=== PATIENT | female | born 1960 | race Caucasian/White ===

== ENCOUNTER 2019-08-27 09:24 | Outpatient (CLI) | payer MEDICARE, MEDICAID, SELFPAY ==
[2019-08-27 10:26] LABS: Basophils # 0.1 10^3/uL (0.0-0.1); Basophils % 1.5 %; Eosinophils # 0.5 10^3/uL (0.0-0.8); Eosinophils % 7.9 %; Hematocrit 38.8 % (37.0-47.0); Hemoglobin 12.6 g/dL (11.5-15.3); Lymphocytes # 1.4 10^3/uL (0.8-4.8); Lymphocytes % 24.1 %; Mean Corpuscular HGB Conc 32.5 g/dL (30.0-36.0); Mean Corpuscular Hemoglobin 30.3 pg (28.0-34.0); Mean Corpuscular Volume 93.3 fL (81-99); Mean Platelet Volume 12.6 fL (7.4-10.4); Monocytes # 0.5 10^3/uL (0.2-0.9); Monocytes % 9.1 %; Neutrophils # 3.3 10^3/uL (1.8-7.7); Neutrophils % 57.1 %; Nucleated Red Blood Cells % 0 %; Platelet Count 174 10^3/cmm (130-400); Red Blood Count 4.16 10^6/uL (4.1-5.3); Red Cell Distribution Width 14.8 % (12.1-15.1); White Blood Count 5.9 10^3/uL (4.0-10.0)
[2019-08-27 10:48] LABS: Alanine Aminotransferase 21 U/L (0-33); Albumin Level 3.7 g/dL (3.5-5.2); Alkaline Phosphatase 94 IU/L (35-105); Anion Gap 14.1 (5-19); Aspartate Amino Transferase 25 U/L (0-32); Blood Urea Nitrogen 14 mg/dL (6-20); Calcium 9.5 mg/dL (8.5-10.5); Carbon Dioxide 28 mmol/L (22-29); Chloride 100 mmol/L (98-107); Globulin 3.1 g/dL (1.3-4.6); Glomerular Filtration Rate 64.1 mL/min (90-130); Glucose 111 mg/dL (74-109); Potassium 4.1 mmol/L (3.5-5.1); Sodium 138 mmol/L (136-145); Total Bilirubin 0.4 mg/dL (0.15-1.2); Total Protein 6.8 g/dL (6.6-8.7)
[2019-08-27 11:06] LABS: Slide Review Slide Review Perform
[2019-08-28 09:07] LABS: PROTEIN, TOTAL 5.2 g/dL (6.1-8.1)
[2019-08-28 14:26] LABS: ALBUMIN 3.1 g/dL (3.8-4.8); ALPHA 1 GLOBULIN 0.2 g/dL (0.2-0.3); ALPHA 2 GLOBULIN 0.5 g/dL (0.5-0.9); BETA 1 GLOBULIN 0.4 g/dL (0.4-0.6); BETA 2 GLOBULIN 0.3 g/dL (0.2-0.5); GAMMA GLOBULIN 0.7 g/dL (0.8-1.7)
[2019-08-28 14:56] LABS: KAPPA LIGHT CHAIN, FREE, SERUM 30.1 mg/L (3.3-19.4); KAPPA/LAMBDA LIGHT CHAINS FREE 1.51 (0.26-1.65); LAMBDA LIGHT CHAIN, FREE, SERU 19.9 mg/L (5.7-26.3)
[2019-08-30 20:01] LABS: Anti-Cardiolipin IgA AB <11 APL (<=11); CARDIOLIPIN AB (IGG) <14 GPL (<=14); CARDIOLIPIN AB (IGM) <12 MPL (<=12)
== END 2019-08-27 09:25 | disposition home or self-care (01) ==
LOC: ONCMED 09:25
PROVIDERS: Family Provider Family Medicine; PCP Family Medicine; Visit Provider Internal Medicine Medical Oncology
DX: C90.00 Multiple myeloma not having achieved remission (principal)
CPT/HCPCS: 80053; 83883; 84155; 84165; 85025; 86147

== ENCOUNTER 2019-09-03 08:38 | Outpatient (CLI) | payer MEDICARE, MEDICAID, SELFPAY ==
[2019-09-03] MEDS: sodium chloride 0.9% 250 ML IV (09:44)
--- NOTE | 2019-09-03 19:32 | ONC FU_ITS ---
Dr. Edmond Patient Follow-Up Note Patient: Christina Willard Unit #: [id number]: 1960 Dicatated By: Samy Edmond M.D.Date of Visit:Sep 03, 2019 Onc Med Follow-up/Prog Note Chief Complaint: Myeloma. History of Present Illness: This is a 58 year-old woman with IgG kappa myeloma. She had been found to have a monoclonal protein in the serum in May of 2011. Protein electrophoresis at that time showed an IgG kappa monoclonal band which quantitated at 1.80 g/dL. The free light chain assay showed a significantly elevated free kappa light chain at 541 mg/L. The beta 2 microglobulin level was just slightly elevated at 3.0 mg/L. There is no monoclonal protein in the urine, and there were no lytic lesions noted on her skeletal survey. Bone marrow aspiration/biopsy in June of 2011 did show evidence of a plasma cell dyscrasia with plasma cells estimated at 10% of the marrow cellularity. The FISH panel for myeloma showed a gain at 9Q34 and at 15Q24. A PET/CT in August 2011 showed a heterogeneous pattern of increased FDG uptake by the bone marrow suspicious for disseminated involvement of multiple myeloma. There were no discrete osteolytic lesions identified. She was evaluated at [facility] in September of 2011. 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 In October 2012 she was found to have lytic bone involvement in the spine, and at that point she began treatment in Revlimid/dexamethasone. She had multiple toxicities during the first cycle with the Revlimid dosed at 25 mg. Beginning with cycle 2 the dosage was reduced to 10 mg, and she then tolerated it well. She had a good response by followup protein electrophoresis. As of February 2013 she had completed 5 cycles of treatment. 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 On a follow-up visit at [facility] in July 2013, her repeat bone marrow aspiration/biopsy showed no evidence of monoclonal plasmacytosis. Her lab studies, though, did show residual monoclonal protein in the serum, and the serum free light chain assay showed a slightly elevated kappa/lambda ratio. She then started maintenance Revlimid at 5 mg daily. She also continued monthly Zometa infusions for the lytic bone involvement. She tolerated the Zometa infusions adequately with a steroid premedication. By March 2015 she had complained of worsening of her back pain, and she also had reported that her legs tended to give out . A bone scan on 04/07/2015 showed no definite evidence of metastatic disease, but there did appear to be increased compression fractures at T11 and T12 and to lesser extent at L1 compared to previous imaging studies from 2012. She had further evaluation with MRI of the thoracic and lumbar spine on 06/16/2015. That study reported a severe remote compression fracture involving T11 and mild remote compression fracture involving T12, but with no evidence of active neoplastic disease and no evidence of significant spinal canal compromise. There was abnormal signal intensity and enhancement involving the T10 pedicle on the right with an apparent nondisplaced fracture. It was uncertain whether the fracture was pathologic associated with myeloma versus benign insufficiency fracture. Thus far during her follow-up there has been no definite evidence of progression of the myeloma. She has continued her maintenance Revlimid. As of May 2015 the interval of her Zometa infusions was changed to every 3 months. Her other medical illnesses include hypertension, allergic rhinitis, and celiac disease. She is known to have degenerative arthritis and degenerative disc disease in the spine. She has been followed by Dr. Mckeon for multinodular goiter. She did have a thyroid surgery in December 2011. Pathology was consistent with autoimmune thyroiditis. She has since then been seeing an wax bleacher in [place]. I had previously been following her for elevated hemoglobin/hematocrit levels. She had a negative JAK2 gene mutation study, so I had felt that it was unlikely that she had polycythemia rubra vera. She had been phlebotomized occasionally, because she had reported that she felt better with her hematocrit level below 45%. She has been on oxygen at night for nocturnal oxygen desaturation, and she also was confirmed to have obstructive sleep apnea. In August 2012, prior to starting treatment, she was admitted to the hospital with sepsis due to strep pneumoniae. I don't think a specific source for that was determined. She had undergone CT myelogram 9 days prior to the admission and she had a repeat PET/CT just several days before. She had a good recovery following antibiotic therapy, but on subsequent followup she was noted to have a diastolic heart murmur. Transesophageal echocardiogram did show moderate aortic regurgitation, but there were no vegetations noted and her LV function appeared adequate. INTERIM HISTORY: During follow-up she has continued maintenance Revlimid 5 mg daily, and she has continued Zometa infusions every 3 months. There has been no monoclonal protein identifiable on her protein electrophoresis studies. She has had a mildly elevated kappa free light chain on the free light chain assay, but with normal kappa/lambda ratio. She is seen for a scheduled visit. She has not been feeling as good lately, mainly due to increased pain in her back and legs. Her activity is very limited. She is still trying to do some light work at home. Her ECOG score is 2. She still has good appetite. She has no fever, night sweats, or hot flashes. She recently was treated for a sinus infection, but those symptoms are better now. She has shortness of breath with activity. She has not been having chest pain. She has occasional acid reflux. She has no other GI or complaints. She also has some pain in the neck area. She has numbness/tingling in her legs and feet with more prolonged standing. Medications: Aspirin 1 (81 mg) Tablet Oral daily, Atenolol 1 (50 mg) Tablet Oral daily, Azelastine HCl 1 (137 mcg/spray) Solution Nasal PRN, Bisacodyl 5 mg - Take 1 - 2 Tablet, enteric coated Oral daily PRN, Calcium 1 (600 mg) Tablet Oral daily, Dilaudid 2 mg - Take 0.5 Tablet Oral t.i.d. PRN, Flexeril 10 mg - Take 0.5 - 1 Tablet Oral q 8 hours PRN, Flonase 1 spray(s) (of 50 mcg/act) Suspension Nasal daily, Gas-X Extra Strength Take Tablet, chewable Oral PRN, Lasix 1 (20 mg) Tablet Oral daily PRN, levothyroxine 1 (50 mcg) Tablet Oral daily, Levothyroxine Sodium 200 mcg - Take 1 Tablet Oral daily, LORazepam 1 (1 mg) Tablet Oral q 8 hours PRN, Magnesium Tablet Oral PRN, Multivitamin Adult 1 Tablet Oral daily, Nasal [place] Solution Nasal PRN, Olopatadine HCl 1 drop(s) (of 0.2 %) Solution Ophthalmic PRN, Pantoprazole Sodium 1 (40 mg) Tablet, enteric coated Oral daily, Potassium 1 (99 mg) Tablet Oral PRN, Revlimid 1 (5 mg) Capsule Oral daily, traMADol HCl 1 Tablet (of 50 mg) Oral PRN, Tylenol Extra Strength 500 mg - Take 1 Tablet Oral t.i.d. PRN, Ventolin HFA 1 (108 (90 base) mcg/act) Aerosol, solution Inhalation PRN, Vitamin D3 1 (400 Units) Tablet Oral daily Allergies: Codeine-Brompheniramine, gluten, voltaren gel, and Zithromax. Review of Systems: Constitutional - Her energy is not been good. Her activity has been more limited lately due to her back pain. Appetite is still good. She has no fever, night sweats, or hot flashes. ECOG score is 2, ENMT - She had recently seen Dr. Joyner for a sinus infection. Her symptoms have resolved. She has recurring sores in her mouth. She uses salt water rinses. No sore throat or difficulty swallowing, Hematologic/Lymphatic - She bruises easily, Respiratory - She has shortness of breath upon exertion. No cough. No pleuritic pain or hemoptysis, Cardiovascular - No angina pain. No palpitations, Gastrointestinal - No nausea or vomiting. She has some heartburn and acid reflux. No diarrhea or constipation. No blood in the stool or black stools, Genitourinary (F) - No dysuria or hematuria. No urinary frequency. No urgency or incontinence, Musculoskeletal - She has pain in her back and legs and she also has pain in her neck, Integumentary - No skin complications, Neurologic - She has headaches. No dizziness. She has numbness and tingling in her feet when she is on them for a long time, Psychiatric - She has anxiety and depression. She does not sleep well at night. Vital Signs: Performed on Sep 03, 2019 08:48 Height - 65.00 in Weight - 283.2 lbs (LOW) BSA - 2.29 sq.m BMI - 47.13 (HIGH) Temperature - 97.4 F (LOW) Pulse - 49 /min (LOW) Respiration - 22 /min BP - 158/70 mm(hg) (HIGH) O2 Sat - 97 % Pain - 4 Physical Examination: Constitutional - She has limited mobility, Eyes - Sclerae nonicteric. Conjunctivae clear, ENMT - No lesions noted in the oral cavity, Hematologic/Lymphatic - No cervical, clavicular, or axillary adenopathy, Respiratory - Lungs are clear with good air movement bilaterally, Cardiovascular - Heart rhythm is regular. There is a II/ systolic and a grade II/IV diastolic murmur at the base and left sternal border. There is no gallop or rub noted, Abdomen - Moderately distended. Liver and spleen are not enlarged. There is no abdominal mass or ascites noted and there is no inguinal adenopathy, Extremities - No edema, Neurologic - No focal neurologic deficits noted. Lab/Imaging: Test performed on Aug 27, 2019 10:00 Sodium 138 mmol/L Potassium 4.1 mmol/L Chloride 100 mmol/L CO2 28 mmol/L Anion Gap 14.1 BUN 14 mg/dL Creatinine 0.9 mg/dL Cr Clearance (Est) 138.9900 mL/min eGFR 64.1 mL/min Glucose 111 mg/dL Calcium 9.5 mg/dL Protein, Total 6.8 g/dL Albumin 3.7 g/dL Globulin 3.1 g/dL Bilirubin, Total 0.4 mg/dL ALT (SGPT) 21 U/L AST (SGOT) 25 U/L Alkaline Phosphatase 94 IU/L WBC 5.9 10 3/uL RBC 4.16 10 6/uL HGB 12.6 g/dL HCT 38.8 % MCV 93.3 fL MCH 30.3 pg MCHC 32.5 g/dL RDW 14.8 % Platelet Count 174 10 3/cmm MPV 12.6 fL Neutrophils 3.3 10 3/uL Lymphocytes 1.4 10 3/uL Monocytes 0.5 10 3/uL Eosinophils 0.5 10 3/uL Basophils 0.1 10 3/uL Neutrophil % 57.1 % Lymphocyte % 24.1 % Monocyte % 9.1 % Eosinophil % 7.9 % Basophils % 1.5 % CBC Slide Review Slide Review Perform SLIDE REVIEW AGREES WITH AUTOMATED RESULTS ST Cardiolipin Ab IgA < 11 APL Impression: 1. Patient with IgG kappa myeloma, initially diagnosed in May 2011. 2. She began treatment with Revlimid/dexamethasone in October 2012 after she was found to have evidence of lytic bone involvement in the spine. She had a very good clinical response. 3. She underwent high-dose melphalan/stem cell transplant at [facility] on 04/30/2013. She had an uneventful recovery. 4. She then continued maintenance Revlimid and she continued IV Zometa infusions for the lytic bone involvement. Her monoclonal protein has been undetectable by protein electrophoresis since January 2016. Her other medical illnesses include: 5. Hypertension. 6. Aortic valvular insufficiency. 7. Obstructive sleep apnea. 8. Celiac disease. 9. Degenerative arthritis/degenerative disease of the spine. 10. Multinodular goiter. 11. Allergic rhinitis. During follow-up she has continued to have chronic pain associated with underlying degenerative disease of the spine. Thus far there as been no recurrence of monoclonal protein or other indication of recurrence/progression of her myeloma. Her back pain has worsened gradually over the past 6 months or so, and her activity has been more limited. She has otherwise remained stable clinically. Plan: She continues maintenance Revlimid 5 mg daily. She will be given 4 mg of zoledronic acid by IV infusion. She will be scheduled for a followup visit in 3 months. As she has been on fairly long-term bisphonate therapy, I will plan to transition her bone health treatment to denosumab beginning with that visit. Signed By: Samy Edmond M.D. <<Signature on File>>
== END 2019-09-03 08:39 | disposition home or self-care (01) ==
LOC: ONCMED 08:38
PROVIDERS: Family Provider Family Medicine; PCP Family Medicine; Visit Provider Internal Medicine Medical Oncology
DX: C90.00 Multiple myeloma not having achieved remission (principal); I10 Essential (primary) hypertension; K90.0 Celiac disease; E89.0 Postprocedural hypothyroidism; G47.33 Obstructive sleep apnea (adult) (pediatric); I35.1 Nonrheumatic aortic (valve) insufficiency; F41.8 Other specified anxiety disorders; M47.9 Spondylosis, unspecified; G89.29 Other chronic pain; Z94.84 Stem cells transplant status; Z79.899 Other long term (current) drug therapy; Z79.82 Long term (current) use of aspirin
CPT/HCPCS: 82040; 96365; 96367; 99214; J1100; J3489; J7050

== ENCOUNTER 2019-12-07 08:25 | Outpatient (CLI) | payer MEDICARE, MEDICAID, SELFPAY ==
[2019-12-07 08:51] LABS: Basophils # 0.1 10^3/uL (0.0-0.1); Basophils % 1.4 %; Eosinophils # 0.4 10^3/uL (0.0-0.8); Eosinophils % 5.9 %; Hematocrit 38.9 % (37.0-47.0); Hemoglobin 12.5 g/dL (11.5-15.3); Lymphocytes # 1.6 10^3/uL (0.8-4.8); Lymphocytes % 25.1 %; Mean Corpuscular HGB Conc 32.1 g/dL (30.0-36.0); Mean Corpuscular Hemoglobin 29.8 pg (28.0-34.0); Mean Corpuscular Volume 92.6 fL (81-99); Monocytes # 0.8 10^3/uL (0.2-0.9); Monocytes % 12.1 %; Neutrophils # 3.6 10^3/uL (1.8-7.7); Neutrophils % 55.2 %; Nucleated Red Blood Cells % 0 %; Platelet Count 179 10^3/cmm (130-400); Red Cell Distribution Width 15.3 % (12.1-15.1); White Blood Count 6.5 10^3/uL (4.0-10.0)
[2019-12-07 09:27] LABS: 25 Hydroxy Vitamin D 23 ng/mL (30-100); Alanine Aminotransferase 22 U/L (0-33); Albumin Level 3.9 g/dL (3.5-5.2); Alkaline Phosphatase 78 IU/L (35-105); Anion Gap 16.2 (5-19); Aspartate Amino Transferase 24 U/L (0-32); Blood Urea Nitrogen 13 mg/dL (8-23); Calcium 10.2 mg/dL (8.5-10.5); Carbon Dioxide 27 mmol/L (22-29); Chloride 102 mmol/L (98-107); Globulin 2.6 g/dL (1.3-4.6); Glomerular Filtration Rate 73.2 mL/min (90-130); Glucose 100 mg/dL (65-115); Osmolality Calculated 288 mOsm/kg (285-295); Potassium 4.2 mmol/L (3.5-5.1); Sodium 141 mmol/L (136-145); Total Bilirubin 0.5 mg/dL (0.15-1.2); Total Protein 6.5 g/dL (6.6-8.7)
[2019-12-08 08:52] LABS: PROTEIN, TOTAL 6.1 g/dL (6.1-8.1)
[2019-12-10 12:15] LABS: ALBUMIN 3.6 g/dL (3.8-4.8); ALPHA 1 GLOBULIN 0.3 g/dL (0.2-0.3); ALPHA 2 GLOBULIN 0.6 g/dL (0.5-0.9); BETA 1 GLOBULIN 0.5 g/dL (0.4-0.6); BETA 2 GLOBULIN 0.4 g/dL (0.2-0.5); GAMMA GLOBULIN 0.8 g/dL (0.8-1.7)
[2019-12-10 15:30] LABS: KAPPA LIGHT CHAIN, FREE, SERUM 30.1 mg/L (3.3-19.4); KAPPA/LAMBDA LIGHT CHAINS FREE 1.45 (0.26-1.65); LAMBDA LIGHT CHAIN, FREE, SERU 20.8 mg/L (5.7-26.3)
== END 2019-12-07 08:26 | disposition home or self-care (01) ==
LOC: ONCMED 08:28
PROVIDERS: PCP Family Medicine; Visit Provider Internal Medicine Medical Oncology
DX: C90.00 Multiple myeloma not having achieved remission (principal); C79.51 Secondary malignant neoplasm of bone; D47.2 Monoclonal gammopathy; D75.1 Secondary polycythemia
CPT/HCPCS: 36415; 80053; 82306; 83883; 84155; 84165; 85025

== ENCOUNTER 2019-12-14 07:41 | Outpatient (CLI) | payer MEDICARE, MEDICAID, SELFPAY ==
[2019-12-14] MEDS: denosumab 120 mg SDV SUBCUT (08:45)
--- NOTE | 2019-12-17 17:23 | ONC FU_ITS ---
Dr. Edmond Patient Follow-Up Note Patient: Christina Willard Unit #: [id number]: 1960 Dicatated By: Samy Edmond M.D.Date of Visit:December 14, 2019 Onc Med Follow-up/Prog Note Chief Complaint: Myeloma. History of Present Illness: This is a 59 year-old woman with IgG kappa myeloma. She had been found to have a monoclonal protein in the serum in May of 2011. Protein electrophoresis at that time showed an IgG kappa monoclonal band which quantitated at 1.80 g/dL. The free light chain assay showed a significantly elevated free kappa light chain at 541 mg/L. The beta 2 microglobulin level was just slightly elevated at 3.0 mg/L. There is no monoclonal protein in the urine, and there were no lytic lesions noted on her skeletal survey. Bone marrow aspiration/biopsy in June of 2011 did show evidence of a plasma cell dyscrasia with plasma cells estimated at 10% of the marrow cellularity. The FISH panel for myeloma showed a gain at 9Q34 and at 15Q24. A PET/CT in August 2011 showed a heterogeneous pattern of increased FDG uptake by the bone marrow suspicious for disseminated involvement of multiple myeloma. There were no discrete osteolytic lesions identified. She was evaluated at [facility] in September of 2011. 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 In October 2012 she was found to have lytic bone involvement in the spine, and at that point she began treatment in Revlimid/dexamethasone. She had multiple toxicities during the first cycle with the Revlimid dosed at 25 mg. Beginning with cycle 2 the dosage was reduced to 10 mg, and she then tolerated it well. She had a good response by followup protein electrophoresis. As of February 2013 she had completed 5 cycles of treatment. 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 On a follow-up visit at [facility] in July 2013, her repeat bone marrow aspiration/biopsy showed no evidence of monoclonal plasmacytosis. Her lab studies, though, did show residual monoclonal protein in the serum, and the serum free light chain assay showed a slightly elevated kappa/lambda ratio. She then started maintenance Revlimid at 5 mg daily. She also continued monthly Zometa infusions for the lytic bone involvement. She tolerated the Zometa infusions adequately with a steroid premedication. By March 2015 she had complained of worsening of her back pain, and she also had reported that her legs tended to give out . A bone scan on 04/07/2015 showed no definite evidence of metastatic disease, but there did appear to be increased compression fractures at T11 and T12 and to lesser extent at L1 compared to previous imaging studies from 2012. She had further evaluation with MRI of the thoracic and lumbar spine on 06/16/2015. That study reported a severe remote compression fracture involving T11 and mild remote compression fracture involving T12, but with no evidence of active neoplastic disease and no evidence of significant spinal canal compromise. There was abnormal signal intensity and enhancement involving the T10 pedicle on the right with an apparent nondisplaced fracture. It was uncertain whether the fracture was pathologic associated with myeloma versus benign insufficiency fracture. Thus far during her follow-up there has been no definite evidence of progression of the myeloma. She has continued her maintenance Revlimid. As of May 2015 the interval of her Zometa infusions was changed to every 3 months. Her other medical illnesses include hypertension, allergic rhinitis, and celiac disease. She is known to have degenerative arthritis and degenerative disc disease in the spine. She has been followed by Dr. Mckeon for multinodular goiter. She did have a thyroid surgery in December 2011. Pathology was consistent with autoimmune thyroiditis. She has since then been seeing an subway repair supervisor in [place]. I had previously been following her for elevated hemoglobin/hematocrit levels. She had a negative JAK2 gene mutation study, so I had felt that it was unlikely that she had polycythemia rubra vera. She had been phlebotomized occasionally, because she had reported that she felt better with her hematocrit level below 45%. She has been on oxygen at night for nocturnal oxygen desaturation, and she also was confirmed to have obstructive sleep apnea. In August 2012, prior to starting treatment, she was admitted to the hospital with sepsis due to strep pneumoniae. I don't think a specific source for that was determined. She had undergone CT myelogram 9 days prior to the admission and she had a repeat PET/CT just several days before. She had a good recovery following antibiotic therapy, but on subsequent followup she was noted to have a diastolic heart murmur. Transesophageal echocardiogram did show moderate aortic regurgitation, but there were no vegetations noted and her LV function appeared adequate. INTERIM HISTORY: During follow-up she has continued maintenance Revlimid 5 mg daily, and she has continued Zometa infusions every 3 months. There has been no monoclonal protein identifiable on her protein electrophoresis studies. She has had a mildly elevated kappa free light chain on the free light chain assay, but with normal kappa/lambda ratio. She is seen for a scheduled visit. She has been feeling about the same. Her energy is about like normal. She has limited activity due to her back pain, but she is able to do some light work. She does not have good appetite, she has gained weight. She has not had fever. She has a little bit of sweating at night and some hot flashes. She always has sinus drainage. She has shortness of breath with activity. She does not complain of cough and she has not been having chest pain. She has a little bit of acid reflux. She says her bowels have been overactive. She has been trying to stay on a gluten-free diet. Bladder function has been okay. She says her pain is always there. The most significant is in the lower back and legs. She does not complain of headache or dizziness. She has no focal neurologic symptoms. Medications: Aspirin 1 (81 mg) Tablet Oral daily, Atenolol 1 (50 mg) Tablet Oral daily, Azelastine HCl 1 (137 mcg/spray) Solution Nasal PRN, Bisacodyl 5 mg - Take 1 - 2 Tablet, enteric coated Oral daily PRN, Calcium 1 (600 mg) Tablet Oral daily, Dilaudid 2 mg - Take 0.5 Tablet Oral t.i.d. PRN, Flexeril 10 mg - Take 0.5 - 1 Tablet Oral q 8 hours PRN, Flonase 1 spray(s) (of 50 mcg/act) Suspension Nasal daily, Gas-X Extra Strength Take Tablet, chewable Oral PRN, Lasix 1 (20 mg) Tablet Oral daily PRN, levothyroxine 1 (50 mcg) Tablet Oral daily, Levothyroxine Sodium 200 mcg - Take 1 Tablet Oral daily, LORazepam 1 (1 mg) Tablet Oral q 8 hours PRN, Magnesium Tablet Oral PRN, Multivitamin Adult 1 Tablet Oral daily, Nasal [place] Solution Nasal PRN, Olopatadine HCl 1 drop(s) (of 0.2 %) Solution Ophthalmic PRN, Pantoprazole Sodium 1 (40 mg) Tablet, enteric coated Oral daily, Potassium 1 (99 mg) Tablet Oral PRN, Revlimid 1 (5 mg) Capsule Oral daily, traMADol HCl 1 Tablet (of 50 mg) Oral PRN, Tylenol Extra Strength 500 mg - Take 1 Tablet Oral t.i.d. PRN, Ventolin HFA 1 (108 (90 base) mcg/act) Aerosol, solution Inhalation PRN, Vitamin D3 1 (400 Units) Tablet Oral daily Allergies: Codeine-Brompheniramine, gluten, voltaren gel, and Zithromax. Review of Systems: Constitutional - She has limited activity due to her back pain. She is still doing some light work. Appetite is still good. She has no fever. She has a little bit of night sweating and hot flashes. ECOG score is 1, ENMT - She has sinus congestion/drainage. She has recurring sores in her mouth. She uses salt water rinses. No sore throat or difficulty swallowing, Hematologic/Lymphatic - She bruises easily, Respiratory - She has shortness of breath with activity. No cough. No pleuritic pain or hemoptysis, Cardiovascular - No angina pain. No palpitations, Gastrointestinal - No nausea or vomiting. She has some acid reflux. Her bowels are overactive . No blood in the stool or black stools, Genitourinary (F) - No dysuria or hematuria. No urinary frequency. No urgency or incontinence, Musculoskeletal - Her pain is always there, mainly in the lower back and legs, Integumentary - She has a skin abrasion on left forearm, Neurologic - No headache or dizziness. No numbness/paresthesias or other focal neurologic symptoms, Psychiatric - She has anxiety and depression. She does not sleep well at night. Vital Signs: Performed on December 14, 2019 08:12 Height - 65.00 in Weight - 285.4 lbs (HIGH) BSA - 2.30 sq.m BMI - 47.49 (HIGH) Temperature - 97.1 F (LOW) Pulse - 48 /min (LOW) Respiration - 24 /min BP - 174/65 mm(hg) (HIGH) O2 Sat - 97 % Pain - 4 Physical Examination: Constitutional - She has poor mobility. She does not appear acutely ill, Eyes - Sclerae nonicteric. Conjunctivae clear, ENMT - No lesions noted in the oral cavity, Hematologic/Lymphatic - No cervical, clavicular, or axillary adenopathy, Respiratory - Lungs are clear with good air movement bilaterally, Cardiovascular - Heart rhythm is regular. There is a II/ systolic and a grade II/IV diastolic murmur at the base and left sternal border. There is no gallop or rub noted, Abdomen - Moderately distended. Liver and spleen are not enlarged. There is no abdominal mass or ascites noted and there is no inguinal adenopathy, Extremities - There are mild venous stasis changes in both legs. There is no edema, Neurologic - No focal neurologic deficits noted. Lab/Imaging: Test performed on December 07, 2019 08:35 Sodium 141 mmol/L Vitamin D (25-Hydroxy), Total 23 ng/mL Potassium 4.2 mmol/L Chloride 102 mmol/L CO2 27 mmol/L Anion Gap 16.2 BUN 13 mg/dL Creatinine 0.8 mg/dL Cr Clearance (Est) 151.6500 mL/min eGFR 73.2 mL/min Glucose 100 mg/dL Calcium 10.2 mg/dL Protein, Total 6.5 g/dL Albumin 3.9 g/dL Globulin 2.6 g/dL Bilirubin, Total 0.5 mg/dL ALT (SGPT) 22 U/L AST (SGOT) 24 U/L Alkaline Phosphatase 78 IU/L WBC 6.5 10 3/uL RBC 4.20 10 6/uL HGB 12.5 g/dL HCT 38.9 % MCV 92.6 fL MCH 29.8 pg MCHC 32.1 g/dL RDW 15.3 % Platelet Count 179 10 3/cmm MPV 12.0 fL Neutrophils 3.6 10 3/uL Lymphocytes 1.6 10 3/uL Monocytes 0.8 10 3/uL Eosinophils 0.4 10 3/uL Basophils 0.1 10 3/uL Neutrophil % 55.2 % Lymphocyte % 25.1 % Monocyte % 12.1 % Eosinophil % 5.9 % Basophils % 1.4 % Impression: 1. Patient with IgG kappa myeloma, initially diagnosed in May 2011. 2. She began treatment with Revlimid/dexamethasone in October 2012 after she was found to have evidence of lytic bone involvement in the spine. She had a very good clinical response. 3. She underwent high-dose melphalan/stem cell transplant at [facility] on 04/30/2013. She had an uneventful recovery. 4. She then continued maintenance Revlimid and she continued IV Zometa infusions for the lytic bone involvement. Her monoclonal protein has been undetectable by protein electrophoresis since January 2016. Her other medical illnesses include: 5. Hypertension. 6. Aortic valvular insufficiency. 7. Obstructive sleep apnea. 8. Celiac disease. 9. Degenerative arthritis/degenerative disease of the spine. 10. Multinodular goiter. 11. Allergic rhinitis. During follow-up she has continued to have chronic pain associated with underlying degenerative disease of the spine. Thus far there has been no recurrence of monoclonal protein or other indication of recurrence/progression of her myeloma. Her overall clinical status at this point appears stable. Plan: She continues maintenance Revlimid 5 mg daily. She is now going to transition her treatment for bone health to denosumab 120 mg by subcutaneous injection. She will restart her vitamin D3 supplement. I will see her again in 3 months. Signed By: Samy Edmond M.D. <<Signature on File>>
== END 2019-12-14 07:42 | disposition home or self-care (01) ==
LOC: ONCMED 07:44
PROVIDERS: PCP Family Medicine; Visit Provider Internal Medicine Medical Oncology
DX: C90.00 Multiple myeloma not having achieved remission (principal); Z94.84 Stem cells transplant status; I10 Essential (primary) hypertension; I35.1 Nonrheumatic aortic (valve) insufficiency; G47.33 Obstructive sleep apnea (adult) (pediatric); K90.0 Celiac disease; M48.9 Spondylopathy, unspecified; M19.90 Unspecified osteoarthritis, unspecified site; E04.2 Nontoxic multinodular goiter; J30.9 Allergic rhinitis, unspecified; Z79.899 Other long term (current) drug therapy
CPT/HCPCS: 96372; 99214; J0897

== ENCOUNTER 2020-04-01 09:06 | Outpatient (CLI) | payer MEDICARE, MEDICAID, SELFPAY ==
[2020-04-01 09:47] LABS: Basophils # 0.1 10^3/uL (0.0-0.1); Basophils % 2.3 %; Eosinophils # 0.4 10^3/uL (0.0-0.8); Eosinophils % 7.4 %; Hematocrit 39.6 % (37.0-47.0); Hemoglobin 12.9 g/dL (11.5-15.3); Lymphocytes # 1.8 10^3/uL (0.8-4.8); Mean Corpuscular HGB Conc 32.6 g/dL (30.0-36.0); Mean Corpuscular Hemoglobin 30.5 pg (28.0-34.0); Mean Corpuscular Volume 93.6 fL (81-99); Monocytes # 0.6 10^3/uL (0.2-0.9); Monocytes % 10.4 %; Neutrophils # 2.73 10^3/uL (1.8-7.7); Neutrophils % 48.4 %; Nucleated Red Blood Cells % 0 %; Platelet Count 210 10^3/cmm (130-400); Red Blood Count 4.23 10^6/uL (4.1-5.3); Red Cell Distribution Width 15.6 % (12.1-15.1); White Blood Count 5.7 10^3/uL (4.0-10.0)
[2020-04-01 10:29] LABS: 25 Hydroxy Vitamin D 22 ng/mL (30-100); Alanine Aminotransferase 24 U/L (0-33); Albumin Level 4.2 g/dL (3.5-5.2); Alkaline Phosphatase 79 IU/L (35-105); Anion Gap 14.3 (5-19); Aspartate Amino Transferase 24 U/L (0-32); Blood Urea Nitrogen 17 mg/dL (8-23); Calcium 9.3 mg/dL (8.5-10.5); Carbon Dioxide 28 mmol/L (22-29); Chloride 101 mmol/L (98-107); Globulin 2.7 g/dL (1.3-4.6); Glomerular Filtration Rate 73.2 mL/min (90-130); Glucose 104 mg/dL (65-115); Osmolality Calculated 285 mOsm/kg (285-295); Potassium 4.3 mmol/L (3.5-5.1); Sodium 139 mmol/L (136-145); Total Bilirubin 0.5 mg/dL (0.15-1.2); Total Protein 6.9 g/dL (6.6-8.7)
[2020-04-02 10:37] LABS: PROTEIN, TOTAL 6.3 g/dL (6.1-8.1)
[2020-04-02 13:26] LABS: KAPPA/LAMBDA LIGHT CHAINS FREE 1.62 (0.26-1.65); LAMBDA LIGHT CHAIN, FREE, SERU 21.6 mg/L (5.7-26.3)
[2020-04-02 15:52] LABS: ALBUMIN 3.7 g/dL (3.8-4.8); ALPHA 1 GLOBULIN 0.3 g/dL (0.2-0.3); ALPHA 2 GLOBULIN 0.7 g/dL (0.5-0.9); BETA 1 GLOBULIN 0.5 g/dL (0.4-0.6); BETA 2 GLOBULIN 0.3 g/dL (0.2-0.5); GAMMA GLOBULIN 0.8 g/dL (0.8-1.7)
[2020-04-03 16:53] LABS: CREATININE, 24 HOUR URINE 0.82 g/24 h (0.50-2.15); PROTEIN, TOTAL, 24 HR UR 80 mg/24 h (<150); Protein/Creatinine Ratio 0.098 (< OR = 0.114); Protein/Creatinine Ratio 98 mg/g creat (< OR = 114)
[2020-04-04 17:28] LABS: ALBUMIN 0 %; ALPHA-1-GLOBULINS 0 %; ALPHA-2-GLOBULINS 0 %; BETA GLOBULINS 0 %; GAMMA GLOBULINS 0 %
== END 2020-04-01 09:07 | disposition home or self-care (01) ==
PROVIDERS: PCP Family Medicine; Visit Provider Internal Medicine Medical Oncology
DX: C90.00 Multiple myeloma not having achieved remission (principal); C79.51 Secondary malignant neoplasm of bone; E55.9 Vitamin D deficiency, unspecified
CPT/HCPCS: 80053; 82306; 83883; 84155; 84165; 85025

== ENCOUNTER 2020-04-07 05:43 | Outpatient (CLI) | payer MEDICARE, MEDICAID, SELFPAY ==
--- NOTE | 2020-04-11 16:25 | ONC FU_ITS ---
Dr. Edmond Patient Follow-Up Note Patient: Christina Willard Unit #: [id number]: [id number] Dicatated By: Samy Edmond M.D.Date of Visit:Apr 07, 2020 Onc Med Follow-up/Prog Note Chief Complaint: Myeloma. History of Present Illness: This is a 59 year-old woman with IgG kappa myeloma. She had been found to have a monoclonal protein in the serum in May of 2011. Protein electrophoresis at that time showed an IgG kappa monoclonal band which quantitated at 1.80 g/dL. The free light chain assay showed a significantly elevated free kappa light chain at 541 mg/L. The beta 2 microglobulin level was just slightly elevated at 3.0 mg/L. There is no monoclonal protein in the urine, and there were no lytic lesions noted on her skeletal survey. Bone marrow aspiration/biopsy in June of 2011 did show evidence of a plasma cell dyscrasia with plasma cells estimated at 10% of the marrow cellularity. The FISH panel for myeloma showed a gain at 9Q34 and at 15Q24. A PET/CT in August 2011 showed a heterogeneous pattern of increased FDG uptake by the bone marrow suspicious for disseminated involvement of multiple myeloma. There were no discrete osteolytic lesions identified. She was evaluated at [facility] in September of 2011. 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 In October 2012 she was found to have lytic bone involvement in the spine, and at that point she began treatment in Revlimid/dexamethasone. She had multiple toxicities during the first cycle with the Revlimid dosed at 25 mg. Beginning with cycle 2 the dosage was reduced to 10 mg, and she then tolerated it well. She had a good response by followup protein electrophoresis. As of February 2013 she had completed 5 cycles of treatment. 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 On a follow-up visit at [facility] in July 2013, her repeat bone marrow aspiration/biopsy showed no evidence of monoclonal plasmacytosis. Her lab studies, though, did show residual monoclonal protein in the serum, and the serum free light chain assay showed a slightly elevated kappa/lambda ratio. She then started maintenance Revlimid at 5 mg daily. She also continued monthly Zometa infusions for the lytic bone involvement. She tolerated the Zometa infusions adequately with a steroid premedication. By March 2015 she had complained of worsening of her back pain, and she also had reported that her legs tended to give out . A bone scan on 04/07/2015 showed no definite evidence of metastatic disease, but there did appear to be increased compression fractures at T11 and T12 and to lesser extent at L1 compared to previous imaging studies from 2012. She had further evaluation with MRI of the thoracic and lumbar spine on 06/16/2015. That study reported a severe remote compression fracture involving T11 and mild remote compression fracture involving T12, but with no evidence of active neoplastic disease and no evidence of significant spinal canal compromise. There was abnormal signal intensity and enhancement involving the T10 pedicle on the right with an apparent nondisplaced fracture. It was uncertain whether the fracture was pathologic associated with myeloma versus benign insufficiency fracture. Thus far during her follow-up there has been no definite evidence of progression of the myeloma. She has continued her maintenance Revlimid. As of May 2015 the interval of her Zometa infusions was changed to every 3 months. Her other medical illnesses include hypertension, allergic rhinitis, and celiac disease. She is known to have degenerative arthritis and degenerative disc disease in the spine. She has been followed by Dr. Mckeon for multinodular goiter. She did have a thyroid surgery in December 2011. Pathology was consistent with autoimmune thyroiditis. She has since then been seeing an environmental inspector in [place]. I had previously been following her for elevated hemoglobin/hematocrit levels. She had a negative JAK2 gene mutation study, so I had felt that it was unlikely that she had polycythemia rubra vera. She had been phlebotomized occasionally, because she had reported that she felt better with her hematocrit level below 45%. She has been on oxygen at night for nocturnal oxygen desaturation, and she also was confirmed to have obstructive sleep apnea. In August 2012, prior to starting treatment, she was admitted to the hospital with sepsis due to strep pneumoniae. I don't think a specific source for that was determined. She had undergone CT myelogram 9 days prior to the admission and she had a repeat PET/CT just several days before. She had a good recovery following antibiotic therapy, but on subsequent followup she was noted to have a diastolic heart murmur. Transesophageal echocardiogram did show moderate aortic regurgitation, but there were no vegetations noted and her LV function appeared adequate. INTERIM HISTORY: During follow-up she continued maintenance Revlimid 5 mg daily, and she continued Zometa infusions every 3 months. There was no monoclonal protein identifiable on her protein electrophoresis studies. She had a mildly elevated kappa free light chain on the free light chain assay, but with normal kappa/lambda ratio. As of her visit in November 2019 I had changed to treatment for her bone health to denosumab. She is seen for a scheduled visit. She reported having increased muscle cramps following her initial injection of denosumab and she also had some decline in her energy. Those symptoms had subsequently improved. However, on 02/26/2020 she was diagnosed with COVID. She has been symptomatic, but not severe enough to require hospitalization. At this point she still gets tired really easy and she has very limited activity. Her ECOG score is 2. Her appetite is okay. She has not recently had any fever. She does not have night sweats or hot flashes. She has soreness in her mouth, which comes and goes. She is not having cough, and she does not complain of shortness of breath or chest pain. She did have nausea/vomiting with the COVID, but that has resolved. She has acid reflux, which comes and goes. Bowel and bladder function have been okay. She was having back pain really bad and she also complains of her legs have been bothering her. She has been having headaches intermittently, and that is something new. She occasionally has numbness in her fingers. She has no other focal neurologic symptoms. Medications: Aspirin 1 (81 mg) Tablet Oral daily, Atenolol 1 (50 mg) Tablet Oral daily, Azelastine HCl 1 (137 mcg/spray) Solution Nasal PRN, Bisacodyl 5 mg - Take 1 - 2 Tablet, enteric coated Oral daily PRN, Calcium 1 (600 mg) Tablet Oral daily, Dilaudid 2 mg - Take 0.5 Tablet Oral t.i.d. PRN, Flexeril 10 mg - Take 0.5 - 1 Tablet Oral q 8 hours PRN, Flonase 1 spray(s) (of 50 mcg/act) Suspension Nasal daily, Gas-X Extra Strength Take Tablet, chewable Oral PRN, Lasix 1 (20 mg) Tablet Oral daily PRN, levothyroxine 1 (50 mcg) Tablet Oral daily, Levothyroxine Sodium 200 mcg - Take 1 Tablet Oral daily, LORazepam 1 (1 mg) Tablet Oral q 8 hours PRN, Magnesium Tablet Oral PRN, Multivitamin Adult 1 Tablet Oral daily, Nasal Lagro Solution Nasal PRN, Olopatadine HCl 1 drop(s) (of 0.2 %) Solution Ophthalmic PRN, Pantoprazole Sodium 1 (40 mg) Tablet, enteric coated Oral daily, Potassium 1 (99 mg) Tablet Oral PRN, Revlimid 1 (5 mg) Capsule Oral daily, traMADol HCl 1 Tablet (of 50 mg) Oral PRN, Tylenol Extra Strength 500 mg - Take 1 Tablet Oral t.i.d. PRN, Ventolin HFA 1 (108 (90 base) mcg/act) Aerosol, solution Inhalation PRN, Vitamin D3 1 (400 Units) Tablet Oral daily Allergies: Codeine-Brompheniramine, gluten, voltaren gel, and Zithromax. Review of Systems: Constitutional - She was diagnosed with COVID on 02/26/2020. She has recovered, she still tires real easily. Her activity is limited. She has good appetite. She has not had any more fever and she has no night sweating. ECOG score is 2, ENMT - She has sinus congestion/drainage. She has sore mouth, which comes and goes. No sore throat or difficulty swallowing, Hematologic/Lymphatic - No abnormal bruising or bleeding, Respiratory - No shortness of breath. No cough. No pleuritic pain or hemoptysis, Cardiovascular - No angina pain. No palpitations, Gastrointestinal - She had nausea with COVID. Her acid reflux comes and goes. No diarrhea or constipation. No blood in the stool or black stools, Genitourinary (F) - No dysuria or hematuria. No urinary frequency. No urgency or incontinence, Musculoskeletal - Her back pain was really bad, but now somewhat better. She still has a lot of pain in her legs. She reported increased muscle cramping after her denosumab injection in November, and the muscle cramping also worsened significantly during the COVID infection, Neurologic - She has been having headaches, which is new. No dizziness. She occasionally has numbness in her fingers. No other focal neurologic symptoms, Psychiatric - No anxiety or depression. She doesn't sleep well. Vital Signs: Performed on Apr 07, 2020 08:24 Height - 65.00 in Weight - 285.2 lbs (LOW) BSA - 2.30 sq.m BMI - 47.46 (HIGH) Temperature - 97.9 F (LOW) Pulse - 49 /min (LOW) Respiration - 24 /min BP - 158/68 mm(hg) (HIGH) O2 Sat - 97 % Pain - 4 Physical Examination: Constitutional - She does not appear acutely ill, Eyes - Sclerae nonicteric. Conjunctivae clear, ENMT - No lesions noted in the oral cavity, Hematologic/Lymphatic - No cervical, clavicular, or axillary adenopathy, Respiratory - Lungs are clear with good air movement bilaterally, Cardiovascular - Heart rhythm is regular. There is a II/ systolic and a grade II/IV diastolic murmur at the base and left sternal border. There is no gallop or rub noted, Abdomen - Moderately distended. Liver and spleen are not enlarged. There is no abdominal mass or ascites noted and there is no inguinal adenopathy, Extremities - No edema, Neurologic - No focal neurologic deficits noted. Lab/Imaging: Test performed on Apr 01, 2020 09:25 Sodium 139 mmol/L Vitamin D (25-Hydroxy), Total 22 ng/mL Potassium 4.3 mmol/L Chloride 101 mmol/L CO2 28 mmol/L Anion Gap 14.3 BUN 17 mg/dL Creatinine 0.8 mg/dL Cr Clearance (Est) 152.8300 mL/min eGFR 73.2 mL/min Glucose 104 mg/dL Calcium 9.3 mg/dL Protein, Total 6.9 g/dL Albumin 4.2 g/dL Globulin 2.7 g/dL Bilirubin, Total 0.5 mg/dL ALT (SGPT) 24 U/L AST (SGOT) 24 U/L Alkaline Phosphatase 79 IU/L WBC 5.7 10 3/uL RBC 4.23 10 6/uL HGB 12.9 g/dL HCT 39.6 % MCV 93.6 fL MCH 30.5 pg MCHC 32.6 g/dL RDW 15.6 % Platelet Count 210 10 3/cmm MPV 12.0 fL Neutrophils 2.73 10 3/uL Lymphocytes 1.8 10 3/uL Monocytes 0.6 10 3/uL Eosinophils 0.4 10 3/uL Basophils 0.1 10 3/uL Neutrophil % 48.4 % Lymphocyte % 31.0 % Monocyte % 10.4 % Eosinophil % 7.4 % Basophils % 2.3 % NRBC % 0 % Steward Free Light Chains 35.0 mg/L Lambda Free Light Chains 21.6 mg/L Steward/Lambda Free Ratio 1.62 Impression: 1. Patient with IgG kappa myeloma, initially diagnosed in May 2011. 2. She began treatment with Revlimid/dexamethasone in October 2012 after she was found to have evidence of lytic bone involvement in the spine. She had a very good clinical response. 3. She underwent high-dose melphalan/stem cell transplant at [facility] on 04/30/2013. She had an uneventful recovery. 4. She then continued maintenance Revlimid and she continued IV Zometa infusions for the lytic bone involvement. Her monoclonal protein has been undetectable by protein electrophoresis since January 2016. Her other medical illnesses include: 5. Hypertension. 6. Aortic valvular insufficiency. 7. Obstructive sleep apnea. 8. Celiac disease. 9. Degenerative arthritis/degenerative disease of the spine. 10. She has osteopenia with DEXA scan in April 2019 showing mean femoral neck T score of -1.4. 11. Multinodular goiter. 12. Allergic rhinitis. During follow-up she has continued to have chronic pain associated with underlying degenerative disease of the spine. Thus far there has been no recurrence of monoclonal protein or other indication of recurrence/progression of her myeloma. As of November 2019 I had opted to change the treatment for her bone health to denosumab, which she did not tolerate very well. On 02/26/2020 she was diagnosed with COVID. She was not symptomatic enough to require hospitalization. She is showing gradual recovery. There is still been no laboratory evidence for recurrence/progression of the myeloma. Plan: She continues maintenance Revlimid 5 mg daily. She will increase her vitamin D supplement to 1000 units daily. She will be scheduled for a follow-up visit in 3 months. Signed By: Samy Edmond M.D. <<Signature on File>>
== END 2020-04-07 05:44 | disposition home or self-care (01) ==
PROVIDERS: PCP Family Medicine; Visit Provider Internal Medicine Medical Oncology
DX: C90.00 Multiple myeloma not having achieved remission (principal); M47.9 Spondylosis, unspecified; Z79.899 Other long term (current) drug therapy; I10 Essential (primary) hypertension; G47.33 Obstructive sleep apnea (adult) (pediatric); K90.0 Celiac disease; I35.1 Nonrheumatic aortic (valve) insufficiency; Z94.84 Stem cells transplant status
CPT/HCPCS: 99214

== ENCOUNTER 2020-07-01 09:32 | Outpatient (CLI) | payer MEDICARE, MEDICAID, SELFPAY ==
[2020-07-01 10:34] LABS: Basophils # 0.1 10^3/uL (0.0-0.1); Basophils % 2.2 %; Eosinophils # 0.4 10^3/uL (0.0-0.8); Eosinophils % 7.4 %; Hematocrit 39.1 % (37.0-47.0); Hemoglobin 12.8 g/dL (11.5-15.3); Lymphocytes # 1.6 10^3/uL (0.8-4.8); Lymphocytes % 28.1 %; Mean Corpuscular HGB Conc 32.7 g/dL (30.0-36.0); Mean Corpuscular Hemoglobin 30.3 pg (28.0-34.0); Mean Corpuscular Volume 92.7 fL (81-99); Mean Platelet Volume 12.7 fL (7.4-10.4); Monocytes # 0.7 10^3/uL (0.2-0.9); Monocytes % 11.8 %; Neutrophils # 2.78 10^3/uL (1.8-7.7); Neutrophils % 50.3 %; Nucleated Red Blood Cells % 0 %; Platelet Count 191 10^3/cmm (130-400); Red Blood Count 4.22 10^6/uL (4.1-5.3); Red Cell Distribution Width 14.1 % (12.1-15.1); White Blood Count 5.5 10^3/uL (4.0-10.0)
[2020-07-01 10:51] LABS: 25 Hydroxy Vitamin D 23 ng/mL (30-100); Alanine Aminotransferase 15 U/L (0-33); Alkaline Phosphatase 82 IU/L (35-105); Anion Gap 15.9 (5-19); Aspartate Amino Transferase 22 U/L (0-32); Blood Urea Nitrogen 12 mg/dL (8-23); Calcium 8.6 mg/dL (8.5-10.5); Carbon Dioxide 24 mmol/L (22-29); Chloride 104 mmol/L (98-107); Globulin 2.3 g/dL (1.3-4.6); Glomerular Filtration Rate 63.9 mL/min (90-130); Glucose 112 mg/dL (65-115); Osmolality Calculated 291 mOsm/kg (285-295); Potassium 3.9 mmol/L (3.5-5.1); Sodium 140 mmol/L (136-145); Total Bilirubin 0.3 mg/dL (0.15-1.2); Total Protein 6.3 g/dL (6.6-8.7)
[2020-07-01 12:52] LABS: Immunoglobulin IGA 266 mg/dL (70-400); Immunoglobulin IGG 834 mg/dL (700-1600)
[2020-07-01 13:07] LABS: Immunoglobulin IGM 21 mg/dL (40-230)
[2020-07-02 13:09] LABS: KAPPA LIGHT CHAIN, FREE, SERUM 32.3 mg/L (3.3-19.4); KAPPA/LAMBDA LIGHT CHAINS FREE 1.64 (0.26-1.65); LAMBDA LIGHT CHAIN, FREE, SERU 19.7 mg/L (5.7-26.3)
== END 2020-07-01 09:33 | disposition home or self-care (01) ==
LOC: ONCMED 09:36
PROVIDERS: PCP Family Medicine; Visit Provider Internal Medicine Medical Oncology
DX: C90.00 Multiple myeloma not having achieved remission (principal); E55.9 Vitamin D deficiency, unspecified
CPT/HCPCS: 36415; 80053; 82306; 82784; 83883; 85025

== ENCOUNTER 2020-07-07 05:52 | Outpatient (CLI) | payer MEDICARE, MEDICAID, SELFPAY ==
[2020-07-07] MEDS: denosumab 60 mg SDV SUBCUT (09:10)
[2020-07-08 12:03] LABS: CREATININE, 24 HOUR URINE 1.01 g/24 h (0.50-2.15); PROTEIN, TOTAL, 24 HR UR NOTE mg/24 h (<150); Protein/Creatinine Ratio NOTE (< OR = 0.114); Protein/Creatinine Ratio NOTE mg/g creat (< OR = 114)
[2020-07-09 17:17] LABS: ALBUMIN 0 %; ALPHA-1-GLOBULINS 0 %; ALPHA-2-GLOBULINS 0 %; BETA GLOBULINS 0 %; GAMMA GLOBULINS 0 %
--- NOTE | 2020-07-11 13:09 | ONC FU_ITS ---
Dr. Edmond Patient Follow-Up Note Patient: Christina Willard Unit #: [id number]: 1960 Dicatated By: Samy Edmond M.D.Date of Visit:Jul 07, 2020 Onc Med Follow-up/Prog Note Chief Complaint: Myeloma. History of Present Illness: This is a 59 year-old woman with IgG kappa myeloma. She had been found to have a monoclonal protein in the serum in May of 2011. Protein electrophoresis at that time showed an IgG kappa monoclonal band which quantitated at 1.80 g/dL. The free light chain assay showed a significantly elevated free kappa light chain at 541 mg/L. The beta 2 microglobulin level was just slightly elevated at 3.0 mg/L. There is no monoclonal protein in the urine, and there were no lytic lesions noted on her skeletal survey. Bone marrow aspiration/biopsy in June of 2011 did show evidence of a plasma cell dyscrasia with plasma cells estimated at 10% of the marrow cellularity. The FISH panel for myeloma showed a gain at 9Q34 and at 15Q24. A PET/CT in August 2011 showed a heterogeneous pattern of increased FDG uptake by the bone marrow suspicious for disseminated involvement of multiple myeloma. There were no discrete osteolytic lesions identified. She was evaluated at [facility] in September of 2011. 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 In October 2012 she was found to have lytic bone involvement in the spine, and at that point she began treatment in Revlimid/dexamethasone. She had multiple toxicities during the first cycle with the Revlimid dosed at 25 mg. Beginning with cycle 2 the dosage was reduced to 10 mg, and she then tolerated it well. She had a good response by followup protein electrophoresis. As of February 2013 she had completed 5 cycles of treatment. 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 On a follow-up visit at [facility] in July 2013, her repeat bone marrow aspiration/biopsy showed no evidence of monoclonal plasmacytosis. Her lab studies, though, did show residual monoclonal protein in the serum, and the serum free light chain assay showed a slightly elevated kappa/lambda ratio. She then started maintenance Revlimid at 5 mg daily. She also continued monthly Zometa infusions for the lytic bone involvement. She tolerated the Zometa infusions adequately with a steroid premedication. By March 2015 she had complained of worsening of her back pain, and she also had reported that her legs tended to give out . A bone scan on 04/07/2015 showed no definite evidence of metastatic disease, but there did appear to be increased compression fractures at T11 and T12 and to lesser extent at L1 compared to previous imaging studies from 2012. She had further evaluation with MRI of the thoracic and lumbar spine on 06/16/2015. That study reported a severe remote compression fracture involving T11 and mild remote compression fracture involving T12, but with no evidence of active neoplastic disease and no evidence of significant spinal canal compromise. There was abnormal signal intensity and enhancement involving the T10 pedicle on the right with an apparent nondisplaced fracture. It was uncertain whether the fracture was pathologic associated with myeloma versus benign insufficiency fracture. Thus far during her follow-up there has been no definite evidence of progression of the myeloma. She has continued her maintenance Revlimid. As of May 2015 the interval of her Zometa infusions was changed to every 3 months. Her other medical illnesses include hypertension, allergic rhinitis, and celiac disease. She is known to have degenerative arthritis and degenerative disc disease in the spine. She has been followed by Dr. Mckeon for multinodular goiter. She did have a thyroid surgery in December 2011. Pathology was consistent with autoimmune thyroiditis. She has since then been seeing an laundry tech in [place]. I had previously been following her for elevated hemoglobin/hematocrit levels. She had a negative JAK2 gene mutation study, so I had felt that it was unlikely that she had polycythemia rubra vera. She had been phlebotomized occasionally, because she had reported that she felt better with her hematocrit level below 45%. She has been on oxygen at night for nocturnal oxygen desaturation, and she also was confirmed to have obstructive sleep apnea. In August 2012, prior to starting treatment, she was admitted to the hospital with sepsis due to strep pneumoniae. I don't think a specific source for that was determined. She had undergone CT myelogram 9 days prior to the admission and she had a repeat PET/CT just several days before. She had a good recovery following antibiotic therapy, but on subsequent followup she was noted to have a diastolic heart murmur. Transesophageal echocardiogram did show moderate aortic regurgitation, but there were no vegetations noted and her LV function appeared adequate. INTERIM HISTORY: During follow-up she continued maintenance Revlimid 5 mg daily, and she continued Zometa infusions every 3 months. There was no monoclonal protein identifiable on her protein electrophoresis studies. She had a mildly elevated kappa free light chain on the free light chain assay, but with normal kappa/lambda ratio. As of her visit in November 2019 I had changed to treatment for her bone health to denosumab. Her further treatment was put on hold due to COVID-19 virus infection in February 2020. She is seen for a scheduled visit. She has been feeling pretty good generally after recovery from the COVID-19 infection. She is able to do light work now as long as she takes her time. ECOG score is 1. She has good appetite. She has not had fever. She occasionally has sweating at night. She has shortness of breath with activity. She has some cough attributable to sinus drainage. She does not complain of chest pain. She has no GI/ complaints other than some acid reflux/gas, which she manages with Tums. She has chronic back pain. She also has pain in her shoulders and knees. She has not had any headaches since recovery from the COVID-19 infection. She sometimes has numbness in her hands and feet. Medications: Aspirin 1 (81 mg) Tablet Oral daily, Atenolol 1 (50 mg) Tablet Oral daily, Azelastine HCl 1 (137 mcg/spray) Solution Nasal PRN, Bisacodyl 5 mg - Take 1 - 2 Tablet, enteric coated Oral daily PRN, Calcium 1 (600 mg) Tablet Oral daily, Dilaudid 2 mg - Take 0.5 Tablet Oral t.i.d. PRN, Flexeril 10 mg - Take 0.5 - 1 Tablet Oral q 8 hours PRN, Flonase 1 spray(s) (of 50 mcg/act) Suspension Nasal daily, Gas-X Extra Strength Take Tablet, chewable Oral PRN, Lasix 1 (20 mg) Tablet Oral daily PRN, levothyroxine 1 (50 mcg) Tablet Oral daily, Levothyroxine Sodium 200 mcg - Take 1 Tablet Oral daily, LORazepam 1 (1 mg) Tablet Oral q 8 hours PRN, Magnesium Tablet Oral PRN, Multivitamin Adult 1 Tablet Oral daily, Nasal [place] Solution Nasal PRN, Olopatadine HCl 1 drop(s) (of 0.2 %) Solution Ophthalmic PRN, Pantoprazole Sodium 1 (40 mg) Tablet, enteric coated Oral daily, Potassium 1 (99 mg) Tablet Oral PRN, Revlimid 1 (5 mg) Capsule Oral daily, traMADol HCl 1 Tablet (of 50 mg) Oral PRN, Tylenol Extra Strength 500 mg - Take 1 Tablet Oral t.i.d. PRN, Ventolin HFA 1 (108 (90 base) mcg/act) Aerosol, solution Inhalation PRN, Vitamin D3 1 (400 Units) Tablet Oral daily Allergies: Codeine-Brompheniramine, gluten, voltaren gel, and Zithromax. Review of Systems: Constitutional - She has been feeling pretty good. She has pretty well recovered from the COVID-19 infection in February. She has limited activity, but she is able to do light work as long as she takes her time. Her appetite is good. She has not had fever. She has occasional sweating at night. ECOG score is 1, ENMT - No sinus congestion/drainage. No mouth sores. No sore throat or difficulty swallowing, Hematologic/Lymphatic - She has easy bruising, Respiratory - She has some shortness of breath with activity. No cough. No pleuritic pain or hemoptysis, Cardiovascular - No angina pain. No palpitations, Gastrointestinal - No nausea or vomiting. She does have some acid reflux/gas which she manages with Tums. No diarrhea or constipation. No blood in the stool or black stools, Genitourinary (F) - No dysuria or hematuria. No urinary frequency. No urgency or incontinence, Musculoskeletal - She has chronic back pain. She also has pain in her shoulders and knees, Integumentary - No skin rash, Neurologic - She has not had any headaches since recovering from the COVID-19 infection. No dizziness. She sometimes has numbness in her hands and feet, Psychiatric - She has anxiety/depression, but no more than usual. She sometimes has difficulty sleeping. Vital Signs: Performed on Jul 07, 2020 08:14 Height - 65.00 in Weight - 283.4 lbs (LOW) BSA - 2.29 sq.m BMI - 47.16 (HIGH) Temperature - 97.5 F (LOW) Pulse - 55 /min (LOW) Respiration - 22 /min BP - 148/82 mm(hg) (HIGH) O2 Sat - 95 % (LOW) Pain - 4 Physical Examination: Constitutional - She looks pretty good generally, though she does have limited mobility, Eyes - Sclerae nonicteric. Conjunctivae clear, ENMT - No lesions noted in the oral cavity, Hematologic/Lymphatic - No cervical, clavicular, or axillary adenopathy, Respiratory - Lungs are clear with good air movement bilaterally, Cardiovascular - Heart rhythm is regular. There is a II/ systolic and a grade II/IV diastolic murmur at the base and left sternal border. There is no gallop or rub noted, Abdomen - Moderately distended. Liver and spleen are not enlarged. There is no abdominal mass or ascites noted and there is no inguinal adenopathy, Extremities - Slight edema at the ankles, Neurologic - No focal neurologic deficits noted. Lab/Imaging: Test performed on Jul 01, 2020 09:45 Sodium 140 mmol/L Vitamin D (25-Hydroxy), Total 23 ng/mL Potassium 3.9 mmol/L Chloride 104 mmol/L CO2 24 mmol/L Anion Gap 15.9 BUN 12 mg/dL Creatinine 0.9 mg/dL Cr Clearance (Est) 135.7600 mL/min eGFR 63.9 mL/min Glucose 112 mg/dL Osmolality - Calculated 291 mOsm/kg Calcium 8.6 mg/dL Protein, Total 6.3 g/dL Albumin 4.0 g/dL Globulin 2.3 g/dL Bilirubin, Total 0.3 mg/dL ALT (SGPT) 15 U/L AST (SGOT) 22 U/L Alkaline Phosphatase 82 IU/L WBC 5.5 10 3/uL RBC 4.22 10 6/uL HGB 12.8 g/dL HCT 39.1 % MCV 92.7 fL MCH 30.3 pg MCHC 32.7 g/dL RDW 14.1 % Platelet Count 191 10 3/cmm MPV 12.7 fL Neutrophils 2.78 10 3/uL Lymphocytes 1.6 10 3/uL Monocytes 0.7 10 3/uL Eosinophils 0.4 10 3/uL Basophils 0.1 10 3/uL Neutrophil % 50.3 % Lymphocyte % 28.1 % Monocyte % 11.8 % Eosinophil % 7.4 % Basophils % 2.2 % NRBC % 0 % IgA 266 mg/dL IgG 834 mg/dL IgM 21 mg/dL [place] Free Light Chains 32.3 mg/L Lambda Free Light Chains 19.7 mg/L [place]/Lambda Free Ratio 1.64 Impression: 1. Patient with IgG kappa myeloma, initially diagnosed in May 2011. 2. She began treatment with Revlimid/dexamethasone in October 2012 after she was found to have evidence of lytic bone involvement in the spine. She had a very good clinical response. 3. She underwent high-dose melphalan/stem cell transplant at [facility] on 04/30/2013. She had an uneventful recovery. 4. She then continued maintenance Revlimid and she continued IV Zometa infusions for the lytic bone involvement. Her monoclonal protein has been undetectable by protein electrophoresis since January 2016. Her other medical illnesses include: 5. Hypertension. 6. Aortic valvular insufficiency. 7. Obstructive sleep apnea. 8. Celiac disease. 9. Degenerative arthritis/degenerative disease of the spine. 10. She has osteopenia with DEXA scan in April 2019 showing mean femoral neck T score of -1.4. 11. Multinodular goiter. 12. Allergic rhinitis. During follow-up she has continued to have chronic pain associated with underlying degenerative disease of the spine. Thus far there has been no recurrence of monoclonal protein or other indication of recurrence/progression of her myeloma. As of November 2019 I had opted to change the treatment for her bone health to denosumab, which she did not tolerate very well. Her further treatment was put on hold due to COVID-19 virus infection, diagnosed on 02/26/2020. She had an uneventful recovery. At this point she her activity remains limited due to her back problems. Her overall clinical status, though, appears stable. Thus far there has been no evidence of progression of the myeloma. Plan: She continues maintenance Revlimid 5 mg daily. She will now continue treatment for bone health with Prolia 60 mg by subcutaneous injection. She will increase her vitamin D supplement to 2000 units daily. I will see her again in 6 months. Signed By: Samy Edmond M.D. <<Signature on File>>
== END 2020-07-07 05:53 | disposition home or self-care (01) ==
LOC: ONCMED 05:56
PROVIDERS: PCP Family Medicine; Visit Provider Internal Medicine Medical Oncology
DX: C90.00 Multiple myeloma not having achieved remission (principal); I10 Essential (primary) hypertension; I35.1 Nonrheumatic aortic (valve) insufficiency; G47.33 Obstructive sleep apnea (adult) (pediatric); K90.0 Celiac disease; M47.9 Spondylosis, unspecified; M85.80 Other specified disorders of bone density and structure, unspecified site; Z79.899 Other long term (current) drug therapy; Z94.84 Stem cells transplant status; Z86.19 Personal history of other infectious and parasitic diseases
CPT/HCPCS: 96372; 99214; J0897

== ENCOUNTER 2021-01-06 08:26 | Outpatient (CLI) | payer MEDICARE, MEDICAID, SELFPAY ==
[2021-01-06 09:28] LABS: Basophils # 0.1 10^3/uL (0.0-0.1); Basophils % 1.7 %; Eosinophils # 0.3 10^3/uL (0.0-0.8); Eosinophils % 5.8 %; Hematocrit 40.6 % (37.0-47.0); Hemoglobin 12.9 g/dL (11.5-15.3); Lymphocytes # 1.4 10^3/uL (0.8-4.8); Lymphocytes % 26.3 %; Mean Corpuscular HGB Conc 31.8 g/dL (30.0-36.0); Mean Corpuscular Volume 94.4 fL (81-99); Mean Platelet Volume 12.6 fL (7.4-10.4); Monocytes # 0.6 10^3/uL (0.2-0.9); Monocytes % 11.4 %; Neutrophils # 2.91 10^3/uL (1.8-7.7); Neutrophils % 54.2 %; Nucleated Red Blood Cells % 0 %; Platelet Count 176 10^3/cmm (130-400); Red Cell Distribution Width 15.8 % (12.1-15.1); White Blood Count 5.4 10^3/uL (4.0-10.0)
[2021-01-06 09:48] LABS: Alanine Aminotransferase 19 U/L (0-33); Alkaline Phosphatase 85 IU/L (35-105); Anion Gap 12.9 (5-19); Aspartate Amino Transferase 21 U/L (0-32); Blood Urea Nitrogen 9 mg/dL (8-23); Carbon Dioxide 28 mmol/L (22-29); Chloride 102 mmol/L (98-107); Globulin 2.2 g/dL (1.3-4.6); Glomerular Filtration Rate 72.9 mL/min (90-130); Glucose 104 mg/dL (65-115); Immunoglobulin IGA 267 mg/dL (70-400); Immunoglobulin IGG 796 mg/dL (700-1600); Osmolality Calculated 287 mOsm/kg (285-295); Potassium 3.9 mmol/L (3.5-5.1); Sodium 139 mmol/L (136-145); Total Bilirubin 0.3 mg/dL (0.15-1.2); Total Protein 6.2 g/dL (6.6-8.7)
[2021-01-06 10:07] LABS: Immunoglobulin IGM < 25 mg/dL (40-230)
[2021-01-07 14:07] LABS: KAPPA/LAMBDA LIGHT CHAINS FREE 1.68 (0.26-1.65); LAMBDA LIGHT CHAIN, FREE, SERU 19.1 mg/L (5.7-26.3)
[2021-01-07 15:18] LABS: ALBUMIN 3.5 g/dL (3.8-4.8); ALPHA 1 GLOBULIN 0.3 g/dL (0.2-0.3); ALPHA 2 GLOBULIN 0.6 g/dL (0.5-0.9); BETA 1 GLOBULIN 0.4 g/dL (0.4-0.6); BETA 2 GLOBULIN 0.4 g/dL (0.2-0.5); GAMMA GLOBULIN 0.8 g/dL (0.8-1.7)
== END 2021-01-06 08:27 | disposition home or self-care (01) ==
LOC: ONCMED 08:35
PROVIDERS: PCP Family Medicine; Visit Provider Internal Medicine Medical Oncology
DX: C79.51 Secondary malignant neoplasm of bone (principal); C90.00 Multiple myeloma not having achieved remission; I10 Essential (primary) hypertension; I35.1 Nonrheumatic aortic (valve) insufficiency
CPT/HCPCS: 80053; 82784; 83883; 84155; 84165; 85025

== ENCOUNTER 2021-01-07 06:34 | Outpatient (CLI) | payer MEDICARE, MEDICAID, SELFPAY ==
[2021-01-07] MEDS: denosumab 60 mg SDV SUBCUT (13:14)
--- NOTE | 2021-01-11 11:40 | ONC FU_ITS ---
Dr. Edmond Patient Follow-Up Note Patient: Christina Willard Unit #: [id number]: [id number] Dicatated By: Samy Edmond M.D.Date of Visit:Jan 07, 2021 Onc Med Follow-up/Prog Note Chief Complaint: Myeloma. History of Present Illness: This is a 60 year-old woman with IgG kappa myeloma. She had been found to have a monoclonal protein in the serum in May of 2011. Protein electrophoresis at that time showed an IgG kappa monoclonal band which quantitated at 1.80 g/dL. The free light chain assay showed a significantly elevated free kappa light chain at 541 mg/L. The beta 2 microglobulin level was just slightly elevated at 3.0 mg/L. There is no monoclonal protein in the urine, and there were no lytic lesions noted on her skeletal survey. Bone marrow aspiration/biopsy in June of 2011 did show evidence of a plasma cell dyscrasia with plasma cells estimated at 10% of the marrow cellularity. The FISH panel for myeloma showed a gain at 9Q34 and at 15Q24. A PET/CT in August 2011 showed a heterogeneous pattern of increased FDG uptake by the bone marrow suspicious for disseminated involvement of multiple myeloma. There were no discrete osteolytic lesions identified. She was evaluated at [facility] in September of 2011. 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 In October 2012 she was found to have lytic bone involvement in the spine, and at that point she began treatment in Revlimid/dexamethasone. She had multiple toxicities during the first cycle with the Revlimid dosed at 25 mg. Beginning with cycle 2 the dosage was reduced to 10 mg, and she then tolerated it well. She had a good response by followup protein electrophoresis. As of February 2013 she had completed 5 cycles of treatment. She then returned to [facility] and she underwent high dose melphalan/stem cell transplant on 04/30/2013. On a follow-up visit at [facility] in July 2013, her repeat bone marrow aspiration/biopsy showed no evidence of monoclonal plasmacytosis. Her lab studies, though, did show residual monoclonal protein in the serum, and the serum free light chain assay showed a slightly elevated kappa/lambda ratio. She then started maintenance Revlimid at 5 mg daily. She also continued monthly Zometa infusions for the lytic bone involvement. She tolerated the Zometa infusions adequately with a steroid premedication. By March 2015 she had complained of worsening of her back pain, and she also had reported that her legs tended to give out . A bone scan on 04/07/2015 showed no definite evidence of metastatic disease, but there did appear to be increased compression fractures at T11 and T12 and to lesser extent at L1 compared to previous imaging studies from 2012. She had further evaluation with MRI of the thoracic and lumbar spine on 06/16/2015. That study reported a severe remote compression fracture involving T11 and mild remote compression fracture involving T12, but with no evidence of active neoplastic disease and no evidence of significant spinal canal compromise. There was abnormal signal intensity and enhancement involving the T10 pedicle on the right with an apparent nondisplaced fracture. It was uncertain whether the fracture was pathologic associated with myeloma versus benign insufficiency fracture. During her subsequent follow-up there was no definite evidence of progression of the myeloma, and she continued her maintenance Revlimid. As of May 2015 the interval of her Zometa infusions was changed to every 3 months. As of her visit in November 2019 I had changed the treatment for her bone health to denosumab. In February 2020 she was diagnosed with COVID-19 virus infection, and at that point her treatment was put on hold. She recovered uneventfully, and in June 2020 she restarted denosumab and she was able to resume maintenance Revlimid at 5 mg daily. Her history is also significant for a hospial admission for [facility] to due strep pneumoniae in August 2012, prior to starting treatment for the myeloma. She had a good recovery following antibiotic therapy, but on subsequent followup she was noted to have a diastolic heart murmur. Transesophageal echocardiogram did show moderate aortic regurgitation, but there were no vegetations noted and her LV function appeared adequate. Her other medical illnesses include hypertension, allergic rhinitis, and celiac disease. She is known to have degenerative arthritis and degenerative disc disease in the spine. She has been followed by Dr. Mckeon for multinodular goiter. She did have a thyroid surgery in December 2011. Pathology was consistent with autoimmune thyroiditis. She was then followed by an hotel associate in [place]. She has been on oxygen at night for nocturnal oxygen desaturation, and she also was confirmed to have obstructive sleep apnea. INTERIM HISTORY: She is seen for a scheduled visit. She says she has been feeling pretty good, though her energy has not been the greatest. Much of that is attributable to the hot weather. She is still able to do light work, but she says it takes longer now. Her ECOG score is 1. She has good appetite. She has not had fever or night sweats. She has had some decline in her visual acuity since the Covid infection. She still has sinus drainage, which comes and goes. She has associated sore throat and cough. Her breathing is okay now. She does not complain of chest pain. She has no GI/ complaints other than her stools tend to be loose off and on. She has chronic pain, which is about like normal . She does takes her pain medication as needed. She does not complain of headache or dizziness. She has numbness in her lower extremities if she is up on her feet very long. Medications: Aspirin 1 (81 mg) Tablet Oral daily, Atenolol 1 (50 mg) Tablet Oral daily, Azelastine HCl 1 (137 mcg/spray) Solution Nasal PRN, Bisacodyl 5 mg - Take 1 - 2 Tablet, enteric coated Oral daily PRN, Calcium 1 (600 mg) Tablet Oral daily, Dilaudid 2 mg - Take 0.5 Tablet Oral t.i.d. PRN, Flexeril 10 mg - Take 0.5 - 1 Tablet Oral q 8 hours PRN, Flonase 1 spray(s) (of 50 mcg/act) Suspension Nasal daily, Gas-X Extra Strength Take Tablet, chewable Oral PRN, Lasix 1 (20 mg) Tablet Oral daily PRN, levothyroxine 1 (50 mcg) Tablet Oral daily, Levothyroxine Sodium 200 mcg - Take 1 Tablet Oral daily, LORazepam 1 (1 mg) Tablet Oral q 8 hours PRN, Magnesium Tablet Oral PRN, Multivitamin Adult 1 Tablet Oral daily, Nasal [place] Solution Nasal PRN, Olopatadine HCl 1 drop(s) (of 0.2 %) Solution Ophthalmic PRN, Pantoprazole Sodium 1 (40 mg) Tablet, enteric coated Oral daily, Potassium 1 (99 mg) Tablet Oral PRN, Revlimid 1 (5 mg) Capsule Oral daily, traMADol HCl 1 Tablet (of 50 mg) Oral PRN, Tylenol Extra Strength 500 mg - Take 1 Tablet Oral t.i.d. PRN, Ventolin HFA 1 (108 (90 base) mcg/act) Aerosol, solution Inhalation PRN, Vitamin D3 1 (400 Units) Tablet Oral daily Allergies: Codeine-Brompheniramine, gluten, voltaren gel, and Zithromax. Vital Signs: Physical Examination: Constitutional - She has limited mobility, Eyes - Sclerae nonicteric. Conjunctivae clear, ENMT - No lesions noted in the oral cavity, Hematologic/Lymphatic - No cervical, clavicular, or axillary adenopathy, Respiratory - Lungs are clear with good air movement bilaterally, Cardiovascular - Heart rhythm is regular. There is a II/ systolic and a grade II/IV diastolic murmur at the base and left sternal border. There is no gallop or rub noted, Abdomen - Moderately distended. Liver and spleen are not enlarged. There is no abdominal mass or ascites noted and there is no inguinal adenopathy, Extremities - No edema, Neurologic - No focal neurologic deficits noted. Lab/Imaging: CBC shows hemoglobin 12.9 g, white blood cell count 5400, and platelet count 176,000. Comprehensive metabolic profile is unremarkable. Her serum protein electrophoresis shows no detectable monoclonal protein. The free light chain assay shows mildly elevated free kappa light chain at 32.0 mg/L and slightly elevated kappa/lambda ratio at 1.68, similar to previous studies. Problem List: 1. Patient with IgG kappa myeloma, initially diagnosed in May 2011. 2. Hypertension. 3. Aortic valvular insufficiency. 4. Obstructive sleep apnea. 5. Celiac disease. 6. Degenerative arthritis/degenerative disease of the spine. 7. She has osteopenia with DEXA scan in April 2019 showing mean femoral neck T score of -1.4. 8. Multinodular goiter. 9. Allergic rhinitis. Problems Addressed with this Encounter and Plan: 1. Patient with IgG kappa myeloma, initially diagnosed in May 2011. She began treatment with Revlimid/dexamethasone in October 2012 after she was found to have evidence of lytic bone involvement in the spine. She had a very good clinical response. She then underwent high-dose melphalan/stem cell transplant at [facility] on 04/30/2013. She then began on maintenance Revlimid and she continued IV Zometa infusions for the lytic bone involvement. During followup her monoclonal protein remained undetectable, but she continued to have chronic pain associated with underlying degenerative disease of the spine. As of November 2019 the treatment for her bone health was changed to denosumab. On 02/26/2020 she was diagnosed with COVID-19 virus infection, and her treatment was then put on hold. She had an uneventful recovery, and in June 2020 she restarted the denosumab and the maintenance Revlimid. Her clinical status has since then remained stable with no evidence of recurrence/progression of the myeloma. She will be given denosumab 60 mg by subcutaneous injection, and she will continue maintenance Revlimid at 5 mg daily. She will be scheduled for follow-up visit in 3 months. Signed By: Samy Edmond M.D. <<Signature on File>>
== END 2021-01-07 06:35 | disposition home or self-care (01) ==
LOC: ONCMED 06:38
PROVIDERS: PCP Family Medicine; Visit Provider Internal Medicine Medical Oncology
DX: C90.00 Multiple myeloma not having achieved remission (principal); D47.2 Monoclonal gammopathy; M81.0 Age-related osteoporosis without current pathological fracture; I10 Essential (primary) hypertension; I35.1 Nonrheumatic aortic (valve) insufficiency; G47.33 Obstructive sleep apnea (adult) (pediatric); K90.0 Celiac disease; M47.9 Spondylosis, unspecified; M85.80 Other specified disorders of bone density and structure, unspecified site; E04.2 Nontoxic multinodular goiter; J30.9 Allergic rhinitis, unspecified; Z79.899 Other long term (current) drug therapy
CPT/HCPCS: 96372; 99214; J0897

== ENCOUNTER 2021-01-09 10:00 | Outpatient (CLI) | payer MEDICARE, MEDICAID, SELFPAY ==
[2021-01-10 15:13] LABS: CREATININE, 24 HOUR URINE 0.74 g/24 h (0.50-2.15); PROTEIN, TOTAL, 24 HR UR 96 mg/24 h (<150); Protein/Creatinine Ratio 0.129 (< OR = 0.114); Protein/Creatinine Ratio 129 mg/g creat (< OR = 114)
[2021-01-12 16:28] LABS: ALBUMIN 0 %; ALPHA-1-GLOBULINS 0 %; ALPHA-2-GLOBULINS 0 %; BETA GLOBULINS 0 %; GAMMA GLOBULINS 0 %
== END 2021-01-09 10:01 | disposition home or self-care (01) ==
LOC: ONCMED 10:03
PROVIDERS: PCP Family Medicine; Visit Provider Internal Medicine Medical Oncology
DX: C90.00 Multiple myeloma not having achieved remission (principal); C79.51 Secondary malignant neoplasm of bone
CPT/HCPCS: 84156; 84166

== ENCOUNTER 2021-04-14 08:33 | Outpatient (CLI) | payer MEDICARE, MEDICAID, SELFPAY ==
[2021-04-14 09:09] LABS: Basophils # 0.1 10^3/uL (0.0-0.1); Basophils % 1.2 %; Eosinophils # 0.2 10^3/uL (0.0-0.8); Hematocrit 40.6 % (37.0-47.0); Hemoglobin 13.6 g/dL (11.5-15.3); Lymphocytes # 1.7 10^3/uL (0.8-4.8); Lymphocytes % 23.5 %; Mean Corpuscular HGB Conc 33.5 g/dL (30.0-36.0); Mean Corpuscular Hemoglobin 31.4 pg (28.0-34.0); Mean Corpuscular Volume 93.8 fl (81-99); Mean Platelet Volume 12.6 fL (7.4-10.4); Monocytes # 0.9 10^3/uL (0.2-0.9); Monocytes % 11.7 %; Neutrophils # 4.39 10^3/uL (1.8-7.7); Neutrophils % 60.3 %; Nucleated Red Blood Cells % 0 %; Platelet Count 179 10^3/cmm (130-400); Red Blood Count 4.33 10^6/uL (4.1-5.3); Red Cell Distribution Width 14.6 % (12.1-15.1); White Blood Count 7.3 10^3/uL (4.0-10.0)
[2021-04-14 09:34] LABS: Alanine Aminotransferase 21 U/L (0-33); Albumin Level 3.9 g/dL (3.5-5.2); Alkaline Phosphatase 94 IU/L (35-105); Anion Gap 12.6 (5-19); Aspartate Amino Transferase 24 U/L (0-32); Blood Urea Nitrogen 8 mg/dL (8-23); Calcium 9.1 mg/dL (8.5-10.5); Carbon Dioxide 27 mmol/L (22-29); Chloride 102 mmol/L (98-107); Globulin 2.6 g/dL (1.3-4.6); Glomerular Filtration Rate 85.1 mL/min (90-130); Glucose 113 mg/dL (65-115); Osmolality Calculated 285 mOsm/kg (285-295); Potassium 3.6 mmol/L (3.5-5.1); Sodium 138 mmol/L (136-145); Total Bilirubin 0.6 mg/dL (0.15-1.2); Total Protein 6.5 g/dL (6.6-8.7)
[2021-04-14 11:17] LABS: Immunoglobulin IGA 272 mg/dL (70-400); Immunoglobulin IGG 806 mg/dL (700-1600); Immunoglobulin IGM 25 mg/dL (40-230)
[2021-04-15 08:07] LABS: PROTEIN, TOTAL 6.2 g/dL (6.1-8.1)
[2021-04-15 13:03] LABS: KAPPA LIGHT CHAIN, FREE, SERUM 39.2 mg/L (3.3-19.4); KAPPA/LAMBDA LIGHT CHAINS FREE 1.54 (0.26-1.65); LAMBDA LIGHT CHAIN, FREE, SERU 25.5 mg/L (5.7-26.3)
[2021-04-15 15:13] LABS: ALBUMIN 3.5 g/dL (3.8-4.8); ALPHA 1 GLOBULIN 0.3 g/dL (0.2-0.3); ALPHA 2 GLOBULIN 0.7 g/dL (0.5-0.9); BETA 1 GLOBULIN 0.5 g/dL (0.4-0.6); BETA 2 GLOBULIN 0.4 g/dL (0.2-0.5); GAMMA GLOBULIN 0.9 g/dL (0.8-1.7)
== END 2021-04-14 08:34 | disposition home or self-care (01) ==
LOC: ONCMED 08:35
PROVIDERS: PCP Family Medicine; Visit Provider Internal Medicine Medical Oncology
DX: C90.00 Multiple myeloma not having achieved remission (principal)
CPT/HCPCS: 36415; 80053; 82784; 83883; 84155; 84165; 85025

== ENCOUNTER 2021-04-21 06:49 | Outpatient (CLI) | payer MEDICARE, MEDICAID, SELFPAY ==
--- NOTE | 2021-04-21 12:57 | ONC FU_ITS ---
Dr. Edmond Patient Follow-Up Note Patient: Christina Willard Unit #: [id number]: 1960 Dicatated By: Samy Edmond M.D.Date of Visit:Apr 21, 2021 Onc Med Follow-up/Prog Note Chief Complaint: Myeloma. History of Present Illness: This is a 60 year-old woman with IgG kappa myeloma. She had been found to have a monoclonal protein in the serum in May of 2011. Protein electrophoresis at that time showed an IgG kappa monoclonal band which quantitated at 1.80 g/dL. The free light chain assay showed a significantly elevated free kappa light chain at 541 mg/L. The beta 2 microglobulin level was just slightly elevated at 3.0 mg/L. There is no monoclonal protein in the urine, and there were no lytic lesions noted on her skeletal survey. Bone marrow aspiration/biopsy in June of 2011 did show evidence of a plasma cell dyscrasia with plasma cells estimated at 10% of the marrow cellularity. The FISH panel for myeloma showed a gain at 9Q34 and at 15Q24. A PET/CT in August 2011 showed a heterogeneous pattern of increased FDG uptake by the bone marrow suspicious for disseminated involvement of multiple myeloma. There were no discrete osteolytic lesions identified. She was evaluated at [facility] in September of 2011. 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 In October 2012 she was found to have lytic bone involvement in the spine, and at that point she began treatment in Revlimid/dexamethasone. She had multiple toxicities during the first cycle with the Revlimid dosed at 25 mg. Beginning with cycle 2 the dosage was reduced to 10 mg, and she then tolerated it well. She had a good response by followup protein electrophoresis. As of February 2013 she had completed 5 cycles of treatment. 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 On a follow-up visit at [facility] in July 2013, her repeat bone marrow aspiration/biopsy showed no evidence of monoclonal plasmacytosis. Her lab studies, though, did show residual monoclonal protein in the serum, and the serum free light chain assay showed a slightly elevated kappa/lambda ratio. She then started maintenance Revlimid at 5 mg daily. She also continued monthly Zometa infusions for the lytic bone involvement. She tolerated the Zometa infusions adequately with a steroid premedication. By March 2015 she had complained of worsening of her back pain, and she also had reported that her legs tended to give out . A bone scan on 04/07/2015 showed no definite evidence of metastatic disease, but there did appear to be increased compression fractures at T11 and T12 and to lesser extent at L1 compared to previous imaging studies from 2012. She had further evaluation with MRI of the thoracic and lumbar spine on 06/16/2015. That study reported a severe remote compression fracture involving T11 and mild remote compression fracture involving T12, but with no evidence of active neoplastic disease and no evidence of significant spinal canal compromise. There was abnormal signal intensity and enhancement involving the T10 pedicle on the right with an apparent nondisplaced fracture. It was uncertain whether the fracture was pathologic associated with myeloma versus benign insufficiency fracture. During her subsequent follow-up there was no definite evidence of progression of the myeloma, and she continued her maintenance Revlimid. As of May 2015 the interval of her Zometa infusions was changed to every 3 months. As of her visit in November 2019 I had changed the treatment for her bone health to denosumab. In February 2020 she was diagnosed with COVID-19 virus infection, and at that point her treatment was put on hold. She recovered uneventfully, and in June 2020 she restarted denosumab and she was able to resume maintenance Revlimid at 5 mg daily. Her history is also significant for a hospial admission for [facility] to due strep pneumoniae in August 2012, prior to starting treatment for the myeloma. She had a good recovery following antibiotic therapy, but on subsequent followup she was noted to have a diastolic heart murmur. Transesophageal echocardiogram did show moderate aortic regurgitation, but there were no vegetations noted and her LV function appeared adequate. Her other medical illnesses include hypertension, allergic rhinitis, and celiac disease. She is known to have degenerative arthritis and degenerative disc disease in the spine. She has been followed by Dr. Mckeon for multinodular goiter. She did have a thyroid surgery in December 2011. Pathology was consistent with autoimmune thyroiditis. She was then followed by an campaign coordinator in [place]. She has been on oxygen at night for nocturnal oxygen desaturation, and she also was confirmed to have obstructive sleep apnea. INTERIM HISTORY: She is seen for a scheduled visit. She had recovered uneventfully from her COVID-19 virus infection in February last year. She says that 5 or 6 weeks ago she developed another nasty viral illness, but she did test negative for COVID-19. Her symptoms included low-grade fever, generalized aching, and diarrhea. She is feeling better now. She says her energy is not great, she is able to do light work. ECOG score is 1. Appetite is also not great. She has not had any more fever. She does not complain of hot flashes or night sweating. She has sinus congestion/drainage. She is short of breath with activity. She does not complain of cough and she has not been having chest pain. She did not have nausea/vomiting. She has acid reflux, which comes and goes. Her bowels are okay now. She has no complaints. She has chronic pain, mainly in the low back and lower extremities. It has not changed significantly. She does not complain of headache or dizziness. She has numbness in her legs and feet when she moves around very much. Medications: Aspirin 1 (81 mg) Tablet Oral daily, Atenolol 1 (50 mg) Tablet Oral daily, Azelastine HCl 1 (137 mcg/spray) Solution Nasal PRN, Bisacodyl 5 mg - Take 1 - 2 Tablet, enteric coated Oral daily PRN, Calcium 1 (600 mg) Tablet Oral daily, Dilaudid 2 mg - Take 0.5 Tablet Oral t.i.d. PRN, Flexeril 10 mg - Take 0.5 - 1 Tablet Oral q 8 hours PRN, Flonase 1 spray(s) (of 50 mcg/act) Suspension Nasal daily, Gas-X Extra Strength Take Tablet, chewable Oral PRN, Lasix 1 (20 mg) Tablet Oral daily PRN, levothyroxine 1 (50 mcg) Tablet Oral daily, Levothyroxine Sodium 200 mcg - Take 1 Tablet Oral daily, LORazepam 1 (1 mg) Tablet Oral q 8 hours PRN, Magnesium Tablet Oral PRN, Multivitamin Adult 1 Tablet Oral daily, Nasal [place] Solution Nasal PRN, Olopatadine HCl 1 drop(s) (of 0.2 %) Solution Ophthalmic PRN, Pantoprazole Sodium 1 (40 mg) Tablet, enteric coated Oral daily, Potassium 1 (99 mg) Tablet Oral PRN, Revlimid 1 (5 mg) Capsule Oral daily, traMADol HCl 1 Tablet (of 50 mg) Oral PRN, Tylenol Extra Strength 500 mg - Take 1 Tablet Oral t.i.d. PRN, Ventolin HFA 1 (108 (90 base) mcg/act) Aerosol, solution Inhalation PRN, Vitamin D3 1 (400 Units) Tablet Oral daily Allergies: Codeine-Brompheniramine, gluten, voltaren gel, and Zithromax. Vital Signs: Performed on Apr 21, 2021 12:29 Height - 65.00 in Weight - 290.2 lbs (HIGH) BSA - 2.32 sq.m BMI - 48.29 (HIGH) Temperature - 96.2 F (LOW) Pulse - 53 /min (LOW) Respiration - 18 /min BP - 193/69 mm(hg) (HIGH) O2 Sat - 98 % Pain - 5 Fatigue - 3 Physical Examination: Constitutional - She has limited mobility, Eyes - Sclerae nonicteric. Conjunctivae clear, ENMT - No lesions noted in the oral cavity, Hematologic/Lymphatic - No cervical, clavicular, or axillary adenopathy, Respiratory - Lungs are clear with good air movement bilaterally, Cardiovascular - Heart rhythm is regular. There is a II/ systolic murmur and a grade II/IV diastolic murmur at the base and left sternal border. There is no gallop or rub noted, Abdomen - Moderately distended. Liver and spleen are not enlarged. There is no abdominal mass or ascites noted and there is no inguinal adenopathy, Extremities - No edema, Neurologic - No focal neurologic deficits noted. Lab/Imaging: Test performed on Apr 14, 2021 08:46 Sodium 138 mmol/L Potassium 3.6 mmol/L Chloride 102 mmol/L CO2 27 mmol/L Anion Gap 12.6 BUN 8 mg/dL Creatinine 0.7 mg/dL Cr Clearance (Est) 171.2700 mL/min eGFR 85.1 mL/min Glucose 113 mg/dL Osmolality - Calculated 285 mOsm/kg Calcium 9.1 mg/dL Protein, Total 6.5 g/dL Albumin 3.9 g/dL Globulin 2.6 g/dL Bilirubin, Total 0.6 mg/dL ALT (SGPT) 21 U/L AST (SGOT) 24 U/L Alkaline Phosphatase 94 IU/L WBC 7.3 10 3/uL RBC 4.33 10 6/uL HGB 13.6 g/dL HCT 40.6 % MCV 93.8 fl MCH 31.4 pg MCHC 33.5 g/dL RDW 14.6 % Platelet Count 179 10 3/cmm MPV 12.6 fL Neutrophils 4.39 10 3/uL Lymphocytes 1.7 10 3/uL Monocytes 0.9 10 3/uL Eosinophils 0.2 10 3/uL Basophils 0.1 10 3/uL Neutrophil % 60.3 % Lymphocyte % 23.5 % Monocyte % 11.7 % Eosinophil % 3.0 % Basophils % 1.2 % NRBC % 0 % [place] Free Light Chains 39.2 mg/L Lambda Free Light Chains 25.5 mg/L IgA 272 mg/dL [place]/Lambda Free Ratio 1.54 Problem List: 1. Patient with IgG kappa myeloma, initially diagnosed in May 2011. 2. Hypertension. 3. Aortic valvular insufficiency. 4. Obstructive sleep apnea. 5. Celiac disease. 6. Degenerative arthritis/degenerative disease of the spine. 7. She has osteopenia with DEXA scan in April 2019 showing mean femoral neck T score of -1.4. 8. Multinodular goiter. 9. Allergic rhinitis. Problems Addressed with this Encounter and Plan: 1. Patient with IgG kappa myeloma, initially diagnosed in May 2011. She began treatment with Revlimid/dexamethasone in October 2012 after she was found to have evidence of lytic bone involvement in the spine. She had a very good clinical response. She then underwent high-dose melphalan/stem cell transplant at [facility] on 04/30/2013. She then began on maintenance Revlimid and she continued IV Zometa infusions for the lytic bone involvement. During followup her monoclonal protein remained undetectable, but she continued to have chronic pain associated with underlying degenerative disease of the spine. Overall she has been doing pretty well clinically. She does have limited mobility related to her degenerative disease, but thus far there has been no recurrence/progression of the myeloma. She continues maintenance Revlimid 5 mg daily. She will be scheduled for a follow-up visit in 3 months. 2. She has been on supportive therapy for the lytic bone involvement. As of November 2019 the treatment was changed to denosumab. It was temporarily put on hold when she was diagnosed with COVID-19 virus infection in February 2020. As of June 2020 she was able to restart denosumab 60 mg by subcutaneous injection every 6 months. Signed By: Samy Edmond M.D. <<Signature on File>>
== END 2021-04-21 06:50 | disposition home or self-care (01) ==
LOC: ONCMED 06:49
PROVIDERS: PCP Family Medicine; Visit Provider Internal Medicine Medical Oncology
DX: C90.00 Multiple myeloma not having achieved remission (principal); I10 Essential (primary) hypertension; G47.33 Obstructive sleep apnea (adult) (pediatric); M47.9 Spondylosis, unspecified; M85.88 Other specified disorders of bone density and structure, other site; Z86.16 Personal history of COVID-19; Z79.899 Other long term (current) drug therapy; Z79.82 Long term (current) use of aspirin; Z79.890 Hormone replacement therapy
CPT/HCPCS: 99214

== ENCOUNTER 2021-07-01 12:19 | Outpatient (CLI) | payer MEDICARE, MEDICAID, SELFPAY ==
[2021-07-01 13:15] LABS: Basophils # 0.1 10^3/uL (0.0-0.1); Basophils % 1.5 %; Eosinophils # 0.3 10^3/uL (0.0-0.8); Eosinophils % 5.2 %; Hematocrit 38.8 % (37.0-47.0); Hemoglobin 12.8 g/dL (11.5-15.3); Lymphocytes # 1.7 10^3/uL (0.8-4.8); Lymphocytes % 28.7 %; Mean Corpuscular Hemoglobin 30.5 pg (28.0-34.0); Mean Corpuscular Volume 92.4 fl (81-99); Mean Platelet Volume 12.9 fL (7.4-10.4); Monocytes # 0.5 10^3/uL (0.2-0.9); Neutrophils # 3.27 10^3/uL (1.8-7.7); Neutrophils % 55.3 %; Nucleated Red Blood Cells % 0 %; Platelet Count 173 10^3/cmm (130-400); Red Cell Distribution Width 14.4 % (12.1-15.1); White Blood Count 5.9 10^3/uL (4.0-10.0)
[2021-07-01 13:36] LABS: Alanine Aminotransferase 16 U/L (0-33); Albumin Level 3.8 g/dL (3.5-5.2); Alkaline Phosphatase 85 IU/L (35-105); Anion Gap 16.9 (5-19); Aspartate Amino Transferase 18 U/L (0-32); Blood Urea Nitrogen 9 mg/dL (8-23); Calcium 8.8 mg/dL (8.5-10.5); Carbon Dioxide 24 mmol/L (22-29); Chloride 102 mmol/L (98-107); Globulin 2.4 g/dL (1.3-4.6); Glomerular Filtration Rate 85.1 mL/min (90-130); Glucose 95 mg/dL (65-115); Osmolality Calculated 286 mOsm/kg (285-295); Potassium 3.9 mmol/L (3.5-5.1); Sodium 139 mmol/L (136-145); Total Bilirubin 0.7 mg/dL (0.15-1.2); Total Protein 6.2 g/dL (6.6-8.7)
[2021-07-01 14:32] LABS: Immunoglobulin IGA 270 mg/dL (70-400); Immunoglobulin IGG 881 mg/dL (700-1600); Immunoglobulin IGM 25 mg/dL (40-230)
[2021-07-02 15:17] LABS: ABNORMAL PROTEIN BAND 1 0.2 g/dL (NONE DETECTED); ALBUMIN 3.5 g/dL (3.8-4.8); ALPHA 1 GLOBULIN 0.3 g/dL (0.2-0.3); ALPHA 2 GLOBULIN 0.6 g/dL (0.5-0.9); BETA 1 GLOBULIN 0.4 g/dL (0.4-0.6); BETA 2 GLOBULIN 0.3 g/dL (0.2-0.5); GAMMA GLOBULIN 0.9 g/dL (0.8-1.7)
[2021-07-02 16:41] LABS: KAPPA LIGHT CHAIN, FREE, SERUM 47.6 mg/L (3.3-19.4); KAPPA/LAMBDA LIGHT CHAINS FREE 2.18 (0.26-1.65); LAMBDA LIGHT CHAIN, FREE, SERU 21.8 mg/L (5.7-26.3)
== END 2021-07-01 12:20 | disposition home or self-care (01) ==
LOC: ONCMED 12:21
PROVIDERS: PCP Family Medicine; Visit Provider Internal Medicine Medical Oncology
DX: C90.00 Multiple myeloma not having achieved remission (principal); C79.51 Secondary malignant neoplasm of bone; D47.2 Monoclonal gammopathy
CPT/HCPCS: 36415; 80053; 82784; 83883; 84155; 84165; 85025

== ENCOUNTER 2021-07-10 06:36 | Outpatient (CLI) | payer MEDICARE, MEDICAID, SELFPAY ==
[2021-07-10] MEDS: denosumab 60 mg SDV SUBCUT (09:54)
--- NOTE | 2021-07-13 06:49 | ONC FU_ITS ---
Dr. Edmond Patient Follow-Up Note Patient: Christina Willard Unit #: [id number]: 1960 Dicatated By: Samy Edmond M.D.Date of Visit:Jul 10, 2021 Onc Med Follow-up/Prog Note Chief Complaint: Myeloma. History of Present Illness: This is a 60 year-old woman with IgG kappa myeloma. She had been found to have a monoclonal protein in the serum in May of 2011. Protein electrophoresis at that time showed an IgG kappa monoclonal band which quantitated at 1.80 g/dL. The free light chain assay showed a significantly elevated free kappa light chain at 541 mg/L. The beta 2 microglobulin level was just slightly elevated at 3.0 mg/L. There is no monoclonal protein in the urine, and there were no lytic lesions noted on her skeletal survey. Bone marrow aspiration/biopsy in June of 2011 did show evidence of a plasma cell dyscrasia with plasma cells estimated at 10% of the marrow cellularity. The FISH panel for myeloma showed a gain at 9Q34 and at 15Q24. A PET/CT in August 2011 showed a heterogeneous pattern of increased FDG uptake by the bone marrow suspicious for disseminated involvement of multiple myeloma. There were no discrete osteolytic lesions identified. She was evaluated at [facility] in September of 2011. 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 In October 2012 she was found to have lytic bone involvement in the spine, and at that point she began treatment in Revlimid/dexamethasone. She had multiple toxicities during the first cycle with the Revlimid dosed at 25 mg. Beginning with cycle 2 the dosage was reduced to 10 mg, and she then tolerated it well. She had a good response by followup protein electrophoresis. As of February 2013 she had completed 5 cycles of treatment. 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 On a follow-up visit at [facility] in July 2013, her repeat bone marrow aspiration/biopsy showed no evidence of monoclonal plasmacytosis. Her lab studies, though, did show residual monoclonal protein in the serum, and the serum free light chain assay showed a slightly elevated kappa/lambda ratio. She then started maintenance Revlimid at 5 mg daily. She also continued monthly Zometa infusions for the lytic bone involvement. She tolerated the Zometa infusions adequately with a steroid premedication. By March 2015 she had complained of worsening of her back pain, and she also had reported that her legs tended to give out . A bone scan on 04/07/2015 showed no definite evidence of metastatic disease, but there did appear to be increased compression fractures at T11 and T12 and to lesser extent at L1 compared to previous imaging studies from 2012. She had further evaluation with MRI of the thoracic and lumbar spine on 06/16/2015. That study reported a severe remote compression fracture involving T11 and mild remote compression fracture involving T12, but with no evidence of active neoplastic disease and no evidence of significant spinal canal compromise. There was abnormal signal intensity and enhancement involving the T10 pedicle on the right with an apparent nondisplaced fracture. It was uncertain whether the fracture was pathologic associated with myeloma versus benign insufficiency fracture. During her subsequent follow-up there was no definite evidence of progression of the myeloma, and she continued her maintenance Revlimid. As of May 2015 the interval of her Zometa infusions was changed to every 3 months. As of her visit in November 2019 I had changed the treatment for her bone health to denosumab. In February 2020 she was diagnosed with COVID-19 virus infection, and at that point her treatment was put on hold. She recovered uneventfully, and in June 2020 she restarted denosumab and she was able to resume maintenance Revlimid at 5 mg daily. Her history is also significant for a hospial admission for [facility] to due strep pneumoniae in August 2012, prior to starting treatment for the myeloma. She had a good recovery following antibiotic therapy, but on subsequent followup she was noted to have a diastolic heart murmur. Transesophageal echocardiogram did show moderate aortic regurgitation, but there were no vegetations noted and her LV function appeared adequate. Her other medical illnesses include hypertension, allergic rhinitis, and celiac disease. She is known to have degenerative arthritis and degenerative disc disease in the spine. She has been followed by Dr. Mckeon for multinodular goiter. She did have a thyroid surgery in December 2011. Pathology was consistent with autoimmune thyroiditis. She was then followed by an taxation inspector in [place]. She has been on oxygen at night for nocturnal oxygen desaturation, and she also was confirmed to have obstructive sleep apnea. She has a non-smoker. INTERIM HISTORY: She is seen for a follow-up visit. She has been feeling pretty good generally. She has been able to be a little more active since she has been taking tramadol on a more regular basis. She is doing some walking and some light work at home. ECOG score is 1. She has good appetite. She does not have fever or night sweats. She has occasional sinus drainage. She does not complain of cough. Her breathing has been a little better with an inhaler. She has not had any chest pain. She currently has no GI or complaints. She has chronic pain, but it is a little better with the tramadol. She says her muscles do not seem as tight. She does not complain of headache or dizziness. She has numbness/tingling in the lower extremity if she walks too much. Medications: Aspirin 1 (81 mg) Tablet Oral daily, Atenolol 1 (50 mg) Tablet Oral daily, Azelastine HCl 1 (137 mcg/spray) Solution Nasal PRN, Bisacodyl 5 mg - Take 1 - 2 Tablet, enteric coated Oral daily PRN, Calcium 1 (600 mg) Tablet Oral daily, Dilaudid 2 mg - Take 0.5 Tablet Oral t.i.d. PRN, Flexeril 10 mg - Take 0.5 - 1 Tablet Oral q 8 hours PRN, Flonase 1 spray(s) (of 50 mcg/act) Suspension Nasal daily, Gas-X Extra Strength Take Tablet, chewable Oral PRN, Lasix 1 (20 mg) Tablet Oral daily PRN, levothyroxine 1 (50 mcg) Tablet Oral daily, Levothyroxine Sodium 200 mcg - Take 1 Tablet Oral daily, LORazepam 1 (1 mg) Tablet Oral q 8 hours PRN, Magnesium Tablet Oral PRN, Multivitamin Adult 1 Tablet Oral daily, Nasal [place] Solution Nasal PRN, Olopatadine HCl 1 drop(s) (of 0.2 %) Solution Ophthalmic PRN, Pantoprazole Sodium 1 (40 mg) Tablet, enteric coated Oral daily, Potassium 1 (99 mg) Tablet Oral PRN, Revlimid 1 (5 mg) Capsule Oral daily, traMADol HCl 1 Tablet (of 50 mg) Oral PRN, Tylenol Extra Strength 500 mg - Take 1 Tablet Oral t.i.d. PRN, Ventolin HFA 1 (108 (90 base) mcg/act) Aerosol, solution Inhalation PRN, Vitamin D3 1 (400 Units) Tablet Oral daily Allergies: Codeine-Brompheniramine, gluten, voltaren gel, and Zithromax. Vital Signs: Performed on Jul 10, 2021 09:39 Height - 65.00 in Weight - 284.8 lbs (LOW) BSA - 2.30 sq.m BMI - 47.39 (HIGH) Temperature - 97.6 F (LOW) Pulse - 58 /min (LOW) Respiration - 18 /min BP - 163/89 mm(hg) (HIGH) O2 Sat - 96 % Pain - 4 Fatigue - 5 Physical Examination: Constitutional - She looks pretty good generally, but she does have limited mobility, Eyes - Sclerae nonicteric. Conjunctivae clear, ENMT - No lesions noted in the oral cavity, Hematologic/Lymphatic - No cervical, clavicular, or axillary adenopathy, Respiratory - Lungs sound clear, Cardiovascular - Heart rhythm is regular. There is a II/ systolic murmur and a grade II/IV diastolic murmur at the base and left sternal border. There is no gallop or rub noted, Abdomen - Moderately distended. Liver and spleen are not enlarged. There is no abdominal mass or ascites noted and there is no inguinal adenopathy, Extremities - No edema, Neurologic - No focal neurologic deficits noted. Lab/Imaging: Test performed on Jul 01, 2021 12:40 Sodium 139 mmol/L Potassium 3.9 mmol/L Chloride 102 mmol/L CO2 24 mmol/L Anion Gap 16.9 BUN 9 mg/dL Creatinine 0.7 mg/dL Cr Clearance (Est) 175.3800 mL/min eGFR 85.1 mL/min Glucose 95 mg/dL Osmolality - Calculated 286 mOsm/kg Calcium 8.8 mg/dL Protein, Total 6.2 g/dL Albumin 3.8 g/dL Globulin 2.4 g/dL Bilirubin, Total 0.7 mg/dL ALT (SGPT) 16 U/L AST (SGOT) 18 U/L Alkaline Phosphatase 85 IU/L WBC 5.9 10 3/uL RBC 4.20 10 6/uL HGB 12.8 g/dL HCT 38.8 % MCV 92.4 fl MCH 30.5 pg MCHC 33.0 g/dL RDW 14.4 % Platelet Count 173 10 3/cmm MPV 12.9 fL Neutrophils 3.27 10 3/uL Lymphocytes 1.7 10 3/uL Monocytes 0.5 10 3/uL Eosinophils 0.3 10 3/uL Basophils 0.1 10 3/uL Neutrophil % 55.3 % Lymphocyte % 28.7 % Monocyte % 9.0 % Eosinophil % 5.2 % Basophils % 1.5 % NRBC % 0 % [place] Free Light Chains 47.6 mg/L Lambda Free Light Chains 21.8 mg/L IgA 270 mg/dL [place]/Lambda Free Ratio 2.18 Problem List: 1. Patient with IgG kappa myeloma, initially diagnosed in May 2011. 2. Hypertension. 3. Aortic valvular insufficiency. 4. Obstructive sleep apnea. 5. Celiac disease. 6. Degenerative arthritis/degenerative disease of the spine. 7. She has osteopenia with DEXA scan in April 2019 showing mean femoral neck T score of -1.4. 8. Multinodular goiter. 9. Allergic rhinitis. Problems Addressed with this Encounter and Plan: 1. Patient with IgG kappa myeloma, initially diagnosed in May 2011. She began treatment with Revlimid/dexamethasone in October 2012 after she was found to have evidence of lytic bone involvement in the spine. She had a very good clinical response. She then underwent high-dose melphalan/stem cell transplant at [facility] on 04/30/2013. She then began on maintenance Revlimid and she continued IV Zometa infusions for the lytic bone involvement. During follow-up she has had limited mobility related to her degenerative disease. She has otherwise been doing well clinically. Up until now there have been no monoclonal protein detectable on her protein electrophoresis studies. The current study shows a very small M spike quantitating at 0.2 g/dL. There also has been a slight increase in her free kappa light chain, now to 47.6 mg/L with kappa/lambda ratio slightly elevated at 2.18. As such, she may be showing early signs of progression of the myeloma. At least for now she will continue maintenance Revlimid at 5 mg daily. She will be scheduled for follow-up visit in 3 months. 2. She has been on supportive therapy for the lytic bone involvement. As of November 2019 the treatment was changed to denosumab. It was temporarily put on hold when she was diagnosed with COVID-19 virus infection in February 2020. As of June 2020 she was able to restart denosumab at 6- month intervals. She has due today for her scheduled denosumab, 60 mg by subcutaneous injection. Signed By: Samy Edmond M.D. <<Signature on File>>
== END 2021-07-10 06:37 | disposition home or self-care (01) ==
LOC: ONCMED 06:37
PROVIDERS: PCP Family Medicine; Visit Provider Internal Medicine Medical Oncology
DX: C90.00 Multiple myeloma not having achieved remission (principal); I10 Essential (primary) hypertension; I35.1 Nonrheumatic aortic (valve) insufficiency; G47.33 Obstructive sleep apnea (adult) (pediatric); K90.0 Celiac disease; M47.9 Spondylosis, unspecified; M85.80 Other specified disorders of bone density and structure, unspecified site; Z86.16 Personal history of COVID-19; E04.2 Nontoxic multinodular goiter; Z79.899 Other long term (current) drug therapy
CPT/HCPCS: 96372; 99214; J0897

== ENCOUNTER 2021-10-01 08:13 | Outpatient (CLI) | payer MEDICARE, MEDICAID, SELFPAY ==
[2021-10-01 09:00] LABS: Basophils # 0.1 10^3/uL (0.0-0.1); Eosinophils # 0.4 10^3/uL (0.0-0.8); Eosinophils % 6.6 %; Hematocrit 43.5 % (37.0-47.0); Hemoglobin 14.4 g/dL (11.5-15.3); Lymphocytes # 1.6 10^3/uL (0.8-4.8); Lymphocytes % 26.7 %; Mean Corpuscular HGB Conc 33.1 g/dL (30.0-36.0); Mean Corpuscular Hemoglobin 29.9 pg (28.0-34.0); Mean Corpuscular Volume 90.4 fl (81-99); Mean Platelet Volume 12.2 fL (7.4-10.4); Monocytes # 0.6 10^3/uL (0.2-0.9); Monocytes % 10.5 %; Neutrophils # 3.24 10^3/uL (1.8-7.7); Neutrophils % 54.7 %; Nucleated Red Blood Cells % 0 %; Platelet Count 200 10^3/cmm (130-400); Red Blood Count 4.81 10^6/uL (4.1-5.3); Red Cell Distribution Width 15.3 % (12.1-15.1); White Blood Count 5.9 10^3/uL (4.0-10.0)
[2021-10-01 09:26] LABS: Alanine Aminotransferase 24 U/L (0-33); Albumin Level 4.3 g/dL (3.5-5.2); Alkaline Phosphatase 108 IU/L (35-105); Anion Gap 16.4 (5-19); Aspartate Amino Transferase 25 U/L (0-32); Blood Urea Nitrogen 9 mg/dL (8-23); Calcium 8.5 mg/dL (8.5-10.5); Carbon Dioxide 23 mmol/L (22-29); Chloride 103 mmol/L (98-107); Globulin 2.4 g/dL (1.3-4.6); Glomerular Filtration Rate 72.9 mL/min (90-130); Glucose 109 mg/dL (65-115); Immunoglobulin IGA 271 mg/dL (70-400); Immunoglobulin IGG 883 mg/dL (700-1600); Osmolality Calculated 287 mOsm/kg (285-295); Potassium 3.4 mmol/L (3.5-5.1); Sodium 139 mmol/L (136-145); Total Bilirubin 0.3 mg/dL (0.15-1.2); Total Protein 6.7 g/dL (6.6-8.7)
[2021-10-01 09:40] LABS: Immunoglobulin IGM < 25 mg/dL (40-230)
[2021-10-02 13:47] LABS: PROTEIN, TOTAL 6.4 g/dL (6.1-8.1)
[2021-10-02 14:47] LABS: CREATININE, 24 HOUR URINE 1.38 g/24 h (0.50-2.15); PROTEIN, TOTAL, 24 HR UR 200 mg/24 h (<150); Protein/Creatinine Ratio 0.145 (< OR = 0.114); Protein/Creatinine Ratio 145 mg/g creat (< OR = 114)
[2021-10-02 15:13] LABS: KAPPA/LAMBDA LIGHT CHAINS FREE 2.14 (0.26-1.65); LAMBDA LIGHT CHAIN, FREE, SERU 23.8 mg/L (5.7-26.3)
[2021-10-02 16:12] LABS: ABNORMAL PROTEIN BAND 1 0.3 g/dL (NONE DETECTED); ALBUMIN 3.6 g/dL (3.8-4.8); ALPHA 1 GLOBULIN 0.3 g/dL (0.2-0.3); ALPHA 2 GLOBULIN 0.7 g/dL (0.5-0.9); BETA 1 GLOBULIN 0.5 g/dL (0.4-0.6); BETA 2 GLOBULIN 0.4 g/dL (0.2-0.5); GAMMA GLOBULIN 0.9 g/dL (0.8-1.7)
[2021-10-05 15:23] LABS: ALBUMIN 0 %; ALPHA-1-GLOBULINS 0 %; ALPHA-2-GLOBULINS 0 %; BETA GLOBULINS 0 %; GAMMA GLOBULINS 0 %
== END 2021-10-01 08:14 | disposition home or self-care (01) ==
PROVIDERS: PCP Family Medicine; Visit Provider Internal Medicine Medical Oncology
DX: C90.00 Multiple myeloma not having achieved remission (principal); I10 Essential (primary) hypertension; I35.1 Nonrheumatic aortic (valve) insufficiency; G47.33 Obstructive sleep apnea (adult) (pediatric); K90.0 Celiac disease; M47.9 Spondylosis, unspecified; E04.2 Nontoxic multinodular goiter; Z79.899 Other long term (current) drug therapy
CPT/HCPCS: 36415; 80053; 82784; 83883; 84155; 84156; 84165; 84166; 85025

== ENCOUNTER 2021-10-08 07:54 | Outpatient (CLI) | payer MEDICARE, MEDICAID, SELFPAY ==
--- NOTE | 2021-10-08 08:40 | ONC FU_ITS ---
Jaylene Mcneil Progress Note Patient: Christina Willard Unit #: [id number]: 1960 Dicatated By: Jaylene Mcneil N.P.Date of Visit:Oct 08, 2021 Onc MED Follow-up/Prog Note Chief Complaint: Myeloma. History of Present Illness: This is a 60 year-old woman with IgG kappa myeloma. She had been found to have a monoclonal protein in the serum in May of 2011. Protein electrophoresis at that time showed an IgG kappa monoclonal band which quantitated at 1.80 g/dL. The free light chain assay showed a significantly elevated free kappa light chain at 541 mg/L. The beta 2 microglobulin level was just slightly elevated at 3.0 mg/L. There is no monoclonal protein in the urine, and there were no lytic lesions noted on her skeletal survey. Bone marrow aspiration/biopsy in June of 2011 did show evidence of a plasma cell dyscrasia with plasma cells estimated at 10% of the marrow cellularity. The FISH panel for myeloma showed a gain at 9Q34 and at 15Q24. A PET/CT in August 2011 showed a heterogeneous pattern of increased FDG uptake by the bone marrow suspicious for disseminated involvement of multiple myeloma. There were no discrete osteolytic lesions identified. She was evaluated at [facility] in September of 2011. 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 In October 2012 she was found to have lytic bone involvement in the spine, and at that point she began treatment in Revlimid/dexamethasone. She had multiple toxicities during the first cycle with the Revlimid dosed at 25 mg. Beginning with cycle 2 the dosage was reduced to 10 mg, and she then tolerated it well. She had a good response by followup protein electrophoresis. As of February 2013 she had completed 5 cycles of treatment. 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 On a follow-up visit at [facility] in July 2013, her repeat bone marrow aspiration/biopsy showed no evidence of monoclonal plasmacytosis. Her lab studies, though, did show residual monoclonal protein in the serum, and the serum free light chain assay showed a slightly elevated kappa/lambda ratio. She then started maintenance Revlimid at 5 mg daily. She also continued monthly Zometa infusions for the lytic bone involvement. She tolerated the Zometa infusions adequately with a steroid premedication. By March 2015 she had complained of worsening of her back pain, and she also had reported that her legs tended to give out . A bone scan on 04/07/2015 showed no definite evidence of metastatic disease, but there did appear to be increased compression fractures at T11 and T12 and to lesser extent at L1 compared to previous imaging studies from 2012. She had further evaluation with MRI of the thoracic and lumbar spine on 06/16/2015. That study reported a severe remote compression fracture involving T11 and mild remote compression fracture involving T12, but with no evidence of active neoplastic disease and no evidence of significant spinal canal compromise. There was abnormal signal intensity and enhancement involving the T10 pedicle on the right with an apparent nondisplaced fracture. It was uncertain whether the fracture was pathologic associated with myeloma versus benign insufficiency fracture. During her subsequent follow-up there was no definite evidence of progression of the myeloma, and she continued her maintenance Revlimid. As of May 2015 the interval of her Zometa infusions was changed to every 3 months. As of her visit in November 2019 I had changed the treatment for her bone health to denosumab. In February 2020 she was diagnosed with COVID-19 virus infection, and at that point her treatment was put on hold. She recovered uneventfully, and in June 2020 she restarted denosumab and she was able to resume maintenance Revlimid at 5 mg daily. Her history is also significant for a hospial admission for [facility] to due strep pneumoniae in August 2012, prior to starting treatment for the myeloma. She had a good recovery following antibiotic therapy, but on subsequent followup she was noted to have a diastolic heart murmur. Transesophageal echocardiogram did show moderate aortic regurgitation, but there were no vegetations noted and her LV function appeared adequate. Her other medical illnesses include hypertension, allergic rhinitis, and celiac disease. She is known to have degenerative arthritis and degenerative disc disease in the spine. She has been followed by Dr. Mckeon for multinodular goiter. She did have a thyroid surgery in December 2011. Pathology was consistent with autoimmune thyroiditis. She was then followed by an infrastructure project manager in [place]. She has been on oxygen at night for nocturnal oxygen desaturation, and she also was confirmed to have obstructive sleep apnea. She has a non-smoker. INTERIM HISTORY: Patient presents today for follow-up. She states that she has been feeling pretty good. Her appetite has been good. No fever chills, night sweats. She has a small amount of sinus drainage but that is improving. No shortness of breath, cough, chest pain. No GI or problems. She had a stomach bug a couple of week that is now resolved. She has chronic joint and bone pain which is controlled with medication. No headaches or dizziness. She has a CPAP which has not been working properly for several months now. She gets her equipment through [employer] but has not had any luck in getting it repaired. She has had this machine for several years. Review Of Symptoms:See above. Past Medical History: Hypertension Multiple myeloma in 2011 Monoclonal gammopathy in 2011 Polycythemia in 2001 (Treated: Theraputic Phlebotomy) Past Surgical History: Flu vaccine in 2019 - left deltoid Flu vaccine in 2018 - left deltoid Pneumonia vaccine in 2018 - given at dr resendez's office/ verified. th Flucevax in 2017 - left deltoid Lumpectomy(middle) in 2015 Influenza vaccine in 2014 Influenza vaccine in 2013 Pneumonia vaccine in [address] in 2012 Total thyroidectomy in 2011 Bone marrow aspiration in 2010 Bone marrow biopsy in 2010 Strangulated hernia repair in 2009 Tubal ligation in 1990 Allergies: Codeine-Brompheniramine, gluten, voltaren gel, and Zithromax. Medications: Aspirin 1 (81 mg) Tablet Oral daily Atenolol 1 (50 mg) Tablet Oral daily Azelastine HCl 1 (137 mcg/spray) Solution Nasal PRN Bisacodyl 5 mg - Take 1 - 2 Tablet, enteric coated Oral daily PRN Calcium 1 (600 mg) Tablet Oral daily Dilaudid 2 mg - Take 0.5 Tablet Oral t.i.d. PRN Flexeril 10 mg - Take 0.5 - 1 Tablet Oral q 8 hours PRN Flonase 1 spray(s) (of 50 mcg/act) Suspension Nasal daily Gas-X Extra Strength Take Tablet, chewable Oral PRN Lasix 1 (20 mg) Tablet Oral daily PRN levothyroxine 1 (50 mcg) Tablet Oral daily Levothyroxine Sodium 200 mcg - Take 1 Tablet Oral daily LORazepam 1 (1 mg) Tablet Oral q 8 hours PRN Magnesium Tablet Oral PRN Multivitamin Adult 1 Tablet Oral daily Nasal [place] Solution Nasal PRN Olopatadine HCl 1 drop(s) (of 0.2 %) Solution Ophthalmic PRN Pantoprazole Sodium 1 (40 mg) Tablet, enteric coated Oral daily Potassium 1 (99 mg) Tablet Oral PRN Revlimid 1 (5 mg) Capsule Oral daily traMADol HCl 1 Tablet (of 50 mg) Oral PRN Tylenol Extra Strength 500 mg - Take 1 Tablet Oral t.i.d. PRN Ventolin HFA 1 (108 (90 base) mcg/act) Aerosol, solution Inhalation PRN Vitamin D3 1 (400 Units) Tablet Oral daily Family History: Ms. Willard does not know if her mother is alive: medical history includes hypertension. Ms. Willard does not know if her father is alive: cancer history consists of Lymph Nodes cancer while other medical history includes hypertension. Ms. Willard has 1 brother with an unknown alive status: medical history includes hypertension. She has 1 sister with an unknown alive status: medical history includes hypertension. grandmother of metastatic cancer. Social History: Ms. Willard is single and she is an on disability. Ms. Willard has never smoked. She has no history of drinking. Ms. Willard reports the following support systems: lives alone, lives in own house, and adequate transportation available for expected visits. Her diet consists of regular meals. She indicates her activity level as: daily activities. Physical Examination: Performed on Oct 08, 2021 08:07: Height - 65.00 in, Weight - 290.4 lbs (HIGH), BSA - 2.32 sq.m, BMI - 48.33 (HIGH), Temperature - 97.6 F (LOW), Pulse - 63 /min, Respiration - 18 /min, BP - 179/81 mm(hg) (HIGH), O2 Sat - 96 %, Pain - 0, and Fatigue - 4. Performance Status: 1 - No physically strenuous activity, but ambulatory and able to carry out light or sedentary work (e.g. office work, light house work). (ECOG) Constitutional Alert, cooperative, oriented. Mood and affect appropriate. Appears close to chronological age. Well nourished. Well developed. Head Normocephalic; no scars. Respiratory Lungs are clear to auscultation without rhonchi or wheezing. Cardiovascular Regular rate and rhythm of heart without murmurs, gallops or rubs. Abdomen Non-tender, non-distended, no masses, ascites or hepatosplenomegaly. Good bowel sounds. No guarding or rebound tenderness. Extremities No visible deformities, no cyanosis, clubbing or edema. Pulses 3+ and equal bilaterally. Psychiatric Alert and oriented times three. Coherent speech. Verbalizes understanding of our discussions today. Laboratory: Test performed on Jul 01, 2021 12:40 Sodium 139 mmol/L Potassium 3.9 mmol/L Chloride 102 mmol/L CO2 24 mmol/L Anion Gap 16.9 BUN 9 mg/dL Creatinine 0.7 mg/dL Cr Clearance (Est) 175.3800 mL/min eGFR 85.1 mL/min Glucose 95 mg/dL Osmolality - Calculated 286 mOsm/kg Calcium 8.8 mg/dL Protein, Total 6.2 g/dL Albumin 3.8 g/dL Globulin 2.4 g/dL Bilirubin, Total 0.7 mg/dL ALT (SGPT) 16 U/L AST (SGOT) 18 U/L Alkaline Phosphatase 85 IU/L WBC 5.9 10 3/uL RBC 4.20 10 6/uL HGB 12.8 g/dL HCT 38.8 % MCV 92.4 fl MCH 30.5 pg MCHC 33.0 g/dL RDW 14.4 % Platelet Count 173 10 3/cmm MPV 12.9 fL Neutrophils 3.27 10 3/uL Lymphocytes 1.7 10 3/uL Monocytes 0.5 10 3/uL Eosinophils 0.3 10 3/uL Basophils 0.1 10 3/uL Neutrophil % 55.3 % Lymphocyte % 28.7 % Monocyte % 9.0 % Eosinophil % 5.2 % Basophils % 1.5 % NRBC % 0 % [place] Free Light Chains 47.6 mg/L Lambda Free Light Chains 21.8 mg/L IgA 270 mg/dL [place]/Lambda Free Ratio 2.18 Impression: 1. Patient with IgG kappa myeloma, initially diagnosed in May 2011. 2. Hypertension. 3. Aortic valvular insufficiency. 4. Obstructive sleep apnea. 5. Celiac disease. 6. Degenerative arthritis/degenerative disease of the spine. 7. She has osteopenia with DEXA scan in April 2019 showing mean femoral neck T score of -1.4. 8. Multinodular goiter. 9. Allergic rhinitis. Plan: 1. Patient with IgG kappa myeloma, initially diagnosed in May 2011. She began treatment with Revlimid/dexamethasone in October 2012 after she was found to have evidence of lytic bone involvement in the spine. She had a very good clinical response. She then underwent high-dose melphalan/stem cell transplant at [facility] on 04/30/2013. She then began on maintenance Revlimid and she continued IV Zometa infusions for the lytic bone involvement. During follow-up she has had limited mobility related to her degenerative disease. She has been doing well clinically. Her labs were reviewed her kappa free light chain was up slightly from 47.6-51.0 and her kappa lambda free ratio was at 2 0.14 down from 2.18 her 24-hour urine showed her urine creatinine up slightly to 1.38 from 0.74 and her 24-hour protein was up to 200 from 96. We will recheck her labs in 3 months. She will continue her Revlimid at 5 mg daily. 2. She has been on supportive therapy for the lytic bone involvement. As of November 2019 the treatment was changed to denosumab. It was temporarily put on hold when she was diagnosed with COVID-19 virus infection in February 2020. As of June 2020 she was able to restart denosumab at 6- month intervals. She will be due for her Prolia injection in 3 months. 3. Due to CPAP machine being nonfunctional and it has been several years since last sleep study, will place referral for new sleep study to reevaluate (addendum) Signed By: Jaylene Mcneil N.P. <<Signature on File>>
== END 2021-10-08 07:55 | disposition home or self-care (01) ==
LOC: ONCMED 07:55
PROVIDERS: PCP Family Medicine; Visit Provider Nurse Practitioner Family
DX: C90.00 Multiple myeloma not having achieved remission (principal); I10 Essential (primary) hypertension; I35.1 Nonrheumatic aortic (valve) insufficiency; G47.33 Obstructive sleep apnea (adult) (pediatric); K90.0 Celiac disease; M47.9 Spondylosis, unspecified; E04.2 Nontoxic multinodular goiter; Z79.899 Other long term (current) drug therapy
CPT/HCPCS: 99214

== ENCOUNTER 2021-11-04 20:00 | Outpatient (CLI) | payer MEDICARE, MEDICAID, SELFPAY | END 2021-11-04 20:01 | disposition home or self-care (01) | LOC: SLEEP 11-05 08:30 | PROVIDERS: PCP Family Medicine; Visit Provider Nurse Practitioner Family | DX: G47.30 Sleep apnea, unspecified (principal) | CPT/HCPCS: 95810 ==

== ENCOUNTER 2021-12-16 20:00 | Outpatient (CLI) | payer MEDICARE, MEDICAID, SELFPAY | END 2021-12-16 20:01 | disposition home or self-care (01) | LOC: SLEEP 12-17 05:39 | PROVIDERS: PCP Family Medicine; Visit Provider Nurse Practitioner Family | DX: G47.33 Obstructive sleep apnea (adult) (pediatric) (principal) | CPT/HCPCS: 95811 ==

== ENCOUNTER 2022-01-07 09:00 | Oncology outpatient (recurring) (ONCR) | payer MEDICARE, MEDICAID, SELFPAY ==
[2021-12-31 08:26] LABS: Basophils # 0.1 10^3/uL (0.0-0.1); Basophils % 1.7 %; Eosinophils # 0.4 10^3/uL (0.0-0.8); Eosinophils % 6.9 %; Hematocrit 42.6 % (37.0-47.0); Hemoglobin 14.3 g/dL (11.5-15.3); Lymphocytes # 1.5 10^3/uL (0.8-4.8); Lymphocytes % 26.2 %; Mean Corpuscular HGB Conc 33.6 g/dL (30.0-36.0); Mean Corpuscular Hemoglobin 29.9 pg (28.0-34.0); Mean Corpuscular Volume 88.9 fl (81-99); Mean Platelet Volume 12.8 fL (7.4-10.4); Monocytes # 0.7 10^3/uL (0.2-0.9); Monocytes % 11.6 %; Neutrophils # 3.09 10^3/uL (1.8-7.7); Neutrophils % 53.3 %; Nucleated Red Blood Cells % 0 %; Platelet Count 172 10^3/cmm (130-400); Red Blood Count 4.79 10^6/uL (4.1-5.3); Red Cell Distribution Width 15.5 % (12.1-15.1); White Blood Count 5.8 10^3/uL (4.0-10.0)
[2021-12-31 09:01] LABS: Alanine Aminotransferase 21 U/L (0-33); Albumin Level 3.8 g/dL (3.5-5.2); Alkaline Phosphatase 95 IU/L (35-105); Anion Gap 15.1 (5-19); Aspartate Amino Transferase 26 U/L (0-32); Blood Urea Nitrogen 14 mg/dL (8-23); Calcium 9.3 mg/dL (8.5-10.5); Carbon Dioxide 25 mmol/L (22-29); Chloride 102 mmol/L (98-107); Globulin 2.9 g/dL (1.3-4.6); Glomerular Filtration Rate 84.8 mL/min (90-130); Glucose 112 mg/dL (65-115); Immunoglobulin IGA 266 mg/dL (70-400); Immunoglobulin IGG 924 mg/dL (700-1600); Osmolality Calculated 287 mOsm/kg (285-295); Potassium 4.1 mmol/L (3.5-5.1); Sodium 138 mmol/L (136-145); Total Bilirubin 0.4 mg/dL (0.15-1.2); Total Protein 6.7 g/dL (6.6-8.7)
[2021-12-31 09:28] LABS: Immunoglobulin IGM 19 mg/dL (40-230)
[2022-01-01 07:13] LABS: PROTEIN, TOTAL 6.2 g/dL (6.1-8.1)
[2022-01-01 11:57] LABS: KAPPA LIGHT CHAIN, FREE, SERUM 72.8 mg/L (3.3-19.4); KAPPA/LAMBDA LIGHT CHAINS FREE 3.34 (0.26-1.65); LAMBDA LIGHT CHAIN, FREE, SERU 21.8 mg/L (5.7-26.3)
[2022-01-01 14:27] LABS: ABNORMAL PROTEIN BAND 1 0.3 g/dL (NONE DETECTED); ALBUMIN 3.4 g/dL (3.8-4.8); ALPHA 1 GLOBULIN 0.3 g/dL (0.2-0.3); ALPHA 2 GLOBULIN 0.7 g/dL (0.5-0.9); BETA 1 GLOBULIN 0.5 g/dL (0.4-0.6); BETA 2 GLOBULIN 0.4 g/dL (0.2-0.5)
[2022-01-01 14:42] LABS: CREATININE, 24 HOUR URINE 1.76 g/24 h (0.50-2.15); PROTEIN, TOTAL, 24 HR UR 224 mg/24 h (<150); Protein/Creatinine Ratio 0.127 (< OR = 0.114); Protein/Creatinine Ratio 127 mg/g creat (< OR = 114)
[2022-01-04 16:27] LABS: ALBUMIN 100 %; ALPHA-1-GLOBULINS 0 %; ALPHA-2-GLOBULINS 0 %; BETA GLOBULINS 0 %; GAMMA GLOBULINS 0 %
[2022-01-07] MEDS: denosumab 60 mg SDV SUBCUT (09:15)
[2022-01-07 09:22] VITALS: BP 128/74; PULSE 68; RESP 18; TEMP 36.5; O2SAT 99
== END 2022-01-21 23:59 | disposition home or self-care (01) ==
PROVIDERS: Nurse Practitioner; PCP Family Medicine; Visit Provider Internal Medicine Medical Oncology
DX: M81.0 Age-related osteoporosis without current pathological fracture (principal); C90.00 Multiple myeloma not having achieved remission; E03.9 Hypothyroidism, unspecified
CPT/HCPCS: 36415; 80053; 82784; 83883; 84155; 84156; 84165; 84166; 85025; 96372; 99214; J0897

== ENCOUNTER 2022-04-12 07:07 | Oncology outpatient (recurring) (ONCR) | payer MEDICARE, MEDICAID, SELFPAY ==
[2022-04-09 08:03] LABS: Basophils # 0.1 10^3/uL (0.0-0.1); Eosinophils # 0.4 10^3/uL (0.0-0.8); Eosinophils % 6.9 %; Hematocrit 43.9 % (37.0-47.0); Hemoglobin 14.5 g/dL (11.5-15.3); Lymphocytes # 1.8 10^3/uL (0.8-4.8); Lymphocytes % 28.3 %; Mean Corpuscular Hemoglobin 30.5 pg (28.0-34.0); Mean Corpuscular Volume 92.2 fl (81-99); Mean Platelet Volume 12.7 fL (7.4-10.4); Monocytes # 0.7 10^3/uL (0.2-0.9); Monocytes % 10.9 %; Neutrophils # 3.31 10^3/uL (1.8-7.7); Neutrophils % 51.6 %; Nucleated Red Blood Cells % 0 %; Platelet Count 180 10^3/cmm (130-400); Red Blood Count 4.76 10^6/uL (4.1-5.3); Red Cell Distribution Width 15.2 % (12.1-15.1); White Blood Count 6.4 10^3/uL (4.0-10.0)
[2022-04-09 08:26] LABS: Alanine Aminotransferase 18 U/L (0-33); Albumin Level 3.7 g/dL (3.5-5.2); Alkaline Phosphatase 95 U/L (35-105); Anion Gap 14.1 (5-19); Aspartate Amino Transferase 21 U/L (0-32); Blood Urea Nitrogen 13 mg/dL (8-23); Carbon Dioxide 27 mmol/L (22-29); Chloride 103 mmol/L (98-107); Globulin 2.9 g/dL (1.3-4.6); Glomerular Filtration Rate 56.2 mL/min (90-130); Glucose 106 mg/dL (65-115); Osmolality Calculated 291 mOsm/kg (285-295); Potassium 4.1 mmol/L (3.5-5.1); Sodium 140 mmol/L (136-145); Total Bilirubin 0.4 mg/dL (0.15-1.2); Total Protein 6.6 g/dL (6.6-8.7)
[2022-04-12 14:03] LABS: KAPPA LIGHT CHAIN, FREE, SERUM 115.2 mg/L (3.3-19.4)
[2022-04-13 12:03] LABS: CREATININE, 24 HOUR URINE 1.51 g/24 h (0.50-2.15); PROTEIN, TOTAL, 24 HR UR 240 mg/24 h (<150); Protein/Creatinine Ratio 0.159 (<0.150); Protein/Creatinine Ratio 159 mg/g creat (<150)
[2022-04-14 11:23] LABS: ALBUMIN 38 %; ALPHA-1-GLOBULINS 7 %; ALPHA-2-GLOBULINS 10 %; BETA GLOBULINS 27 %; GAMMA GLOBULINS 19 %
== END 2022-04-23 23:59 | disposition home or self-care (01) ==
PROVIDERS: Nurse Practitioner; PCP Family Medicine; Visit Provider Internal Medicine Medical Oncology
DX: C90.00 Multiple myeloma not having achieved remission (principal)
CPT/HCPCS: 36415; 80053; 83883; 84156; 84166; 85025

== ENCOUNTER 2022-07-08 09:59 | Outpatient (CLI) | payer MEDICAID, SELFPAY ==
[2022-07-09 11:18] LABS: CREATININE, 24 HOUR URINE 1.27 g/24 h (0.50-2.15); PROTEIN, TOTAL, 24 HR UR 148 mg/24 h (<150); Protein/Creatinine Ratio 0.116 (<0.150); Protein/Creatinine Ratio 116 mg/g creat (<150)
[2022-07-14 10:09] LABS: ALBUMIN 100 %; ALPHA-1-GLOBULINS 0 %; ALPHA-2-GLOBULINS 0 %; BETA GLOBULINS 0 %; GAMMA GLOBULINS 0 %
== END 2022-07-08 10:00 | disposition home or self-care (01) ==
LOC: LAB 10:02
PROVIDERS: PCP Family Medicine; Visit Provider Nurse Practitioner
DX: Z01.89 Encounter for other specified special examinations (principal)
CPT/HCPCS: 82570; 84166; 86335

== ENCOUNTER 2022-07-13 13:00 | Oncology outpatient (recurring) (ONCR) | payer MEDICARE, MEDICAID, SELFPAY ==
[2022-07-06 09:06] LABS: Basophils # 0.1 10^3/uL (0.0-0.1); Basophils % 1.7 %; Eosinophils # 0.4 10^3/uL (0.0-0.8); Eosinophils % 6.2 %; Hematocrit 46.1 % (37.0-47.0); Lymphocytes # 1.5 10^3/uL (0.8-4.8); Mean Corpuscular HGB Conc 32.5 g/dL (30.0-36.0); Mean Corpuscular Hemoglobin 30.8 pg (28.0-34.0); Mean Corpuscular Volume 94.7 fl (81-99); Mean Platelet Volume 11.9 fL (7.4-10.4); Monocytes # 0.6 10^3/uL (0.2-0.9); Monocytes % 10.1 %; Neutrophils % 58.4 %; Nucleated Red Blood Cells % 0 %; Platelet Count 204 10^3/cmm (130-400); Red Blood Count 4.87 10^6/uL (4.1-5.3); Red Cell Distribution Width 16.2 % (12.1-15.1); White Blood Count 6.3 10^3/uL (4.0-10.0)
[2022-07-06 09:08] LABS: Erythrocyte Sedimentation Rate 2 mm/hr (0-15)
[2022-07-06 09:29] LABS: Alanine Aminotransferase 24 U/L (0-33); Albumin Level 3.5 g/dL (3.5-5.2); Alkaline Phosphatase 97 U/L (35-105); Anion Gap 14.1 (5-19); Aspartate Amino Transferase 22 U/L (0-32); Blood Urea Nitrogen 15 mg/dL (8-23); Calcium 9.3 mg/dL (8.5-10.5); Carbon Dioxide 29 mmol/L (22-29); Chloride 103 mmol/L (98-107); Globulin 3.2 g/dL (1.3-4.6); Glomerular Filtration Rate 56.2 mL/min (90-130); Glucose 87 mg/dL (65-115); Immunoglobulin IGA 274 mg/dL (70-400); Immunoglobulin IGG 1238 mg/dL (700-1600); Immunoglobulin IGM 25 mg/dL (40-230); Osmolality Calculated 294 mOsm/kg (285-295); Potassium 4.1 mmol/L (3.5-5.1); Sodium 142 mmol/L (136-145); Thyroid Stimulating Hormone 1.48 uIU/mL (0.27-4.20); Total Bilirubin 0.5 mg/dL (0.15-1.2); Total Protein 6.7 g/dL (6.6-8.7)
[2022-07-07 11:05] LABS: PROTEIN, TOTAL 6.3 g/dL (6.1-8.1)
[2022-07-07 12:45] LABS: KAPPA/LAMBDA LIGHT CHAINS FREE 9.11 (0.26-1.65); LAMBDA LIGHT CHAIN, FREE, SERU 19.1 mg/L (5.7-26.3)
[2022-07-07 17:04] LABS: ABNORMAL PROTEIN BAND 1 0.7 g/dL (NONE DETECTED); ALBUMIN 3.3 g/dL (3.8-4.8); ALPHA 1 GLOBULIN 0.3 g/dL (0.2-0.3); ALPHA 2 GLOBULIN 0.6 g/dL (0.5-0.9); BETA 1 GLOBULIN 0.4 g/dL (0.4-0.6); BETA 2 GLOBULIN 0.3 g/dL (0.2-0.5); GAMMA GLOBULIN 1.3 g/dL (0.8-1.7)
[2022-07-13] MEDS: denosumab 60 mg SDV SUBCUT (13:32)
== END 2022-07-24 23:59 | disposition home or self-care (01) ==
PROVIDERS: Nurse Practitioner; PCP Family Medicine; Visit Provider Internal Medicine Medical Oncology
DX: C90.00 Multiple myeloma not having achieved remission (principal); R74.8 Abnormal levels of other serum enzymes; M81.0 Age-related osteoporosis without current pathological fracture; Z79.899 Other long term (current) drug therapy; Z86.16 Personal history of COVID-19
CPT/HCPCS: 36415; 80053; 82784; 83883; 84155; 84165; 84443; 85025; 85651; 96372; 99214; J0897

== ENCOUNTER 2022-09-04 10:27 | Outpatient (CLI) | payer MEDICARE, MEDICAID, SELFPAY ==
--- NOTE | 2022-09-04 08:46 | PETR_ITS ---
PROCEDURE INFORMATION: Exam: PET/CT Skull Base to Mid-thigh Exam date and time: 09/04/2022 12:26 PM Age: 61 years old Clinical indication: Multiple myeloma not having achieved remission. Currently taking chemotherapy pills. Rheumatoid arthritis (according to the DXA report). LABS AND CLINICAL REPORTS: Glucose: 104 mg/dl Treatment strategy for malignancy (PET staging): Restaging (PS) TECHNIQUE: Imaging protocol: Following at least four-hour fasting and following the injection of F-18-FDG, low dose CT images were obtained. Then, PET images were obtained. Attenuation corrected images were constructed using the CT scan. Fused images of PET and CT were reviewed. The standardized uptake values (SUV) reported below are maximum values within a region of interest, expressed in gm/ml. Exam includes orbital meatal line to mid-thigh. Radiopharmaceutical: 13.82 mCi F-18 FDG (Fluorodeoxyglucose), IV. Time of imaging post radiopharmaceutical administration: 74.483 minutes. Injection site: Left antecubital vein. COMPARISON: 1. DEXA 05/15/2019. 2. Bone survey 11/06/2018. FINDINGS: Limitations: Image quality is degraded by streak artifact caused by inclusion of the patient's arms within the scan plane. Large body habitus causes unavoidable image degradation. Brain: Visualized brain has normal physiologic uptake. Paranasal sinuses: The left maxillary sinus is hypoplastic and contains circumferential mucoperiosteal thickening. Its SUV max of 6.2 indicates chronic sinusitis, but there is no air-fluid level to suggest acute sinusitis. The other paranasal sinuses are clear. Pharynx: No abnormal uptake. Larynx: No abnormal uptake. Lungs, pleura and trachea: No abnormal uptake. Heart: Mild/moderate cardiomegaly. Mediastinal space: No abnormal uptake. Liver: No abnormal uptake. Gallbladder and bile ducts: Post cholecystectomy. Pancreas: No abnormal uptake. Spleen: Spleen is normal in size. Adrenal glands: No abnormal uptake. Kidneys and ureters: Normal physiologic uptake. Stomach and bowel: No abnormal uptake. Reproductive: Postmenopausal uterine and ovarian atrophy is appropriate for 61 years of age. Vasculature: No abnormal uptake. Lymph nodes: No abnormal uptake. No lymphadenopathy in the head, neck, chest, abdomen, pelvis or extremities. Bones/joints: Mild/moderate S shaped thoracolumbar scoliosis. There is a 23 degree lumbar dextroscoliosis measured between T11 and L4. At the T4 vertebral body, a mild compression fracture is new since the bone survey in 2019. At the T5 vertebral body, a benign hemangioma is not FDG avid. At the T11 vertebral body, a severe compression fracture is unchanged from 2019. At the T12 vertebral body, a mild/moderate compression fracture is unchanged from 2019. Stable concave endplate compression fractures at L1, L3, L4 and L5. Stable chronic severe disc narrowing at L5-S1. Mild FDG avidity throughout the thoracolumbar spine it is consistent with multiple myeloma. For example, SUVs max in the T4 vertebral body is 4.0, in the T12 vertebral body is 5.1 and in the L1 vertebral body is 4.9. No focal lytic skeletal lesion is identified. There is no unusual FDG avidity in the upper or lower extremities. For example, SUV max in the proximal right humerus is 2.8. SUV max in the proximal left humerus is 2.5. SUV max in the right femur is 3.8 in the proximal diaphysis. SUV max in the left femur is 2.4 in the proximal diaphysis. There is no increased FDG avidity in the skull or pelvis. Soft tissues: 12 cm diastasis of the rectus abdominus muscles causes an umbilical eventration/hernia which contains omental fat and nonobstructed transverse colon. The hernia is 12 x 4 x 9 cm (TR x AP x CC). [id number] IMPRESSION: 1. Diffuse mild FDG avidity throughout the thoracolumbar spine it is consistent with multiple myeloma. SUVs max range up to 5.1 in the T12 vertebral body. 2. At the T4 vertebral body, a mild compression fracture is new since the bone survey in 2019. 3. Stable vertebral body compression fractures at T11, T12, L1, L3, L4 and L5. 4. An umbilical eventration/hernia which contains omental fat and nonobstructed transverse colon. It is 12 x 4 x 9 cm (TR x AP x CC). 5. Mild/moderate cardiomegaly. 6. Chronic left maxillary sinusitis and hypoplasia.
== END 2022-09-04 10:28 | disposition home or self-care (01) ==
LOC: RAD 10:27
PROVIDERS: PCP Family Medicine; Visit Provider Internal Medicine Medical Oncology
DX: C90.00 Multiple myeloma not having achieved remission (principal)
CPT/HCPCS: 78815; A9552

== ENCOUNTER 2022-09-26 08:03 | Emergency (ER) | payer MEDICARE, MEDICAID, SELFPAY ==
--- NOTE | 2022-09-26 08:05 | ECG_ITS ---
[facility] Test Date: 2022-09-26 Pat Name: Christina Willard Department: Room: Gender: Female Rivet Sorter: : 1960 Requested By: Peter Lim Order Number: [id number] De Leon MD: Yifan Puente M.D. Measurements Intervals [place] Rate: 56 P: 56 DE: 143 QRS: 51 QRSD: 96 T: 103 QT: 461 QTc: 445 Interpretive Statements SINUS BRADYCARDIA LEFT VENTRICULAR HYPERTROPHY AND ST-T CHANGE [VOLTAGE CRITERIA PLUS ST/T ABNORMALITY] No previous ECG available for comparison Electronically Signed On 09-26-2022 11:38:06 CLAY HOISTER by Yifan Puente M.D. [id number]
[2022-09-26 08:07] VITALS: BP 180/81; PULSE 70; RESP 14; TEMP 36.6; O2SAT 95; BMI 48.0
--- NOTE | 2022-09-26 08:12 | XRR_ITS ---
PROCEDURE INFORMATION: Exam: XR Chest Exam date and time: 09/26/2022 8:29 AM Age: 61 years old Clinical indication: Shortness of breath; Additional info: Upper back/chest pain TECHNIQUE: Imaging protocol: Radiologic exam of the chest. Views: 2 views. COMPARISON: PT PET [facility] SUBSEQ [id number] 09/04/2022 12:26 PM FINDINGS: Lungs: Unremarkable. No consolidation. Pleural spaces: Unremarkable. No pleural effusion. No pneumothorax. Heart/Mediastinum: Unremarkable. No cardiomegaly. Bones/joints: Unremarkable. Other findings: Extensive rotation. XR/XR chest 2V* [id number] IMPRESSION: No acute abnormality given the rotation.
--- NOTE | 2022-09-26 09:13 | W.ED.BACK ---
HPI - Back Pain/Injury General: Chief Complaint: Back Pain/Injury Stated Complaint: upper back pain/sob Time Seen by Provider: 09/26/22 09:13 History of Present Illness: Ms. Willard is a 61-year-old lady with complex past medical history presenting to the emergency department for back pain. She reports symptoms about 1 month ago however this resolved without clear explanation. She started having symptoms again about 4 days ago and has been excruciating for the past 2 days. She reports at minimal it is mild in between her shoulder blades however at times worsens to severe. She has tried home medications without significant improvement. She denies specific provoking factors or other associated symptoms. No other specific changes in health, exacerbating, or alleviating factors identified. Onset (ago): day(s) Timing: constant Severity: severe Similar Symptoms Previously: Yes Quality: sharp and aching Location: thoracic spine Exacerbating factors: none Relieving factors: none Associated symptoms: Reports no associated symptoms Review of Systems General: Reports: 10 or more systems reviewed and unremarkable except in HPI and below PFSH ED PFSH: Medical History Aortic regurgitation (08/2012) Aortic valve regurgitation following strep pneumonia/sepsis Degenerative joint disease of spine Gluten enteropathy HTN (hypertension) Hypothyroidism Multiple myeloma not having achieved remission Obstructive sleep apnea Osteoporosis Polycythemia Surgical History History of bone marrow biopsy 06/29/2011 History of hernia repair Strangulated hernia repair 04/2010 History of lumpectomy 2016 History of thyroidectomy 12/27/2011 History of tubal ligation 1990 Family History Other Cancer Diabetes Hypertension Psychiatric illness Denies family history of CAD (coronary artery disease) Clotting disorder Dementia Hyperlipidemia Chronic kidney disease (CKD) Suicide Anesthesia complication Bleeding disorder Lung disease Stroke Social History Smoking and tobacco status: never smoked Alcohol intake: never Physical Exam Const: COMMON NORMALS: alert GENERAL APPEARANCE: cooperative and well developed HENMT: COMMON NORMALS: normocephalic and atraumatic HEAD & SCALP: normocephalic and atraumatic Eye: COMMON NORMALS: conjunctivae normal CONJUNCTIVA: Yes conjunctivae normal SCLERA: sclerae normal Neck/C-Spine: COMMON NORMALS: supple GENERAL: Yes trachea midline Resp: COMMON NORMALS: normal respiratory effort and clear to auscultation bilaterally EFFORT & INSPECTION: Yes able to speak in complete sentences AUSCULTATION: clear to auscultation bilaterally Cardio: COMMON NORMALS: regular rate and regular rhythm RATE: regular rate RHYTHM: regular rhythm GI: COMMON NORMALS: Soft to palpation PALPATION: Yes Soft to palpation and No Tenderness to palpation present (GI) Back/Pelvis: OTHER: No thoracic spine tenderness to palpation. Extremity: GENERAL: Yes normal exam except as noted and No edema Neuro: COMMON NORMALS: moves all extremities SENSORIUM/ORIENTATION: Yes alert and No Orientation impaired Psych: COMMON NORMALS: mental status grossly normal and Normal thought process present THOUGHT PROCESS: Normal thought process present Course Vital Signs: Vital signs: Vital Signs Temperature 97.8 F 09/26/22 12:52 Pulse Rate 70 09/26/22 12:52 Respiratory Rate 14 09/26/22 12:52 Blood Pressure 180/81 09/26/22 12:52 Pulse Oximetry 95 09/26/22 12:52 Oxygen Delivery Me thod 09/26/22 08:07 MDM - Back Pain/Injury Medical Decision Making 61-year-old lady presenting with atraumatic onset of mid upper back pain. Exam as above. Patient is nontoxic. EKG notable for sinus bradycardia with normal axis and intervals, nonspecific ST segment abnormalities present. No STEMI. Labs with no significant hematologic abnormality. Metabolic panel with perhaps mild dehydration and hypokalemia. Bilirubin is elevated with mild transaminitis. Negative range 2-hour delta troponin. BNP is mildly elevated. Normal lipase. Chest x-ray demonstrates no acute cardiopulmonary process. Patient has history of cholecystectomy, liver is enlarged on ultrasound with biliary dilation however no discrete obstructing lesion identified. Patient improved with analgesia and also given potassium replenishment. Most likely etiology of symptoms is thoracic back pain with mild dehydration. The results of ED evaluation were discussed with the patient including prescriptions and/or symptomatic cares (if applicable) including appropriate and responsible use, followup plan, and return precautions. The patient verbalized understanding and felt safe for discharge. Medical Records I reviewed the patient's medical records. Labs I reviewed the patient's lab results. 09/26/22 09:45 09/26/22 09:45 Radiology Impressions Chest X-Ray 09/26/22 08:12 IMPRESSION: No acute abnormality given the rotation. Gallbladder Ultrasound 09/26/22 10:58 IMPRESSION: 1. Enlarged liver. 2. Biliary dilatation. Laboratory Results WBC 6.9 10^3/uL (4.0-10.0) 09/26/22 09:45 RBC 4.79 10^6/uL (4.1-5.3) 09/26/22 09:45 Hgb 14.5 g/dL (11.5-15.3) 09/26/22 09:45 Hct 43.0 % (37.0-47.0) 09/26/22 09:45 MCV 89.8 fl (81-99) 09/26/22 09:45 MCH 30.3 pg (28.0-34.0) 09/26/22 09:45 MCHC 33.7 g/dL (30.0-36.0) 09/26/22 09:45 RDW 14.9 % (12.1-15.1) 09/26/22 09:45 Plt Count 179 10^3/cmm (130-400) 09/26/22 09:45 MPV 11.7 fL (7.4-10.4) H 09/26/22 09:45 Neut % (Auto) 71.6 % 09/26/22 09:45 Lymph % (Auto) 16.9 % 09/26/22 09:45 Doddridge % (Auto) 8.9 % 09/26/22 09:45 Eos % (Auto) 1.0 % 09/26/22 09:45 Baso % (Auto) 1.0 % 09/26/22 09:45 Neut # (Auto) 4.93 10^3/uL (1.8-7.7) 09/26/22 09:45 Lymph # (Auto) 1.2 10^3/uL (0.8-4.8) 09/26/22 09:45 Doddridge # (Auto) 0.6 10^3/uL (0.2-0.9) 09/26/22 09:45 Eos # (Auto) 0.1 10^3/uL (0.0-0.8) 09/26/22 09:45 Baso # (Auto) 0.1 10^3/uL (0.0-0.1) 09/26/22 09:45 Nucleated RBC % (auto) 0 % 09/26/22 09:45 Nucleated RBCs # 0.0 /100WBC 09/26/22 09:45 Sodium 135 mmol/L (136-145) L 09/26/22 09:45 Potassium 3.4 mmol/L (3.5-5.1) L 09/26/22 09:45 Chloride 97 mmol/L (98-107) L 09/26/22 09:45 Carbon Dioxide 27 mmol/L (22-29) 09/26/22 09:45 Anion Gap 14.4 (5-19) 09/26/22 09:45 BUN 11 mg/dL (8-23) 09/26/22 09:45 Creatinine 0.7 mg/dL (0.5-0.9) 09/26/22 09:45 GFR Calculation 84.8 mL/min (90-130) L 09/26/22 09:45 Glucose 122 mg/dL (65-115) H 09/26/22 09:45 Calculated Osmolality 281 mOsm/kg (285-295) L 09/26/22 09:45 Calcium 8.0 mg/dL (8.5-10.5) L 09/26/22 09:45 Total Bilirubin 1.4 mg/dL (0.15-1.2) H 09/26/22 09:45 AST 34 U/L (0-32) H 09/26/22 09:45 ALT 27 U/L (0-33) 09/26/22 09:45 Alkaline Phosphatase 182 U/L (35-105) H 09/26/22 09:45 Troponin T Baseline 15 ng/L (0-10) H 09/26/22 09:45 Troponin T 120 Minute 11.56 ng/L (0-10) H 09/26/22 11:51 Delta Troponin T -3.44 ABS# (0-10) L 09/26/22 11:51 NT-Pro-B Natriuret Pep 1560 pg/mL (0-125) H 09/26/22 09:45 Total Protein 6.6 g/dL (6.6-8.7) 09/26/22 09:45 Albumin 3.3 g/dL (3.5-5.2) L 09/26/22 09:45 Globulin 3.3 g/dL (1.3-4.6) 09/26/22 09:45 Lipase 24 U/L (13-60) 09/26/22 09:45 Discharge Plan Discharge Patient Disposition: Home Clinical Impression: Acute thoracic back pain, Dehydration, mild Condition: Stable Prescriptions: No Action (DME) C-pap supplies and mask See Rx Instructions .Route .MEDSUPPLY Qty: 1 0RF Rx Instructions: As directed baclofen 10 mg tablet 10 mg PO TID PRN (Reason: spasms) Qty: 60 2RF aspirin [Adult Low Dose Aspirin] 81 mg tablet,delayed release (DR/EC) 81 mg PO DAILY calcium carbonate-vitamin D3 600 mg-5 mcg (200 unit) tablet 1 tab PO DAILY cyclobenzaprine 10 mg tablet 10 mg PO TID PRN (Reason: muscle spasm) Rx Instructions: Take 0.5-1 tablet every 8 hours PRN muscle spasms fluticasone propionate [Flonase Allergy Relief] 50 mcg/actuation spray,suspension 1 spray intranasal DAILY Rx Instructions: administer into each nostril simethicone [Gas-X Extra Strength] 125 mg capsule 125 mg PO DAILY PRN furosemide [Lasix] 20 mg tablet 20 mg PO DAILY PRN (Reason: edema) lorazepam 1 mg tablet 1 mg PO TID PRN acetaminophen [Tylenol Extra Strength] 500 mg tablet 500 mg PO QID PRN levothyroxine 200 mcg tablet 200 mcg PO DAILY Qty: 90 3RF albuterol sulfate [Ventolin HFA] 90 mcg/actuation HFA aerosol inhaler 2 puff inhalation Q6H PRN (Reason: shortness of breath or wheezing) Qty: 8.5 11RF atenolol 50 mg tablet See Rx Instructions .ROUTE .COMPLEX Qty: 90 1RF Dose Instruction: TAKE 1 TABLET BY MOUTH EVERY DAY Rx Instructions: TAKE 1 TABLET BY MOUTH EVERY DAY levothyroxine 50 mcg tablet See Rx Instructions .ROUTE .COMPLEX Qty: 90 1RF Dose Instruction: TAKE 1 TABLET BY MOUTH EVERY DAY Rx Instructions: Take with 200mcg tablet for a total of 250mcg daily bisacodyl 5 mg tablet,delayed release (DR/EC) 5 mg PO DAILY PRN cholecalciferol (vitamin D3) 10 mcg (400 unit) capsule 1,000 mcg PO DAILY magnesium oxide 400 mg magnesium capsule 400 mg PO DAILY PRN multivitamin Tablet 1 tab PO DAILY PRN potassium 99 mg tablet 99 mg PO DAILY PRN tramadol 50 mg tablet 50 mg PO Q6H PRN (Reason: pain) Qty: 120 0RF pantoprazole 40 mg tablet,delayed release (DR/EC) See Rx Instructions .ROUTE .COMPLEX Qty: 90 1RF Dose Instruction: TAKE 1 TABLET BY MOUTH EVERY DAY Rx Instructions: TAKE 1 TABLET BY MOUTH EVERY DAY lorazepam [Ativan] 0.5 mg tablet 0.5 mg PO DAILY PRN (Reason: anxiety) Qty: 5 0RF Rx Instructions: 1 or 2 before procedure and may repeat in 30 minutes as needed lenalidomide [Revlimid] 5 mg capsule 5 mg PO DAILY Qty: 28 0RF Rx Instructions: swallow whole with glass of water; do not open, crush, chew , break, or dissolve Discharge Orders: Discharge ED (Routine); Ordered 09/26/22 Ordered By: Peter iLm Referrals: João Joyner MD [Primary Care Provider] - Discharge Diet: Usual diet Discharge Activity: Increase activity as tolerated Patient Instructions: Back Pain (ED), Opioid Safety Activity Restrictions/Additional Instructions: Thank you for visiting the emergency department. You were seen and evaluated for back pain. The exact cause of your symptoms is unclear however may be related to chronic fractures. Please follow-up with a primary care provider. Please follow-up with your appointment for your multiple myeloma. Return to the emergency department for uncontrolled symptoms, any new neurologic symptoms, or anything else that you are concerned about and feel needs emergency department evaluation. Coding Level of Care Code ED Certified Technician Specialist for Cristina Gandara
--- NOTE | 2022-09-26 09:49 | PC.NURSE ---
PT PLACED ON CONTINUOUS SPO2, NIBP, AND CM.
[2022-09-26 09:57] LABS: Basophils # 0.1 10^3/uL (0.0-0.1); Eosinophils # 0.1 10^3/uL (0.0-0.8); Hemoglobin 14.5 g/dL (11.5-15.3); Lymphocytes # 1.2 10^3/uL (0.8-4.8); Lymphocytes % 16.9 %; Mean Corpuscular HGB Conc 33.7 g/dL (30.0-36.0); Mean Corpuscular Hemoglobin 30.3 pg (28.0-34.0); Mean Corpuscular Volume 89.8 fl (81-99); Mean Platelet Volume 11.7 fL (7.4-10.4); Monocytes # 0.6 10^3/uL (0.2-0.9); Monocytes % 8.9 %; Neutrophils # 4.93 10^3/uL (1.8-7.7); Neutrophils % 71.6 %; Nucleated Red Blood Cells % 0 %; Platelet Count 179 10^3/cmm (130-400); Red Blood Count 4.79 10^6/uL (4.1-5.3); Red Cell Distribution Width 14.9 % (12.1-15.1); White Blood Count 6.9 10^3/uL (4.0-10.0)
--- NOTE | 2022-09-26 10:18 | PC.NURSE ---
REPORT GIVEN TO GIANNA JOINER ASSUMED CARE.
[2022-09-26 10:40] LABS: Troponin(5th) Baseline 15 ng/L (0-10)
[2022-09-26 10:51] LABS: Alanine Aminotransferase 27 U/L (0-33); Albumin Level 3.3 g/dL (3.5-5.2); Alkaline Phosphatase 182 U/L (35-105); Anion Gap 14.4 (5-19); Aspartate Amino Transferase 34 U/L (0-32); Blood Urea Nitrogen 11 mg/dL (8-23); Carbon Dioxide 27 mmol/L (22-29); Chloride 97 mmol/L (98-107); Globulin 3.3 g/dL (1.3-4.6); Glomerular Filtration Rate 84.8 mL/min (90-130); Glucose 122 mg/dL (65-115); Lipase 24 U/L (13-60); NT Pro B Type Natriuretic Pept 1560 pg/mL (0-125); Osmolality Calculated 281 mOsm/kg (285-295); Potassium 3.4 mmol/L (3.5-5.1); Sodium 135 mmol/L (136-145); Total Bilirubin 1.4 mg/dL (0.15-1.2); Total Protein 6.6 g/dL (6.6-8.7)
--- NOTE | 2022-09-26 10:58 | USR_ITS ---
PROCEDURE INFORMATION: Exam: US Abdomen, Limited; Right Upper Quadrant Exam date and time: 09/26/2022 11:34 AM Age: 61 years old Clinical indication: Other: Back pain; Prior surgery; Surgery date: 6+ months; Surgery type: Cholecystectomy over 10 years ago; Additional info: Back pain, elevated t bili TECHNIQUE: Imaging protocol: Real time ultrasound of the abdomen with image documentation. Limited exam focused on the right upper quadrant. COMPARISON[facility] [id number] 09/04/2022 12:26 PM FINDINGS: Liver: Hepatomegaly and a moderately fatty liver 21.5 cm. Gallbladder: Status post cholecystectomy. Biliary ducts: Common bile duct is dilated to 9 mm. Pancreas: Pancreas was not able to be seen due to overlying bowel gas. Right kidney: No right renal hydronephrosis. US/US gall bladder [id number] IMPRESSION: 1. Enlarged liver. 2. Biliary dilatation.
--- NOTE | 2022-09-26 11:23 | ECG_ITS ---
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 Measurements Intervals Lyman Rate: 52 P: 33 WI: 130 QRS: 55 QRSD: 101 T: 79 QT: 479 QTc: 447 Interpretive Statements SINUS BRADYCARDIA WITH OCCASIONAL VENTRICULAR PREMATURE COMPLEXES NONSPECIFIC ST & T-WAVE ABNORMALITY Compared to ECG 09/26/2022 08:42:41 Ventricular premature complex(es) now present T-wave abnormality now present Left ventricular hypertrophy no longer present ST (T wave) deviation no longer present Electronically Signed On 09-26-2022 11:38:57 MEAT PROCESSING CENTER MANAGER by Yifan Puente M.D. [id number]
--- NOTE | 2022-09-26 11:39 | PC.NURSE ---
ULTRASOUND IN ROOM WITH PT.
[2022-09-26 12:21] LABS: Troponin 5 2HR 11.56 ng/L (0-10)
[2022-09-26 12:29] LABS: Troponin 5 2HR Delta -3.44 ABS# (0-10)
[2022-09-26] MEDS: acetaminophen 500 mg Tablet 1000 MG PO (12:35)
[2022-09-26] MEDS: potassium chloride ER 20 mEq Tablet 40 MEQ PO (12:36)
[2022-09-26 12:52] VITALS: BP 180/81; PULSE 70; RESP 14; TEMP 36.6; O2SAT 95
== END 2022-09-26 12:54 | disposition home or self-care (01) ==
PROVIDERS: Emergency Provider Emergency Medicine; PCP Family Medicine
DX: M54.6 Pain in thoracic spine (principal); E86.0 Dehydration; Z79.82 Long term (current) use of aspirin; I10 Essential (primary) hypertension; Z85.89 Personal history of malignant neoplasm of other organs and systems
CPT/HCPCS: 36415; 71046; 76705; 80053; 83690; 83880; 84484; 85025; 93005; 99285

== ENCOUNTER 2022-11-08 12:35 | Oncology outpatient (recurring) (ONCR) | payer MEDICARE, MEDICAID, SELFPAY ==
[2022-11-02] MEDS: denosumab 120 mg SDV SUBCUT (10:29)
--- NOTE | 2022-11-02 11:05 | PC.NURSE ---
Patient provided education for upcoming appointment to start her chemo. Multiple rx sent to preferred pharmacy. 24 hour urine collection education given with understanding. Sylvia TERRYN, RN, OCN
[2022-11-04 09:02] LABS: Basophils # 0.1 10^3/uL (0.0-0.1); Basophils % 1.6 %; Eosinophils # 0.1 10^3/uL (0.0-0.8); Eosinophils % 2.5 %; Hematocrit 42.1 % (37.0-47.0); Hemoglobin 14.1 g/dL (11.5-15.3); Lymphocytes # 1.7 10^3/uL (0.8-4.8); Lymphocytes % 31.2 %; Mean Corpuscular HGB Conc 33.5 g/dL (30.0-36.0); Mean Corpuscular Hemoglobin 30.9 pg (28.0-34.0); Mean Corpuscular Volume 92.1 fl (81-99); Monocytes # 0.6 10^3/uL (0.2-0.9); Monocytes % 10.8 %; Neutrophils # 2.99 10^3/uL (1.8-7.7); Neutrophils % 53.5 %; Nucleated Red Blood Cells % 0 %; Platelet Count 190 10^3/cmm (130-400); Red Blood Count 4.57 10^6/uL (4.1-5.3); White Blood Count 5.6 10^3/uL (4.0-10.0)
[2022-11-04 09:25] LABS: Alanine Aminotransferase 12 U/L (0-33); Albumin Level 3.5 g/dL (3.5-5.2); Alkaline Phosphatase 92 U/L (35-105); Anion Gap 15.4 (5-19); Aspartate Amino Transferase 19 U/L (0-32); Blood Urea Nitrogen 14 mg/dL (8-23); Carbon Dioxide 25 mmol/L (22-29); Chloride 102 mmol/L (98-107); Globulin 3.6 g/dL (1.3-4.6); Glomerular Filtration Rate 63.2 mL/min (90-130); Glucose 102 mg/dL (65-115); Immunoglobulin IGA 262 mg/dL (70-400); Immunoglobulin IGG 1544 mg/dL (700-1600); Osmolality Calculated 287 mOsm/kg (285-295); Potassium 4.4 mmol/L (3.5-5.1); Sodium 138 mmol/L (136-145); Total Bilirubin 0.6 mg/dL (0.15-1.2); Total Protein 7.1 g/dL (6.6-8.7)
[2022-11-04 09:39] LABS: Immunoglobulin IGM 17 mg/dL (40-230)
[2022-11-04 09:44] LABS: Hepatitis A Antibody IgM Non-Reactive (Nonreactive); Hepatitis B Core AB, Total Non-Reactive (Nonreactive); Hepatitis B Surface Antigen Non-Reactive (Nonreactive); Hepatitis C Virus Antibody Non-Reactive (Nonreactive)
[2022-11-04 09:48] LABS: Hepatitis B Surface AB < 3.5 (11.5-1000)
[2022-11-05 10:59] LABS: PROTEIN, TOTAL 6.7 g/dL (6.1-8.1)
[2022-11-05 12:29] LABS: KAPPA LIGHT CHAIN, FREE, SERUM 410.9 mg/L (3.3-19.4); KAPPA/LAMBDA LIGHT CHAINS FREE 24.17 (0.26-1.65)
[2022-11-05 13:39] LABS: PROTEIN, TOTAL, 24 HR UR 196 mg/24 h (<150); Protein/Creatinine Ratio 0.195 (<0.150); Protein/Creatinine Ratio 195 mg/g creat (<150)
[2022-11-05 16:29] LABS: ABNORMAL PROTEIN BAND 1 1.3 g/dL (NONE DETECTED); ALBUMIN 3.3 g/dL (3.8-4.8); ALPHA 1 GLOBULIN 0.3 g/dL (0.2-0.3); ALPHA 2 GLOBULIN 0.6 g/dL (0.5-0.9); BETA 1 GLOBULIN 0.5 g/dL (0.4-0.6); BETA 2 GLOBULIN 0.3 g/dL (0.2-0.5); GAMMA GLOBULIN 1.7 g/dL (0.8-1.7)
[2022-11-08] MEDS: ondansetron 4 MG Tablet 8 MG PO (12:22)
[2022-11-08] MEDS: acetaminophen 500 mg Tablet 1000 MG PO (12:22)
[2022-11-08] MEDS: diphenhydrAMINE 25 mg Capsule PO (12:22)
[2022-11-08 12:30] VITALS: BP 183/78; PULSE 56; RESP 18; TEMP 36.4; O2SAT 98
[2022-11-08] MEDS: bortezomib 3.5 mg SDV 2.9 MG SUBCUT (13:47)
[2022-11-08] MEDS: daratumumab-hyaluronidase-fihj 1,800 mg/15 mL SDV 1800 MG SUBCUT (13:48)
[2022-11-08 14:15] VITALS: BP 154/73; PULSE 52; RESP 18; TEMP 36.4; O2SAT 95
[2022-11-08 16:48] LABS: ALBUMIN 100 %; ALPHA-1-GLOBULINS 0 %; ALPHA-2-GLOBULINS 0 %; BETA GLOBULINS 0 %; GAMMA GLOBULINS 0 %
== END 2022-11-08 23:59 | disposition home or self-care (01) ==
PROVIDERS: PCP Family Medicine; Visit Provider Internal Medicine Medical Oncology
DX: C90.00 Multiple myeloma not having achieved remission (principal); Z79.899 Other long term (current) drug therapy; Z51.11 Encounter for antineoplastic chemotherapy
CPT/HCPCS: 36415; 80053; 82784; 83883; 84155; 84156; 84165; 84166; 85025; 86334; 86705; 86706; 86709; 86803; 86850; 86900; 87340; 96372; 96402; 99214; J0897; J9041; J9144; Q0162

== ENCOUNTER 2022-11-18 10:30 | Oncology outpatient (recurring) (ONCR) | payer MEDICARE, MEDICAID, SELFPAY ==
[2022-11-11] MEDS: bortezomib 3.5 mg SDV 2.9 MG SUBCUT (13:04)
[2022-11-11 13:08] VITALS: BP 118/73; PULSE 52; RESP 18; TEMP 36.7; O2SAT 97
[2022-11-15 12:46] LABS: Basophils % 0.1 %; Eosinophils # 0.1 10^3/uL (0.0-0.8); Eosinophils % 1.1 %; Hematocrit 44.5 % (37.0-47.0); Hemoglobin 14.6 g/dL (11.5-15.3); Lymphocytes # 1.4 10^3/uL (0.8-4.8); Lymphocytes % 14.5 %; Mean Corpuscular HGB Conc 32.8 g/dL (30.0-36.0); Mean Corpuscular Hemoglobin 30.9 pg (28.0-34.0); Mean Corpuscular Volume 94.1 fl (81-99); Mean Platelet Volume 12.4 fL (7.4-10.4); Monocytes # 1.1 10^3/uL (0.2-0.9); Monocytes % 10.8 %; Neutrophils % 72.3 %; Nucleated Red Blood Cells % 0.4 %; Platelet Count 139 10^3/cmm (130-400); Red Blood Count 4.73 10^6/uL (4.1-5.3); Red Cell Distribution Width 18.1 % (12.1-15.1); White Blood Count 9.8 10^3/uL (4.0-10.0)
[2022-11-15 12:59] LABS: Alanine Aminotransferase 16 U/L (0-33); Albumin Level 3.1 g/dL (3.5-5.2); Alkaline Phosphatase 95 U/L (35-105); Anion Gap 10.2 (5-19); Aspartate Amino Transferase 12 U/L (0-32); Blood Urea Nitrogen 20 mg/dL (8-23); Calcium 7.8 mg/dL (8.5-10.5); Carbon Dioxide 27 mmol/L (22-29); Chloride 100 mmol/L (98-107); Globulin 2.4 g/dL (1.3-4.6); Glomerular Filtration Rate 72.4 mL/min (90-130); Glucose 82 mg/dL (65-115); Osmolality Calculated 278 mOsm/kg (285-295); Potassium 4.2 mmol/L (3.5-5.1); Sodium 133 mmol/L (136-145); Total Bilirubin 0.4 mg/dL (0.15-1.2); Total Protein 5.5 g/dL (6.6-8.7)
[2022-11-15] MEDS: ondansetron 4 MG Tablet 8 MG PO (14:35)
[2022-11-15] MEDS: bortezomib 3.5 mg SDV 2.9 MG SUBCUT (14:55)
[2022-11-15] MEDS: daratumumab-hyaluronidase-fihj 1,800 mg/15 mL SDV 1800 MG SUBCUT (14:56)
[2022-11-15 15:20] VITALS: BP 168/83; PULSE 63; RESP 18; TEMP 36; O2SAT 96
[2022-11-18] MEDS: dexamethasone 4 mg Tablet 20 MG PO (11:47)
[2022-11-18] MEDS: ondansetron 4 MG Tablet 8 MG PO (11:47)
[2022-11-18] MEDS: bortezomib 3.5 mg SDV 2.9 MG SUBCUT (11:54)
[2022-11-18 12:04] VITALS: BP 188/85; PULSE 60; RESP 18; TEMP 36.6; O2SAT 98
[2022-11-18 12:05] VITALS: BP 191/74; PULSE 78; RESP 16; TEMP 36.7
== END 2022-11-18 23:59 | disposition home or self-care (01) ==
PROVIDERS: Nurse Practitioner Family; PCP Family Medicine; Visit Provider Internal Medicine Medical Oncology
DX: Z51.11 Encounter for antineoplastic chemotherapy (principal); C90.00 Multiple myeloma not having achieved remission; M81.0 Age-related osteoporosis without current pathological fracture; Z79.899 Other long term (current) drug therapy
CPT/HCPCS: 36415; 80053; 85025; 96401; 99214; J8540; J9041; J9144; Q0162

== ENCOUNTER 2022-11-29 09:30 | Oncology outpatient (recurring) (ONCR) | payer MEDICARE, MEDICAID, SELFPAY ==
[2022-11-22 08:50] LABS: Basophils % 0.1 %; Eosinophils # 0.1 10^3/uL (0.0-0.8); Eosinophils % 0.6 %; Hematocrit 42.6 % (37.0-47.0); Hemoglobin 14.2 g/dL (11.5-15.3); Lymphocytes # 0.9 10^3/uL (0.8-4.8); Lymphocytes % 8.7 %; Mean Corpuscular HGB Conc 33.3 g/dL (30.0-36.0); Mean Corpuscular Hemoglobin 31.5 pg (28.0-34.0); Mean Corpuscular Volume 94.5 fl (81-99); Monocytes # 0.7 10^3/uL (0.2-0.9); Monocytes % 7.2 %; Neutrophils # 8.45 10^3/uL (1.8-7.7); Neutrophils % 82.1 %; Nucleated Red Blood Cells # 0.2 /100WBC; Nucleated Red Blood Cells % 1.5 %; Platelet Count 40 10^3/cmm (130-400); Red Blood Count 4.51 10^6/uL (4.1-5.3); Red Cell Distribution Width 18.3 % (12.1-15.1); White Blood Count 10.3 10^3/uL (4.0-10.0)
[2022-11-22 09:10] LABS: Alanine Aminotransferase 24 U/L (0-33); Albumin Level 3.3 g/dL (3.5-5.2); Alkaline Phosphatase 92 U/L (35-105); Aspartate Amino Transferase 16 U/L (0-32); Blood Urea Nitrogen 22 mg/dL (8-23); Calcium 8.6 mg/dL (8.5-10.5); Carbon Dioxide 28 mmol/L (22-29); Chloride 96 mmol/L (98-107); Globulin 2.2 g/dL (1.3-4.6); Glomerular Filtration Rate 72.4 mL/min (90-130); Glucose 131 mg/dL (65-115); Osmolality Calculated 279 mOsm/kg (285-295); Sodium 132 mmol/L (136-145); Total Bilirubin 0.5 mg/dL (0.15-1.2); Total Protein 5.5 g/dL (6.6-8.7)
[2022-11-22 09:13] LABS: Anion Gap 12.4 (5-19); Potassium 4.4 mmol/L (3.5-5.1)
[2022-11-22 09:22] LABS: Slide Review Slide Review Perform
[2022-11-22] MEDS: daratumumab-hyaluronidase-fihj 1,800 mg/15 mL SDV 1800 MG SUBCUT (11:03)
[2022-11-29 08:20] LABS: Basophils % 0.2 %; Eosinophils # 0.1 10^3/uL (0.0-0.8); Eosinophils % 0.9 %; Hematocrit 41.6 % (37.0-47.0); Hemoglobin 13.5 g/dL (11.5-15.3); Lymphocytes # 0.8 10^3/uL (0.8-4.8); Lymphocytes % 15.3 %; Mean Corpuscular HGB Conc 32.5 g/dL (30.0-36.0); Mean Corpuscular Volume 95.6 fl (81-99); Mean Platelet Volume 12.7 fL (7.4-10.4); Monocytes # 0.6 10^3/uL (0.2-0.9); Monocytes % 10.7 %; Neutrophils # 3.92 10^3/uL (1.8-7.7); Neutrophils % 72.5 %; Nucleated Red Blood Cells % 0 %; Platelet Count 118 10^3/cmm (130-400); Red Blood Count 4.35 10^6/uL (4.1-5.3); Red Cell Distribution Width 18.2 % (12.1-15.1); White Blood Count 5.4 10^3/uL (4.0-10.0)
[2022-11-29 08:43] LABS: Alanine Aminotransferase 22 U/L (0-33); Albumin Level 3.4 g/dL (3.5-5.2); Alkaline Phosphatase 104 U/L (35-105); Anion Gap 13.6 (5-19); Aspartate Amino Transferase 17 U/L (0-32); Blood Urea Nitrogen 16 mg/dL (8-23); Calcium 8.7 mg/dL (8.5-10.5); Carbon Dioxide 29 mmol/L (22-29); Chloride 100 mmol/L (98-107); Globulin 2.4 g/dL (1.3-4.6); Glomerular Filtration Rate 63.2 mL/min (90-130); Glucose 101 mg/dL (65-115); Immunoglobulin IGG 728 mg/dL (700-1600); Osmolality Calculated 287 mOsm/kg (285-295); Potassium 4.6 mmol/L (3.5-5.1); Sodium 138 mmol/L (136-145); Total Bilirubin 0.4 mg/dL (0.15-1.2); Total Protein 5.8 g/dL (6.6-8.7)
[2022-11-29 09:16] LABS: Immunoglobulin IGA 22 mg/dL (70-400); Immunoglobulin IGM 8 mg/dL (40-230)
[2022-11-29] MEDS: daratumumab-hyaluronidase-fihj 1,800 mg/15 mL SDV 1800 MG SUBCUT (09:48)
[2022-11-29 10:15] VITALS: BP 167/64; PULSE 60; RESP 18; TEMP 36; O2SAT 96
[2022-11-30 15:35] LABS: KAPPA LIGHT CHAIN, FREE, SERUM 16.3 mg/L (3.3-19.4); KAPPA/LAMBDA LIGHT CHAINS FREE 6.52 (0.26-1.65); LAMBDA LIGHT CHAIN, FREE, SERU 2.5 mg/L (5.7-26.3)
[2022-12-01 03:11] LABS: PROTEIN, TOTAL 5.5 g/dL (6.1-8.1)
[2022-12-01 08:50] LABS: ABNORMAL PROTEIN BAND 1 0.4 g/dL (NONE DETECTED); ABNORMAL PROTEIN BAND 2 0.1 g/dL (NONE DETECTED); ALBUMIN 3.1 g/dL (3.8-4.8); ALPHA 1 GLOBULIN 0.3 g/dL (0.2-0.3); ALPHA 2 GLOBULIN 0.7 g/dL (0.5-0.9); BETA 1 GLOBULIN 0.4 g/dL (0.4-0.6); BETA 2 GLOBULIN 0.2 g/dL (0.2-0.5); GAMMA GLOBULIN 0.7 g/dL (0.8-1.7)
== END 2022-11-29 23:59 | disposition home or self-care (01) ==
PROVIDERS: Nurse Practitioner Family; PCP Family Medicine; Visit Provider Internal Medicine Medical Oncology
DX: C90.00 Multiple myeloma not having achieved remission (principal); Z51.11 Encounter for antineoplastic chemotherapy; G62.0 Drug-induced polyneuropathy; T45.1X5A Adverse effect of antineoplastic and immunosuppressive drugs, initial encounter; Z79.899 Other long term (current) drug therapy; R60.0 Localized edema
CPT/HCPCS: 36415; 80053; 82784; 83883; 84155; 84165; 85025; 96401; 96402; 99213; 99214; J9144

== ENCOUNTER 2022-12-03 12:44 | Outpatient (CLI) | payer MEDICARE, MEDICAID, SELFPAY ==
--- NOTE | 2022-12-03 13:45 | USCV_ITS ---
Christina Willard Age: 62 Gender: F : 1960 Exam Date: 12/03/2022 13:12 Ordering Phys: Samy Edmond MD Technologist: [place]am [place] [facility] [place]ication: murmur BP: 158 / 72 HR: 66 Rhythm: Sinus Technical Quality: Adequate MEASUREMENTS (Male / Female) Normal Values 2D ECHO LV Diastolic Diameter PLAX 4.9 cm 4.2 - 5.9 / 3.9 - 5.3 cm LV Systolic Diameter PLAX 3.0 cm IVS Diastolic Thickness 1.1 cm 0.6 - 1.0 / 0.6 - 0.9 cm IVS Systolic Thickness 1.8 cm LVPW Diastolic Thickness 1.1 cm 0.6 - 1.0 / 0.6 - 0.9 cm LVPW Systolic Thickness 1.9 cm LVOT Diameter 2.1 cm LV Ejection Fraction 2D Teich 68.7 % LV Ejection Fraction MOD 2C 71.6 % LV Ejection Fraction 2C AL 71.8 % LA Diameter 4.7 cm M-MODE Aortic Annulus Diameter 4.3 cm LA Ao Ratio MM 1.2 MV E Point Septal Separation 1.4 cm DOPPLER AV Peak Velocity 140.3 cm/s LVOT Peak Velocity 139.0 cm/s AV Area Cont Eq vti 4.2 cm squared AV Area Cont Eq pk 3.4 cm squared MV Area PHT 5.0 cm squared Mitral E to A Ratio 1.1 MV E' Velocity 81.0 cm/s PV Peak Velocity 72.0 cm/s RV Acceleration Time 0.2 s FINDINGS Left Ventricle Normal left ventricular size and systolic function, EF 74 %. No regional wall motion abnormalities. Right Ventricle Normal right ventricular size and systolic function. Right Atrium Normal right atrial size. Left Atrium Mildly increased left atrial size. Mitral Valve Thickened mitral valve. Mild to moderate mitral valve regurgitation. Aortic Valve Thickened aortic valve. Moderate to severe aortic valve regurgitation. Tricuspid Valve The blood study was not performed Pulmonic Valve Pulmonic valve not well visualized. Pericardium Normal pericardium without effusion. Aorta Normal ascending aorta dimension. IVC Inferior vena cava not visualized. CONCLUSIONS Normal left ventricular size and systolic function, EF 74 %. No regional wall motion abnormalities. Thickened aortic valve. Moderate to severe aortic valve regurgitation. Thickened mitral valve. Mild to moderate mitral valve regurgitation. Mildly increased left atrial size. There is no pericardial effusion. There are no intracardiac masses. No previous study is available for comparison. Dr Sadie Sims MD FACC (Electronically Signed) Final Date: 07 Dec 2022 10:10 S
== END 2022-12-03 12:45 | disposition home or self-care (01) ==
LOC: RAD 12:46
PROVIDERS: PCP Family Medicine; Visit Provider Internal Medicine Medical Oncology
DX: R01.1 Cardiac murmur, unspecified (principal)
CPT/HCPCS: 93306; 99214

== ENCOUNTER 2022-12-06 13:30 | Oncology outpatient (recurring) (ONCR) | payer MEDICARE, MEDICAID, SELFPAY ==
[2022-12-02] MEDS: denosumab 120 mg SDV SUBCUT (10:15)
[2022-12-02 10:30] VITALS: BP 181/77; PULSE 75; RESP 18; TEMP 36.4; O2SAT 94
[2022-12-06 12:43] LABS: Eosinophils % 0.7 %; Hematocrit 39.8 % (37.0-47.0); Hemoglobin 13.2 g/dL (11.5-15.3); Lymphocytes % 23.1 %; Mean Corpuscular HGB Conc 33.2 g/dL (30.0-36.0); Mean Corpuscular Volume 96.6 fl (81-99); Mean Platelet Volume 10.4 fL (7.4-10.4); Monocytes # 0.5 10^3/uL (0.2-0.9); Monocytes % 12.9 %; Neutrophils # 2.56 10^3/uL (1.8-7.7); Neutrophils % 62.1 %; Nucleated Red Blood Cells % 0 %; Platelet Count 149 10^3/cmm (130-400); Red Blood Count 4.12 10^6/uL (4.1-5.3); Red Cell Distribution Width 18.7 % (12.1-15.1); White Blood Count 4.1 10^3/uL (4.0-10.0)
[2022-12-06 13:00] LABS: Alanine Aminotransferase 20 U/L (0-33); Albumin Level 3.4 g/dL (3.5-5.2); Alkaline Phosphatase 90 U/L (35-105); Anion Gap 12.3 (5-19); Aspartate Amino Transferase 13 U/L (0-32); Blood Urea Nitrogen 15 mg/dL (8-23); Calcium 8.3 mg/dL (8.5-10.5); Carbon Dioxide 30 mmol/L (22-29); Chloride 102 mmol/L (98-107); Globulin 1.9 g/dL (1.3-4.6); Glomerular Filtration Rate 72.4 mL/min (90-130); Glucose 84 mg/dL (65-115); Osmolality Calculated 290 mOsm/kg (285-295); Potassium 4.3 mmol/L (3.5-5.1); Sodium 140 mmol/L (136-145); Total Bilirubin 0.3 mg/dL (0.15-1.2); Total Protein 5.3 g/dL (6.6-8.7)
[2022-12-06] MEDS: daratumumab-hyaluronidase-fihj 1,800 mg/15 mL SDV 1800 MG SUBCUT (15:23)
[2022-12-06 15:37] VITALS: BP 153/71; PULSE 60; RESP 18; TEMP 35.8; O2SAT 96
== END 2022-12-06 23:59 | disposition home or self-care (01) ==
PROVIDERS: PCP Family Medicine; Visit Provider Internal Medicine Medical Oncology
DX: C90.00 Multiple myeloma not having achieved remission (principal); Z51.11 Encounter for antineoplastic chemotherapy; Z79.899 Other long term (current) drug therapy
CPT/HCPCS: 36415; 80053; 85025; 96372; 96401; J0897; J9144

== ENCOUNTER 2022-12-22 15:01 | Oncology outpatient (recurring) (ONCR) | payer MEDICARE, MEDICAID, SELFPAY ==
[2022-12-13 14:06] LABS: Basophils % 0.2 %; Eosinophils % 0.2 %; Hematocrit 37.8 % (37.0-47.0); Hemoglobin 12.4 g/dL (11.5-15.3); Lymphocytes # 1.3 10^3/uL (0.8-4.8); Mean Corpuscular HGB Conc 32.8 g/dL (30.0-36.0); Mean Corpuscular Hemoglobin 31.9 pg (28.0-34.0); Mean Corpuscular Volume 97.2 fl (81-99); Mean Platelet Volume 10.8 fL (7.4-10.4); Monocytes # 0.8 10^3/uL (0.2-0.9); Monocytes % 11.8 %; Neutrophils # 4.18 10^3/uL (1.8-7.7); Neutrophils % 65.9 %; Nucleated Red Blood Cells % 0 %; Platelet Count 129 10^3/cmm (130-400); Red Blood Count 3.89 10^6/uL (4.1-5.3); Red Cell Distribution Width 18.6 % (12.1-15.1); White Blood Count 6.3 10^3/uL (4.0-10.0)
[2022-12-13 14:11] VITALS: BP 155/69; PULSE 64; RESP 16; TEMP 36.2; O2SAT 96
[2022-12-13 14:29] LABS: Alanine Aminotransferase 24 U/L (0-33); Albumin Level 3.3 g/dL (3.5-5.2); Alkaline Phosphatase 83 U/L (35-105); Anion Gap 11.6 (5-19); Aspartate Amino Transferase 15 U/L (0-32); Blood Urea Nitrogen 16 mg/dL (8-23); Carbon Dioxide 29 mmol/L (22-29); Chloride 99 mmol/L (98-107); Globulin 1.8 g/dL (1.3-4.6); Glomerular Filtration Rate 72.4 mL/min (90-130); Glucose 88 mg/dL (65-115); Osmolality Calculated 283 mOsm/kg (285-295); Potassium 3.6 mmol/L (3.5-5.1); Sodium 136 mmol/L (136-145); Total Bilirubin 0.4 mg/dL (0.15-1.2); Total Protein 5.1 g/dL (6.6-8.7)
[2022-12-13] MEDS: daratumumab-hyaluronidase-fihj 1,800 mg/15 mL SDV 1800 MG SUBCUT (15:09)
[2022-12-13 15:21] VITALS: BP 165/85; PULSE 56; RESP 16; TEMP 35.8; O2SAT 97
[2022-12-21 12:22] LABS: Basophils % 0.2 %; Eosinophils % 0.2 %; Lymphocytes # 1.6 10^3/uL (0.8-4.8); Lymphocytes % 25.2 %; Mean Corpuscular HGB Conc 33.3 g/dL (30.0-36.0); Mean Corpuscular Hemoglobin 32.3 pg (28.0-34.0); Mean Corpuscular Volume 96.8 fl (81-99); Mean Platelet Volume 10.4 fL (7.4-10.4); Monocytes # 0.7 10^3/uL (0.2-0.9); Monocytes % 11.1 %; Neutrophils # 3.86 10^3/uL (1.8-7.7); Neutrophils % 62.8 %; Nucleated Red Blood Cells % 0 %; Platelet Count 128 10^3/cmm (130-400); Red Blood Count 4.03 10^6/uL (4.1-5.3); Red Cell Distribution Width 18.9 % (12.1-15.1); White Blood Count 6.1 10^3/uL (4.0-10.0)
[2022-12-21 12:36] LABS: Alanine Aminotransferase 32 U/L (0-33); Albumin Level 3.6 g/dL (3.5-5.2); Alkaline Phosphatase 90 U/L (35-105); Anion Gap 12.3 (5-19); Aspartate Amino Transferase 19 U/L (0-32); Blood Urea Nitrogen 14 mg/dL (8-23); Calcium 8.7 mg/dL (8.5-10.5); Carbon Dioxide 31 mmol/L (22-29); Chloride 99 mmol/L (98-107); Glomerular Filtration Rate 72.4 mL/min (90-130); Glucose 110 mg/dL (65-115); Osmolality Calculated 287 mOsm/kg (285-295); Potassium 4.3 mmol/L (3.5-5.1); Sodium 138 mmol/L (136-145); Total Bilirubin 0.6 mg/dL (0.15-1.2); Total Protein 5.6 g/dL (6.6-8.7)
[2022-12-21 15:32] LABS: Immunoglobulin IGG 546 mg/dL (700-1600)
[2022-12-21 15:45] LABS: Immunoglobulin IGA 12 mg/dL (70-400); Immunoglobulin IGM 5 mg/dL (40-230)
[2022-12-22 11:29] LABS: KAPPA LIGHT CHAIN, FREE, SERUM 10.6 mg/L (3.3-19.4); KAPPA/LAMBDA LIGHT CHAINS FREE 4.24 (0.26-1.65); LAMBDA LIGHT CHAIN, FREE, SERU 2.5 mg/L (5.7-26.3)
[2022-12-22 12:48] LABS: PROTEIN, TOTAL 5.4 g/dL (6.1-8.1)
[2022-12-22 15:15] LABS: ABNORMAL PROTEIN BAND 1 0.3 g/dL (NONE DETECTED); ABNORMAL PROTEIN BAND 2 0.2 g/dL (NONE DETECTED); ALBUMIN 3.2 g/dL (3.8-4.8); ALPHA 1 GLOBULIN 0.3 g/dL (0.2-0.3); ALPHA 2 GLOBULIN 0.7 g/dL (0.5-0.9); BETA 1 GLOBULIN 0.4 g/dL (0.4-0.6); BETA 2 GLOBULIN 0.2 g/dL (0.2-0.5); GAMMA GLOBULIN 0.6 g/dL (0.8-1.7)
[2022-12-22] MEDS: daratumumab-hyaluronidase-fihj 1,800 mg/15 mL SDV 1800 MG SUBCUT (16:02)
[2022-12-22] MEDS: bortezomib 3.5 mg SDV 2.2 MG SUBCUT (16:12)
[2022-12-22 16:15] VITALS: BP 164/84; PULSE 61; RESP 16; TEMP 36.4; O2SAT 96
== END 2022-12-22 23:59 | disposition home or self-care (01) ==
PROVIDERS: PCP Family Medicine; Visit Provider Internal Medicine Medical Oncology
DX: C90.00 Multiple myeloma not having achieved remission (principal); C90.02 Multiple myeloma in relapse; Z51.11 Encounter for antineoplastic chemotherapy; Z51.12 Encounter for antineoplastic immunotherapy
CPT/HCPCS: 36415; 80053; 82784; 83883; 84155; 84165; 85025; 96401; 99214; J9041; J9144

== ENCOUNTER 2022-12-30 13:00 | Oncology outpatient (recurring) (ONCR) | payer MEDICARE, MEDICAID, SELFPAY ==
[2022-12-27] MEDS: bortezomib 3.5 mg SDV 2.2 MG SUBCUT (15:09)
[2022-12-27 15:14] VITALS: BP 173/70; PULSE 69; RESP 18; TEMP 35.7; O2SAT 97
[2022-12-30 12:52] VITALS: BP 125/59; PULSE 73; RESP 16; TEMP 36.8; O2SAT 95
[2022-12-30 13:07] LABS: Eosinophils % 0.3 %; Hematocrit 38.8 % (37.0-47.0); Hemoglobin 12.9 g/dL (11.5-15.3); Lymphocytes % 28.5 %; Mean Corpuscular HGB Conc 33.2 g/dL (30.0-36.0); Mean Corpuscular Volume 99.2 fl (81-99); Mean Platelet Volume 11.6 fL (7.4-10.4); Monocytes # 0.8 10^3/uL (0.2-0.9); Monocytes % 11.3 %; Neutrophils # 4.03 10^3/uL (1.8-7.7); Neutrophils % 58.2 %; Nucleated Red Blood Cells % 0.6 %; Platelet Count 142 10^3/cmm (130-400); Red Blood Count 3.91 10^6/uL (4.1-5.3); White Blood Count 6.9 10^3/uL (4.0-10.0)
[2022-12-30 13:23] LABS: Alanine Aminotransferase 27 U/L (0-33); Albumin Level 3.4 g/dL (3.5-5.2); Alkaline Phosphatase 81 U/L (35-105); Anion Gap 14.6 (5-19); Aspartate Amino Transferase 18 U/L (0-32); Blood Urea Nitrogen 20 mg/dL (8-23); Calcium 8.3 mg/dL (8.5-10.5); Carbon Dioxide 26 mmol/L (22-29); Chloride 102 mmol/L (98-107); Glomerular Filtration Rate 63.2 mL/min (90-130); Glucose 118 mg/dL (65-115); Osmolality Calculated 292 mOsm/kg (285-295); Potassium 3.6 mmol/L (3.5-5.1); Sodium 139 mmol/L (136-145); Total Bilirubin 0.4 mg/dL (0.15-1.2); Total Protein 5.4 g/dL (6.6-8.7)
[2022-12-30 15:10] VITALS: BP 172/85; PULSE 56; RESP 18; TEMP 36.4; O2SAT 99
[2022-12-30] MEDS: denosumab 120 mg SDV SUBCUT (15:20)
[2022-12-30] MEDS: daratumumab-hyaluronidase-fihj 1,800 mg/15 mL SDV 1800 MG SUBCUT (15:30)
[2022-12-30] MEDS: bortezomib 3.5 mg SDV 2.2 MG SUBCUT (15:38)
[2022-12-30 15:57] VITALS: BP 178/78; PULSE 84; RESP 18; TEMP 36.6; O2SAT 98
== END 2022-12-30 23:59 | disposition home or self-care (01) ==
PROVIDERS: Nurse Practitioner Family; PCP Family Medicine; Visit Provider Internal Medicine Medical Oncology
DX: C90.00 Multiple myeloma not having achieved remission (principal)
CPT/HCPCS: 36415; 80053; 85025; 96401; 96402; J0897; J9041; J9144

== ENCOUNTER 2023-01-06 12:00 | Oncology outpatient (recurring) (ONCR) | payer MEDICARE, MEDICAID, SELFPAY ==
[2023-01-03 14:26] VITALS: BP 168/73; PULSE 81; RESP 16; TEMP 35.7; O2SAT 97
[2023-01-03] MEDS: bortezomib 3.5 mg SDV 2.2 MG SUBCUT (14:43)
[2023-01-06 13:01] VITALS: BP 105/66; PULSE 96; RESP 18; TEMP 36.9; O2SAT 97
[2023-01-06 13:09] LABS: Basophils % 0.1 %; Eosinophils % 0.1 %; Hematocrit 37.1 % (37.0-47.0); Hemoglobin 12.3 g/dL (11.5-15.3); Lymphocytes # 1.6 10^3/uL (0.8-4.8); Lymphocytes % 22.3 %; Mean Corpuscular HGB Conc 33.2 g/dL (30.0-36.0); Mean Corpuscular Hemoglobin 32.7 pg (28.0-34.0); Mean Corpuscular Volume 98.7 fl (81-99); Mean Platelet Volume 11.9 fL (7.4-10.4); Monocytes # 0.9 10^3/uL (0.2-0.9); Monocytes % 12.2 %; Neutrophils # 4.34 10^3/uL (1.8-7.7); Neutrophils % 62.6 %; Nucleated Red Blood Cells # 0.1 /100WBC; Nucleated Red Blood Cells % 1.4 %; Platelet Count 69 10^3/cmm (130-400); Red Blood Count 3.76 10^6/uL (4.1-5.3); Red Cell Distribution Width 19.3 % (12.1-15.1)
[2023-01-06 13:33] LABS: Alanine Aminotransferase 30 U/L (0-33); Albumin Level 3.6 g/dL (3.5-5.2); Alkaline Phosphatase 69 U/L (35-105); Anion Gap 13.2 (5-19); Aspartate Amino Transferase 18 U/L (0-32); Blood Urea Nitrogen 26 mg/dL (8-23); Carbon Dioxide 30 mmol/L (22-29); Chloride 97 mmol/L (98-107); Globulin 1.8 g/dL (1.3-4.6); Glucose 88 mg/dL (65-115); Immunoglobulin IGG 488 mg/dL (700-1600); Osmolality Calculated 286 mOsm/kg (285-295); Potassium 4.2 mmol/L (3.5-5.1); Sodium 136 mmol/L (136-145); Total Bilirubin 0.4 mg/dL (0.15-1.2); Total Protein 5.4 g/dL (6.6-8.7)
[2023-01-06 13:47] LABS: Immunoglobulin IGA 9 mg/dL (70-400); Immunoglobulin IGM 5 mg/dL (40-230)
[2023-01-06] MEDS: daratumumab-hyaluronidase-fihj 1,800 mg/15 mL SDV 1800 MG SUBCUT (15:47)
[2023-01-06 16:52] VITALS: BP 138/66; PULSE 63; RESP 18; TEMP 36; O2SAT 96
[2023-01-07 13:48] LABS: KAPPA LIGHT CHAIN, FREE, SERUM 8.4 mg/L (3.3-19.4); KAPPA/LAMBDA LIGHT CHAINS FREE 3.65 (0.26-1.65); LAMBDA LIGHT CHAIN, FREE, SERU 2.3 mg/L (5.7-26.3)
[2023-01-07 18:40] LABS: PROTEIN, TOTAL 5.5 g/dL (6.1-8.1)
[2023-01-10 10:19] LABS: ABNORMAL PROTEIN BAND 1 0.3 g/dL (NONE DETECTED); ABNORMAL PROTEIN BAND 2 0.2 g/dL (NONE DETECTED); ALBUMIN 3.4 g/dL (3.8-4.8); ALPHA 1 GLOBULIN 0.3 g/dL (0.2-0.3); ALPHA 2 GLOBULIN 0.7 g/dL (0.5-0.9); BETA 1 GLOBULIN 0.4 g/dL (0.4-0.6); BETA 2 GLOBULIN 0.2 g/dL (0.2-0.5); GAMMA GLOBULIN 0.5 g/dL (0.8-1.7)
== END 2023-01-06 23:59 | disposition home or self-care (01) ==
PROVIDERS: Nurse Practitioner; PCP Family Medicine; Visit Provider Internal Medicine Medical Oncology
DX: C90.00 Multiple myeloma not having achieved remission (principal)
CPT/HCPCS: 96372; 36415; 80053; 82784; 83883; 84155; 84165; 85025; 96401; 96402; 99214; J9041; J9144

== ENCOUNTER 2023-01-17 13:00 | Oncology outpatient (recurring) (ONCR) | payer MEDICARE, MEDICAID, SELFPAY ==
[2023-01-14 10:06] VITALS: BP 171/69; PULSE 82; RESP 18; TEMP 36.4; O2SAT 94
[2023-01-14 10:23] LABS: Basophils % 0.1 %; Hematocrit 35.5 % (37.0-47.0); Lymphocytes # 1.4 10^3/uL (0.8-4.8); Lymphocytes % 10.6 %; Mean Corpuscular HGB Conc 33.8 g/dL (30.0-36.0); Mean Corpuscular Hemoglobin 33.4 pg (28.0-34.0); Mean Corpuscular Volume 98.9 fl (81-99); Mean Platelet Volume 11.4 fL (7.4-10.4); Monocytes # 0.8 10^3/uL (0.2-0.9); Monocytes % 5.7 %; Neutrophils # 11.16 10^3/uL (1.8-7.7); Neutrophils % 82.7 %; Nucleated Red Blood Cells % 0 %; Platelet Count 171 10^3/cmm (130-400); Red Blood Count 3.59 10^6/uL (4.1-5.3); Red Cell Distribution Width 19.3 % (12.1-15.1); White Blood Count 13.5 10^3/uL (4.0-10.0)
[2023-01-14 10:41] LABS: Alanine Aminotransferase 27 U/L (0-33); Albumin Level 3.7 g/dL (3.5-5.2); Alkaline Phosphatase 61 U/L (35-105); Blood Urea Nitrogen 21 mg/dL (8-23); Calcium 9.1 mg/dL (8.5-10.5); Carbon Dioxide 26 mmol/L (22-29); Chloride 96 mmol/L (98-107); Globulin 1.8 g/dL (1.3-4.6); Glomerular Filtration Rate 72.4 mL/min (90-130); Glucose 123 mg/dL (65-115); Osmolality Calculated 282 mOsm/kg (285-295); Sodium 134 mmol/L (136-145); Total Bilirubin 0.4 mg/dL (0.15-1.2); Total Protein 5.5 g/dL (6.6-8.7)
[2023-01-14 10:42] LABS: Anion Gap 16.2 (5-19); Potassium 4.2 mmol/L (3.5-5.1)
[2023-01-14 10:43] LABS: Aspartate Amino Transferase 17 U/L (0-32)
[2023-01-17 12:48] VITALS: BP 149/74; PULSE 85; RESP 18; TEMP 35.9; O2SAT 94
[2023-01-17 13:20] LABS: Basophils % 0.3 %; Eosinophils # 0.1 10^3/uL (0.0-0.8); Eosinophils % 0.6 %; Hematocrit 34.7 % (37.0-47.0); Hemoglobin 11.5 g/dL (11.5-15.3); Lymphocytes # 1.6 10^3/uL (0.8-4.8); Lymphocytes % 19.9 %; Mean Corpuscular HGB Conc 33.1 g/dL (30.0-36.0); Mean Corpuscular Hemoglobin 33.8 pg (28.0-34.0); Mean Corpuscular Volume 102.1 fl (81-99); Mean Platelet Volume 11.2 fL (7.4-10.4); Monocytes # 0.7 10^3/uL (0.2-0.9); Monocytes % 9.1 %; Neutrophils # 5.43 10^3/uL (1.8-7.7); Neutrophils % 69.5 %; Nucleated Red Blood Cells % 0.3 %; Platelet Count 155 10^3/cmm (130-400); Red Cell Distribution Width 19.1 % (12.1-15.1); White Blood Count 7.8 10^3/uL (4.0-10.0)
[2023-01-17 13:35] LABS: Alanine Aminotransferase 25 U/L (0-33); Albumin Level 3.3 g/dL (3.5-5.2); Alkaline Phosphatase 61 U/L (35-105); Blood Urea Nitrogen 20 mg/dL (8-23); Calcium 8.8 mg/dL (8.5-10.5); Carbon Dioxide 30 mmol/L (22-29); Chloride 95 mmol/L (98-107); Globulin 1.9 g/dL (1.3-4.6); Glomerular Filtration Rate 84.5 mL/min (90-130); Glucose 98 mg/dL (65-115); Osmolality Calculated 281 mOsm/kg (285-295); Sodium 134 mmol/L (136-145); Total Bilirubin 0.5 mg/dL (0.15-1.2); Total Protein 5.2 g/dL (6.6-8.7)
[2023-01-17 13:41] LABS: Anion Gap 13.1 (5-19); Aspartate Amino Transferase 20 U/L (0-32); Potassium 4.1 mmol/L (3.5-5.1)
[2023-01-17] MEDS: daratumumab-hyaluronidase-fihj 1,800 mg/15 mL SDV 1800 MG SUBCUT (15:27)
== END 2023-01-21 23:59 | disposition home or self-care (01) ==
PROVIDERS: Nurse Practitioner Family; PCP Family Medicine; Visit Provider Internal Medicine Medical Oncology
DX: C90.00 Multiple myeloma not having achieved remission (principal); Z51.11 Encounter for antineoplastic chemotherapy
CPT/HCPCS: 36415; 80053; 85025; 96401; 99214; J9144

== ENCOUNTER 2023-01-31 11:46 | Oncology outpatient (recurring) (ONCR) | payer MEDICARE, MEDICAID, SELFPAY ==
[2023-01-31 11:57] VITALS: BP 144/79; PULSE 78; RESP 18; TEMP 36.4; O2SAT 95
[2023-01-31 12:11] LABS: Basophils % 0.3 %; Eosinophils % 0.4 %; Hematocrit 36.1 % (37.0-47.0); Hemoglobin 12.1 g/dL (11.5-15.3); Lymphocytes # 1.9 10^3/uL (0.8-4.8); Lymphocytes % 25.9 %; Mean Corpuscular HGB Conc 33.5 g/dL (30.0-36.0); Mean Corpuscular Hemoglobin 34.3 pg (28.0-34.0); Mean Corpuscular Volume 102.3 fl (81-99); Mean Platelet Volume 10.6 fL (7.4-10.4); Monocytes # 0.7 10^3/uL (0.2-0.9); Neutrophils # 4.65 10^3/uL (1.8-7.7); Neutrophils % 62.6 %; Nucleated Red Blood Cells % 0 %; Platelet Count 153 10^3/cmm (130-400); Red Blood Count 3.53 10^6/uL (4.1-5.3); Red Cell Distribution Width 17.7 % (12.1-15.1); White Blood Count 7.4 10^3/uL (4.0-10.0)
[2023-01-31 12:27] LABS: Alanine Aminotransferase 21 U/L (0-33); Albumin Level 3.8 g/dL (3.5-5.2); Alkaline Phosphatase 68 U/L (35-105); Anion Gap 11.2 (5-19); Aspartate Amino Transferase 13 U/L (0-32); Blood Urea Nitrogen 17 mg/dL (8-23); Calcium 8.4 mg/dL (8.5-10.5); Carbon Dioxide 28 mmol/L (22-29); Chloride 96 mmol/L (98-107); Globulin 1.9 g/dL (1.3-4.6); Glomerular Filtration Rate 72.4 mL/min (90-130); Glucose 86 mg/dL (65-115); Osmolality Calculated 273 mOsm/kg (285-295); Potassium 4.2 mmol/L (3.5-5.1); Sodium 131 mmol/L (136-145); Total Bilirubin 0.3 mg/dL (0.15-1.2); Total Protein 5.7 g/dL (6.6-8.7)
[2023-01-31] MEDS: denosumab 120 mg SDV SUBCUT (13:49)
[2023-01-31] MEDS: dextrose 5% 250 ML 75 ML IV (13:49)
[2023-01-31] MEDS: daratumumab-hyaluronidase-fihj 1,800 mg/15 mL SDV 1800 MG SUBCUT (14:11)
[2023-01-31 15:10] VITALS: BP 150/69; PULSE 70; RESP 16; TEMP 36.2; O2SAT 95
== END 2023-01-31 23:59 | disposition home or self-care (01) ==
PROVIDERS: PCP Family Medicine; Visit Provider Internal Medicine Medical Oncology
DX: E87.6 Hypokalemia; Z79.899 Other long term (current) drug therapy; Z51.11 Encounter for antineoplastic chemotherapy; C90.02 Multiple myeloma in relapse; R60.0 Localized edema; Z79.52 Long term (current) use of systemic steroids
CPT/HCPCS: 80053; 85025; 96372; 96401; 96413; 99214; J0897; J1642; J7060; J9047; J9144

== ENCOUNTER 2023-02-07 15:30 | Oncology outpatient (recurring) (ONCR) | payer MEDICARE, MEDICAID, SELFPAY ==
[2023-02-07 13:20] VITALS: BP 158/81; PULSE 73; RESP 18; TEMP 35.7; O2SAT 94
[2023-02-07 13:35] LABS: Basophils % 0.1 %; Hematocrit 37.3 % (37.0-47.0); Hemoglobin 12.7 g/dL (11.5-15.3); Lymphocytes # 1.2 10^3/uL (0.8-4.8); Lymphocytes % 13.3 %; Mean Corpuscular Hemoglobin 34.9 pg (28.0-34.0); Mean Corpuscular Volume 102.5 fl (81-99); Monocytes # 0.2 10^3/uL (0.2-0.9); Monocytes % 1.8 %; Neutrophils # 7.83 10^3/uL (1.8-7.7); Neutrophils % 84.2 %; Nucleated Red Blood Cells % 0 %; Platelet Count 153 10^3/cmm (130-400); Red Blood Count 3.64 10^6/uL (4.1-5.3); Red Cell Distribution Width 16.9 % (12.1-15.1); White Blood Count 9.3 10^3/uL (4.0-10.0)
[2023-02-07 13:50] LABS: Alanine Aminotransferase 22 U/L (0-33); Albumin Level 3.9 g/dL (3.5-5.2); Alkaline Phosphatase 69 U/L (35-105); Anion Gap 15.3 (5-19); Aspartate Amino Transferase 16 U/L (0-32); Blood Urea Nitrogen 16 mg/dL (8-23); Carbon Dioxide 26 mmol/L (22-29); Chloride 98 mmol/L (98-107); Globulin 2.1 g/dL (1.3-4.6); Glomerular Filtration Rate 63.2 mL/min (90-130); Glucose 127 mg/dL (65-115); Osmolality Calculated 283 mOsm/kg (285-295); Potassium 4.3 mmol/L (3.5-5.1); Sodium 135 mmol/L (136-145); Total Bilirubin 0.5 mg/dL (0.15-1.2)
[2023-02-07] MEDS: dextrose 5% 250 ML 100 ML IV (14:57)
[2023-02-07] MEDS: ondansetron 2 mg/ML SDV 2 mL 8 MG IVP (14:58)
[2023-02-07 15:53] VITALS: BP 150/68; PULSE 68; TEMP 36.2; O2SAT 96
== END 2023-02-07 23:59 | disposition home or self-care (01) ==
PROVIDERS: Nurse Practitioner Family; PCP Family Medicine; Visit Provider Internal Medicine Medical Oncology
DX: Z51.11 Encounter for antineoplastic chemotherapy (principal); C90.00 Multiple myeloma not having achieved remission
CPT/HCPCS: 80053; 85025; 96375; 96413; J1642; J2405; J7060; J9047

== ENCOUNTER 2023-02-14 13:30 | Oncology outpatient (recurring) (ONCR) | payer MEDICARE, MEDICAID, SELFPAY ==
[2023-02-14 13:32] VITALS: BMI 49.2
[2023-02-14 13:33] VITALS: BP 161/79; PULSE 78; RESP 18; TEMP 35.7; O2SAT 95
[2023-02-14 13:57] LABS: Basophils % 0.3 %; Eosinophils % 0.3 %; Hematocrit 34.4 % (37.0-47.0); Hemoglobin 11.9 g/dL (11.5-15.3); Lymphocytes # 1.4 10^3/uL (0.8-4.8); Lymphocytes % 21.9 %; Mean Corpuscular HGB Conc 34.6 g/dL (30.0-36.0); Mean Corpuscular Hemoglobin 35.6 pg (28.0-34.0); Mean Platelet Volume 11.4 fL (7.4-10.4); Monocytes % 15.9 %; Neutrophils # 3.97 10^3/uL (1.8-7.7); Neutrophils % 60.8 %; Nucleated Red Blood Cells % 0 %; Platelet Count 132 10^3/cmm (130-400); Red Blood Count 3.34 10^6/uL (4.1-5.3); Red Cell Distribution Width 16.4 % (12.1-15.1); White Blood Count 6.5 10^3/uL (4.0-10.0)
[2023-02-14 14:24] LABS: Alanine Aminotransferase 17 U/L (0-33); Albumin Level 3.6 g/dL (3.5-5.2); Alkaline Phosphatase 65 U/L (35-105); Anion Gap 13.8 (5-19); Aspartate Amino Transferase 13 U/L (0-32); Blood Urea Nitrogen 13 mg/dL (8-23); Calcium 8.7 mg/dL (8.5-10.5); Carbon Dioxide 25 mmol/L (22-29); Chloride 104 mmol/L (98-107); Globulin 1.5 g/dL (1.3-4.6); Glomerular Filtration Rate 63.2 mL/min (90-130); Glucose 115 mg/dL (65-115); Osmolality Calculated 289 mOsm/kg (285-295); Potassium 3.8 mmol/L (3.5-5.1); Sodium 139 mmol/L (136-145); Total Bilirubin 0.3 mg/dL (0.15-1.2); Total Protein 5.1 g/dL (6.6-8.7)
[2023-02-14] MEDS: dextrose 5% 250 ML 75 ML IV (15:30)
[2023-02-14] MEDS: ondansetron 2 mg/ML SDV 2 mL 8 MG IVP (15:34)
[2023-02-14] MEDS: daratumumab-hyaluronidase-fihj 1,800 mg/15 mL SDV 1800 MG SUBCUT (15:44)
[2023-02-14 16:45] VITALS: BP 152/68; PULSE 63; RESP 18; TEMP 35.7; O2SAT 96
== END 2023-02-14 23:59 | disposition home or self-care (01) ==
PROVIDERS: Nurse Practitioner Family; PCP Family Medicine; Visit Provider Internal Medicine Medical Oncology
DX: Z51.11 Encounter for antineoplastic chemotherapy; C90.00 Multiple myeloma not having achieved remission
CPT/HCPCS: 80053; 85025; 96375; 96402; 96409; 96413; J1642; J2405; J7060; J9047; J9144

== ENCOUNTER 2023-02-21 13:18 | Oncology outpatient (recurring) (ONCR) | payer MEDICARE, MEDICAID, SELFPAY ==
[2023-02-21 13:20] VITALS: BMI 48.4
[2023-02-21 13:22] VITALS: BP 165/83; PULSE 77; RESP 16; TEMP 36.7; O2SAT 96
[2023-02-21 13:44] LABS: Basophils % 0.1 %; Hematocrit 38.2 % (37.0-47.0); Hemoglobin 13.3 g/dL (11.5-15.3); Lymphocytes # 0.8 10^3/uL (0.8-4.8); Lymphocytes % 9.2 %; Mean Corpuscular HGB Conc 34.8 g/dL (30.0-36.0); Mean Corpuscular Hemoglobin 36.4 pg (28.0-34.0); Mean Corpuscular Volume 104.7 fl (81-99); Mean Platelet Volume 11.6 fL (7.4-10.4); Monocytes # 0.1 10^3/uL (0.2-0.9); Monocytes % 1.1 %; Neutrophils % 88.9 %; Nucleated Red Blood Cells % 0 %; Platelet Count 158 10^3/cmm (130-400); Red Blood Count 3.65 10^6/uL (4.1-5.3); Red Cell Distribution Width 16.2 % (12.1-15.1); White Blood Count 8.4 10^3/uL (4.0-10.0)
[2023-02-21 14:10] LABS: Alanine Aminotransferase 16 U/L (0-33); Albumin Level 4.1 g/dL (3.5-5.2); Alkaline Phosphatase 70 U/L (35-105); Anion Gap 19.5 (5-19); Aspartate Amino Transferase 13 U/L (0-32); Blood Urea Nitrogen 20 mg/dL (8-23); Calcium 8.8 mg/dL (8.5-10.5); Carbon Dioxide 24 mmol/L (22-29); Chloride 100 mmol/L (98-107); Globulin 1.7 g/dL (1.3-4.6); Glomerular Filtration Rate 50.2 mL/min (90-130); Glucose 167 mg/dL (65-115); Osmolality Calculated 294 mOsm/kg (285-295); Potassium 4.5 mmol/L (3.5-5.1); Sodium 139 mmol/L (136-145); Total Bilirubin 0.4 mg/dL (0.15-1.2); Total Protein 5.8 g/dL (6.6-8.7)
== END 2023-02-21 23:59 | disposition home or self-care (01) ==
PROVIDERS: Nurse Practitioner Family; PCP Family Medicine; Visit Provider Internal Medicine Medical Oncology
DX: C90.00 Multiple myeloma not having achieved remission (principal); Z79.899 Other long term (current) drug therapy
CPT/HCPCS: 80053; 85025; J1642

== ENCOUNTER 2023-02-28 08:56 | Oncology outpatient (recurring) (ONCR) | payer MEDICARE, MEDICAID, SELFPAY ==
[2023-02-28 09:15] VITALS: BP 145/79; PULSE 82; RESP 18; TEMP 35.9; O2SAT 96
[2023-02-28 09:17] VITALS: BMI 48.2
[2023-02-28 09:44] LABS: Basophils % 0.4 %; Eosinophils % 0.4 %; Hematocrit 36.7 % (37.0-47.0); Hemoglobin 12.4 g/dL (11.5-15.3); Lymphocytes # 1.4 10^3/uL (0.8-4.8); Lymphocytes % 15.6 %; Mean Corpuscular HGB Conc 33.8 g/dL (30.0-36.0); Mean Corpuscular Hemoglobin 35.5 pg (28.0-34.0); Mean Corpuscular Volume 105.2 fl (81-99); Mean Platelet Volume 11.1 fL (7.4-10.4); Monocytes % 10.5 %; Neutrophils # 6.58 10^3/uL (1.8-7.7); Neutrophils % 72.5 %; Nucleated Red Blood Cells % 0 %; Platelet Count 208 10^3/cmm (130-400); Red Blood Count 3.49 10^6/uL (4.1-5.3); Red Cell Distribution Width 15.2 % (12.1-15.1); White Blood Count 9.1 10^3/uL (4.0-10.0)
[2023-02-28 10:16] LABS: Alanine Aminotransferase 15 U/L (0-33); Albumin Level 3.8 g/dL (3.5-5.2); Alkaline Phosphatase 72 U/L (35-105); Anion Gap 15.5 (5-19); Aspartate Amino Transferase 13 U/L (0-32); Blood Urea Nitrogen 20 mg/dL (8-23); Calcium 9.2 mg/dL (8.5-10.5); Carbon Dioxide 26 mmol/L (22-29); Chloride 103 mmol/L (98-107); Globulin 2.1 g/dL (1.3-4.6); Glomerular Filtration Rate 50.2 mL/min (90-130); Glucose 109 mg/dL (65-115); Immunoglobulin IGA 50 mg/dL (70-400); Immunoglobulin IGG 380 mg/dL (700-1600); Immunoglobulin IGM 25 mg/dL (40-230); Osmolality Calculated 293 mOsm/kg (285-295); Potassium 4.5 mmol/L (3.5-5.1); Sodium 140 mmol/L (136-145); Total Bilirubin 0.5 mg/dL (0.15-1.2); Total Protein 5.9 g/dL (6.6-8.7)
[2023-02-28] MEDS: dextrose 5% 250 ML 75 ML IV (12:02)
[2023-02-28] MEDS: ondansetron 2 mg/ML SDV 2 mL 8 MG IVP (12:02)
[2023-02-28] MEDS: famotidine 20 mg/2 mL INJ IVP (12:03)
[2023-02-28] MEDS: daratumumab-hyaluronidase-fihj 1,800 mg/15 mL SDV 1800 MG SUBCUT (12:58)
[2023-02-28] MEDS: denosumab 120 mg SDV SUBCUT (13:45)
[2023-02-28 13:56] VITALS: BP 118/52; PULSE 69; RESP 16; TEMP 36.2; O2SAT 96
[2023-03-01 08:40] LABS: PROTEIN, TOTAL 5.7 g/dL (6.1-8.1)
[2023-03-01 13:39] LABS: KAPPA LIGHT CHAIN, FREE, SERUM 6.1 mg/L (3.3-19.4); LAMBDA LIGHT CHAIN, FREE, SERU <1.5 mg/L (5.7-26.3)
[2023-03-01 14:18] LABS: ABNORMAL PROTEIN BAND 1 0.2 g/dL (NONE DETECTED); ABNORMAL PROTEIN BAND 2 0.1 g/dL (NONE DETECTED); ALBUMIN 3.6 g/dL (3.8-4.8); ALPHA 1 GLOBULIN 0.3 g/dL (0.2-0.3); ALPHA 2 GLOBULIN 0.8 g/dL (0.5-0.9); BETA 1 GLOBULIN 0.4 g/dL (0.4-0.6); BETA 2 GLOBULIN 0.2 g/dL (0.2-0.5); GAMMA GLOBULIN 0.4 g/dL (0.8-1.7)
== END 2023-02-28 23:59 | disposition home or self-care (01) ==
PROVIDERS: Nurse Practitioner Family; PCP Family Medicine; Visit Provider Internal Medicine Medical Oncology
DX: C90.02 Multiple myeloma in relapse (principal); Z79.899 Other long term (current) drug therapy; Z51.12 Encounter for antineoplastic immunotherapy; Z79.52 Long term (current) use of systemic steroids; G62.9 Polyneuropathy, unspecified
CPT/HCPCS: 80053; 82784; 83883; 84155; 84165; 85025; 96372; 96375; 96401; 96413; 99214; J0897; J1642; J2405; J3490; J7060; J9047; J9144

== ENCOUNTER 2023-03-14 13:45 | Oncology outpatient (recurring) (ONCR) | payer MEDICARE, MEDICAID, SELFPAY ==
[2023-03-07 13:30] VITALS: BMI 48.5
[2023-03-07 13:32] VITALS: BP 175/83; PULSE 87; RESP 18; TEMP 36.1; O2SAT 95
[2023-03-07 13:49] LABS: Basophils % 0.1 %; Hematocrit 36.8 % (37.0-47.0); Hemoglobin 12.7 g/dL (11.5-15.3); Lymphocytes # 0.6 10^3/uL (0.8-4.8); Lymphocytes % 6.1 %; Mean Corpuscular HGB Conc 34.5 g/dL (30.0-36.0); Mean Corpuscular Hemoglobin 35.8 pg (28.0-34.0); Mean Corpuscular Volume 103.7 fl (81-99); Mean Platelet Volume 11.3 fL (7.4-10.4); Monocytes # 0.1 10^3/uL (0.2-0.9); Monocytes % 1.4 %; Neutrophils # 8.92 10^3/uL (1.8-7.7); Neutrophils % 91.4 %; Nucleated Red Blood Cells % 0 %; Platelet Count 125 10^3/cmm (130-400); Red Blood Count 3.55 10^6/uL (4.1-5.3); Red Cell Distribution Width 14.5 % (12.1-15.1); White Blood Count 9.8 10^3/uL (4.0-10.0)
[2023-03-07 14:08] LABS: Alanine Aminotransferase 16 U/L (0-33); Alkaline Phosphatase 73 U/L (35-105); Anion Gap 16.4 (5-19); Aspartate Amino Transferase 15 U/L (0-32); Blood Urea Nitrogen 17 mg/dL (8-23); Calcium 9.2 mg/dL (8.5-10.5); Carbon Dioxide 25 mmol/L (22-29); Chloride 101 mmol/L (98-107); Glucose 134 mg/dL (65-115); Osmolality Calculated 290 mOsm/kg (285-295); Potassium 4.4 mmol/L (3.5-5.1); Sodium 138 mmol/L (136-145); Total Bilirubin 0.4 mg/dL (0.15-1.2)
[2023-03-07] MEDS: ondansetron 2 mg/ML SDV 2 mL 8 MG IVP (15:56)
[2023-03-07] MEDS: dextrose 5% 250 ML 75 ML IV (15:58)
[2023-03-07 17:09] VITALS: BP 174/73; PULSE 76; RESP 18; TEMP 35.8; O2SAT 96
[2023-03-14 12:15] VITALS: BP 171/62; PULSE 75; RESP 18; TEMP 36.2; O2SAT 96; BMI 49.2
[2023-03-14 12:57] LABS: Basophils % 0.3 %; Eosinophils # 0.1 10^3/uL (0.0-0.8); Eosinophils % 0.7 %; Hematocrit 34.5 % (37.0-47.0); Hemoglobin 11.5 g/dL (11.5-15.3); Lymphocytes # 1.2 10^3/uL (0.8-4.8); Lymphocytes % 12.7 %; Mean Corpuscular HGB Conc 33.3 g/dL (30.0-36.0); Mean Corpuscular Hemoglobin 35.9 pg (28.0-34.0); Mean Corpuscular Volume 107.8 fl (81-99); Mean Platelet Volume 11.8 fL (7.4-10.4); Monocytes % 11.2 %; Neutrophils # 6.84 10^3/uL (1.8-7.7); Neutrophils % 74.3 %; Nucleated Red Blood Cells % 0 %; Platelet Count 147 10^3/cmm (130-400); Red Cell Distribution Width 14.4 % (12.1-15.1); White Blood Count 9.2 10^3/uL (4.0-10.0)
[2023-03-14 13:15] LABS: Alanine Aminotransferase 17 U/L (0-33); Albumin Level 3.7 g/dL (3.5-5.2); Alkaline Phosphatase 69 U/L (35-105); Anion Gap 14.5 (5-19); Aspartate Amino Transferase 12 U/L (0-32); Blood Urea Nitrogen 15 mg/dL (8-23); Calcium 8.2 mg/dL (8.5-10.5); Carbon Dioxide 25 mmol/L (22-29); Chloride 105 mmol/L (98-107); Globulin 1.8 g/dL (1.3-4.6); Glomerular Filtration Rate 72.4 mL/min (90-130); Glucose 109 mg/dL (65-115); Osmolality Calculated 293 mOsm/kg (285-295); Potassium 3.5 mmol/L (3.5-5.1); Sodium 141 mmol/L (136-145); Total Bilirubin 0.5 mg/dL (0.15-1.2); Total Protein 5.5 g/dL (6.6-8.7)
[2023-03-14] MEDS: dextrose 5% 250 ML 100 ML IV (14:02)
[2023-03-14] MEDS: ondansetron 2 mg/ML SDV 2 mL 8 MG IVP (14:04)
[2023-03-14] MEDS: daratumumab-hyaluronidase-fihj 1,800 mg/15 mL SDV 1800 MG SUBCUT (14:35)
[2023-03-14 15:24] VITALS: BP 157/84; PULSE 64; TEMP 36.1; O2SAT 96
== END 2023-03-14 23:59 | disposition home or self-care (01) ==
PROVIDERS: PCP Family Medicine; Visit Provider Internal Medicine Medical Oncology
DX: C90.00 Multiple myeloma not having achieved remission (principal); Z51.11 Encounter for antineoplastic chemotherapy
CPT/HCPCS: 80053; 85025; 96375; 96401; 96413; J1642; J2405; J7060; J9047; J9144

== ENCOUNTER 2023-03-29 09:12 | Oncology outpatient (recurring) (ONCR) | payer MEDICARE, MEDICAID, SELFPAY ==
[2023-03-29 09:48] LABS: Basophils % 0.3 %; Eosinophils # 0.1 10^3/uL (0.0-0.8); Eosinophils % 0.6 %; Hematocrit 36.8 % (36-47); Lymphocytes # 1.1 10^3/uL (0.8-4.8); Lymphocytes % 11.7 %; Mean Corpuscular HGB Conc 33.7 g/dL (30-55); Mean Corpuscular Volume 109.9 fl (85-98); Mean Platelet Volume 11.2 fL (7.4-10.4); Monocytes % 11.3 %; Neutrophils # 6.82 10^3/uL (1.8-7.7); Neutrophils % 75.4 %; Nucleated Red Blood Cells % 0 %; Platelet Count 211 10^3/cmm (157-399); Red Blood Count 3.35 10^6/uL (3.85-5.65); Red Cell Distribution Width 13.3 % (12.1-15.1); White Blood Count 9.04 10^3/uL (3.29-11.43)
[2023-03-29 10:06] LABS: Alanine Aminotransferase 20 U/L (0-33); Albumin Level 3.9 g/dL (3.5-5.2); Alkaline Phosphatase 78 U/L (35-105); Anion Gap 13.4 (5-19); Aspartate Amino Transferase 16 U/L (0-32); Blood Urea Nitrogen 20 mg/dL (8-23); Carbon Dioxide 27 mmol/L (22-29); Chloride 103 mmol/L (98-107); Globulin 1.9 g/dL (1.3-4.6); Glomerular Filtration Rate 63.2 mL/min (90-130); Glucose 97 mg/dL (65-115); Osmolality Calculated 291 mOsm/kg (285-295); Potassium 4.4 mmol/L (3.5-5.1); Sodium 139 mmol/L (136-145); Total Bilirubin 0.6 mg/dL (0.15-1.2); Total Protein 5.8 g/dL (6.6-8.7)
[2023-03-29 10:28] LABS: Immunoglobulin IGG 330 mg/dL (700-1600)
[2023-03-29 10:44] LABS: Immunoglobulin IGA < 50 mg/dL (70-400); Immunoglobulin IGM < 25 mg/dL (40-230)
[2023-03-29] MEDS: sodium chloride 0.9% 250 ML 75 ML IV (11:42)
[2023-03-29] MEDS: ondansetron 2 mg/ML SDV 2 mL 8 MG IVP (11:43)
[2023-03-29 12:00] VITALS: BMI 49.1
[2023-03-29] MEDS: daratumumab-hyaluronidase-fihj 1,800 mg/15 mL SDV 1800 MG SUBCUT (12:04)
[2023-03-29] MEDS: denosumab 120 mg SDV SUBCUT (12:05)
[2023-03-29] MEDS: dextrose 5% 250 ML 75 ML IV (12:48)
[2023-03-29 13:40] VITALS: BP 146/62; PULSE 67; RESP 18; TEMP 36.7; O2SAT 95
[2023-03-30 10:49] LABS: PROTEIN, TOTAL 5.6 g/dL (6.1-8.1)
[2023-03-30 11:04] LABS: KAPPA LIGHT CHAIN, FREE, SERUM 1.8 mg/L (3.3-19.4); LAMBDA LIGHT CHAIN, FREE, SERU 1.5 mg/L (5.7-26.3)
[2023-03-31 09:29] LABS: ABNORMAL PROTEIN BAND 1 0.1 g/dL (NONE DETECTED); ALBUMIN 3.4 g/dL (3.8-4.8); ALPHA 1 GLOBULIN 0.4 g/dL (0.2-0.3); ALPHA 2 GLOBULIN 0.8 g/dL (0.5-0.9); BETA 1 GLOBULIN 0.4 g/dL (0.4-0.6); BETA 2 GLOBULIN 0.3 g/dL (0.2-0.5); GAMMA GLOBULIN 0.3 g/dL (0.8-1.7)
== END 2023-03-29 23:59 | disposition home or self-care (01) ==
PROVIDERS: PCP Family Medicine; Visit Provider Internal Medicine Medical Oncology
DX: C90.00 Multiple myeloma not having achieved remission (principal); R74.8 Abnormal levels of other serum enzymes; Z79.899 Other long term (current) drug therapy; Z51.11 Encounter for antineoplastic chemotherapy; Z51.12 Encounter for antineoplastic immunotherapy
CPT/HCPCS: 80053; 82784; 83883; 84155; 84165; 85025; 96372; 96401; 96413; 99214; J0897; J2405; J7050; J7060; J9047; J9144

== ENCOUNTER 2023-04-11 11:45 | Oncology outpatient (recurring) (ONCR) | payer MEDICARE, MEDICAID, SELFPAY ==
[2023-04-05 10:42] VITALS: BP 191/76; PULSE 60; RESP 16; TEMP 36.7; O2SAT 95
[2023-04-05 11:05] LABS: Basophils % 0.1 %; Hematocrit 34.8 % (36-47); Lymphocytes # 0.9 10^3/uL (0.8-4.8); Mean Corpuscular HGB Conc 33.6 g/dL (30-55); Mean Corpuscular Volume 107.1 fl (85-98); Mean Platelet Volume 12.2 fL (7.4-10.4); Monocytes # 1.5 10^3/uL (0.2-0.9); Neutrophils # 19.15 10^3/uL (1.8-7.7); Neutrophils % 88.1 %; Nucleated Red Blood Cells % 0 %; Platelet Count 132 10^3/cmm (157-399); Red Blood Count 3.25 10^6/uL (3.85-5.65); Red Cell Distribution Width 13.3 % (12.1-15.1); White Blood Count 21.74 10^3/uL (3.29-11.43)
[2023-04-05 11:55] LABS: Alanine Aminotransferase 19 U/L (0-33); Albumin Level 4.1 g/dL (3.5-5.2); Alkaline Phosphatase 74 U/L (35-105); Anion Gap 14.7 (5-19); Aspartate Amino Transferase 15 U/L (0-32); Blood Urea Nitrogen 31 mg/dL (8-23); Calcium 9.4 mg/dL (8.5-10.5); Carbon Dioxide 26 mmol/L (22-29); Chloride 101 mmol/L (98-107); Globulin 1.8 g/dL (1.3-4.6); Glomerular Filtration Rate 63.2 mL/min (90-130); Glucose 103 mg/dL (65-115); Osmolality Calculated 291 mOsm/kg (285-295); Potassium 4.7 mmol/L (3.5-5.1); Sodium 137 mmol/L (136-145); Total Bilirubin 0.6 mg/dL (0.15-1.2); Total Protein 5.9 g/dL (6.6-8.7)
[2023-04-05 13:28] LABS: Erythrocyte Sedimentation Rate 4 mm/hr (0-15)
[2023-04-05 13:40] LABS: C Reactive Protein 9.8 mg/L (0.0-4.9)
[2023-04-05] MEDS: dextrose 5% 250 ML 75 ML IV (14:02)
[2023-04-05] MEDS: ondansetron 2 mg/ML SDV 2 mL 8 MG IVP (14:02)
[2023-04-05 14:58] VITALS: BP 160/71; PULSE 63; TEMP 36.5; O2SAT 96
[2023-04-11 11:51] VITALS: BP 148/67; PULSE 71; RESP 17; TEMP 36.5; O2SAT 97; BMI 49.8
[2023-04-11 12:21] LABS: Basophils % 0.1 %; Eosinophils # 0.1 10^3/uL (0.0-0.8); Eosinophils % 0.5 %; Hematocrit 33.5 % (36-47); Lymphocytes % 10.5 %; Mean Corpuscular HGB Conc 32.8 g/dL (30-55); Mean Corpuscular Hemoglobin 35.7 pg (27-33); Mean Corpuscular Volume 108.8 fl (85-98); Mean Platelet Volume 12.4 fL (7.4-10.4); Monocytes % 10.6 %; Neutrophils # 7.02 10^3/uL (1.8-7.7); Neutrophils % 77.2 %; Nucleated Red Blood Cells % 0.2 %; Platelet Count 127 10^3/cmm (157-399); Red Blood Count 3.08 10^6/uL (3.85-5.65); Red Cell Distribution Width 13.2 % (12.1-15.1); White Blood Count 9.11 10^3/uL (3.29-11.43)
[2023-04-11 12:26] LABS: Alanine Aminotransferase 13 U/L (0-33); Albumin Level 3.7 g/dL (3.5-5.2); Alkaline Phosphatase 74 U/L (35-105); Anion Gap 12.2 (5-19); Aspartate Amino Transferase 14 U/L (0-32); Blood Urea Nitrogen 16 mg/dL (8-23); Calcium 9.3 mg/dL (8.5-10.5); Carbon Dioxide 27 mmol/L (22-29); Chloride 101 mmol/L (98-107); Globulin 1.8 g/dL (1.3-4.6); Glomerular Filtration Rate 63.2 mL/min (90-130); Glucose 119 mg/dL (65-115); Osmolality Calculated 284 mOsm/kg (285-295); Potassium 4.2 mmol/L (3.5-5.1); Sodium 136 mmol/L (136-145); Total Bilirubin 0.5 mg/dL (0.15-1.2); Total Protein 5.5 g/dL (6.6-8.7)
[2023-04-11] MEDS: dextrose 5% 250 ML 100 ML IV (13:26)
[2023-04-11] MEDS: ondansetron 2 mg/ML SDV 2 mL 8 MG IVP (13:26)
[2023-04-11] MEDS: daratumumab-hyaluronidase-fihj 1,800 mg/15 mL SDV 1800 MG SUBCUT (13:54)
[2023-04-11 14:39] VITALS: BP 168/73; PULSE 68; RESP 16; TEMP 36.1; O2SAT 95
== END 2023-04-11 23:59 | disposition home or self-care (01) ==
PROVIDERS: Nurse Practitioner Family; PCP Family Medicine; Visit Provider Internal Medicine Medical Oncology
DX: Z51.11 Encounter for antineoplastic chemotherapy (principal); C90.00 Multiple myeloma not having achieved remission
CPT/HCPCS: 80053; 85025; 85651; 86140; 96372; 96375; 96401; 96413; J1642; J2405; J7060; J9047; J9144

== ENCOUNTER 2023-04-18 14:00 | Oncology outpatient (recurring) (ONCR) | payer MEDICARE, MEDICAID, SELFPAY ==
[2023-04-18 13:39] VITALS: BP 177/80; PULSE 91; RESP 16; TEMP 35.9; O2SAT 95
[2023-04-18 13:56] LABS: Basophils % 0.1 %; Hematocrit 35.2 % (36-47); Lymphocytes # 0.4 10^3/uL (0.8-4.8); Lymphocytes % 4.4 %; Mean Corpuscular Hemoglobin 36.3 pg (27-33); Monocytes # 0.1 10^3/uL (0.2-0.9); Monocytes % 0.7 %; Neutrophils # 8.59 10^3/uL (1.8-7.7); Neutrophils % 94.3 %; Nucleated Red Blood Cells % 0 %; Platelet Count 161 10^3/cmm (157-399); Red Cell Distribution Width 13.3 % (12.1-15.1); White Blood Count 9.11 10^3/uL (3.29-11.43)
[2023-04-18 14:20] LABS: Alanine Aminotransferase 24 U/L (0-33); Albumin Level 4.1 g/dL (3.5-5.2); Alkaline Phosphatase 85 U/L (35-105); Anion Gap 16.9 (5-19); Aspartate Amino Transferase 17 U/L (0-32); Blood Urea Nitrogen 18 mg/dL (8-23); Calcium 9.1 mg/dL (8.5-10.5); Carbon Dioxide 22 mmol/L (22-29); Chloride 106 mmol/L (98-107); Globulin 1.7 g/dL (1.3-4.6); Glomerular Filtration Rate 45.4 mL/min (90-130); Glucose 185 mg/dL (65-115); Osmolality Calculated 297 mOsm/kg (285-295); Potassium 4.9 mmol/L (3.5-5.1); Sodium 140 mmol/L (136-145); Total Bilirubin 0.5 mg/dL (0.15-1.2); Total Protein 5.8 g/dL (6.6-8.7)
== END 2023-04-23 23:59 | disposition home or self-care (01) ==
PROVIDERS: Nurse Practitioner Family; PCP Family Medicine; Visit Provider Internal Medicine Medical Oncology
DX: C90.00 Multiple myeloma not having achieved remission
CPT/HCPCS: 36591; 80053; 85025; J1642

== ENCOUNTER 2023-04-26 08:00 | Oncology outpatient (recurring) (ONCR) | payer MEDICARE, MEDICAID, SELFPAY ==
[2023-04-25 12:30] VITALS: BP 162/81; PULSE 61; RESP 16; TEMP 36.4; O2SAT 95
[2023-04-25 13:14] LABS: Basophils # 0.1 10^3/uL (0.0-0.1); Basophils % 0.7 %; Eosinophils # 0.1 10^3/uL (0.0-0.8); Hematocrit 33.5 % (36-47); Lymphocytes % 13.5 %; Mean Corpuscular HGB Conc 33.7 g/dL (30-55); Mean Corpuscular Hemoglobin 36.6 pg (27-33); Mean Corpuscular Volume 108.4 fl (85-98); Mean Platelet Volume 11.6 fL (7.4-10.4); Monocytes # 0.9 10^3/uL (0.2-0.9); Monocytes % 11.9 %; Neutrophils # 5.32 10^3/uL (1.8-7.7); Neutrophils % 72.4 %; Nucleated Red Blood Cells % 0 %; Platelet Count 219 10^3/cmm (157-399); Red Blood Count 3.09 10^6/uL (3.85-5.65); Red Cell Distribution Width 13.3 % (12.1-15.1); White Blood Count 7.34 10^3/uL (3.29-11.43)
[2023-04-25 13:36] LABS: Alanine Aminotransferase 14 U/L (0-33); Albumin Level 4.1 g/dL (3.5-5.2); Alkaline Phosphatase 70 U/L (35-105); Anion Gap 14.9 (5-19); Aspartate Amino Transferase 14 U/L (0-32); Blood Urea Nitrogen 16 mg/dL (8-23); Calcium 8.9 mg/dL (8.5-10.5); Carbon Dioxide 25 mmol/L (22-29); Chloride 103 mmol/L (98-107); Globulin 1.8 g/dL (1.3-4.6); Glomerular Filtration Rate 63.2 mL/min (90-130); Glucose 90 mg/dL (65-115); Immunoglobulin IGG 311 mg/dL (700-1600); Osmolality Calculated 289 mOsm/kg (285-295); Potassium 3.9 mmol/L (3.5-5.1); Sodium 139 mmol/L (136-145); Total Bilirubin 0.7 mg/dL (0.15-1.2); Total Protein 5.9 g/dL (6.6-8.7)
[2023-04-25 13:38] LABS: Immunoglobulin IGA < 50 mg/dL (70-400); Immunoglobulin IGM < 25 mg/dL (40-230)
[2023-04-26 08:10] VITALS: BP 152/65; PULSE 72; O2SAT 97
[2023-04-26] MEDS: dextrose 5% 250 ML 75 ML IV (08:20)
[2023-04-26] MEDS: ondansetron 2 mg/ML SDV 2 mL 8 MG IVP (08:22)
[2023-04-26] MEDS: denosumab 120 mg SDV SUBCUT (08:26)
[2023-04-26] MEDS: daratumumab-hyaluronidase-fihj 1,800 mg/15 mL SDV 1800 MG SUBCUT (08:59)
[2023-04-26 09:35] LABS: PROTEIN, TOTAL 5.5 g/dL (6.1-8.1)
[2023-04-26 09:47] VITALS: BP 156/69; PULSE 63; TEMP 36.4; O2SAT 96
[2023-04-26 12:21] LABS: KAPPA/LAMBDA LIGHT CHAINS FREE >2.67 (0.26-1.65); LAMBDA LIGHT CHAIN, FREE, SERU <1.5 mg/L (5.7-26.3)
[2023-04-26 17:10] LABS: ABNORMAL PROTEIN BAND 1 0.1 g/dL (NONE DETECTED); ALBUMIN 3.6 g/dL (3.8-4.8); ALPHA 1 GLOBULIN 0.3 g/dL (0.2-0.3); ALPHA 2 GLOBULIN 0.6 g/dL (0.5-0.9); BETA 1 GLOBULIN 0.4 g/dL (0.4-0.6); BETA 2 GLOBULIN 0.2 g/dL (0.2-0.5); GAMMA GLOBULIN 0.3 g/dL (0.8-1.7)
== END 2023-04-26 23:59 | disposition home or self-care (01) ==
PROVIDERS: Nurse Practitioner Family; PCP Family Medicine; Visit Provider Internal Medicine Medical Oncology
DX: Z51.11 Encounter for antineoplastic chemotherapy (principal); C90.00 Multiple myeloma not having achieved remission
CPT/HCPCS: 80053; 82784; 83883; 84155; 84165; 85025; 96372; 96375; 96402; 96413; 99212; 99214; J0897; J1642; J2405; J7060; J9047; J9144

== ENCOUNTER 2023-05-04 10:38 | Outpatient (CLI) | payer MEDICARE, MEDICAID, SELFPAY ==
--- NOTE | 2023-05-04 11:00 | USCV_ITS ---
Christina Willard Age: 62 Gender: F : 1960 Exam Date: 05/04/2023 10:56 Ordering Phys: Xochitl Mejia APRN Technologist: DAVID [place] [facility] [place]ication: HI-RISK MEDS, SHORTNESS OF BREATH BP: 165 / 70 HR: 65 Rhythm: Sinus Technical Quality: Adequate MEASUREMENTS (Male / Female) Normal Values 2D ECHO LVOT Diameter 2.0 cm LV Ejection Fraction MOD 2C 50.8 % LV Ejection Fraction 2C AL 50.4 % LA Diameter 3.7 cm LA Width 3.3 cm LA Height 5.6 cm RA Width 4.0 cm RA Height 4.9 cm Aorta at Sinotubular Diameter 2.2 cm IVC Diameter 1.8 cm M-MODE Aortic Annulus Diameter 3.2 cm LA Ao Ratio MM 1.1 MV E Point Septal Separation 0.8 cm DOPPLER Right Atrial Pressure 3.0 mmHg FINDINGS Left Ventricle Mild diffuse hypokinesia left ventricular ejection fraction of 50%. LV size, upper limit of normal Right Ventricle Normal right ventricular size and systolic function. Right Atrium The right atrium is normal in size. Left Atrium Mildly increased left atrial size. Mitral Valve Thickened mitral valve. Aortic Valve No gross abnormalities noted Tricuspid Valve No gross abnormalities noted Pulmonic Valve Pulmonic valve not well visualized. Pericardium Normal pericardium without effusion. Aorta Normal ascending aorta dimension. IVC Normal inferior vena cava. CONCLUSIONS Mild diffuse hypokinesia of the left ventricle with an ejection fraction of 50%. LV size, upper limit of normal. Mildly increased left atrial size. Thickened mitral valve. There is no pericardial effusion. There are no intracardiac masses. Compared to the study from 12/03/2012, there is significant decline in the LV ejection fraction from 74% to 50 % corrected copy of the report on the study from 05/04/2023 Dr Sadie Sims MD [facility] (Electronically Signed) Final Date: 06 May 2023 10:33 Amended: 12 May 2023 12:56 C
== END 2023-05-04 10:39 | disposition home or self-care (01) ==
PROVIDERS: PCP Family Medicine; Visit Provider Nurse Practitioner Family
DX: C90.00 Multiple myeloma not having achieved remission (principal); Z79.899 Other long term (current) drug therapy; R06.02 Shortness of breath; I05.9 Rheumatic mitral valve disease, unspecified
CPT/HCPCS: 93308

== ENCOUNTER 2023-05-10 10:15 | Oncology outpatient (recurring) (ONCR) | payer MEDICARE, MEDICAID, SELFPAY ==
[2023-05-03 09:04] VITALS: BP 164/76; PULSE 71; RESP 16; TEMP 36.4; O2SAT 95
[2023-05-03 09:28] LABS: Basophils % 0.3 %; Eosinophils % 0.3 %; Hematocrit 34.8 % (36-47); Lymphocytes # 0.6 10^3/uL (0.8-4.8); Lymphocytes % 7.8 %; Mean Corpuscular HGB Conc 33.3 g/dL (30-55); Mean Corpuscular Hemoglobin 36.9 pg (27-33); Mean Corpuscular Volume 110.8 fl (85-98); Monocytes # 0.2 10^3/uL (0.2-0.9); Monocytes % 2.5 %; Neutrophils # 6.47 10^3/uL (1.8-7.7); Neutrophils % 88.4 %; Nucleated Red Blood Cells % 0 %; Platelet Count 128 10^3/cmm (157-399); Red Blood Count 3.14 10^6/uL (3.85-5.65); Red Cell Distribution Width 13.6 % (12.1-15.1); White Blood Count 7.31 10^3/uL (3.29-11.43)
[2023-05-03 09:45] LABS: Alanine Aminotransferase 17 U/L (0-33); Alkaline Phosphatase 78 U/L (35-105); Anion Gap 14.8 (5-19); Aspartate Amino Transferase 15 U/L (0-32); Blood Urea Nitrogen 20 mg/dL (8-23); Calcium 9.3 mg/dL (8.5-10.5); Carbon Dioxide 26 mmol/L (22-29); Chloride 106 mmol/L (98-107); Glucose 123 mg/dL (65-115); Osmolality Calculated 298 mOsm/kg (285-295); Potassium 4.8 mmol/L (3.5-5.1); Sodium 142 mmol/L (136-145); Total Bilirubin 0.6 mg/dL (0.15-1.2)
[2023-05-03] MEDS: dextrose 5% 250 ML 75 ML IV (10:17)
[2023-05-03] MEDS: ondansetron 2 mg/ML SDV 2 mL 8 MG IVP (10:17)
[2023-05-03 12:32] VITALS: BP 159/72; PULSE 79; RESP 18; TEMP 36.6; O2SAT 98
[2023-05-03 15:02] VITALS: BP 147/77; PULSE 78; RESP 18; TEMP 36.6; O2SAT 98
[2023-05-10 09:50] VITALS: BP 162/77; PULSE 75; RESP 16; TEMP 36.2; O2SAT 96
[2023-05-10 10:26] LABS: Basophils % 0.4 %; Eosinophils # 0.1 10^3/uL (0.0-0.8); Eosinophils % 1.9 %; Hematocrit 33.3 % (36-47); Lymphocytes # 0.6 10^3/uL (0.8-4.8); Mean Corpuscular HGB Conc 32.7 g/dL (30-55); Mean Corpuscular Hemoglobin 36.5 pg (27-33); Mean Corpuscular Volume 111.4 fl (85-98); Mean Platelet Volume 11.8 fL (7.4-10.4); Monocytes # 0.9 10^3/uL (0.2-0.9); Monocytes % 12.8 %; Neutrophils # 5.13 10^3/uL (1.8-7.7); Neutrophils % 75.3 %; Nucleated Red Blood Cells % 0 %; Platelet Count 147 10^3/cmm (157-399); Red Blood Count 2.99 10^6/uL (3.85-5.65); Red Cell Distribution Width 13.3 % (12.1-15.1); White Blood Count 6.81 10^3/uL (3.29-11.43)
[2023-05-10 10:46] LABS: Alanine Aminotransferase 13 U/L (0-33); Albumin Level 3.8 g/dL (3.5-5.2); Alkaline Phosphatase 74 U/L (35-105); Anion Gap 14.3 (5-19); Aspartate Amino Transferase 14 U/L (0-32); Blood Urea Nitrogen 13 mg/dL (8-23); Calcium 8.8 mg/dL (8.5-10.5); Carbon Dioxide 26 mmol/L (22-29); Chloride 104 mmol/L (98-107); Glomerular Filtration Rate 63.2 mL/min (90-130); Glucose 104 mg/dL (65-115); Osmolality Calculated 290 mOsm/kg (285-295); Potassium 4.3 mmol/L (3.5-5.1); Sodium 140 mmol/L (136-145); Total Bilirubin 0.6 mg/dL (0.15-1.2); Total Protein 5.8 g/dL (6.6-8.7)
[2023-05-10] MEDS: dextrose 5% 250 ML 75 ML IV (11:29)
[2023-05-10] MEDS: ondansetron 2 mg/ML SDV 2 mL 8 MG IVP (11:30)
[2023-05-10] MEDS: daratumumab-hyaluronidase-fihj 1,800 mg/15 mL SDV 1800 MG SUBCUT (12:50)
[2023-05-10 13:33] VITALS: BP 144/60; PULSE 65; RESP 18; O2SAT 98
== END 2023-05-10 23:59 | disposition home or self-care (01) ==
PROVIDERS: Nurse Practitioner Family; PCP Family Medicine; Visit Provider Internal Medicine Medical Oncology
DX: Z51.11 Encounter for antineoplastic chemotherapy (principal); C90.00 Multiple myeloma not having achieved remission
CPT/HCPCS: 80053; 85025; 96375; 96411; 96413; J1642; J2405; J7060; J9047; J9144

== ENCOUNTER 2023-05-24 11:00 | Oncology outpatient (recurring) (ONCR) | payer MEDICARE, MEDICAID, SELFPAY ==
[2023-05-17 07:58] VITALS: BP 164/67; PULSE 68; RESP 16; TEMP 35.9; O2SAT 97
[2023-05-17 08:23] LABS: Basophils % 0.3 %; Eosinophils # 0.1 10^3/uL (0.0-0.8); Eosinophils % 0.9 %; Hematocrit 32.3 % (36-47); Lymphocytes # 0.7 10^3/uL (0.8-4.8); Lymphocytes % 11.1 %; Mean Corpuscular HGB Conc 32.8 g/dL (30-55); Mean Corpuscular Hemoglobin 35.6 pg (27-33); Mean Corpuscular Volume 108.4 fl (85-98); Monocytes # 0.4 10^3/uL (0.2-0.9); Monocytes % 7.5 %; Neutrophils # 4.62 10^3/uL (1.8-7.7); Neutrophils % 78.7 %; Nucleated Red Blood Cells % 0.3 %; Platelet Count 170 10^3/cmm (157-399); Red Blood Count 2.98 10^6/uL (3.85-5.65); Red Cell Distribution Width 13.5 % (12.1-15.1); White Blood Count 5.87 10^3/uL (3.29-11.43)
[2023-05-17 08:31] LABS: Alanine Aminotransferase 11 U/L (0-33); Albumin Level 3.8 g/dL (3.5-5.2); Alkaline Phosphatase 72 U/L (35-105); Anion Gap 14.4 (5-19); Aspartate Amino Transferase 13 U/L (0-32); Blood Urea Nitrogen 17 mg/dL (8-23); Carbon Dioxide 25 mmol/L (22-29); Chloride 106 mmol/L (98-107); Globulin 1.7 g/dL (1.3-4.6); Glomerular Filtration Rate 63.2 mL/min (90-130); Glucose 114 mg/dL (65-115); Osmolality Calculated 294 mOsm/kg (285-295); Potassium 4.4 mmol/L (3.5-5.1); Sodium 141 mmol/L (136-145); Total Bilirubin 0.4 mg/dL (0.15-1.2); Total Protein 5.5 g/dL (6.6-8.7)
[2023-05-24 11:00] VITALS: BP 143/63; PULSE 71; RESP 16; TEMP 36.2; O2SAT 97
[2023-05-24 11:11] LABS: Basophils # 0.1 10^3/uL (0.0-0.1); Basophils % 0.6 %; Eosinophils % 0.5 %; Lymphocytes % 12.4 %; Mean Corpuscular HGB Conc 32.1 g/dL (30-55); Mean Corpuscular Hemoglobin 35.7 pg (27-33); Mean Corpuscular Volume 111.5 fl (85-98); Mean Platelet Volume 10.4 fL (7.4-10.4); Monocytes # 0.7 10^3/uL (0.2-0.9); Neutrophils # 6.08 10^3/uL (1.8-7.7); Nucleated Red Blood Cells % 0 %; Platelet Count 255 10^3/cmm (157-399); Red Blood Count 3.05 10^6/uL (3.85-5.65); Red Cell Distribution Width 13.2 % (12.1-15.1)
[2023-05-24 11:35] LABS: Alanine Aminotransferase 13 U/L (0-33); Albumin Level 3.9 g/dL (3.5-5.2); Alkaline Phosphatase 68 U/L (35-105); Anion Gap 14.1 (5-19); Aspartate Amino Transferase 15 U/L (0-32); Blood Urea Nitrogen 14 mg/dL (8-23); Calcium 9.2 mg/dL (8.5-10.5); Carbon Dioxide 27 mmol/L (22-29); Chloride 104 mmol/L (98-107); Globulin 1.7 g/dL (1.3-4.6); Glucose 114 mg/dL (65-115); Osmolality Calculated 293 mOsm/kg (285-295); Potassium 4.1 mmol/L (3.5-5.1); Sodium 141 mmol/L (136-145); Total Bilirubin 0.4 mg/dL (0.15-1.2); Total Protein 5.6 g/dL (6.6-8.7)
[2023-05-24] MEDS: denosumab 120 mg SDV SUBCUT (12:54)
[2023-05-24 14:43] LABS: Vitamin B12 154 pg/mL (232-1245)
== END 2023-05-24 23:59 | disposition home or self-care (01) ==
PROVIDERS: Nurse Practitioner Family; PCP Family Medicine; Visit Provider Internal Medicine Medical Oncology
DX: C90.02 Multiple myeloma in relapse; D64.9 Anemia, unspecified; Z79.899 Other long term (current) drug therapy; Z51.11 Encounter for antineoplastic chemotherapy
CPT/HCPCS: 36591; 80053; 82607; 85025; 99214; J0897; J1642

== ENCOUNTER 2023-06-07 09:15 | Oncology outpatient (recurring) (ONCR) | payer MEDICARE, MEDICAID, SELFPAY ==
[2023-05-31 08:38] LABS: Basophils % 0.4 %; Eosinophils # 0.1 10^3/uL (0.0-0.8); Lymphocytes # 0.8 10^3/uL (0.8-4.8); Lymphocytes % 9.3 %; Mean Corpuscular HGB Conc 32.9 g/dL (30-55); Mean Corpuscular Hemoglobin 36.3 pg (27-33); Mean Corpuscular Volume 110.4 fl (85-98); Mean Platelet Volume 11.4 fL (7.4-10.4); Monocytes # 0.7 10^3/uL (0.2-0.9); Monocytes % 8.4 %; Neutrophils # 6.76 10^3/uL (1.8-7.7); Neutrophils % 80.5 %; Nucleated Red Blood Cells % 0 %; Platelet Count 167 10^3/cmm (157-399); Red Blood Count 3.17 10^6/uL (3.85-5.65); Red Cell Distribution Width 12.9 % (12.1-15.1); White Blood Count 8.38 10^3/uL (3.29-11.43)
[2023-06-07 09:15] VITALS: BP 138/68; PULSE 74; RESP 18; TEMP 36.9; O2SAT 97
[2023-06-07 09:34] LABS: Basophils % 0.4 %; Eosinophils # 0.1 10^3/uL (0.0-0.8); Eosinophils % 1.9 %; Hematocrit 34.4 % (36-47); Lymphocytes # 0.9 10^3/uL (0.8-4.8); Lymphocytes % 12.9 %; Mean Corpuscular HGB Conc 32.8 g/dL (30-55); Mean Corpuscular Hemoglobin 35.6 pg (27-33); Mean Corpuscular Volume 108.5 fl (85-98); Monocytes # 0.7 10^3/uL (0.2-0.9); Monocytes % 10.2 %; Neutrophils # 5.18 10^3/uL (1.8-7.7); Neutrophils % 74.3 %; Nucleated Red Blood Cells % 0 %; Platelet Count 181 10^3/cmm (157-399); Red Blood Count 3.17 10^6/uL (3.85-5.65); Red Cell Distribution Width 13.1 % (12.1-15.1); White Blood Count 6.97 10^3/uL (3.29-11.43)
[2023-06-07 10:00] LABS: Alanine Aminotransferase 19 U/L (0-33); Alkaline Phosphatase 68 U/L (35-105); Anion Gap 12.1 (5-19); Aspartate Amino Transferase 16 U/L (0-32); Blood Urea Nitrogen 10 mg/dL (8-23); Calcium 9.5 mg/dL (8.5-10.5); Carbon Dioxide 31 mmol/L (22-29); Chloride 104 mmol/L (98-107); Globulin 1.7 g/dL (1.3-4.6); Glomerular Filtration Rate 84.5 mL/min (90-130); Glucose 104 mg/dL (65-115); Immunoglobulin IGG 312 mg/dL (700-1600); Osmolality Calculated 295 mOsm/kg (285-295); Potassium 4.1 mmol/L (3.5-5.1); Sodium 143 mmol/L (136-145); Total Bilirubin 0.6 mg/dL (0.15-1.2); Total Protein 5.7 g/dL (6.6-8.7)
[2023-06-07 10:15] LABS: Immunoglobulin IGA < 50 mg/dL (70-400); Immunoglobulin IGM < 25 mg/dL (40-230)
[2023-06-07] MEDS: daratumumab-hyaluronidase-fihj 1,800 mg/15 mL SDV 1800 MG SUBCUT (12:39)
[2023-06-07 13:00] VITALS: BP 165/55; PULSE 60; RESP 17; TEMP 35.8; O2SAT 97
[2023-06-08 14:24] LABS: PROTEIN, TOTAL 5.3 g/dL (6.1-8.1)
[2023-06-09 18:29] LABS: ABNORMAL PROTEIN BAND 1 0.1 g/dL (NONE DETECTED); ALBUMIN 3.4 g/dL (3.8-4.8); ALPHA 1 GLOBULIN 0.3 g/dL (0.2-0.3); ALPHA 2 GLOBULIN 0.7 g/dL (0.5-0.9); BETA 1 GLOBULIN 0.4 g/dL (0.4-0.6); BETA 2 GLOBULIN 0.2 g/dL (0.2-0.5); GAMMA GLOBULIN 0.3 g/dL (0.8-1.7)
[2023-06-10 11:50] LABS: KAPPA LIGHT CHAIN, FREE, SERUM 4.8 mg/L (3.3-19.4); LAMBDA LIGHT CHAIN, FREE, SERU <1.5 mg/L (5.7-26.3)
== END 2023-06-07 23:59 | disposition home or self-care (01) ==
PROVIDERS: Nurse Practitioner Family; PCP Family Medicine; Visit Provider Internal Medicine Medical Oncology
DX: C90.00 Multiple myeloma not having achieved remission (principal); Z95.828 Presence of other vascular implants and grafts; Z51.11 Encounter for antineoplastic chemotherapy
CPT/HCPCS: 36591; 80053; 82784; 83883; 84155; 84165; 85025; 96409; 99215; J1642; J9144

== ENCOUNTER 2023-06-21 11:00 | Oncology outpatient (recurring) (ONCR) | payer MEDICARE, MEDICAID, SELFPAY ==
[2023-06-21 11:01] VITALS: PULSE 69; RESP 16; TEMP 36.2; O2SAT 96
[2023-06-21 11:20] LABS: Basophils % 0.1 %; Eosinophils % 0.3 %; Hematocrit 34.9 % (36-47); Lymphocytes # 0.7 10^3/uL (0.8-4.8); Lymphocytes % 7.1 %; Mean Corpuscular HGB Conc 32.7 g/dL (30-55); Mean Corpuscular Hemoglobin 35.4 pg (27-33); Mean Corpuscular Volume 108.4 fl (85-98); Mean Platelet Volume 11.4 fL (7.4-10.4); Monocytes # 0.3 10^3/uL (0.2-0.9); Neutrophils % 89.2 %; Nucleated Red Blood Cells % 0 %; Platelet Count 187 10^3/cmm (157-399); Red Blood Count 3.22 10^6/uL (3.85-5.65); Red Cell Distribution Width 12.6 % (12.1-15.1); White Blood Count 9.54 10^3/uL (3.29-11.43)
[2023-06-21] MEDS: denosumab 120 mg SDV SUBCUT (11:34)
[2023-06-21 11:45] LABS: Alanine Aminotransferase 15 U/L (0-33); Albumin Level 3.9 g/dL (3.5-5.2); Alkaline Phosphatase 67 U/L (35-105); Aspartate Amino Transferase 14 U/L (0-32); Blood Urea Nitrogen 13 mg/dL (8-23); Calcium 8.4 mg/dL (8.5-10.5); Carbon Dioxide 25 mmol/L (22-29); Chloride 106 mmol/L (98-107); Glomerular Filtration Rate 72.4 mL/min (90-130); Glucose 143 mg/dL (65-115); Osmolality Calculated 297 mOsm/kg (285-295); Sodium 142 mmol/L (136-145); Total Bilirubin 0.3 mg/dL (0.15-1.2); Total Protein 5.9 g/dL (6.6-8.7)
== END 2023-06-23 23:59 | disposition home or self-care (01) ==
PROVIDERS: Internal Medicine; PCP Family Medicine; Visit Provider Internal Medicine Medical Oncology
DX: C90.00 Multiple myeloma not having achieved remission (principal); Z51.11 Encounter for antineoplastic chemotherapy
CPT/HCPCS: 36591; 80053; 85025; 96372; J0897; J1642

== ENCOUNTER 2023-07-05 09:21 | Oncology outpatient (recurring) (ONCR) | payer MEDICARE, MEDICAID, SELFPAY ==
[2023-07-05 09:47] VITALS: BP 177/71; PULSE 62; RESP 16; TEMP 35.9; O2SAT 94
[2023-07-05 10:14] LABS: Basophils % 0.4 %; Eosinophils # 0.1 10^3/uL (0.0-0.8); Eosinophils % 1.2 %; Hematocrit 37.9 % (36-47); Lymphocytes # 1.3 10^3/uL (0.8-4.8); Lymphocytes % 15.8 %; Mean Corpuscular HGB Conc 32.5 g/dL (30-55); Mean Corpuscular Hemoglobin 33.9 pg (27-33); Mean Corpuscular Volume 104.4 fl (85-98); Mean Platelet Volume 11.4 fL (7.4-10.4); Monocytes # 0.8 10^3/uL (0.2-0.9); Monocytes % 9.4 %; Neutrophils # 6.12 10^3/uL (1.8-7.7); Neutrophils % 72.7 %; Nucleated Red Blood Cells % 0 %; Platelet Count 189 10^3/cmm (157-399); Red Blood Count 3.63 10^6/uL (3.85-5.65); Red Cell Distribution Width 12.4 % (12.1-15.1); White Blood Count 8.41 10^3/uL (3.29-11.43)
[2023-07-05 10:35] LABS: Alanine Aminotransferase 18 U/L (0-33); Albumin Level 4.1 g/dL (3.5-5.2); Alkaline Phosphatase 73 U/L (35-105); Anion Gap 14.1 (5-19); Aspartate Amino Transferase 14 U/L (0-32); Blood Urea Nitrogen 18 mg/dL (8-23); Calcium 9.6 mg/dL (8.5-10.5); Carbon Dioxide 29 mmol/L (22-29); Chloride 102 mmol/L (98-107); Globulin 1.8 g/dL (1.3-4.6); Glomerular Filtration Rate 63.2 mL/min (90-130); Glucose 99 mg/dL (65-115); Lactate Dehydrogenase 116 U/L (135-214); Osmolality Calculated 294 mOsm/kg (285-295); Potassium 4.1 mmol/L (3.5-5.1); Sodium 141 mmol/L (136-145); Total Bilirubin 0.5 mg/dL (0.15-1.2); Total Protein 5.9 g/dL (6.6-8.7)
[2023-07-05 10:51] LABS: Vitamin B12 289 pg/mL (232-1245)
[2023-07-05 10:58] LABS: Folate Level 7.6 ng/mL (4.8-37.3)
[2023-07-05 11:33] LABS: Immunoglobulin IGA < 50 mg/dL (70-400); Immunoglobulin IGG < 300 mg/dL (700-1600); Immunoglobulin IGM < 25 mg/dL (40-230)
[2023-07-05] MEDS: daratumumab-hyaluronidase-fihj 1,800 mg/15 mL SDV 1800 MG SUBCUT (12:50)
[2023-07-05 13:03] VITALS: BP 134/78; PULSE 74; RESP 18; TEMP 36.6; O2SAT 98
[2023-07-06 07:09] LABS: PROTEIN, TOTAL 5.6 g/dL (6.1-8.1)
[2023-07-06 13:19] LABS: KAPPA LIGHT CHAIN, FREE, SERUM 4.5 mg/L (3.3-19.4); KAPPA/LAMBDA LIGHT CHAINS FREE >3.00 (0.26-1.65); LAMBDA LIGHT CHAIN, FREE, SERU <1.5 mg/L (5.7-26.3)
[2023-07-07 08:59] LABS: ABNORMAL PROTEIN BAND 1 0.1 g/dL (NONE DETECTED); ALBUMIN 3.6 g/dL (3.8-4.8); ALPHA 1 GLOBULIN 0.3 g/dL (0.2-0.3); ALPHA 2 GLOBULIN 0.7 g/dL (0.5-0.9); BETA 1 GLOBULIN 0.5 g/dL (0.4-0.6); BETA 2 GLOBULIN 0.3 g/dL (0.2-0.5); GAMMA GLOBULIN 0.3 g/dL (0.8-1.7)
== END 2023-07-05 23:59 | disposition home or self-care (01) ==
PROVIDERS: Internal Medicine; PCP Family Medicine; Visit Provider Internal Medicine Medical Oncology
DX: C90.00 Multiple myeloma not having achieved remission (principal); Z95.828 Presence of other vascular implants and grafts; Z51.11 Encounter for antineoplastic chemotherapy; Z79.899 Other long term (current) drug therapy; R93.1 Abnormal findings on diagnostic imaging of heart and coronary circulation
CPT/HCPCS: 36591; 80053; 82607; 82746; 82784; 83615; 83883; 84155; 84165; 85025; 86334; 96401; 96409; 99214; J1642; J9144

== ENCOUNTER 2023-07-19 11:20 | Oncology outpatient (recurring) (ONCR) | payer MEDICARE, MEDICAID, SELFPAY ==
[2023-07-19 11:24] VITALS: BP 167/71; PULSE 70; RESP 16; TEMP 35.6; O2SAT 97
[2023-07-19 11:43] LABS: Basophils % 0.4 %; Eosinophils # 0.1 10^3/uL (0.0-0.8); Hematocrit 37.8 % (36-47); Lymphocytes # 1.5 10^3/uL (0.8-4.8); Lymphocytes % 15.5 %; Mean Corpuscular HGB Conc 33.1 g/dL (30-55); Mean Corpuscular Hemoglobin 33.8 pg (27-33); Mean Corpuscular Volume 102.2 fl (85-98); Mean Platelet Volume 11.4 fL (7.4-10.4); Monocytes # 0.9 10^3/uL (0.2-0.9); Monocytes % 9.5 %; Neutrophils # 6.84 10^3/uL (1.8-7.7); Neutrophils % 73.2 %; Nucleated Red Blood Cells % 0 %; Platelet Count 173 10^3/cmm (157-399); Red Cell Distribution Width 12.7 % (12.1-15.1); White Blood Count 9.35 10^3/uL (3.29-11.43)
[2023-07-19] MEDS: denosumab 120 mg SDV SUBCUT (11:53)
[2023-07-19 12:02] LABS: Alanine Aminotransferase 18 U/L (0-33); Albumin Level 4.2 g/dL (3.5-5.2); Alkaline Phosphatase 72 U/L (35-105); Anion Gap 13.9 (5-19); Aspartate Amino Transferase 16 U/L (0-32); Blood Urea Nitrogen 24 mg/dL (8-23); Calcium 9.7 mg/dL (8.5-10.5); Carbon Dioxide 27 mmol/L (22-29); Chloride 101 mmol/L (98-107); Globulin 1.9 g/dL (1.3-4.6); Glucose 125 mg/dL (65-115); Osmolality Calculated 292 mOsm/kg (285-295); Potassium 3.9 mmol/L (3.5-5.1); Sodium 138 mmol/L (136-145); Total Bilirubin 0.2 mg/dL (0.15-1.2); Total Protein 6.1 g/dL (6.6-8.7)
== END 2023-07-24 23:59 | disposition home or self-care (01) ==
PROVIDERS: Nurse Practitioner Family; PCP Family Medicine; Visit Provider Internal Medicine Medical Oncology
DX: Z51.11 Encounter for antineoplastic chemotherapy; C90.02 Multiple myeloma in relapse; Z53.9 Procedure and treatment not carried out, unspecified reason
CPT/HCPCS: 36591; 80053; 85025; 96372; J0897

== ENCOUNTER 2023-08-04 09:38 | Outpatient (CLI) | payer MEDICARE, MEDICAID, SELFPAY ==
--- NOTE | 2023-08-04 10:15 | USCV_ITS ---
Christina Willard Age: 62 Gender: F : 1960 Exam Date: 08/04/2023 10:08 Ordering Phys: Xochitl Mejia APRN Technologist: Shanel Le [place] [facility] [place] Changed chemo for lv fx change BP: 150 / 85 HR: 55 Rhythm: Sinus Technical Quality: Adequate MEASUREMENTS (Male / Female) Normal Values 2D ECHO LV Diastolic Diameter PLAX 5.3 cm 4.2 - 5.9 / 3.9 - 5.3 cm LV Systolic Diameter PLAX 4.2 cm LV Chamber Size 4.2 cm IVS Diastolic Thickness 1.1 cm 0.6 - 1.0 / 0.6 - 0.9 cm IVS Systolic Thickness 1.2 cm LVPW Diastolic Thickness 1.5 cm 0.6 - 1.0 / 0.6 - 0.9 cm LVPW Systolic Thickness 2.1 cm RV Chamber Size 3.3 cm LVOT Diameter 2.1 cm LV Ejection Fraction 2D Teich 35.3 % LV Ejection Fraction MOD 2C 55.0 % LV Ejection Fraction 2C AL 51.4 % LA Diameter 4.4 cm LA Width 2.4 cm LA Height 4.8 cm RA Width 4.1 cm RA Height 4.0 cm Aorta at Sinotubular Diameter 3.0 cm IVC Diameter 1.7 cm M-MODE Aortic Annulus Diameter 3.6 cm LA Ao Ratio MM 1.5 MV E Point Septal Separation 0.5 cm DOPPLER AV Peak Velocity 224.0 cm/s LVOT Peak Velocity 116.0 cm/s AV Area Cont Eq vti 2.1 cm squared AV Area Cont Eq pk 1.7 cm squared MV Area PHT 2.8 cm squared Mitral E to A Ratio 1.0 MV E' Velocity 37.0 cm/s Mitral E to MV E' Ratio 10.2 Mitral E to LV E' Lateral Ratio 9.7 Mitral E to LV E' Septal Ratio 10.8 TR Peak Velocity 129.3 cm/s TR Peak Gradient 6.7 mmHg TR Mean Velocity 150.9 cm/s TR Mean Gradient 9.8 mmHg TR Velocity Time Integral 52.2 cm TV Peak E Velocity 62.0 cm/s Right Atrial Pressure 3.0 mmHg Pulmonary Artery Systolic Pressu 9.7 mmHg RV Acceleration Time 0.1 s RV Ejection Time 0.4 s RV AcT/ET 0.4 FINDINGS Left Ventricle Mild diffuse hypokinesia left ventricular ejection fraction of 51% Right Ventricle The right ventricle is normal in size and function. Right Atrium The right atrium is normal in size. Left Atrium Mildly increased left atrial size. Mitral Valve No gross abnormalities noted Aortic Valve Moderately severe aortic regurgitation.thickened aortic valve. Tricuspid Valve Trace to mild tricuspid valve regurgitation. Pulmonic Valve No gross abnormalities noted Pericardium Normal pericardium without effusion. Aorta Normal ascending aorta dimension. IVC The inferior vena cava appears normal. CONCLUSIONS Mild diffuse hypokinesia left ventricular ejection fraction of 51%. Moderately severe aortic regurgitation. Thickened aortic valve Trace to mild tricuspid valve regurgitation. Estimated pulmonary artery peak systolic pressure probably within normal Compared to the study from 05/04/2023, there may not be a significant change in the left ventricular ejection fraction. Dr Sadie Sims MD FACC (Electronically Signed) Final Date: 08 August 2023 19:58 S
== END 2023-08-04 09:39 | disposition home or self-care (01) ==
LOC: RAD 09:38
PROVIDERS: PCP Family Medicine; Visit Provider Nurse Practitioner Family
DX: C90.02 Multiple myeloma in relapse (principal); I08.2 Rheumatic disorders of both aortic and tricuspid valves; Z79.899 Other long term (current) drug therapy; R93.1 Abnormal findings on diagnostic imaging of heart and coronary circulation
CPT/HCPCS: 93306

== ENCOUNTER 2023-08-09 09:30 | Oncology outpatient (recurring) (ONCR) | payer MEDICARE, MEDICAID, SELFPAY ==
[2023-08-02 09:55] VITALS: BP 162/62; PULSE 68; RESP 16; TEMP 36; O2SAT 95
[2023-08-02 10:03] LABS: Basophils % 0.5 %; Eosinophils # 0.1 10^3/uL (0.0-0.8); Eosinophils % 1.3 %; Hematocrit 38.7 % (36-47); Lymphocytes # 1.3 10^3/uL (0.8-4.8); Lymphocytes % 17.1 %; Mean Corpuscular HGB Conc 33.3 g/dL (30-55); Mean Corpuscular Hemoglobin 33.6 pg (27-33); Mean Corpuscular Volume 100.8 fl (85-98); Mean Platelet Volume 10.7 fL (7.4-10.4); Monocytes # 0.6 10^3/uL (0.2-0.9); Neutrophils % 72.6 %; Nucleated Red Blood Cells % 0 %; Platelet Count 208 10^3/cmm (157-399); Red Blood Count 3.84 10^6/uL (3.85-5.65); Red Cell Distribution Width 12.7 % (12.1-15.1); White Blood Count 7.72 10^3/uL (3.29-11.43)
[2023-08-02 10:18] LABS: Alanine Aminotransferase 14 U/L (0-33); Albumin Level 3.8 g/dL (3.5-5.2); Alkaline Phosphatase 71 U/L (35-105); Aspartate Amino Transferase 16 U/L (0-32); Blood Urea Nitrogen 12 mg/dL (8-23); Carbon Dioxide 27 mmol/L (22-29); Chloride 101 mmol/L (98-107); Glomerular Filtration Rate 63.2 mL/min (90-130); Glucose 137 mg/dL (65-115); Osmolality Calculated 292 mOsm/kg (285-295); Sodium 140 mmol/L (136-145); Total Bilirubin 0.2 mg/dL (0.15-1.2); Total Protein 5.8 g/dL (6.6-8.7)
[2023-08-02 10:21] LABS: Anion Gap 16.1 (5-19); Immunoglobulin IGA < 50 mg/dL (70-400); Immunoglobulin IGG < 300 mg/dL (700-1600); Immunoglobulin IGM < 25 mg/dL (40-230); Potassium 4.1 mmol/L (3.5-5.1)
[2023-08-02] MEDS: daratumumab-hyaluronidase-fihj 1,800 mg/15 mL SDV 1800 MG SUBCUT (12:40)
[2023-08-02 12:51] VITALS: BP 138/84; PULSE 75; RESP 17; TEMP 36.8; O2SAT 96
--- NOTE | 2023-08-02 12:58 | PC.PHAR ---
SPOKE TO PATIENT AT CHAIRSIDE REGARDING HER NEW RX FOR POMALYST. WE TALKED ABOUT HOW POMALYST WORKS, THE COMMON SIDE EFFECTS AND WHEN TO CALL THE OFFICE. I REVIEWED HER HOME MEDICATION LIST. I RECOMMENDED THAT SHE SEPARATE HER VITAMINS FROM HER OTHER MEDICATIONS, PARTICULARLY THE ANTIBIOTICS AND LEVOTHROID. I RECOMMENDED THAT SHE AVOID GRAPEFRUICE JUICE. SUPPLIED PILL ORGANIZER.
--- NOTE | 2023-08-02 13:17 | PC.NURSE ---
Patient reports taking her pre-medications at 1045 this morning. Pre-meds, taken orally, include Benadryl 25mg, Tylenol 650mg, and Dexamethasone 40mg. - Kristyn Thacker
[2023-08-03 11:16] LABS: PROTEIN, TOTAL 5.5 g/dL (6.1-8.1)
[2023-08-03 12:15] LABS: KAPPA LIGHT CHAIN, FREE, SERUM 5.4 mg/L (3.3-19.4); KAPPA/LAMBDA LIGHT CHAINS FREE 3.18 (0.26-1.65); LAMBDA LIGHT CHAIN, FREE, SERU 1.7 mg/L (5.7-26.3)
[2023-08-03 14:50] LABS: ABNORMAL PROTEIN BAND 1 0.1 g/dL (NONE DETECTED); ALBUMIN 3.6 g/dL (3.8-4.8); ALPHA 1 GLOBULIN 0.3 g/dL (0.2-0.3); ALPHA 2 GLOBULIN 0.7 g/dL (0.5-0.9); BETA 1 GLOBULIN 0.4 g/dL (0.4-0.6); BETA 2 GLOBULIN 0.3 g/dL (0.2-0.5); GAMMA GLOBULIN 0.2 g/dL (0.8-1.7)
[2023-08-09 08:55] VITALS: BP 173/82; PULSE 66; RESP 16; TEMP 35.8; O2SAT 92
[2023-08-09 09:11] LABS: Basophils # 0.1 10^3/uL (0.0-0.1); Basophils % 0.8 %; Eosinophils # 0.3 10^3/uL (0.0-0.8); Eosinophils % 3.8 %; Lymphocytes # 0.9 10^3/uL (0.8-4.8); Lymphocytes % 14.4 %; Mean Corpuscular HGB Conc 33.2 g/dL (30-55); Mean Corpuscular Hemoglobin 32.9 pg (27-33); Mean Corpuscular Volume 99.2 fl (85-98); Mean Platelet Volume 11.2 fL (7.4-10.4); Monocytes # 0.3 10^3/uL (0.2-0.9); Monocytes % 5.1 %; Neutrophils # 4.91 10^3/uL (1.8-7.7); Neutrophils % 75.3 %; Nucleated Red Blood Cells % 0 %; Platelet Count 181 10^3/cmm (157-399); Red Blood Count 3.83 10^6/uL (3.85-5.65); White Blood Count 6.52 10^3/uL (3.29-11.43)
== END 2023-08-09 23:59 | disposition home or self-care (01) ==
PROVIDERS: Nurse Practitioner Family; PCP Family Medicine; Visit Provider Internal Medicine Medical Oncology
DX: C90.02 Multiple myeloma in relapse; Z53.9 Procedure and treatment not carried out, unspecified reason
CPT/HCPCS: 36591; 80053; 82784; 83883; 84155; 84165; 85025; 86334; 96401; 99214; J1642; J9144

== ENCOUNTER 2023-08-23 09:30 | Oncology outpatient (recurring) (ONCR) | payer MEDICARE, MEDICAID, SELFPAY ==
[2023-08-16 09:25] VITALS: BP 172/59; PULSE 68; RESP 18; TEMP 36.4; O2SAT 94
[2023-08-16 09:49] LABS: Basophils % 0.5 %; Eosinophils # 0.1 10^3/uL (0.0-0.8); Eosinophils % 0.9 %; Hematocrit 38.2 % (36-47); Lymphocytes # 0.8 10^3/uL (0.8-4.8); Lymphocytes % 9.5 %; Mean Corpuscular HGB Conc 34.6 g/dL (30-55); Mean Corpuscular Hemoglobin 34.2 pg (27-33); Mean Platelet Volume 11.3 fL (7.4-10.4); Monocytes # 0.4 10^3/uL (0.2-0.9); Monocytes % 4.9 %; Neutrophils # 7.39 10^3/uL (1.8-7.7); Neutrophils % 83.9 %; Nucleated Red Blood Cells % 0 %; Platelet Count 160 10^3/cmm (157-399); Red Blood Count 3.86 10^6/uL (3.85-5.65); White Blood Count 8.81 10^3/uL (3.29-11.43)
[2023-08-23 09:54] LABS: Basophils # 0.1 10^3/uL (0.0-0.1); Basophils % 1.6 %; Eosinophils % 0.9 %; Hematocrit 38.9 % (36-47); Lymphocytes # 0.8 10^3/uL (0.8-4.8); Lymphocytes % 17.7 %; Mean Corpuscular HGB Conc 32.6 g/dL (30-55); Mean Corpuscular Hemoglobin 32.2 pg (27-33); Mean Corpuscular Volume 98.7 fl (85-98); Mean Platelet Volume 11.2 fL (7.4-10.4); Monocytes # 0.3 10^3/uL (0.2-0.9); Neutrophils % 73.1 %; Nucleated Red Blood Cells % 0 %; Platelet Count 206 10^3/cmm (157-399); Red Blood Count 3.94 10^6/uL (3.85-5.65); Red Cell Distribution Width 13.1 % (12.1-15.1); White Blood Count 4.51 10^3/uL (3.29-11.43)
== END 2023-08-24 23:59 | disposition home or self-care (01) ==
PROVIDERS: PCP Family Medicine; Visit Provider Internal Medicine Medical Oncology
DX: Z53.9 Procedure and treatment not carried out, unspecified reason (principal); C90.00 Multiple myeloma not having achieved remission
CPT/HCPCS: 36591; 85025; J1642

== ENCOUNTER 2023-08-30 09:15 | Oncology outpatient (recurring) (ONCR) | payer MEDICARE, MEDICAID, SELFPAY ==
[2023-08-30 09:39] LABS: Basophils # 0.1 10^3/uL (0.0-0.1); Basophils % 0.7 %; Eosinophils # 0.1 10^3/uL (0.0-0.8); Eosinophils % 1.1 %; Lymphocytes # 1.6 10^3/uL (0.8-4.8); Lymphocytes % 17.8 %; Mean Corpuscular HGB Conc 33.4 g/dL (30-55); Mean Corpuscular Hemoglobin 32.3 pg (27-33); Mean Corpuscular Volume 96.7 fl (85-98); Mean Platelet Volume 11.2 fL (7.4-10.4); Monocytes # 0.8 10^3/uL (0.2-0.9); Monocytes % 8.3 %; Neutrophils # 6.47 10^3/uL (1.8-7.7); Neutrophils % 71.4 %; Nucleated Red Blood Cells % 0 %; Platelet Count 238 10^3/cmm (157-399); Red Blood Count 3.93 10^6/uL (3.85-5.65); Red Cell Distribution Width 13.2 % (12.1-15.1); White Blood Count 9.05 10^3/uL (3.29-11.43)
[2023-08-30 09:57] LABS: Alanine Aminotransferase 15 U/L (0-33); Albumin Level 3.8 g/dL (3.5-5.2); Alkaline Phosphatase 70 U/L (35-105); Anion Gap 15.3 (5-19); Aspartate Amino Transferase 17 U/L (0-32); Blood Urea Nitrogen 18 mg/dL (8-23); Calcium 9.6 mg/dL (8.5-10.5); Carbon Dioxide 29 mmol/L (22-29); Chloride 99 mmol/L (98-107); Glucose 104 mg/dL (65-115); Osmolality Calculated 290 mOsm/kg (285-295); Potassium 4.3 mmol/L (3.5-5.1); Sodium 139 mmol/L (136-145); Total Bilirubin 0.3 mg/dL (0.15-1.2); Total Protein 5.8 g/dL (6.6-8.7)
[2023-08-30 10:03] LABS: Immunoglobulin IGA < 50 mg/dL (70-400); Immunoglobulin IGG < 300 mg/dL (700-1600); Immunoglobulin IGM < 25 mg/dL (40-230)
[2023-08-30] MEDS: denosumab 120 mg SDV SUBCUT (11:24)
[2023-08-30] MEDS: daratumumab-hyaluronidase-fihj 1,800 mg/15 mL SDV 1800 MG SUBCUT (11:48)
[2023-08-30 12:05] VITALS: BP 169/59; PULSE 61; RESP 18; TEMP 36.3; O2SAT 95
[2023-08-31 08:14] LABS: PROTEIN, TOTAL 5.4 g/dL (6.1-8.1)
[2023-08-31 15:08] LABS: KAPPA LIGHT CHAIN, FREE, SERUM 3.8 mg/L (3.3-19.4); KAPPA/LAMBDA LIGHT CHAINS FREE 2.53 (0.26-1.65); LAMBDA LIGHT CHAIN, FREE, SERU 1.5 mg/L (5.7-26.3)
[2023-09-01 09:50] LABS: ABNORMAL PROTEIN BAND 1 0.1 g/dL (NONE DETECTED); ALBUMIN 3.3 g/dL (3.8-4.8); ALPHA 1 GLOBULIN 0.3 g/dL (0.2-0.3); ALPHA 2 GLOBULIN 0.8 g/dL (0.5-0.9); BETA 1 GLOBULIN 0.5 g/dL (0.4-0.6); BETA 2 GLOBULIN 0.3 g/dL (0.2-0.5); GAMMA GLOBULIN 0.3 g/dL (0.8-1.7)
== END 2023-08-30 23:59 | disposition home or self-care (01) ==
PROVIDERS: PCP Family Medicine; Visit Provider Internal Medicine Medical Oncology
DX: Z51.12 Encounter for antineoplastic immunotherapy (principal); C90.00 Multiple myeloma not having achieved remission; Z79.899 Other long term (current) drug therapy; Z79.52 Long term (current) use of systemic steroids; Z79.82 Long term (current) use of aspirin; Z79.61 Long term (current) use of immunomodulator
CPT/HCPCS: 36591; 80053; 82784; 83883; 84155; 84165; 85025; 96372; 96401; 99214; J0897; J9144

== ENCOUNTER 2023-09-20 15:00 | Oncology outpatient (recurring) (ONCR) | payer MEDICARE, MEDICAID, SELFPAY ==
[2023-09-09 09:16] VITALS: BP 168/73; PULSE 59; RESP 17; TEMP 36.3; O2SAT 93
[2023-09-09] MEDS: sodium chloride 0.9% 250 ML 999 ML IV (09:21)
[2023-09-09] MEDS: dexamethasone 10 mg/mL INJ 12 MG IVP (09:22)
[2023-09-09] MEDS: diphenhydrAMINE 50 mg/mL SDV 1mL 25 MG IVP (09:29)
[2023-09-09] MEDS: famotidine 20 mg/2 mL INJ IVP (09:34)
[2023-09-09 10:01] VITALS: BP 181/70; PULSE 58; TEMP 36.2; O2SAT 96
[2023-09-13 11:37] LABS: Basophils # 0.1 10^3/uL (0.0-0.1); Basophils % 0.5 %; Eosinophils # 0.2 10^3/uL (0.0-0.8); Eosinophils % 1.8 %; Hematocrit 38.1 % (36-47); Lymphocytes # 1.6 10^3/uL (0.8-4.8); Lymphocytes % 15.9 %; Mean Corpuscular HGB Conc 33.1 g/dL (30-55); Mean Corpuscular Hemoglobin 31.7 pg (27-33); Mean Corpuscular Volume 95.7 fl (85-98); Mean Platelet Volume 11.3 fL (7.4-10.4); Monocytes # 1.5 10^3/uL (0.2-0.9); Monocytes % 14.5 %; Neutrophils # 6.72 10^3/uL (1.8-7.7); Neutrophils % 66.9 %; Nucleated Red Blood Cells % 0 %; Platelet Count 155 10^3/cmm (157-399); Red Blood Count 3.98 10^6/uL (3.85-5.65); Red Cell Distribution Width 13.5 % (12.1-15.1); White Blood Count 10.03 10^3/uL (3.29-11.43)
[2023-09-13 11:50] LABS: Alanine Aminotransferase 15 U/L (0-33); Albumin Level 3.7 g/dL (3.5-5.2); Alkaline Phosphatase 77 U/L (35-105); Aspartate Amino Transferase 11 U/L (0-32); Blood Urea Nitrogen 15 mg/dL (8-23); Calcium 9.2 mg/dL (8.5-10.5); Carbon Dioxide 27 mmol/L (22-29); Chloride 101 mmol/L (98-107); Glomerular Filtration Rate 63.2 mL/min (90-130); Glucose 138 mg/dL (65-115); Osmolality Calculated 289 mOsm/kg (285-295); Sodium 138 mmol/L (136-145); Total Bilirubin 0.5 mg/dL (0.15-1.2); Total Protein 5.7 g/dL (6.6-8.7)
[2023-09-20 15:19] LABS: Basophils % 0.6 %; Eosinophils % 0.2 %; Lymphocytes # 0.7 10^3/uL (0.8-4.8); Lymphocytes % 14.5 %; Mean Corpuscular HGB Conc 32.9 g/dL (30-55); Mean Corpuscular Hemoglobin 31.5 pg (27-33); Mean Corpuscular Volume 95.7 fl (85-98); Mean Platelet Volume 11.1 fL (7.4-10.4); Monocytes # 0.1 10^3/uL (0.2-0.9); Monocytes % 1.7 %; Neutrophils # 3.92 10^3/uL (1.8-7.7); Neutrophils % 82.6 %; Nucleated Red Blood Cells % 0 %; Platelet Count 247 10^3/cmm (157-399); Red Blood Count 3.97 10^6/uL (3.85-5.65); White Blood Count 4.75 10^3/uL (3.29-11.43)
[2023-09-20 15:32] LABS: Alanine Aminotransferase 15 U/L (0-33); Albumin Level 3.7 g/dL (3.5-5.2); Alkaline Phosphatase 91 U/L (35-105); Anion Gap 18.8 (5-19); Aspartate Amino Transferase 16 U/L (0-32); Blood Urea Nitrogen 18 mg/dL (8-23); Calcium 8.4 mg/dL (8.5-10.5); Carbon Dioxide 21 mmol/L (22-29); Chloride 104 mmol/L (98-107); Globulin 2.3 g/dL (1.3-4.6); Glucose 255 mg/dL (65-115); Osmolality Calculated 301 mOsm/kg (285-295); Potassium 3.8 mmol/L (3.5-5.1); Sodium 140 mmol/L (136-145); Total Bilirubin 0.2 mg/dL (0.15-1.2)
== END 2023-09-22 23:59 | disposition home or self-care (01) ==
PROVIDERS: Internal Medicine; PCP Family Medicine; Visit Provider Internal Medicine Medical Oncology
DX: Z53.9 Procedure and treatment not carried out, unspecified reason; C90.00 Multiple myeloma not having achieved remission
CPT/HCPCS: 36591; 80053; 84443; 85025; 96374; 96375; J1100; J1200; J1642; J3490; J7050

== ENCOUNTER 2023-09-27 07:50 | Oncology outpatient (recurring) (ONCR) | payer MEDICARE, MEDICAID, SELFPAY ==
[2023-09-27 08:22] LABS: Basophils # 0.1 10^3/uL (0.0-0.1); Basophils % 1.1 %; Eosinophils # 0.2 10^3/uL (0.0-0.8); Eosinophils % 2.7 %; Hematocrit 37.7 % (36-47); Lymphocytes # 1.5 10^3/uL (0.8-4.8); Lymphocytes % 21.6 %; Mean Corpuscular HGB Conc 33.2 g/dL (30-55); Mean Corpuscular Hemoglobin 31.6 pg (27-33); Mean Corpuscular Volume 95.4 fl (85-98); Mean Platelet Volume 11.2 fL (7.4-10.4); Monocytes # 0.7 10^3/uL (0.2-0.9); Monocytes % 9.8 %; Neutrophils # 4.44 10^3/uL (1.8-7.7); Neutrophils % 63.8 %; Nucleated Red Blood Cells % 0 %; Platelet Count 251 10^3/cmm (157-399); Red Blood Count 3.95 10^6/uL (3.85-5.65); Red Cell Distribution Width 14.6 % (12.1-15.1); White Blood Count 6.96 10^3/uL (3.29-11.43)
[2023-09-27 08:55] LABS: Alanine Aminotransferase 15 U/L (0-33); Albumin Level 3.9 g/dL (3.5-5.2); Alkaline Phosphatase 75 U/L (35-105); Anion Gap 18.2 (5-19); Aspartate Amino Transferase 16 U/L (0-32); Blood Urea Nitrogen 18 mg/dL (8-23); Calcium 9.3 mg/dL (8.5-10.5); Carbon Dioxide 27 mmol/L (22-29); Chloride 98 mmol/L (98-107); Globulin 2.1 g/dL (1.3-4.6); Glomerular Filtration Rate 50.2 mL/min (90-130); Glucose 115 mg/dL (65-115); Osmolality Calculated 291 mOsm/kg (285-295); Potassium 4.2 mmol/L (3.5-5.1); Sodium 139 mmol/L (136-145); Total Bilirubin 0.5 mg/dL (0.15-1.2)
[2023-09-27 08:56] LABS: Immunoglobulin IGG < 300 mg/dL (700-1600); Immunoglobulin IGM < 25 mg/dL (40-230)
[2023-09-27 08:57] LABS: Immunoglobulin IGA < 50 mg/dL (70-400); Lactate Dehydrogenase 147 U/L (135-214)
[2023-09-27 11:11] VITALS: BP 127/60; PULSE 57; RESP 17; TEMP 36.8; O2SAT 97
[2023-09-27] MEDS: denosumab 120 mg SDV SUBCUT (11:12)
[2023-09-27] MEDS: daratumumab-hyaluronidase-fihj 1,800 mg/15 mL SDV 1800 MG SUBCUT (11:12)
[2023-09-28 09:00] LABS: PROTEIN, TOTAL 5.6 g/dL (6.1-8.1)
[2023-09-28 16:10] LABS: KAPPA LIGHT CHAIN, FREE, SERUM 4.8 mg/L (3.3-19.4); LAMBDA LIGHT CHAIN, FREE, SERU 1.6 mg/L (5.7-26.3)
[2023-09-29 00:15] LABS: ABNORMAL PROTEIN BAND 1 0.1 g/dL (NONE DETECTED); ALBUMIN 3.6 g/dL (3.8-4.8); ALPHA 1 GLOBULIN 0.3 g/dL (0.2-0.3); ALPHA 2 GLOBULIN 0.8 g/dL (0.5-0.9); BETA 1 GLOBULIN 0.5 g/dL (0.4-0.6); BETA 2 GLOBULIN 0.3 g/dL (0.2-0.5); GAMMA GLOBULIN 0.3 g/dL (0.8-1.7)
== END 2023-09-27 23:59 | disposition home or self-care (01) ==
PROVIDERS: Nurse Practitioner Family; PCP Family Medicine; Visit Provider Internal Medicine Medical Oncology
DX: Z53.9 Procedure and treatment not carried out, unspecified reason (principal); C90.00 Multiple myeloma not having achieved remission; C90.02 Multiple myeloma in relapse; Z95.828 Presence of other vascular implants and grafts
CPT/HCPCS: 36591; 80053; 82784; 83615; 83883; 84155; 84165; 85025; 86334; 96372; 96401; 99214; J0897; J1642; J9144

== ENCOUNTER 2023-10-25 09:09 | Oncology outpatient (recurring) (ONCR) | payer MEDICARE, MEDICAID, SELFPAY ==
[2023-10-25 09:34] LABS: Basophils # 0.1 10^3/uL (0.0-0.1); Basophils % 0.6 %; Eosinophils # 0.1 10^3/uL (0.0-0.8); Eosinophils % 1.1 %; Hematocrit 36.5 % (36-47); Lymphocytes # 1.7 10^3/uL (0.8-4.8); Mean Corpuscular HGB Conc 33.7 g/dL (30-55); Mean Corpuscular Hemoglobin 32.1 pg (27-33); Mean Corpuscular Volume 95.3 fl (85-98); Mean Platelet Volume 11.1 fL (7.4-10.4); Monocytes # 0.9 10^3/uL (0.2-0.9); Monocytes % 8.3 %; Neutrophils # 7.73 10^3/uL (1.8-7.7); Neutrophils % 73.3 %; Nucleated Red Blood Cells % 0 %; Platelet Count 229 10^3/cmm (157-399); Red Blood Count 3.83 10^6/uL (3.85-5.65); Red Cell Distribution Width 14.8 % (12.1-15.1); White Blood Count 10.54 10^3/uL (3.29-11.43)
[2023-10-25 09:55] LABS: Alanine Aminotransferase 17 U/L (0-33); Albumin Level 3.8 g/dL (3.5-5.2); Alkaline Phosphatase 78 U/L (35-105); Anion Gap 14.3 (5-19); Aspartate Amino Transferase 15 U/L (0-32); Blood Urea Nitrogen 12 mg/dL (8-23); Carbon Dioxide 27 mmol/L (22-29); Chloride 106 mmol/L (98-107); Globulin 2.1 g/dL (1.3-4.6); Glomerular Filtration Rate 72.4 mL/min (90-130); Glucose 104 mg/dL (65-115); Osmolality Calculated 296 mOsm/kg (285-295); Potassium 4.3 mmol/L (3.5-5.1); Sodium 143 mmol/L (136-145); Total Bilirubin 0.3 mg/dL (0.15-1.2); Total Protein 5.9 g/dL (6.6-8.7)
[2023-10-25 09:56] LABS: Immunoglobulin IGA < 50 mg/dL (70-400); Immunoglobulin IGG < 300 mg/dL (700-1600); Immunoglobulin IGM < 25 mg/dL (40-230)
[2023-10-25] MEDS: ipratropium-albuterol 3 mL Neb INHALATION (11:56)
[2023-10-25] MEDS: denosumab 120 mg SDV SUBCUT (11:56)
[2023-10-25] MEDS: daratumumab-hyaluronidase-fihj 1,800 mg/15 mL SDV 1800 MG SUBCUT (12:13)
[2023-10-26 12:35] LABS: KAPPA LIGHT CHAIN, FREE, SERUM 6.4 mg/L (3.3-19.4); KAPPA/LAMBDA LIGHT CHAINS FREE 3.76 (0.26-1.65); LAMBDA LIGHT CHAIN, FREE, SERU 1.7 mg/L (5.7-26.3)
[2023-10-27 01:29] LABS: PROTEIN, TOTAL 5.5 g/dL (6.1-8.1)
[2023-10-27 12:45] LABS: ABNORMAL PROTEIN BAND 1 0.1 g/dL (NONE DETECTED); ALBUMIN 3.5 g/dL (3.8-4.8); ALPHA 1 GLOBULIN 0.3 g/dL (0.2-0.3); ALPHA 2 GLOBULIN 0.7 g/dL (0.5-0.9); BETA 1 GLOBULIN 0.5 g/dL (0.4-0.6); BETA 2 GLOBULIN 0.3 g/dL (0.2-0.5); GAMMA GLOBULIN 0.3 g/dL (0.8-1.7)
== END 2023-10-25 23:59 | disposition home or self-care (01) ==
PROVIDERS: Nurse Practitioner Family; PCP Family Medicine; Visit Provider Internal Medicine Medical Oncology
DX: C90.02 Multiple myeloma in relapse; Z95.828 Presence of other vascular implants and grafts; D64.9 Anemia, unspecified; D80.1 Nonfamilial hypogammaglobulinemia; Z79.899 Other long term (current) drug therapy
CPT/HCPCS: 36591; 80053; 82784; 83883; 84155; 84165; 85025; 96372; 96401; 99214; J0897; J1642; J9144

== ENCOUNTER → 2023-11-01 13:16 | Outpatient (BNVA) | payer MEDICARE, MEDICAID, SELFPAY | PROVIDERS: PCP Family Medicine; Referring Provider Internal Medicine; Visit Provider Internal Medicine | DX: R07.9 Chest pain, unspecified (principal); R94.31 Abnormal electrocardiogram [ECG] [EKG] | CPT/HCPCS: 93005; 99204 ==

== ENCOUNTER 2023-11-07 09:28 | Outpatient (CLI) | payer MEDICARE, MEDICAID, SELFPAY ==
--- NOTE | 2023-11-07 | ECG_ITS ---
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 Interpretive Statements NAME OF STUDY: LEXISCAN SESTAMIBI STRESS TEST INDICATION: [Chest Pain; Shortness of Breath, ] Procedure: At the baseline, the blood pressure was 155/77 mmHg with a heart rate of 64 bpm. The electrocardiogram showed normal sinus rhythm, normal axis with normal ST and T's. The Lexiscan was infused over a period of 20 seconds. A total of 0.4 mg of Lexiscan was infused. The stress phase was continued for a total of 5 minutes. Heart rate was at the end of stress phase was 69 bpm and a blood pressure of 143/75 mmHg. The EKG at the peak infusion revealed normal sinus rhythm with no significant ST-T wave changes. Sestamibi was injected 20 seconds after the Lexiscan infusion. Blood pressure at the end of recovery phase was 155/76 mmHg with a heart rate of 69 bpm. Conclusion: 1. Normal EKG response to Lexiscan infusion 2. No Lexiscan induced chest pain or cardiac arrhythmia. 3. Normal blood pressure and heart rate response. 4. Sestamibi/sestamibi perfusion scan pending; see separate report. Electronically Signed On 11-10-2023 13:26:25 CDT by Yifan Puente M.D. [id number]
[2023-11-07 10:22] VITALS: BMI 51.5
--- NOTE | 2023-11-07 10:25 | NMCV_ITS ---
NM helga perf SPECT r/s* [id number] Christina Willard Age: 63 Gender: F : 1960 Exam Date: 11/07/2023 10:25 Ordering Phys: Yifan Puente M.D ([email or web address]) Technologist: KHOI Garcia Exam [facility] Indications: CHEST PAIN, SHORTNESS OF BREATH STRESS TEST Please see separate stress test report in [facility] for full findings IMAGE PROTOCOL Rest/Stress 1 Lexiscan Day Radiopharmaceutical Dose (mCi) Administration Site Administered by Rest: Tc-99m 11.0 IV KHOI Aranda Sestamibi Stress:Tc-99m 33.0 IV KHOI Aranda Sestamibi Rest: 07-Nov-2023 60 Discovery 630 Stress: 07-Nov-2023 30 Discovery 630 0.4mg Lexiscan. Supine position only as patient was unable to lay prone. SPECT RESULTS Technical Quality: Excellent Raw Data Analysis: Normal Image Corrections: No attenuation or motion correction applied Summed Stress Score: 6 Summed Rest Score: 2 Summed Difference Score: 4 PERFUSION FINDINGS There is small to medium sized area of reversible perfusion defect noted inferior and inferolateral cespedes. This is consistent with small to medium sized area of ischemia in LAD RCA and left circumflex artery territory. FUNCTIONAL RESULTS (calculated via Gated SPECT) Stress Image LV EF (%): 60 Stress EDV (mL):139 TID: 1.22 Stress ESV (mL):55 FUNCTIONAL FINDINGS: LV systolic function is normal. TID ratio is elevated. It may represent multivessel disease vs subendocardial ischemia IMPRESSIONS 1. Abnormal myocardial perfusion imaging with small to medium sized areas of ischemia seen in the RCA and Left circumflex artery territories 2. LV systolic function is normal. 2. TID ratio is elevated. It may represent multivessel coronary artery disease vs subendocardial ischemia Yifan Puente MD (Electronically Signed) Final Date: 08 November 2023 07:58 S
[2023-11-07] MEDS: regadenoson 0.4 Mg/5 ml Syringe 0.400000000000000022 MG IVP (11:28)
[2023-11-07 11:44] VITALS: BP 151/76; PULSE 69
== END 2023-11-07 09:29 | disposition home or self-care (01) ==
LOC: CDL 09:29
PROVIDERS: PCP Family Medicine; Visit Provider Internal Medicine
DX: R07.9 Chest pain, unspecified (principal); R06.02 Shortness of breath
CPT/HCPCS: 36415; 78452; 93017; 96374; A9500; J2785

== ENCOUNTER 2023-11-22 11:15 | Oncology outpatient (recurring) (ONCR) | payer MEDICARE, MEDICAID, SELFPAY ==
[2023-11-02] VITALS (9 sets, daily range): BP systolic 134–158; BP diastolic 51–73; PULSE 58–69; RESP 16; TEMP 36.1–36.8; O2SAT 94–97
[2023-11-02] MEDS: acetaminophen 325 mg Tablet 650 MG PO (12:29)
[2023-11-02] MEDS: diphenhydrAMINE 25 mg Capsule PO (12:29)
[2023-11-02] MEDS: immune globulin (Privigen ONC) 40 GM, immune globulin (Privigen-ONC) 10 GM in empty fle... 41.1000000000000014 GM IV (12:56)
[2023-11-22 12:45] LABS: Basophils % 0.4 %; Eosinophils # 0.1 10^3/uL (0.0-0.8); Eosinophils % 1.2 %; Hematocrit 38.1 % (36-47); Lymphocytes # 1.4 10^3/uL (0.8-4.8); Lymphocytes % 13.7 %; Mean Corpuscular HGB Conc 32.8 g/dL (30-55); Mean Corpuscular Hemoglobin 31.8 pg (27-33); Mean Corpuscular Volume 96.9 fl (85-98); Mean Platelet Volume 12.6 fL (7.4-10.4); Monocytes # 0.8 10^3/uL (0.2-0.9); Monocytes % 8.2 %; Neutrophils # 7.74 10^3/uL (1.8-7.7); Nucleated Red Blood Cells % 0 %; Platelet Count 204 10^3/cmm (157-399); Red Blood Count 3.93 10^6/uL (3.85-5.65); Red Cell Distribution Width 13.9 % (12.1-15.1); White Blood Count 10.19 10^3/uL (3.29-11.43)
[2023-11-22 13:04] LABS: Alanine Aminotransferase 20 U/L (0-33); Albumin Level 3.9 g/dL (3.5-5.2); Alkaline Phosphatase 75 U/L (35-105); Anion Gap 13.9 (5-19); Aspartate Amino Transferase 18 U/L (0-32); Blood Urea Nitrogen 21 mg/dL (8-23); Carbon Dioxide 29 mmol/L (22-29); Chloride 97 mmol/L (98-107); Creatinine Clr Calc Pharmacy 78.1208; Globulin 2.5 g/dL (1.3-4.6); Glomerular Filtration Rate 55.8 mL/min (90-130); Glucose 97 mg/dL (65-115); Immunoglobulin IGG 635 mg/dL (700-1600); Osmolality Calculated 285 mOsm/kg (285-295); Potassium 3.9 mmol/L (3.5-5.1); Sodium 136 mmol/L (136-145); Total Bilirubin 0.5 mg/dL (0.15-1.2); Total Protein 6.4 g/dL (6.6-8.7)
[2023-11-22 13:06] LABS: Immunoglobulin IGA < 50 mg/dL (70-400); Immunoglobulin IGM < 25 mg/dL (40-230)
[2023-11-22] MEDS: daratumumab-hyaluronidase-fihj 1,800 mg/15 mL SDV 1800 MG SUBCUT (14:00)
[2023-11-22] MEDS: denosumab 120 mg SDV SUBCUT (14:00)
[2023-11-24 12:15] LABS: KAPPA/LAMBDA LIGHT CHAINS FREE >2.67 (0.26-1.65); LAMBDA LIGHT CHAIN, FREE, SERU <1.5 mg/L (5.7-26.3)
[2023-11-24 16:56] LABS: ALBUMIN 3.5 g/dL (3.8-4.8); ALPHA 1 GLOBULIN 0.3 g/dL (0.2-0.3); ALPHA 2 GLOBULIN 0.8 g/dL (0.5-0.9); BETA 1 GLOBULIN 0.5 g/dL (0.4-0.6); BETA 2 GLOBULIN 0.3 g/dL (0.2-0.5); GAMMA GLOBULIN 0.6 g/dL (0.8-1.7)
== END 2023-11-22 23:59 | disposition home or self-care (01) ==
PROVIDERS: PCP Family Medicine; Visit Provider Internal Medicine Medical Oncology
DX: D80.1 Nonfamilial hypogammaglobulinemia; C90.00 Multiple myeloma not having achieved remission; Z51.12 Encounter for antineoplastic immunotherapy; Z79.899 Other long term (current) drug therapy; Z95.828 Presence of other vascular implants and grafts; Z53.9 Procedure and treatment not carried out, unspecified reason
CPT/HCPCS: 36591; 80053; 82784; 83883; 84155; 84165; 85025; 86334; 96365; 96366; 96372; 96401; 99214; J0897; J1459; J9144

== ENCOUNTER 2023-11-24 07:22 | Outpatient (CLI) | payer MEDICARE, MEDICAID, SELFPAY ==
[2023-11-24] VITALS (31 sets, daily range): BP systolic 101–195; BP diastolic 42–98; PULSE 54–65; RESP 12–24; TEMP 36.7–37.2; O2SAT 94–98; BMI 52.0
[2023-11-24] MEDS: diphenhydrAMINE 50 mg Capsule PO (07:40)
[2023-11-24] MEDS: sodium chloride 0.9% 1,000 ML 50 ML IV (08:12)
--- NOTE | 2023-11-24 08:30 | XACV_ITS ---
Exam Room: 2 Ht: 163 cm Wt: 137 kg BSA: 2.58 m2 Gender: Female : 1960 Any Known Allergies: Other Exam Priority: Routine Procedure(s): Procedure Description: Diagnostic procedure Procedure Description: Left Heart Catheterization Procedure Description: Left ventriculography Procedure Description: Coronary Angiography Diagnostic Cath Status: Elective Diagnostic Findings * INDICATION: Chest pain/abnormal stress test. * No signfiicant disease noted in the Left Main, Left Anterior Descending, Right, or Circumflex coronary arteries. * Coronary angiography shows right dominance. Conclusions 1. No signfiicant disease noted in the Left Main, Left Anterior Descending, Right, or Circumflex coronary arteries. 2. Normal left ventricular systolic function. Ejection fraction of 60%. Recommendations * Aggressive risk factor modification. * Outpatient cardiolology follow up in 4 weeks. Interventional RX Recommendation: medical therapy and/or counseling Diagnostic RX Recommendation: medical therapy and/or counseling Ventriculography Ejection Fraction: 60.0 % Pressures Phase:Rest AO : 125 / 69 ( 94 ) @ 10:13:00 AM 149 / 55 ( 89 ) @ 10:22:00 AM 151 / 49 ( 91 ) @ 10:22:00 AM LV : 145 / -5 / 18 @ 10:20:00 AM 158 / 0 / 21 @ 10:22:00 AM 157 / -1 / 21 @ 10:22:00 AM Valves Phase:DefaultPhase AV : 7.0 @ 9:32:28 AM 7.0 @ 9:32:28 AM AV Mean Gradient: 9.0 @ 9:32:28 AM 9.0 @ 9:32:28 AM Clinical Evaluation EBL: 5mL-10mL Procedural Details Procedure Consent Obtained. Pre-Procedure Time Out. Identified patient by full name and date of as verbalized by the patient/guarantor. Does the consent match the physician's order: Yes. Accurate & Complete Informed Consent: Yes. Inpatient/Outpatient History & Physical on Chart: Yes. If H&P is completed, is and addenduem needed: No; If yes, is the addendum complete: N/A. Visualize and Verify Site with Patient/Guarantor: N/A. Relevant Radiology Images available: Yes. Pre-op teaching completed and patient verbalized understanding. The risks, benefits, and alternatives of sedation and/or procedure were discussed by physician. The patient agrees to continue. Procedure started. Current Diagnosis : Chest Pain. [facility] Clinical Fraility Score: 4: Vulnerable. Business Job Titles Indications: Worsening Angina. Chest Pain Symptom Assessment: Typical Angina Symptoms. Correct patient, site and procedure confirmed by cath team. Current diagnosis: Chest Pain. PERRLA. Strong, equal hand director of clinical trials bilaterally. Lungs clear x 5 lobes. IV Site on Arrival: Right Elisha Cath. IV Fluids: 0.9% NaCl at KVO. 0 mL infused prior to crime lab technician. Pre Procedural Pulses: bilateral dorsalis pedis was 2+. Pre Procedural Pulses: bilateral posterior tibial was 1+. Pre Procedural Pulses: bilateral radial was 3+. Oxygen started at 2liters/min via nasal canula. right groin was prepped with chloroprep then draped in the usual sterile fashion. right radial was prepped with chloroprep then draped in the usual sterile fashion. Baseline sample Acquired. HR: 57 BPM. Physician arrived. Baseline sample Acquired. HR: 57 BPM. Physician scrubbed in. Immediate Pre-Procedure Time Out. Correct Patient: Yes; Correct Procedure: Yes; Correct Site: Yes; Correct Patient Position: Yes; Correct Supplies: Yes; Dried Flammable Prep: Yes; Blood Products Available: N/A;. Lidocaine 1% infiltrated to the right groin. Arterial access obtained. Wire unable to advance. Wire and needle removed. Ultrasound being used to obtain access. Arterial access obtained. Wire unable to advance. Wire and needle removed. An attempt to gain access to the right radial artery was unsuccessful. Manual pressure was held as needed to stop the bleeding. TR band placed. Hemostasis obtained. Lidocaine 1% infiltrated to the right groin. Arterial access obtained with micropuncture set. A 5 comoran JL4 catheter in over wire. Multiple views taken of left coronary artery. Catheter removed over the standard wire. A 5 comoran JR4 catheter in over wire. Multiple views taken of right coronary artery. Catheter removed over the standard wire. A 5 comoran Angled Pig catheter in over wire. EDP Sample taken: LV 145/-6,18; HR: 54 BPM; SpO2: 98%. EDP Sample taken: LV 158/0,21; HR: 56 BPM; SpO2: 99%. Pullback taken: LV 157/-2,21; AO 149/55(89); Mean: 9mmHg, Peak to Peak: 7mmHg, SEP: 21sec/min; HR: 56 BPM; SpO2: 99%. Catheter removed over the standard wire. A Right femoral angiogram was performed to determine safe placement of closure device. Lidocaine 1% infiltrated to the right groin. A Mynx was successful obtaining hemostatsis at the Right Femoral artery insertion site. Post Procedure: Pulses reassessed and unchanged. PERRLA. Strong, equal hand director of clinical trials bilaterally. No VTE prophylaxis required. Medication's Wasted: Heparin = 1000 units. Total IV fluids: 35 mL. Complications: None. Estimated blood loss: 5mL-10mL. Responsiveness - Normal response to verbal stimuli; alert and oriented, PERRLA. Airway - Unaffected, no intervention required; spontaneous ventilation. Circulation: W/N/L, pulses unchanged. Nausea/Vomiting: No. Procedure completed. Patient transferred by bed to CPRU. Vital chart was stopped. Access Site Site: Right Femoral artery Sheath Size: 6 Fr Hemostasis Method: Mynx Hemostasis Success: Successful Procedure Medications Start: 8:45 AM Stop: 8:45 AM Medication: Versed Amount: 1 mg Route: I.V. Start: 8:49 AM Stop: 8:49 AM Medication: Fentanyl Amount: 25 mcg Route: I.V. Start: 8:53 AM Stop: 8:53 AM Medication: Versed Amount: 1 mg Route: I.V. Start: 8:56 AM Stop: 8:56 AM Medication: Fentanyl Amount: 25 mcg Route: I.V. Start: 9:03 AM Stop: 9:03 AM Medication: Versed Amount: 1 mg Route: I.V. Start: 9:14 AM Stop: 9:14 AM Medication: Fentanyl Amount: 25 mcg Route: I.V. Start: 9:23 AM Stop: 9:23 AM Medication: Fentanyl Amount: 25 mcg Route: I.V. Start: 9:24 AM Stop: 9:24 AM Medication: Versed Amount: 1 mg Route: I.V. I, the attending physician, have reviewed and verified all procedure medications. Yes, all medications given per verbal order History/Risk Factors Hypertension: Yes Dyslipidemia: No Peripheral Arterial Disease (PAD): No Myocardial Infarction (CO): No Obesity: Yes Renal Disease: No Tobacco Use: Never Prior Interventions PCI: No CABG: No Valve Surgery: No Report Signatures Finalized by Yifan Puente MD on 12/03/2023 11:25 AM
--- NOTE | 2023-11-24 08:30 | SUR.PREOP ---
Dr. Puente at bedside for informed consent. New orders received to draw lipid panel this AM.
--- NOTE | 2023-11-24 08:48 | W.PM.OPSUD ---
Surgery/Procedure H&P Update DATE OF PROCEDURE: November 24, 2023 DATE H&P PERFORMED: 11/01/23 H&P UPDATE INFORMATION: I have reviewed H&P completed within last 30 days and I have examined patient prior to procedure CHANGES TO PREVIOUS DOCUMENTATION: Patient had stress test that was abnormal and needs left heart cath with possible PCI PREOP DIAGNOSIS: Chest pain/ abnormal stress test PRIMARY INDICATION FOR PROCEDURE: Chest pain/ abnormal stress test PLANNED PROCEDURE: Operation Date: 11/24/23 08:30 Proposed Procedures p Cardiac Catheterization 20506, R94.39(Left) - Yifan Puente M.D Possible percutaneous coronary intervention PATIENT REASSESSED PRIOR TO SEDATION, WITH NO CHANGE NOTED: Yes PHYSICAL EXAM: alert, oriented x 3, clear to auscultation bilaterally and regular rate & rhythm AIRWAY EVAL/ANESTHESIA PLAN: normal airway, ASA III, Local Anesthesia, Risks, benefits & alternatives of sedation and/or procedure discussed and Patient agrees to continue as planned ADDITIONAL INFORMATION: Moderate sedation
[2023-11-24 09:07] LABS: Chol HDL Ratio 1.89 mg/dL (0.0-4.40); Cholesterol 183 mg/dL (0-200); HDL Cholesterol 97 mg/dL (60-100); LDL Cholesterol Calculated 68 mg/dL (50-129); Triglycerides 92 mg/dL (0-150)
--- NOTE | 2023-11-24 09:40 | SUR.EXTENDED ---
Received the patient back from the laboratory operations coordinator via bed s/p Diagnostic [facility]. Patient drowsy. Awakens to verbal stimuli. A & 0 x 3. playground monitor placed and vital signs obtained. 6 Yi sheath sutured in the right groin to pressure bag. No bleeding or hematoma noted. Dressing D/I. TR band intact to the right wrist. No bleeding or hematoma noted. Palpable radial pulse. No other assessment changes noted from pre cath assessment. Will transfer to room [ ] after recovery. Family at bedside. No concerns voiced at this time. Will transfer to [facility] after recovery.
--- NOTE | 2023-11-24 10:10 | SUR.EXTENDED ---
Transferred the patient with family to [facility] via bed.
[2023-11-24] MEDS: aspirin 325 mg Tablet PO (16:17)
--- NOTE | 2023-11-24 17:02 | PC.NURSE ---
Discharge Note Patient discharged to [home] via [w/c to POV] accompanied by [her daughter]. Discharge instructions reviewed with patient and/or territory sales representative. No new medications ordered. Belongings/home medications returned.
== END 2023-11-24 16:55 | disposition home or self-care (01) ==
LOC: CCL 07:25 → CSU 10:28
PROVIDERS: PCP Family Medicine; Visit Provider Internal Medicine
DX: R94.39 Abnormal result of other cardiovascular function study (principal); R07.9 Chest pain, unspecified; I10 Essential (primary) hypertension; E66.9 Obesity, unspecified; Z68.43 Body mass index [BMI] 50.0-59.9, adult
CPT/HCPCS: 36415; 80061; 93458; 96374; 96375; 99152; 99153; C1760; C1769; C1887; C1894; G0269; J1642; J1644; J2250; J3010; J3490; J7030; Q0163; Q9967

== ENCOUNTER → 2023-12-07 13:31 | Outpatient (BNVA) | payer MEDICARE, MEDICAID, SELFPAY | PROVIDERS: PCP Family Medicine; Visit Provider Nurse Practitioner Family | DX: I10 Essential (primary) hypertension (principal) | CPT/HCPCS: 99213 ==

== ENCOUNTER 2023-12-08 16:53 | Emergency (ER) | payer MEDICARE, MEDICAID, SELFPAY ==
[2023-12-08 16:57] VITALS: BP 154/80; PULSE 78; RESP 18; TEMP 37.2; O2SAT 93
--- NOTE | 2023-12-08 17:06 | ED_ITS ---
HPI - Skin/Abscess/Foreign Bdy General: Chief complaint: Skin/Abscess/Foreign Body Stated complaint: pain on rear Time Seen by Provider: 12/08/23 16:58 History of Present Illness: 63-year-old female comes in today for co mplaints of pain and discomfort to the right buttocks. Patient appears nontoxic. Patient appears in no acute distress. Patient reports feeling poorly over the weekend and then started having pain in the right buttock on Tuesday. Today she noticed some drainage in her underwear. Patient denies any fever. Review of Systems General: Reports: 10 or more systems reviewed and unremarkable except in HPI and below Skin/Breast: Reports: rash PFSH ED PFSH: Medical History Hypogammaglobulinemia Multiple myeloma Obstructive sleep apnea Degenerative joint disease of spine Aortic regurgitation (08/2012) Gluten enteropathy Hypothyroidism HTN (hypertension) Polycythemia Osteoporosis Surgical History Port-A-Cath in place Right chest wall History of bone marrow biopsy 06/29/2011 History of lumpectomy 2016 History of hernia repair Strangulated hernia repair 04/2010 History of thyroidectomy 12/27/2011 History of tubal ligation 1990 Family History Other Cancer Diabetes Hypertension Psychiatric illness Denies family history of CAD (coronary artery disease) Clotting disorder Dementia Hyperlipidemia Chronic kidney disease (CKD) Suicide Anesthesia complication Bleeding disorder Lung disease Stroke Social History Smoking and tobacco/nicotine status: never used tobacco/nicotine Alcohol intake: never Physical Exam Const: COMMON NORMALS: alert HENMT: COMMON NORMALS: normocephalic HEAD & SCALP: normocephalic Neck/C-Spine: COMMON NORMALS: full ROM Resp: COMMON NORMALS: normal respiratory effort Cardio: COMMON NORMALS: regular rate RATE: regular rate GI: COMMON NORMALS: non-tender : COMMON NORMALS: Yes no CVA tenderness BLADDER/KIDNEY EXAM: Yes no CVA tenderness Back/Pelvis: COMMON NORMALS: no CVA tenderness Extremity: COMMON NORMALS: full ROM Neuro: SENSORIUM/ORIENTATION: Yes alert Skin: RASHES: rashes noted (Vesicular eruption noted to the right periana l/buttock.) Course Vital Signs: Vital signs: Vital Signs Temperature 98.9 F 12/08/23 16:57 Pulse Rate 78 12/08/23 16:57 Respiratory Rate 18 12/08/23 16:57 Blood Pressure 154/80 12/08/23 16:57 Pulse Oximetry 93 12/08/23 16:57 Oxygen Delivery Me thod Room Air 12/08/23 16:57 MDM - Skin/Abscess/Foreign Bdy Medicial Decision Making 63-year-old female comes in today with pain to her buttock and drainage noted in her underwear. The drainage started today. Patient denies diabetes. On exam patient has a vesicular eruption to the right buttock and perianal area. No abscesses noted. Differential diagnosis includes cellulitis, shingles, herpes simplex, impetigo, abscess No sign of abscess is noted. Vital signs are normal. Rash appears to be shingles. Reviewed exam with patient recommended valacyclovir and lidocaine. Patient reported understanding and agreed to plan. No radiology studies performed this visit Discharge Plan Discharge Patient Disposition: Home Clinical Impression: Herpes zoster Qualifiers: Herpes zoster complications: without complications Qualified Code(s): B02.9 - Zoster without complications Condition: Stable Prescriptions: New valacyclovir 1 gram tablet 1,000 mg PO Q8H 7 Days Qty: 21 0RF lidocaine 5 % ointment 1 applic topical QID PRN (Reason: pain) Qty: 50 0RF No Action (DME) C-pap supplies and mask See Rx Instructions .Route .MEDSUPPLY Qty: 1 0RF Rx Instructions: As directed baclofen 10 mg tablet 10 mg PO TID PRN (Reason: spasms) Qty: 60 2RF vitamin B complex [B Complex-Vitamin B12] Tablet 1 tab PO DAILY levofloxacin 500 mg tablet 500 mg PO DAILY 7 Days Qty: 7 0RF amlodipine 10 mg tablet 10 mg PO DAILY Qty: 90 3RF aspirin [Adult Low Dose Aspirin] 81 mg tablet,delayed release (DR/EC) 81 mg PO DAILY calcium carbonate-vitamin D3 600 mg-5 mcg (200 unit) tablet 1 tab PO DAILY cyclobenzaprine 10 mg tablet 10 mg PO TID PRN (Reason: muscle spasm) Rx Instructions: Take 0.5-1 tablet every 8 hours PRN muscle spasms fluticasone propionate [Flonase Allergy Relief] 50 mcg/actuation spray,suspen roni 1 spray intranasal DAILY Rx Instructions: administer into each nostril simethicone [Gas-X Extra Strength] 125 mg capsule 125 mg PO DAILY PRN (Reason: Constipation) acetaminophen [Tylenol Extra Strength] 500 mg tablet 500 mg PO QID PRN (Reason: Pain) bisacodyl 5 mg tablet,delayed release (DR/EC) 5 mg PO DAILY PRN (Reason: Constipation) magnesium oxide 400 mg magnesium capsule 400 mg PO DAILY PRN (Reason: UNKNOWN) levothyroxine 200 mcg tablet 200 mcg PO DAILY Qty: 90 3RF cholecalciferol (vitamin D3) 10 mcg (400 unit) capsule 2,000 unit PO DAILY dexamethasone 4 mg tablet 20 mg PO .COMPLEX Qty: 20 3RF Rx Instructions: 20 mg orally weekly; albuterol sulfate 90 mcg/actuation HFA aerosol inhaler See Rx Instructions .ROUTE .COMPLEX Qty: 8.5 11RF Dose Instruction: INHALE 2 PUFFS EVERY 6 HOURS NEEDED FOR SHORTNESS OF BREATH OR WHEEZING Rx Instructions: INHALE 2 PUFFS EVERY 6 HOURS NEEDED FOR SHORTNESS OF BREATH OR WHEEZING pantoprazole 40 mg tablet,delayed release (DR/EC) See Rx Instructions .ROUTE .COMPLEX Qty: 90 1RF Dose Instruction: TAKE 1 TABLET BY MOUTH EVERY DAY Rx Instructions: TAKE 1 TABLET BY MOUTH EVERY DAY levothyroxine 50 mcg tablet See Rx Instructions .ROUTE .COMPLEX Qty: 90 1RF Dose Instruction: TAKE 1 TABLET BY MOUTH EVERY DAY TAKE WITH 200MG TABLET TO EQUAL 250MG Rx Instructions: TAKE 1 TABLET BY MOUTH EVERY DAY TAKE WITH 200MG TABLET TO EQUAL 250MG atenolol 50 mg tablet See Rx Instructions .ROUTE .COMPLEX Qty: 90 1RF Dose Instruction: TAKE 1 TABLET BY MOUTH EVERY DAY Rx Instructions: TAKE 1 TABLET BY MOUTH EVERY DAY tramadol 50 mg tablet 50 mg PO Q6H PRN (Reason: pain) Qty: 120 0RF furosemide 20 mg tablet See Rx Instructions .ROUTE .COMPLEX Qty: 90 1RF Dose Instruction: FOR EDEMA TAKE 2 TABLETS DAILY WITH AN ADDITIONAL TABLET NEEDED Rx Instructions: FOR EDEMA TAKE 2 TABLETS DAILY WITH AN ADDITIONAL TABLET NEEDED potassium chloride 20 mEq tablet extended release See Rx Instructions .ROUTE .COMPLEX Qty: 90 0RF Dose Instruction: TAKE 1 TABLET BY MOUTH EVERY DAY Rx Instructions: TAKE 1 TABLET BY MOUTH EVERY DAY lorazepam 1 mg tablet 0.5 - 1 mg PO Q6H PRN (Reason: Severe Nausea) Qty: 30 3RF Discharge Orders: Discharge ED (Routine); Ordered 12/08/23 Ordered By: Amor Koo Referrals: João Joyner MD [Primary Care Provider] - Discharge Diet: Usual diet Discharge Activity: Increase activity as tolerated Patient Instructions: Shingles (ED) Activity Restrictions/Additional Instructions: Home and rest. Take valacyclovir 1000 mg 3 times a day to suppress the virus. Use a lidocaine ointment to the area to help with pain and discomfort. Continue with tramadol as needed for further pain control. Drink plenty of water. Follow-up with primary care for further instructions. Return to ED for new concerns. Coding Level of Care Code ED Applications Engineer Manufacturing for Cristina Gandara
[2023-12-08 17:24] VITALS: BP 125/88; PULSE 67; O2SAT 97
== END 2023-12-08 17:24 | disposition home or self-care (01) ==
PROVIDERS: Emergency Provider Nurse Practitioner Family; PCP Family Medicine
DX: B02.9 Zoster without complications (principal); E03.9 Hypothyroidism, unspecified; Z79.890 Hormone replacement therapy
CPT/HCPCS: 99283

== ENCOUNTER 2023-12-20 13:00 | Oncology outpatient (recurring) (ONCR) | payer MEDICARE, MEDICAID, SELFPAY ==
[2023-12-06] VITALS (8 sets, daily range): BP systolic 114–174; BP diastolic 62–68; PULSE 67–83; RESP 18–19; TEMP 36.1–36.9; O2SAT 94–97
[2023-12-06 12:48] LABS: Basophils % 0.2 %; Eosinophils % 0.1 %; Hematocrit 38.1 % (36-47); Lymphocytes # 0.9 10^3/uL (0.8-4.8); Lymphocytes % 9.6 %; Mean Corpuscular HGB Conc 32.8 g/dL (30-55); Mean Corpuscular Hemoglobin 31.2 pg (27-33); Mean Platelet Volume 11.9 fL (7.4-10.4); Monocytes # 0.2 10^3/uL (0.2-0.9); Monocytes % 2.1 %; Neutrophils # 7.96 10^3/uL (1.8-7.7); Neutrophils % 87.7 %; Nucleated Red Blood Cells % 0 %; Platelet Count 175 10^3/cmm (157-399); Red Blood Count 4.01 10^6/uL (3.85-5.65); Red Cell Distribution Width 13.4 % (12.1-15.1); White Blood Count 9.08 10^3/uL (3.29-11.43)
[2023-12-06 13:04] LABS: Alanine Aminotransferase 20 U/L (0-33); Albumin Level 3.8 g/dL (3.5-5.2); Alkaline Phosphatase 93 U/L (35-105); Aspartate Amino Transferase 19 U/L (0-32); Blood Urea Nitrogen 18 mg/dL (8-23); Calcium 8.9 mg/dL (8.5-10.5); Carbon Dioxide 25 mmol/L (22-29); Chloride 96 mmol/L (98-107); Globulin 2.7 g/dL (1.3-4.6); Glucose 150 mg/dL (65-115); Osmolality Calculated 281 mOsm/kg (285-295); Sodium 133 mmol/L (136-145); Total Bilirubin 0.4 mg/dL (0.15-1.2); Total Protein 6.5 g/dL (6.6-8.7)
[2023-12-06 13:07] LABS: Anion Gap 16.4 (5-19); Potassium 4.4 mmol/L (3.5-5.1)
[2023-12-06 13:15] LABS: Add Urine Microscopic? NO; Charge for UA Resulting for Rev
[2023-12-06] MEDS: acetaminophen 325 mg Tablet 650 MG PO (13:23)
[2023-12-06] MEDS: diphenhydrAMINE 25 mg Capsule PO (13:23)
[2023-12-06 13:26] LABS: Bilirubin Urine Neg (Negative); Blood Urine Neg (Negative); Glucose Urine UA Norm (Normal); Ketones Urine Negative (Negative); Leukocyte Esterase Urine Negative (Negative); Nitrate Urine Negative (Negative); Protein Urine Neg (Negative); Specific Gravity, Urine 1.015 (1.005-1.030); Urine Appearance Clear (CLEAR); Urine Color Light yellow (Yellow); Urobilinogen Urine Norm (Negative); pH Urine 5 (5-7)
[2023-12-06] MEDS: immune globulin (Privigen ONC) 40 GM, immune globulin (Privigen-ONC) 10 GM in empty fle... 41.3999999999999986 GM IV (13:44)
[2023-12-20 13:13] LABS: Basophils % 0.3 %; Eosinophils % 0.3 %; Hematocrit 37.9 % (36-47); Lymphocytes # 1.5 10^3/uL (0.8-4.8); Lymphocytes % 14.4 %; Mean Corpuscular HGB Conc 33.2 g/dL (30-55); Mean Corpuscular Hemoglobin 31.3 pg (27-33); Mean Corpuscular Volume 94.3 fl (85-98); Mean Platelet Volume 10.6 fL (7.4-10.4); Monocytes # 0.9 10^3/uL (0.2-0.9); Monocytes % 8.6 %; Nucleated Red Blood Cells % 0 %; Platelet Count 241 10^3/cmm (157-399); Red Blood Count 4.02 10^6/uL (3.85-5.65); Red Cell Distribution Width 13.6 % (12.1-15.1); White Blood Count 10.39 10^3/uL (3.29-11.43)
[2023-12-20 13:33] LABS: Alanine Aminotransferase 15 U/L (0-33); Albumin Level 3.7 g/dL (3.5-5.2); Alkaline Phosphatase 65 U/L (35-105); Aspartate Amino Transferase 16 U/L (0-32); Blood Urea Nitrogen 16 mg/dL (8-23); Calcium 9.2 mg/dL (8.5-10.5); Carbon Dioxide 28 mmol/L (22-29); Chloride 99 mmol/L (98-107); Creatinine Clr Calc Pharmacy 78.9347; Globulin 2.6 g/dL (1.3-4.6); Glomerular Filtration Rate 55.8 mL/min (90-130); Glucose 98 mg/dL (65-115); Immunoglobulin IGG 784 mg/dL (700-1600); Immunoglobulin IGM 27 mg/dL (40-230); Lactate Dehydrogenase 110 U/L (135-214); Osmolality Calculated 289 mOsm/kg (285-295); Sodium 139 mmol/L (136-145); Total Bilirubin 0.5 mg/dL (0.15-1.2); Total Protein 6.3 g/dL (6.6-8.7)
[2023-12-20 13:41] LABS: Immunoglobulin IGA < 50 mg/dL (70-400)
[2023-12-20] MEDS: denosumab 120 mg SDV SUBCUT (15:45)
[2023-12-20] MEDS: daratumumab-hyaluronidase-fihj 1,800 mg/15 mL SDV 1800 MG SUBCUT (16:14)
[2023-12-21 14:05] LABS: Creatinine, Random Urine 60 mg/dL (20-275); Protein, Total, Random 4 mg/dL (5-24); Protein/Creatinine Ratio 0.067 (0.024-0.184); Protein/Creatinine Ratio 67 mg/g creat (24-184)
[2023-12-21 15:24] LABS: KAPPA LIGHT CHAIN, FREE, SERUM 3.4 mg/L (3.3-19.4); KAPPA/LAMBDA LIGHT CHAINS FREE 2.27 (0.26-1.65); LAMBDA LIGHT CHAIN, FREE, SERU 1.5 mg/L (5.7-26.3)
[2023-12-22 08:34] LABS: ALBUMIN 3.3 g/dL (3.8-4.8); ALPHA 1 GLOBULIN 0.3 g/dL (0.2-0.3); ALPHA 2 GLOBULIN 0.8 g/dL (0.5-0.9); BETA 1 GLOBULIN 0.5 g/dL (0.4-0.6); BETA 2 GLOBULIN 0.3 g/dL (0.2-0.5); GAMMA GLOBULIN 0.7 g/dL (0.8-1.7)
[2023-12-24 19:20] LABS: Immunofixation Serum Normal pattern.
[2023-12-26 16:54] LABS: Albumin,Urine Random 0 %; Alpha-1-Globulins Urine Random 0 %; Alpha-2-Globulins Urine Random 0 %; Beta-Globulin,Urine Random 0 %; Gamma Globulin,Urine Random 0 %
== END 2023-12-20 23:59 | disposition home or self-care (01) ==
PROVIDERS: Internal Medicine; Nurse Practitioner Family; PCP Family Medicine; Visit Provider Internal Medicine Medical Oncology
DX: D80.1 Nonfamilial hypogammaglobulinemia (principal); Z53.9 Procedure and treatment not carried out, unspecified reason; Z51.12 Encounter for antineoplastic immunotherapy; C90.02 Multiple myeloma in relapse; B02.29 Other postherpetic nervous system involvement; Z79.899 Other long term (current) drug therapy; D64.9 Anemia, unspecified
CPT/HCPCS: 36591; 80053; 81003; 82570; 82784; 83615; 83883; 84155; 84156; 84165; 84166; 85025; 86334; 86335; 96365; 96366; 96372; 96401; 99214; J0897; J1459; J9144

== ENCOUNTER 2024-01-17 05:59 | Outpatient (CLI) | payer MEDICARE, MEDICAID, SELFPAY ==
--- NOTE | 2024-01-17 06:15 | USCV_ITS ---
Christina Willard Age: 63 Gender: F : 1960 Exam Date: 01/17/2024 06:12 Ordering Phys: Yifan Puente M.D ([email or web address]) Technologist: Shanel Le Exam Location: [place] Indication: AT END OF CHEMO TREATMENT BP: / HR: 57 Rhythm: Sinus Technical Quality: Adequate MEASUREMENTS (Male / Female) Normal Values 2D ECHO LV Diastolic Diameter PLAX 3.1 cm 4.2 - 5.9 / 3.9 - 5.3 cm LV Systolic Diameter PLAX 3.6 cm IVS Diastolic Thickness 1.3 cm 0.6 - 1.0 / 0.6 - 0.9 cm IVS Systolic Thickness 1.5 cm LVPW Diastolic Thickness 1.0 cm 0.6 - 1.0 / 0.6 - 0.9 cm LVPW Systolic Thickness 1.6 cm LVOT Diameter 2.0 cm LV Ejection Fraction 2D Teich 45.4 % LV Ejection Fraction MOD 2C 57.5 % LV Ejection Fraction 2C AL 56.5 % LA Diameter 2.4 cm RA Systolic Volume 4C AL 36.6 ml RA Systolic Volume 4C MOD 35.6 ml LA Sys Volume AL 56.8 cm cubed LA Sys Volume Index AL 23.0 cm cubed/m squared Aorta at Sinotubular Diameter 2.4 cm M-MODE LA Ao Ratio MM 1.3 AV Cusp Separation MM 1.7 cm DOPPLER AV Peak Velocity 365.3 cm/s LVOT Peak Velocity 113.0 cm/s AV Area Cont Eq vti 2.4 cm squared AV Area Cont Eq pk 1.0 cm squared MV Area PHT 2.5 cm squared Mitral E to A Ratio 0.9 TV Peak Velocity 172.0 cm/s TR Peak Velocity 93.0 cm/s TR Peak Gradient 3.5 mmHg TR Mean Velocity 131.0 cm/s TR Mean Gradient 7.4 mmHg TR Velocity Time Integral 65.8 cm TV Peak E Velocity 44.0 cm/s Right Atrial Pressure 3.0 mmHg Pulmonary Artery Systolic Pressu 6.5 mmHg FINDINGS Left Ventricle Normal left ventricular size and systolic function, EF 57%.no regional wall motion abnormalities. Grade I/IV diastolic dysfunction (abnormal relaxation filling pattern), normal to mildly elevated filling pressures. Mild concentric left ventricular hypertrophy Right Ventricle Possibly of normal size and ejection fraction Right Atrium Possibly of normal size Left Atrium Possibly of normal size Mitral Valve Minimally thickened mitral valve Aortic Valve Thickened aortic valve. Appears to have moderately severe aortic regurgitation Tricuspid Valve No gross abnormalities noted Pulmonic Valve Trace pulmonary valve regurgitation. Pericardium Echo-free space anteriorly, most likely represent pericardial fat pad Aorta Normal aortic annulus size. IVC Inferior vena cava not visualized. CONCLUSIONS Normal left ventricular size and systolic function, EF 57%.no regional wall motion abnormalities. Grade I/IV diastolic dysfunction (abnormal relaxation filling pattern), normal to mildly elevated filling pressures. Mild concentric left ventricular hypertrophy. Possibly normal RV size and ejection fraction. Minimally thickened mitral valve. Thickened aortic valve. Appears to have moderately severe aortic regurgitation. Echo-free space anteriorly, most likely represent pericardial fat pad. Technically difficult study because of the poor ultrasonic window. Compared to the previous study from 08/04/2023, there may not be a significant change. Because of the technical difficulties, exact comparison is difficult Dr Sadie Sims MD [facility] (Electronically Signed) Final Date: 19 January 2024 19:57 S
== END 2024-01-17 06:00 | disposition home or self-care (01) ==
LOC: RAD 05:59
PROVIDERS: PCP Family Medicine; Visit Provider Internal Medicine
DX: I35.1 Nonrheumatic aortic (valve) insufficiency (principal); R06.02 Shortness of breath; I50.30 Unspecified diastolic (congestive) heart failure; I35.2 Nonrheumatic aortic (valve) stenosis with insufficiency
CPT/HCPCS: 93306

== ENCOUNTER 2024-01-17 07:45 | Oncology outpatient (recurring) (ONCR) | payer MEDICARE, MEDICAID, SELFPAY ==
[2024-01-03] VITALS (9 sets, daily range): BP systolic 115–158; BP diastolic 58–74; PULSE 60–74; RESP 16–18; TEMP 35.7–36.4; O2SAT 94–98
[2024-01-03 09:16] LABS: Basophils % 0.4 %; Eosinophils # 0.1 10^3/uL (0.0-0.8); Eosinophils % 1.2 %; Hematocrit 36.6 % (36-47); Lymphocytes # 1.2 10^3/uL (0.8-4.8); Lymphocytes % 15.4 %; Mean Corpuscular HGB Conc 33.1 g/dL (30-55); Mean Corpuscular Hemoglobin 31.4 pg (27-33); Mean Corpuscular Volume 95.1 fl (85-98); Mean Platelet Volume 11.4 fL (7.4-10.4); Monocytes # 0.4 10^3/uL (0.2-0.9); Monocytes % 4.7 %; Neutrophils # 6.04 10^3/uL (1.8-7.7); Neutrophils % 77.9 %; Nucleated Red Blood Cells % 0 %; Platelet Count 210 10^3/cmm (157-399); Red Blood Count 3.85 10^6/uL (3.85-5.65); Red Cell Distribution Width 13.8 % (12.1-15.1); White Blood Count 7.74 10^3/uL (3.29-11.43)
[2024-01-03 09:38] LABS: Alanine Aminotransferase 13 U/L (0-33); Albumin Level 3.7 g/dL (3.5-5.2); Alkaline Phosphatase 69 U/L (35-105); Anion Gap 13.1 (5-19); Aspartate Amino Transferase 14 U/L (0-32); Blood Urea Nitrogen 18 mg/dL (8-23); Calcium 8.6 mg/dL (8.5-10.5); Carbon Dioxide 27 mmol/L (22-29); Chloride 102 mmol/L (98-107); Globulin 2.2 g/dL (1.3-4.6); Glomerular Filtration Rate 72.2 mL/min (90-130); Glucose 113 mg/dL (65-115); Osmolality Calculated 289 mOsm/kg (285-295); Potassium 4.1 mmol/L (3.5-5.1); Sodium 138 mmol/L (136-145); Total Bilirubin 0.3 mg/dL (0.15-1.2); Total Protein 5.9 g/dL (6.6-8.7)
[2024-01-03] MEDS: acetaminophen 325 mg Tablet 650 MG PO (10:48)
[2024-01-03] MEDS: diphenhydrAMINE 25 mg Capsule PO (10:48)
[2024-01-03] MEDS: immune globulin (Privigen ONC) 40 GM, immune globulin (Privigen-ONC) 10 GM in empty fle... IV (11:21)
[2024-01-17 07:48] LABS: Basophils % 0.3 %; Eosinophils # 0.1 10^3/uL (0.0-0.8); Eosinophils % 1.4 %; Hematocrit 37.2 % (36-47); Lymphocytes # 1.4 10^3/uL (0.8-4.8); Lymphocytes % 15.2 %; Mean Corpuscular HGB Conc 32.8 g/dL (30-55); Mean Corpuscular Hemoglobin 30.7 pg (27-33); Mean Corpuscular Volume 93.5 fl (85-98); Mean Platelet Volume 11.3 fL (7.4-10.4); Monocytes # 0.9 10^3/uL (0.2-0.9); Monocytes % 9.8 %; Neutrophils # 6.68 10^3/uL (1.8-7.7); Neutrophils % 73.1 %; Nucleated Red Blood Cells % 0 %; Platelet Count 196 10^3/cmm (157-399); Red Blood Count 3.98 10^6/uL (3.85-5.65); Red Cell Distribution Width 13.8 % (12.1-15.1); White Blood Count 9.15 10^3/uL (3.29-11.43)
[2024-01-17 08:03] LABS: Alanine Aminotransferase 14 U/L (0-33); Albumin Level 3.7 g/dL (3.5-5.2); Alkaline Phosphatase 66 U/L (35-105); Anion Gap 16.2 (5-19); Aspartate Amino Transferase 21 U/L (0-32); Blood Urea Nitrogen 17 mg/dL (8-23); Calcium 9.8 mg/dL (8.5-10.5); Carbon Dioxide 29 mmol/L (22-29); Chloride 98 mmol/L (98-107); Creatinine Clr Calc Pharmacy 69.3014; Globulin 2.6 g/dL (1.3-4.6); Glucose 110 mg/dL (65-115); Immunoglobulin IGG 813 mg/dL (700-1600); Osmolality Calculated 290 mOsm/kg (285-295); Potassium 4.2 mmol/L (3.5-5.1); Sodium 139 mmol/L (136-145); Total Bilirubin 0.3 mg/dL (0.15-1.2); Total Protein 6.3 g/dL (6.6-8.7)
[2024-01-17 08:04] LABS: Immunoglobulin IGA < 50 mg/dL (70-400); Immunoglobulin IGM < 25 mg/dL (40-230)
--- NOTE | 2024-01-17 10:08 | PC.NURSE ---
patient reports that she took her premedications of tylenol 1000mg po, benadryl 25mg po and dexamethasone 20mg po at 0830.
[2024-01-17] MEDS: denosumab 120 mg SDV SUBCUT (10:25)
[2024-01-17] MEDS: daratumumab-hyaluronidase-fihj 1,800 mg/15 mL SDV 1800 MG SUBCUT (10:31)
[2024-01-17 10:46] VITALS: BP 156/76; PULSE 55; RESP 16; TEMP 36.4; O2SAT 97
[2024-01-18 11:31] LABS: PROTEIN, TOTAL 5.7 g/dL (6.1-8.1)
[2024-01-18 14:50] LABS: KAPPA LIGHT CHAIN, FREE, SERUM 4.4 mg/L (3.3-19.4); KAPPA/LAMBDA LIGHT CHAINS FREE >2.93 (0.26-1.65); LAMBDA LIGHT CHAIN, FREE, SERU <1.5 mg/L (5.7-26.3)
[2024-01-19 08:40] LABS: ALBUMIN 3.2 g/dL (3.8-4.8); ALPHA 1 GLOBULIN 0.3 g/dL (0.2-0.3); ALPHA 2 GLOBULIN 0.7 g/dL (0.5-0.9); BETA 1 GLOBULIN 0.5 g/dL (0.4-0.6); BETA 2 GLOBULIN 0.3 g/dL (0.2-0.5); GAMMA GLOBULIN 0.7 g/dL (0.8-1.7)
== END 2024-01-17 23:59 | disposition home or self-care (01) ==
PROVIDERS: Nurse Practitioner Family; PCP Family Medicine; Visit Provider Internal Medicine Medical Oncology
DX: D80.1 Nonfamilial hypogammaglobulinemia (principal); Z53.9 Procedure and treatment not carried out, unspecified reason; Z51.12 Encounter for antineoplastic immunotherapy; Z79.899 Other long term (current) drug therapy; C90.02 Multiple myeloma in relapse
CPT/HCPCS: 36591; 80053; 82784; 83883; 84155; 84165; 85025; 96365; 96366; 96372; 96401; 96409; 99214; J0897; J1459; J9144

== ENCOUNTER 2024-02-14 09:30 | Oncology outpatient (recurring) (ONCR) | payer MEDICARE, MEDICAID, SELFPAY ==
[2024-01-25 09:06] LABS: Basophils % 0.1 %; Hematocrit 35.2 % (36-47); Lymphocytes # 1.3 10^3/uL (0.8-4.8); Lymphocytes % 8.9 %; Mean Corpuscular HGB Conc 33.8 g/dL (30-55); Mean Corpuscular Hemoglobin 31.2 pg (27-33); Mean Corpuscular Volume 92.1 fl (85-98); Mean Platelet Volume 11.7 fL (7.4-10.4); Monocytes # 0.8 10^3/uL (0.2-0.9); Monocytes % 5.2 %; Neutrophils # 12.37 10^3/uL (1.8-7.7); Nucleated Red Blood Cells % 0 %; Platelet Count 220 10^3/cmm (157-399); Red Blood Count 3.82 10^6/uL (3.85-5.65); White Blood Count 14.56 10^3/uL (3.29-11.43)
[2024-01-25 09:21] LABS: Anion Gap 18.4 (5-19); Blood Urea Nitrogen 30 mg/dL (8-23); Calcium 8.7 mg/dL (8.5-10.5); Carbon Dioxide 24 mmol/L (22-29); Chloride 101 mmol/L (98-107); Creatinine Clr Calc Pharmacy 71.0189; Glucose 148 mg/dL (65-115); Magnesium 1.5 mg/dL (1.7-2.3); Osmolality Calculated 297 mOsm/kg (285-295); Potassium 4.4 mmol/L (3.5-5.1); Sodium 139 mmol/L (136-145)
[2024-01-31] VITALS (10 sets, daily range): BP systolic 123–151; BP diastolic 49–80; PULSE 52–67; RESP 16–17; TEMP 35.7–36.3; O2SAT 95–97
[2024-01-31] MEDS: diphenhydrAMINE 25 mg Capsule PO (08:48)
[2024-01-31] MEDS: acetaminophen 325 mg Tablet 650 MG PO (08:48)
[2024-01-31] MEDS: immune globulin (Privigen ONC) 40 GM, immune globulin (Privigen-ONC) 10 GM in empty fle... IV (09:21)
[2024-02-14 09:51] LABS: Basophils # 0.1 10^3/uL (0.0-0.1); Basophils % 0.5 %; Eosinophils # 0.3 10^3/uL (0.0-0.8); Eosinophils % 3.2 %; Hematocrit 39.1 % (36-47); Lymphocytes # 1.5 10^3/uL (0.8-4.8); Lymphocytes % 15.1 %; Mean Corpuscular HGB Conc 32.5 g/dL (30-55); Mean Corpuscular Hemoglobin 30.4 pg (27-33); Mean Corpuscular Volume 93.5 fl (85-98); Mean Platelet Volume 11.6 fL (7.4-10.4); Monocytes # 0.9 10^3/uL (0.2-0.9); Monocytes % 8.4 %; Neutrophils # 7.33 10^3/uL (1.8-7.7); Neutrophils % 72.2 %; Nucleated Red Blood Cells % 0 %; Platelet Count 211 10^3/cmm (157-399); Red Blood Count 4.18 10^6/uL (3.85-5.65); Red Cell Distribution Width 14.3 % (12.1-15.1); White Blood Count 10.14 10^3/uL (3.29-11.43)
[2024-02-14 10:12] LABS: Alanine Aminotransferase 16 U/L (0-33); Albumin Level 3.7 g/dL (3.5-5.2); Alkaline Phosphatase 81 U/L (35-105); Anion Gap 18.3 (5-19); Aspartate Amino Transferase 18 U/L (0-32); Blood Urea Nitrogen 17 mg/dL (8-23); Calcium 8.8 mg/dL (8.5-10.5); Carbon Dioxide 26 mmol/L (22-29); Chloride 102 mmol/L (98-107); Creatinine Clr Calc Pharmacy 86.8009; Globulin 2.8 g/dL (1.3-4.6); Glucose 107 mg/dL (65-115); Immunoglobulin IGG 893 mg/dL (700-1600); Magnesium 1.5 mg/dL (1.7-2.3); Osmolality Calculated 296 mOsm/kg (285-295); Potassium 4.3 mmol/L (3.5-5.1); Sodium 142 mmol/L (136-145); Total Bilirubin 0.3 mg/dL (0.15-1.2); Total Protein 6.5 g/dL (6.6-8.7)
[2024-02-14 10:18] LABS: Immunoglobulin IGA < 50 mg/dL (70-400); Immunoglobulin IGM < 25 mg/dL (40-230)
[2024-02-14] MEDS: denosumab 120 mg SDV SUBCUT (12:42)
[2024-02-14] MEDS: daratumumab-hyaluronidase-fihj 1,800 mg/15 mL SDV 1800 MG SUBCUT (12:43)
[2024-02-15 12:33] LABS: KAPPA LIGHT CHAIN, FREE, SERUM 3.4 mg/L (3.3-19.4); KAPPA/LAMBDA LIGHT CHAINS FREE >2.27 (0.26-1.65); LAMBDA LIGHT CHAIN, FREE, SERU <1.5 mg/L (5.7-26.3)
[2024-02-16 11:44] LABS: ALBUMIN 3.3 g/dL (3.8-4.8); ALPHA 1 GLOBULIN 0.3 g/dL (0.2-0.3); ALPHA 2 GLOBULIN 0.8 g/dL (0.5-0.9); BETA 1 GLOBULIN 0.5 g/dL (0.4-0.6); BETA 2 GLOBULIN 0.3 g/dL (0.2-0.5); GAMMA GLOBULIN 0.8 g/dL (0.8-1.7)
== END 2024-02-14 23:59 | disposition home or self-care (01) ==
PROVIDERS: PCP Family Medicine; Visit Provider Internal Medicine Medical Oncology
DX: Z53.9 Procedure and treatment not carried out, unspecified reason (principal); Z79.899 Other long term (current) drug therapy; R79.0 Abnormal level of blood mineral; D80.1 Nonfamilial hypogammaglobulinemia; D64.9 Anemia, unspecified; Z51.12 Encounter for antineoplastic immunotherapy; C90.02 Multiple myeloma in relapse
CPT/HCPCS: 36591; 80048; 80053; 82784; 83735; 83883; 84155; 84165; 85025; 96365; 96366; 96372; 96401; 99213; 99214; J0897; J1459; J9144

== ENCOUNTER 2024-03-13 11:00 | Oncology outpatient (recurring) (ONCR) | payer MEDICARE, MEDICAID, SELFPAY ==
[2024-02-28] VITALS (8 sets, daily range): BP systolic 150–178; BP diastolic 65–77; PULSE 55–71; RESP 16; TEMP 35.6–35.9; O2SAT 96–98
[2024-02-28 08:14] LABS: Basophils % 0.3 %; Eosinophils # 0.1 10^3/uL (0.0-0.8); Eosinophils % 1.1 %; Hematocrit 37.9 % (36-47); Lymphocytes # 1.5 10^3/uL (0.8-4.8); Lymphocytes % 14.5 %; Mean Corpuscular HGB Conc 31.9 g/dL (30-55); Mean Corpuscular Hemoglobin 29.8 pg (27-33); Mean Corpuscular Volume 93.3 fl (85-98); Mean Platelet Volume 11.6 fL (7.4-10.4); Monocytes # 0.3 10^3/uL (0.2-0.9); Monocytes % 3.4 %; Neutrophils # 7.98 10^3/uL (1.8-7.7); Neutrophils % 80.1 %; Nucleated Red Blood Cells % 0 %; Platelet Count 208 10^3/cmm (157-399); Red Blood Count 4.06 10^6/uL (3.85-5.65); Red Cell Distribution Width 14.3 % (12.1-15.1); White Blood Count 9.97 10^3/uL (3.29-11.43)
[2024-02-28 08:34] LABS: Alanine Aminotransferase 13 U/L (0-33); Albumin Level 3.9 g/dL (3.5-5.2); Alkaline Phosphatase 86 U/L (35-105); Anion Gap 16.2 (5-19); Aspartate Amino Transferase 23 U/L (0-32); Blood Urea Nitrogen 18 mg/dL (8-23); Calcium 9.2 mg/dL (8.5-10.5); Carbon Dioxide 26 mmol/L (22-29); Chloride 103 mmol/L (98-107); Globulin 2.5 g/dL (1.3-4.6); Glomerular Filtration Rate 55.8 mL/min (90-130); Glucose 161 mg/dL (65-115); Osmolality Calculated 297 mOsm/kg (285-295); Potassium 4.2 mmol/L (3.5-5.1); Sodium 141 mmol/L (136-145); Total Bilirubin 0.3 mg/dL (0.15-1.2); Total Protein 6.4 g/dL (6.6-8.7)
[2024-02-28] MEDS: acetaminophen 325 mg Tablet 650 MG PO (10:07)
[2024-02-28] MEDS: diphenhydrAMINE 25 mg Capsule PO (10:07)
[2024-02-28 10:26] LABS: Magnesium 1.8 mg/dL (1.7-2.3)
[2024-02-28] MEDS: immune globulin (Privigen ONC) 40 GM, immune globulin (Privigen-ONC) 10 GM in empty fle... IV (10:30)
[2024-03-13 11:16] LABS: Basophils % 0.4 %; Eosinophils # 0.1 10^3/uL (0.0-0.8); Hematocrit 38.9 % (36-47); Lymphocytes # 2.1 10^3/uL (0.8-4.8); Lymphocytes % 21.5 %; Mean Corpuscular HGB Conc 32.1 g/dL (30-55); Mean Corpuscular Hemoglobin 29.8 pg (27-33); Mean Corpuscular Volume 92.6 fl (85-98); Mean Platelet Volume 11.6 fL (7.4-10.4); Monocytes # 0.9 10^3/uL (0.2-0.9); Monocytes % 8.8 %; Neutrophils # 6.57 10^3/uL (1.8-7.7); Neutrophils % 67.9 %; Nucleated Red Blood Cells % 0 %; Platelet Count 207 10^3/cmm (157-399); Red Cell Distribution Width 14.2 % (12.1-15.1); White Blood Count 9.68 10^3/uL (3.29-11.43)
[2024-03-13 11:37] LABS: Alanine Aminotransferase 16 U/L (0-33); Albumin Level 3.9 g/dL (3.5-5.2); Alkaline Phosphatase 75 U/L (35-105); Anion Gap 15.2 (5-19); Aspartate Amino Transferase 18 U/L (0-32); Blood Urea Nitrogen 16 mg/dL (8-23); Calcium 8.8 mg/dL (8.5-10.5); Carbon Dioxide 28 mmol/L (22-29); Chloride 101 mmol/L (98-107); Creatinine Clr Calc Pharmacy 86.9819; Globulin 2.7 g/dL (1.3-4.6); Glucose 100 mg/dL (65-115); Osmolality Calculated 291 mOsm/kg (285-295); Potassium 4.2 mmol/L (3.5-5.1); Sodium 140 mmol/L (136-145); Total Bilirubin 0.3 mg/dL (0.15-1.2); Total Protein 6.6 g/dL (6.6-8.7)
[2024-03-13 11:57] LABS: Immunoglobulin IGG 911 mg/dL (700-1600)
[2024-03-13 12:06] LABS: Immunoglobulin IGA < 50 mg/dL (70-400); Immunoglobulin IGM < 25 mg/dL (40-230)
--- NOTE | 2024-03-13 13:12 | PC.NURSE ---
patient reports that she took her tylenol 650mg PO prior to arrival, no premedication needed at this time.
[2024-03-13] MEDS: daratumumab-hyaluronidase-fihj 1,800 mg/15 mL SDV 1800 MG SUBCUT (13:29)
[2024-03-13 13:31] VITALS: BP 150/69; PULSE 56; RESP 18; O2SAT 96
[2024-03-14 17:49] LABS: PROTEIN, TOTAL 6.3 g/dL (6.1-8.1)
[2024-03-15 12:31] LABS: KAPPA LIGHT CHAIN, FREE, SERUM 4.2 mg/L (3.3-19.4); KAPPA/LAMBDA LIGHT CHAINS FREE >2.80 (0.26-1.65); LAMBDA LIGHT CHAIN, FREE, SERU <1.5 mg/L (5.7-26.3)
[2024-03-15 13:00] LABS: ALBUMIN 3.6 g/dL (3.8-4.8); ALPHA 1 GLOBULIN 0.3 g/dL (0.2-0.3); ALPHA 2 GLOBULIN 0.8 g/dL (0.5-0.9); BETA 1 GLOBULIN 0.5 g/dL (0.4-0.6); BETA 2 GLOBULIN 0.3 g/dL (0.2-0.5); GAMMA GLOBULIN 0.8 g/dL (0.8-1.7)
== END 2024-03-13 23:59 | disposition home or self-care (01) ==
PROVIDERS: PCP Family Medicine; Visit Provider Internal Medicine Medical Oncology
DX: D80.1 Nonfamilial hypogammaglobulinemia (principal); Z51.12 Encounter for antineoplastic immunotherapy; C90.02 Multiple myeloma in relapse; Z87.891 Personal history of nicotine dependence; Z79.899 Other long term (current) drug therapy; Z53.9 Procedure and treatment not carried out, unspecified reason
CPT/HCPCS: 36591; 80053; 82784; 83735; 83883; 84155; 84165; 85025; 96365; 96366; 96402; 99214; J1459; J9144

== ENCOUNTER 2024-04-10 09:30 | Oncology outpatient (recurring) (ONCR) | payer MEDICARE, MEDICAID, SELFPAY ==
[2024-03-27] VITALS (10 sets, daily range): BP systolic 133–163; BP diastolic 60–78; PULSE 56–81; RESP 16–18; TEMP 35.6–36.4; O2SAT 94–98
[2024-03-27] MEDS: acetaminophen 325 mg Tablet 650 MG PO (10:02)
[2024-03-27] MEDS: diphenhydrAMINE 25 mg Capsule PO (10:03)
[2024-03-27] MEDS: immune globulin (Privigen ONC) 40 GM, immune globulin (Privigen-ONC) 10 GM in empty fle... IV (10:45)
--- NOTE | 2024-04-06 07:15 | USCV_ITS ---
Christina Willard Age: 63 Gender: F : 1960 Exam Date: 04/06/2024 07:32 Ordering Phys: Samy Edmond MD Technologist: Munir Mendoza [place] [facility] [place] Indication: cardiomyopathy BP: 154 / 78 HR: Rhythm: Sinus Technical Quality: Adequate MEASUREMENTS (Male / Female) Normal Values 2D ECHO LV Diastolic Diameter PLAX 4.1 cm 4.2 - 5.9 / 3.9 - 5.3 cm IVS Diastolic Thickness 1.6 cm 0.6 - 1.0 / 0.6 - 0.9 cm IVS Systolic Thickness 1.4 cm LVPW Diastolic Thickness 2.5 cm 0.6 - 1.0 / 0.6 - 0.9 cm LVPW Systolic Thickness 2.8 cm LVOT Diameter 2.1 cm LV Ejection Fraction 2D Teich 64.3 % LV Ejection Fraction MOD 4C 63.4 % LV Ejection Fraction MOD 2C 63.8 % LV Ejection Fraction 2C AL 68.4 % LA Diameter 3.4 cm RA Systolic Volume 4C AL 30.4 ml RA Systolic Volume 4C MOD 31.1 ml LA Sys Volume AL 72.2 cm cubed LA Sys Volume Index AL 28.2 cm cubed/m squared Aorta at Sinotubular Diameter 2.4 cm M-MODE LA Ao Ratio MM 1.3 AV Cusp Separation MM 1.6 cm FINDINGS Left Ventricle Normal left ventricular size, systolic function and wall thickness, with no regional wall motion abnormalities. Left ventricular ejection fraction is estimated at 60 %. Right Ventricle Right Atrium Left Atrium Mitral Valve Aortic Valve Tricuspid Valve Pulmonic Valve Pericardium Aorta IVC CONCLUSIONS Limited echo to asses LV function Normal left ventricular size, systolic function and wall thickness, with no regional wall motion abnormalities. Left ventricular ejection fraction is estimated at 60 %. There is no pericardial effusion. Markos Hancock MD (Electronically Signed) Final Date: 06 April 2024 09:33 S
[2024-04-10 09:31] LABS: Basophils % 0.2 %; Eosinophils # 0.1 10^3/uL (0.0-0.8); Hematocrit 38.9 % (36-47); Lymphocytes # 2.1 10^3/uL (0.8-4.8); Lymphocytes % 22.4 %; Mean Corpuscular HGB Conc 32.6 g/dL (30-55); Mean Corpuscular Hemoglobin 30.2 pg (27-33); Mean Corpuscular Volume 92.4 fl (85-98); Mean Platelet Volume 11.2 fL (7.4-10.4); Monocytes # 0.8 10^3/uL (0.2-0.9); Monocytes % 8.7 %; Neutrophils # 6.32 10^3/uL (1.8-7.7); Neutrophils % 67.5 %; Nucleated Red Blood Cells % 0 %; Platelet Count 192 10^3/cmm (157-399); Red Blood Count 4.21 10^6/uL (3.85-5.65); Red Cell Distribution Width 14.4 % (12.1-15.1); White Blood Count 9.35 10^3/uL (3.29-11.43)
[2024-04-10 09:51] LABS: Alanine Aminotransferase 31 U/L (0-33); Albumin Level 3.8 g/dL (3.5-5.2); Alkaline Phosphatase 87 U/L (35-105); Anion Gap 14.1 (5-19); Aspartate Amino Transferase 33 U/L (0-32); Blood Urea Nitrogen 16 mg/dL (8-23); Carbon Dioxide 26 mmol/L (22-29); Chloride 106 mmol/L (98-107); Globulin 2.7 g/dL (1.3-4.6); Glomerular Filtration Rate 72.2 mL/min (90-130); Glucose 117 mg/dL (65-115); Immunoglobulin IGG 895 mg/dL (700-1600); Osmolality Calculated 296 mOsm/kg (285-295); Potassium 4.1 mmol/L (3.5-5.1); Sodium 142 mmol/L (136-145); Total Bilirubin 0.3 mg/dL (0.15-1.2); Total Protein 6.5 g/dL (6.6-8.7)
[2024-04-10 09:56] LABS: Immunoglobulin IGA < 50 mg/dL (70-400); Immunoglobulin IGM < 25 mg/dL (40-230)
[2024-04-10] MEDS: daratumumab-hyaluronidase-fihj 1,800 mg/15 mL SDV 1800 MG SUBCUT (12:04)
--- NOTE | 2024-04-10 12:26 | XRR_ITS ---
PROCEDURE INFORMATION: Exam: XR Bilateral Hips Exam date and time: 04/10/2024 12:36 PM Age: 63 years old Clinical indication: Hip pain; Left hip; Additional info: Persistent left hip pain; No HX of trauma; HX of multiple mye TECHNIQUE: Imaging protocol: Radiologic exam of the bilateral hips. Views: 2 views of hips with pelvis when performed. COMPARISON: 1. PT PET skull to thigh SUBS [id number] 09/04/2022 12:26 PM 2. CR XR hip RT 2-3V wo/w pel* [id number] 04/10/2024 12:36 PM FINDINGS: Bones/joints: There are mild degenerative changes of the bilateral hips. No acute fracture or dislocation is noted. There is a small sclerotic density within the right femoral neck, suspicious for a bone island. No discrete lytic lesions are identified. Soft tissues: Unremarkable. Gastrointestinal tract: There is a peripherally calcified density projected over the left iliac bone which likely reflects a peripherally calcified diverticulum in correlation with a prior PET-CT. There is also amorphous calcification projected over the pelvis in the midline suggestive of a calcified uterine fibroid XR/XR hip BI 3-4V wo/w pel [id number] IMPRESSION: 1. No evidence of acute fracture, dislocation, or discrete lytic lesion 2. Mild degenerative changes of the bilateral hips
[2024-04-11 08:14] LABS: PROTEIN, TOTAL 5.9 g/dL (6.1-8.1)
[2024-04-11 12:09] LABS: KAPPA LIGHT CHAIN, FREE, SERUM 2.1 mg/L (3.3-19.4); KAPPA/LAMBDA LIGHT CHAINS FREE >1.40 (0.26-1.65); LAMBDA LIGHT CHAIN, FREE, SERU <1.5 mg/L (5.7-26.3)
[2024-04-12 08:20] LABS: ALBUMIN 3.3 g/dL (3.8-4.8); ALPHA 1 GLOBULIN 0.3 g/dL (0.2-0.3); ALPHA 2 GLOBULIN 0.8 g/dL (0.5-0.9); BETA 1 GLOBULIN 0.4 g/dL (0.4-0.6); BETA 2 GLOBULIN 0.3 g/dL (0.2-0.5); GAMMA GLOBULIN 0.8 g/dL (0.8-1.7)
== END 2024-04-10 23:59 | disposition home or self-care (01) ==
PROVIDERS: PCP Family Medicine; Visit Provider Internal Medicine Medical Oncology
DX: C90.02 Multiple myeloma in relapse (principal); Z53.9 Procedure and treatment not carried out, unspecified reason; Z51.12 Encounter for antineoplastic immunotherapy; M81.0 Age-related osteoporosis without current pathological fracture; M16.0 Bilateral primary osteoarthritis of hip; Z79.899 Other long term (current) drug therapy
CPT/HCPCS: 36591; 73502; 73522; 80053; 82784; 83883; 84155; 84165; 85025; 93308; 96365; 96366; 96402; J1459; J9144

== ENCOUNTER 2024-05-08 09:30 | Oncology outpatient (recurring) (ONCR) | payer MEDICARE, MEDICAID, SELFPAY ==
[2024-04-24] VITALS (9 sets, daily range): BP systolic 124–154; BP diastolic 53–80; PULSE 60–80; RESP 16–18; TEMP 35.7–36; O2SAT 94–98
[2024-04-24] MEDS: acetaminophen 325 mg Tablet 650 MG PO (09:45)
[2024-04-24] MEDS: diphenhydrAMINE 25 mg Capsule PO (09:45)
[2024-04-24] MEDS: immune globulin (Privigen ONC) 40 GM, immune globulin (Privigen-ONC) 10 GM in empty fle... IV (10:15)
[2024-05-08 09:49] LABS: Basophils % 0.4 %; Eosinophils # 0.1 10^3/uL (0.0-0.8); Eosinophils % 0.9 %; Hematocrit 38.5 % (36-47); Lymphocytes # 2.2 10^3/uL (0.8-4.8); Lymphocytes % 25.5 %; Mean Corpuscular HGB Conc 32.5 g/dL (30-55); Mean Corpuscular Hemoglobin 30.3 pg (27-33); Mean Corpuscular Volume 93.2 fl (85-98); Mean Platelet Volume 12.1 fL (7.4-10.4); Monocytes # 0.8 10^3/uL (0.2-0.9); Neutrophils # 5.42 10^3/uL (1.8-7.7); Neutrophils % 63.8 %; Nucleated Red Blood Cells % 0 %; Platelet Count 183 10^3/cmm (157-399); Red Blood Count 4.13 10^6/uL (3.85-5.65); White Blood Count 8.48 10^3/uL (3.29-11.43)
[2024-05-08 09:54] LABS: Alanine Aminotransferase 19 U/L (0-33); Albumin Level 3.8 g/dL (3.5-5.2); Alkaline Phosphatase 94 U/L (35-105); Anion Gap 16.1 (5-19); Aspartate Amino Transferase 22 U/L (0-32); Blood Urea Nitrogen 17 mg/dL (8-23); Calcium 8.8 mg/dL (8.5-10.5); Carbon Dioxide 27 mmol/L (22-29); Chloride 102 mmol/L (98-107); Creatinine Clr Calc Pharmacy 77.7953; Globulin 2.4 g/dL (1.3-4.6); Glomerular Filtration Rate 55.8 mL/min (90-130); Glucose 112 mg/dL (65-115); Immunoglobulin IGG 934 mg/dL (700-1600); Osmolality Calculated 294 mOsm/kg (285-295); Potassium 4.1 mmol/L (3.5-5.1); Sodium 141 mmol/L (136-145); Total Bilirubin 0.3 mg/dL (0.15-1.2); Total Protein 6.2 g/dL (6.6-8.7)
[2024-05-08 10:10] LABS: Immunoglobulin IGA < 50 mg/dL (70-400); Immunoglobulin IGM < 25 mg/dL (40-230)
[2024-05-08] MEDS: denosumab 120 mg SDV SUBCUT (11:44)
[2024-05-08] MEDS: daratumumab-hyaluronidase-fihj 1,800 mg/15 mL SDV 1800 MG SUBCUT (11:45)
[2024-05-08] MEDS: flu vacc pf 24-25 (6 mos+) SYRINGE 45 MCG IM (12:23)
[2024-05-09 05:58] LABS: PROTEIN, TOTAL 6.1 g/dL (6.1-8.1)
[2024-05-10 13:29] LABS: ALBUMIN 3.4 g/dL (3.8-4.8); ALPHA 1 GLOBULIN 0.3 g/dL (0.2-0.3); ALPHA 2 GLOBULIN 0.8 g/dL (0.5-0.9); BETA 1 GLOBULIN 0.5 g/dL (0.4-0.6); BETA 2 GLOBULIN 0.3 g/dL (0.2-0.5); GAMMA GLOBULIN 0.9 g/dL (0.8-1.7)
[2024-05-11 16:09] LABS: KAPPA LIGHT CHAIN, FREE, SERUM 4.1 mg/L (3.3-19.4); KAPPA/LAMBDA LIGHT CHAINS FREE 2.16 (0.26-1.65); LAMBDA LIGHT CHAIN, FREE, SERU 1.9 mg/L (5.7-26.3)
== END 2024-05-08 23:59 | disposition home or self-care (01) ==
PROVIDERS: Nurse Practitioner; PCP Family Medicine; Visit Provider Internal Medicine Hematology & Oncology
DX: Z53.9 Procedure and treatment not carried out, unspecified reason; Z51.12 Encounter for antineoplastic immunotherapy; C90.00 Multiple myeloma not having achieved remission; D80.1 Nonfamilial hypogammaglobulinemia; Z79.899 Other long term (current) drug therapy
CPT/HCPCS: 80053; 82784; 83883; 84155; 84165; 85025; 90471; 90686; 96365; 96366; 96372; 96402; 99214; J0897; J1459; J9144

== ENCOUNTER → 2024-05-10 11:27 | Outpatient (BNVA) | payer MEDICARE, MEDICAID, SELFPAY | PROVIDERS: PCP Family Medicine; Visit Provider Internal Medicine | DX: I10 Essential (primary) hypertension (principal); I35.1 Nonrheumatic aortic (valve) insufficiency; R06.09 Other forms of dyspnea | CPT/HCPCS: 99214 ==

== ENCOUNTER 2024-05-22 11:49 | Oncology outpatient (recurring) (ONCR) | payer MEDICARE, MEDICAID, SELFPAY ==
[2024-05-22] VITALS (8 sets, daily range): BP systolic 104–169; BP diastolic 53–69; PULSE 62–70; RESP 17–18; TEMP 36.1; O2SAT 95–98
[2024-05-22] MEDS: diphenhydrAMINE 25 mg Capsule PO (12:47)
[2024-05-22] MEDS: acetaminophen 325 mg Tablet 650 MG PO (12:47)
[2024-05-22] MEDS: immune globulin (Privigen ONC) 40 GM, immune globulin (Privigen-ONC) 10 GM in empty fle... IV (12:49)
== END 2024-05-24 23:59 | disposition home or self-care (01) ==
LOC: ONCMED 11:49
PROVIDERS: PCP Family Medicine; Visit Provider Internal Medicine Hematology & Oncology
DX: D80.1 Nonfamilial hypogammaglobulinemia (principal); C90.00 Multiple myeloma not having achieved remission; Z79.899 Other long term (current) drug therapy
CPT/HCPCS: 96365; 96366; J1459

== ENCOUNTER 2024-06-05 13:41 | Oncology outpatient (recurring) (ONCR) | payer MEDICARE, MEDICAID, SELFPAY ==
[2024-06-05 13:55] VITALS: BP 179/68; PULSE 60; RESP 16; TEMP 36.4; O2SAT 97
[2024-06-05 14:25] LABS: Basophils % 0.4 %; Eosinophils # 0.1 10^3/uL (0.0-0.8); Lymphocytes # 2.1 10^3/uL (0.8-4.8); Lymphocytes % 20.8 %; Mean Corpuscular HGB Conc 33.3 g/dL (30-55); Mean Corpuscular Hemoglobin 30.9 pg (27-33); Mean Corpuscular Volume 92.6 fl (85-98); Mean Platelet Volume 11.5 fL (7.4-10.4); Monocytes % 10.1 %; Neutrophils # 6.68 10^3/uL (1.8-7.7); Neutrophils % 67.3 %; Nucleated Red Blood Cells % 0 %; Platelet Count 193 10^3/cmm (157-399); Red Blood Count 4.21 10^6/uL (3.85-5.65); Red Cell Distribution Width 14.3 % (12.1-15.1); White Blood Count 9.92 10^3/uL (3.29-11.43)
[2024-06-05 14:49] LABS: Alanine Aminotransferase 18 U/L (0-33); Albumin Level 3.9 g/dL (3.5-5.2); Alkaline Phosphatase 76 U/L (35-105); Anion Gap 16.3 (5-19); Aspartate Amino Transferase 22 U/L (0-32); Blood Urea Nitrogen 18 mg/dL (8-23); Calcium 8.9 mg/dL (8.5-10.5); Carbon Dioxide 30 mmol/L (22-29); Chloride 98 mmol/L (98-107); Globulin 2.7 g/dL (1.3-4.6); Glomerular Filtration Rate 55.8 mL/min (90-130); Glucose 115 mg/dL (65-115); Immunoglobulin IGA < 50 mg/dL (70-400); Immunoglobulin IGG 901 mg/dL (700-1600); Immunoglobulin IGM < 25 mg/dL (40-230); Osmolality Calculated 293 mOsm/kg (285-295); Potassium 4.3 mmol/L (3.5-5.1); Sodium 140 mmol/L (136-145); Total Bilirubin 0.4 mg/dL (0.15-1.2); Total Protein 6.6 g/dL (6.6-8.7)
[2024-06-05] MEDS: daratumumab-hyaluronidase-fihj 1,800 mg/15 mL SDV 1800 MG SUBCUT (15:08)
[2024-06-05 15:10] VITALS: BP 148/82; PULSE 82; RESP 18; TEMP 36.6; O2SAT 98
[2024-06-06 08:55] LABS: PROTEIN, TOTAL 6.4 g/dL (6.1-8.1)
[2024-06-06 15:44] LABS: KAPPA LIGHT CHAIN, FREE, SERUM 2.5 mg/L (3.3-19.4); KAPPA/LAMBDA LIGHT CHAINS FREE >1.67 (0.26-1.65); LAMBDA LIGHT CHAIN, FREE, SERU <1.5 mg/L (5.7-26.3)
[2024-06-06 17:15] LABS: ALBUMIN 3.5 g/dL (3.8-4.8); ALPHA 1 GLOBULIN 0.3 g/dL (0.2-0.3); ALPHA 2 GLOBULIN 0.9 g/dL (0.5-0.9); BETA 1 GLOBULIN 0.5 g/dL (0.4-0.6); BETA 2 GLOBULIN 0.4 g/dL (0.2-0.5); GAMMA GLOBULIN 0.9 g/dL (0.8-1.7)
== END 2024-06-05 23:59 | disposition home or self-care (01) ==
LOC: ONCMED 13:41
PROVIDERS: Nurse Practitioner; PCP Family Medicine; Visit Provider Internal Medicine Hematology & Oncology
DX: D80.1 Nonfamilial hypogammaglobulinemia (principal); C90.00 Multiple myeloma not having achieved remission; Z79.899 Other long term (current) drug therapy; Z51.11 Encounter for antineoplastic chemotherapy; C90.02 Multiple myeloma in relapse
CPT/HCPCS: 36591; 80053; 82784; 83883; 84155; 84165; 85025; 96402; J9144

== ENCOUNTER → 2024-06-07 08:39 | Outpatient (BNVA) | payer MEDICARE, MEDICAID, SELFPAY | PROVIDERS: PCP Family Medicine; Referring Provider Family Medicine; Visit Provider Student in an Organized Health Care Education/Training Program | DX: Z12.11 Encounter for screening for malignant neoplasm of colon (principal) | CPT/HCPCS: 99024; 99204 ==

== ENCOUNTER 2024-06-11 13:26 | Outpatient (CLI) | payer MEDICARE, MEDICAID, SELFPAY ==
--- NOTE | 2024-06-11 14:00 | MM_ITS ---
WS: [id number] BILATERAL 3D TOMOSYNTHESIS DIGITAL SCREENING MAMMOGRAPHY WITH CAD CLINICAL INFORMATION: screening HISTORY: Screening mammogram. No current complaints. COMPARISON: 2018 TECHNIQUE: Bilateral CC and MLO views. FINDINGS: Scattered fibroglandular densities bilaterally. No suspicious focal mass, asymmetry, calcifications, or architectural distortion. No evidence of malignancy. Incidental punctate and lucent centered calci fications. MM/MM scr tomosynthesis [id number] IMPRESSION: DENSITY: There are scattered areas of fibroglandular density. BI-RADS: 2 - Benign. FOLLOW UP: 1 Year Follow-up Recommend return to annual screening mammography.
--- NOTE | 2024-06-11 14:30 | XR_ITS ---
WS: [id number] SCREENING DEXA SCAN [employer] CLINICAL INFORMATION: screening COMPARISON: 2019 FINDINGS: The LEFT forearm bone mineral density measures 1.02. This corresponds to a T score score of 1.7 and Z score of 3.0. Left femoral neck bone mineral density measures 0.913 g/cm2. This corresponds to a T score of -0.8 an d Z score of -0.4. Right femoral neck bone mineral density measures 0.803 g/cm2. This corresponds to a T score -1.6of an d Z score of -1.3. Mean femoral neck bone mineral density measures 0.858 g/cm2. This corresponds to a T score of -1.2 an d Z score of -0.9. XR/XR DEXA axial skeleton* [id number] IMPRESSION: Normal bone mineralization LEFT forearm. Osteopenia femoral necks. Patient's FRAX calculated 10 year probability for major osteoporotic fracture i s 19.6% and osteoporotic hip fracture is 1.4%. LEFT forearm bone mineral density decreased -1.6% Femoral bone mineral density increased 3.1%
== END 2024-06-11 13:27 | disposition home or self-care (01) ==
LOC: RAD 13:27
PROVIDERS: PCP Family Medicine; Visit Provider Family Medicine
DX: Z12.31 Encounter for screening mammogram for malignant neoplasm of breast (principal); Z13.820 Encounter for screening for osteoporosis; Z00.00 Encounter for general adult medical examination without abnormal findings; M85.80 Other specified disorders of bone density and structure, unspecified site; R92.323 Mammographic fibroglandular density, bilateral breasts; R92.1 Mammographic calcification found on diagnostic imaging of breast
CPT/HCPCS: 77063; 77067; 77080

== ENCOUNTER 2024-06-19 09:38 | Oncology outpatient (recurring) (ONCR) | payer MEDICARE, MEDICAID, SELFPAY ==
[2024-06-19] VITALS (9 sets, daily range): BP systolic 127–186; BP diastolic 53–82; PULSE 59–68; RESP 16–17; TEMP 35.8–37; O2SAT 94–99
[2024-06-19] MEDS: acetaminophen 325 mg Tablet 650 MG PO (10:40)
[2024-06-19] MEDS: diphenhydrAMINE 25 mg Capsule PO (10:40)
[2024-06-19] MEDS: immune globulin (Privigen ONC) 40 GM, immune globulin (Privigen-ONC) 10 GM in empty fle... IV (11:31)
[2024-06-19 11:35] LABS: Chol HDL Ratio 2.97 mg/dL (0.0-4.40); Cholesterol 208 mg/dL (0-200); HDL Cholesterol 70 mg/dL (60-100); LDL Cholesterol Calculated 108 mg/dL (50-129); LDL HDL Ratio 1.54 RATIO (0.00-3.22); Thyroid Stimulating Hormone 1.07 uIU/mL (0.27-4.20); Triglycerides 149 mg/dL (0-150)
== END 2024-06-23 23:59 | disposition home or self-care (01) ==
PROVIDERS: PCP Family Medicine; Visit Provider Internal Medicine Hematology & Oncology
DX: D80.1 Nonfamilial hypogammaglobulinemia (principal); C90.00 Multiple myeloma not having achieved remission; Z79.899 Other long term (current) drug therapy
CPT/HCPCS: 80061; 84443; 96365; 96366; J1459

== ENCOUNTER 2024-07-03 09:17 | Oncology outpatient (recurring) (ONCR) | payer MEDICARE, MEDICAID, SELFPAY ==
[2024-07-03 09:49] LABS: Basophils % 0.3 %; Eosinophils # 0.1 10^3/uL (0.0-0.8); Eosinophils % 1.1 %; Hematocrit 38.1 % (36-47); Lymphocytes # 1.7 10^3/uL (0.8-4.8); Lymphocytes % 23.5 %; Mean Corpuscular HGB Conc 31.8 g/dL (30-55); Mean Corpuscular Hemoglobin 29.4 pg (27-33); Mean Corpuscular Volume 92.7 fl (85-98); Mean Platelet Volume 11.6 fL (7.4-10.4); Monocytes # 0.8 10^3/uL (0.2-0.9); Monocytes % 10.9 %; Neutrophils % 63.9 %; Nucleated Red Blood Cells % 0 %; Platelet Count 191 10^3/cmm (157-399); Red Blood Count 4.11 10^6/uL (3.85-5.65); Red Cell Distribution Width 14.2 % (12.1-15.1); White Blood Count 7.35 10^3/uL (3.29-11.43)
[2024-07-03 10:09] LABS: Alanine Aminotransferase 17 U/L (0-33); Albumin Level 3.6 g/dL (3.5-5.2); Alkaline Phosphatase 81 U/L (35-105); Anion Gap 12.9 (5-19); Aspartate Amino Transferase 21 U/L (0-32); Blood Urea Nitrogen 16 mg/dL (8-23); Calcium 9.2 mg/dL (8.5-10.5); Carbon Dioxide 28 mmol/L (22-29); Chloride 103 mmol/L (98-107); Globulin 2.6 g/dL (1.3-4.6); Glomerular Filtration Rate 55.8 mL/min (90-130); Glucose 116 mg/dL (65-115); Immunoglobulin IGG 901 mg/dL (700-1600); Osmolality Calculated 292 mOsm/kg (285-295); Potassium 3.9 mmol/L (3.5-5.1); Sodium 140 mmol/L (136-145); Total Bilirubin 0.2 mg/dL (0.15-1.2); Total Protein 6.2 g/dL (6.6-8.7)
[2024-07-03 10:10] LABS: Immunoglobulin IGA < 50 mg/dL (70-400); Immunoglobulin IGM < 25 mg/dL (40-230)
[2024-07-03] MEDS: daratumumab-hyaluronidase-fihj 1,800 mg/15 mL SDV 1800 MG SUBCUT (11:20)
[2024-07-04 07:39] LABS: PROTEIN, TOTAL 6.2 g/dL (6.1-8.1)
[2024-07-04 23:05] LABS: ALBUMIN 3.5 g/dL (3.8-4.8); ALPHA 1 GLOBULIN 0.3 g/dL (0.2-0.3); ALPHA 2 GLOBULIN 0.8 g/dL (0.5-0.9); BETA 1 GLOBULIN 0.5 g/dL (0.4-0.6); BETA 2 GLOBULIN 0.3 g/dL (0.2-0.5); GAMMA GLOBULIN 0.9 g/dL (0.8-1.7)
[2024-07-05 11:39] LABS: KAPPA LIGHT CHAIN, FREE, SERUM 3.9 mg/L (3.3-19.4); KAPPA/LAMBDA LIGHT CHAINS FREE 2.05 (0.26-1.65); LAMBDA LIGHT CHAIN, FREE, SERU 1.9 mg/L (5.7-26.3)
== END 2024-07-03 23:59 | disposition home or self-care (01) ==
LOC: ONCMED 09:18
PROVIDERS: Nurse Practitioner; PCP Family Medicine; Visit Provider Internal Medicine Medical Oncology
DX: D80.1 Nonfamilial hypogammaglobulinemia (principal); Z79.899 Other long term (current) drug therapy; Z51.12 Encounter for antineoplastic immunotherapy; C90.02 Multiple myeloma in relapse; Z95.828 Presence of other vascular implants and grafts; Z79.52 Long term (current) use of systemic steroids
CPT/HCPCS: 36591; 80053; 82784; 83883; 84155; 84165; 85025; 96402; 99214; J9144

== ENCOUNTER 2024-07-16 07:42 | Oncology outpatient (recurring) (ONCR) | payer MEDICARE, MEDICAID, SELFPAY ==
[2024-07-16] MEDS: diphenhydrAMINE 25 mg Capsule PO (08:34)
[2024-07-16] MEDS: acetaminophen 325 mg Tablet 650 MG PO (08:34)
[2024-07-16 08:57] VITALS: BP 149/79; PULSE 68; RESP 17; TEMP 35.9; O2SAT 95
[2024-07-16] MEDS: immune globulin (Privigen ONC) 40 GM, immune globulin (Privigen-ONC) 10 GM in empty fle... IV (08:57)
[2024-07-16 09:15] VITALS: BP 141/69; PULSE 57; RESP 16; TEMP 36; O2SAT 97
[2024-07-16 09:57] VITALS: BP 143/74; PULSE 59; RESP 16; TEMP 35.7; O2SAT 95
[2024-07-16 11:04] VITALS: BP 137/78; PULSE 77; RESP 18; TEMP 36.6; O2SAT 98
== END 2024-07-24 23:59 | disposition home or self-care (01) ==
LOC: ONCMED 07:43
PROVIDERS: PCP Family Medicine; Visit Provider Internal Medicine Medical Oncology
DX: D80.1 Nonfamilial hypogammaglobulinemia (principal); C90.00 Multiple myeloma not having achieved remission; Z79.899 Other long term (current) drug therapy
CPT/HCPCS: 96365; 96366; J1459

== ENCOUNTER 2024-07-31 08:44 | Oncology outpatient (recurring) (ONCR) | payer MEDICARE, MEDICAID, SELFPAY ==
[2024-07-31 09:04] LABS: Basophils % 0.4 %; Eosinophils # 0.1 10^3/uL (0.0-0.8); Eosinophils % 0.7 %; Hematocrit 39.3 % (36-47); Lymphocytes # 2.2 10^3/uL (0.8-4.8); Lymphocytes % 23.1 %; Mean Corpuscular HGB Conc 32.1 g/dL (30-55); Mean Corpuscular Hemoglobin 29.5 pg (27-33); Mean Platelet Volume 11.7 fL (7.4-10.4); Monocytes # 0.8 10^3/uL (0.2-0.9); Monocytes % 8.4 %; Neutrophils # 6.44 10^3/uL (1.8-7.7); Neutrophils % 67.1 %; Nucleated Red Blood Cells % 0 %; Platelet Count 198 10^3/cmm (157-399); Red Blood Count 4.27 10^6/uL (3.85-5.65); Red Cell Distribution Width 13.9 % (12.1-15.1); White Blood Count 9.61 10^3/uL (3.29-11.43)
[2024-07-31 09:26] LABS: Alanine Aminotransferase 18 U/L (0-33); Albumin Level 3.9 g/dL (3.5-5.2); Alkaline Phosphatase 78 U/L (35-105); Anion Gap 19.9 (5-19); Aspartate Amino Transferase 19 U/L (0-32); Blood Urea Nitrogen 18 mg/dL (8-23); Calcium 9.2 mg/dL (8.5-10.5); Carbon Dioxide 25 mmol/L (22-29); Chloride 100 mmol/L (98-107); Globulin 2.5 g/dL (1.3-4.6); Glucose 149 mg/dL (65-115); Immunoglobulin IGG 920 mg/dL (700-1600); Osmolality Calculated 297 mOsm/kg (285-295); Potassium 3.9 mmol/L (3.5-5.1); Sodium 141 mmol/L (136-145); Total Bilirubin 0.3 mg/dL (0.15-1.2); Total Protein 6.4 g/dL (6.6-8.7)
[2024-07-31 09:27] LABS: Immunoglobulin IGA < 50 mg/dL (70-400); Immunoglobulin IGM < 25 mg/dL (40-230)
--- NOTE | 2024-07-31 12:11 | PC.NURSE ---
patient reports that she has taken her premedications at home of tylenol 1000mg PO, benadryl 25mg PO and dexamethasone 20mg PO prior to arrival
[2024-07-31] MEDS: denosumab 120 mg SDV SUBCUT (12:15)
[2024-07-31] MEDS: daratumumab-hyaluronidase-fihj 1,800 mg/15 mL SDV 1800 MG SUBCUT (12:41)
[2024-07-31 12:53] VITALS: BP 144/56; PULSE 60; RESP 18; TEMP 35.7; O2SAT 96
[2024-08-01 08:45] LABS: PROTEIN, TOTAL 6.4 g/dL (6.1-8.1)
[2024-08-02 15:33] LABS: KAPPA LIGHT CHAIN, FREE, SERUM 2.6 mg/L (3.3-19.4); KAPPA/LAMBDA LIGHT CHAINS FREE 1.53 (0.26-1.65); LAMBDA LIGHT CHAIN, FREE, SERU 1.7 mg/L (5.7-26.3)
[2024-08-03 09:55] LABS: ALBUMIN 3.7 g/dL (3.8-4.8); ALPHA 1 GLOBULIN 0.3 g/dL (0.2-0.3); ALPHA 2 GLOBULIN 0.8 g/dL (0.5-0.9); BETA 1 GLOBULIN 0.5 g/dL (0.4-0.6); BETA 2 GLOBULIN 0.3 g/dL (0.2-0.5); GAMMA GLOBULIN 0.8 g/dL (0.8-1.7)
== END 2024-07-31 23:59 | disposition home or self-care (01) ==
PROVIDERS: Nurse Practitioner; PCP Family Medicine; Visit Provider Internal Medicine Medical Oncology
DX: D80.1 Nonfamilial hypogammaglobulinemia (principal); Z79.899 Other long term (current) drug therapy; C90.00 Multiple myeloma not having achieved remission; Z51.12 Encounter for antineoplastic immunotherapy; Z53.9 Procedure and treatment not carried out, unspecified reason
CPT/HCPCS: 36591; 80053; 82784; 83883; 84155; 84165; 85025; 86334; 96372; 96402; J0897; J9144

== ENCOUNTER 2024-08-14 08:53 | Oncology outpatient (recurring) (ONCR) | payer MEDICARE, MEDICAID, SELFPAY ==
[2024-08-14] MEDS: acetaminophen 325 mg Tablet 650 MG PO (09:31)
[2024-08-14] MEDS: diphenhydrAMINE 25 mg Capsule PO (09:31)
[2024-08-14] MEDS: immune globulin (Privigen ONC) 40 GM, immune globulin (Privigen-ONC) 10 GM in empty fle... IV (10:31)
[2024-08-14 10:50] VITALS: BP 136/76; PULSE 60; RESP 18; TEMP 36; O2SAT 95
[2024-08-14 11:06] VITALS: BP 148/76; PULSE 58; RESP 16; TEMP 36; O2SAT 95
[2024-08-14 12:40] VITALS: BP 150/84; PULSE 60; RESP 16; TEMP 37.1; O2SAT 96
== END 2024-08-24 23:59 | disposition home or self-care (01) ==
LOC: ONCMED 08:53
PROVIDERS: PCP Family Medicine; Visit Provider Internal Medicine Medical Oncology
DX: D80.1 Nonfamilial hypogammaglobulinemia (principal); C90.00 Multiple myeloma not having achieved remission; Z79.899 Other long term (current) drug therapy
CPT/HCPCS: 96365; 96366; J1459

== ENCOUNTER 2024-08-28 08:31 | Oncology outpatient (recurring) (ONCR) | payer MEDICARE, MEDICAID, SELFPAY ==
[2024-08-28 09:10] LABS: Basophils % 0.4 %; Eosinophils # 0.1 10^3/uL (0.0-0.8); Eosinophils % 1.4 %; Lymphocytes # 1.5 10^3/uL (0.8-4.8); Mean Corpuscular HGB Conc 32.1 g/dL (30-55); Mean Corpuscular Hemoglobin 29.5 pg (27-33); Mean Platelet Volume 11.8 fL (7.4-10.4); Monocytes # 0.8 10^3/uL (0.2-0.9); Monocytes % 9.5 %; Neutrophils # 5.88 10^3/uL (1.8-7.7); Neutrophils % 70.3 %; Nucleated Red Blood Cells % 0 %; Platelet Count 196 10^3/cmm (157-399); Red Blood Count 4.24 10^6/uL (3.85-5.65); White Blood Count 8.35 10^3/uL (3.29-11.43)
[2024-08-28 09:25] LABS: Alanine Aminotransferase 17 U/L (0-33); Albumin Level 3.7 g/dL (3.5-5.2); Alkaline Phosphatase 79 U/L (35-105); Anion Gap 14.2 (5-19); Aspartate Amino Transferase 21 U/L (0-32); Blood Urea Nitrogen 16 mg/dL (8-23); Calcium 9.5 mg/dL (8.5-10.5); Carbon Dioxide 30 mmol/L (22-29); Chloride 99 mmol/L (98-107); Creatinine Clr Calc Pharmacy 87.7053; Globulin 2.7 g/dL (1.3-4.6); Glucose 116 mg/dL (65-115); Immunoglobulin IGG 939 mg/dL (700-1600); Osmolality Calculated 290 mOsm/kg (285-295); Potassium 4.2 mmol/L (3.5-5.1); Sodium 139 mmol/L (136-145); Total Bilirubin 0.4 mg/dL (0.15-1.2); Total Protein 6.4 g/dL (6.6-8.7)
[2024-08-28 09:42] LABS: Immunoglobulin IGA < 50 mg/dL (70-400); Immunoglobulin IGM < 25 mg/dL (40-230)
[2024-08-28] MEDS: daratumumab-hyaluronidase-fihj 1,800 mg/15 mL SDV 1800 MG SUBCUT (09:52)
[2024-08-29 11:03] LABS: PROTEIN, TOTAL 6.1 g/dL (6.1-8.1)
[2024-08-30 11:40] LABS: KAPPA LIGHT CHAIN, FREE, SERUM 3.7 mg/L (3.3-19.4); KAPPA/LAMBDA LIGHT CHAINS FREE 2.31 (0.26-1.65); LAMBDA LIGHT CHAIN, FREE, SERU 1.6 mg/L (5.7-26.3)
[2024-08-30 20:10] LABS: ALBUMIN 3.4 g/dL (3.8-4.8); ALPHA 1 GLOBULIN 0.3 g/dL (0.2-0.3); ALPHA 2 GLOBULIN 0.8 g/dL (0.5-0.9); BETA 1 GLOBULIN 0.5 g/dL (0.4-0.6); BETA 2 GLOBULIN 0.3 g/dL (0.2-0.5); GAMMA GLOBULIN 0.8 g/dL (0.8-1.7)
[2024-09-02 12:34] LABS: Immunofixation Serum Normal pattern.
== END 2024-08-28 23:59 | disposition home or self-care (01) ==
PROVIDERS: PCP Family Medicine; Visit Provider Internal Medicine Medical Oncology
DX: Z51.12 Encounter for antineoplastic immunotherapy (principal); D80.1 Nonfamilial hypogammaglobulinemia; C90.02 Multiple myeloma in relapse; R60.9 Edema, unspecified; E03.9 Hypothyroidism, unspecified; Z79.899 Other long term (current) drug therapy; Z95.828 Presence of other vascular implants and grafts; Z79.52 Long term (current) use of systemic steroids
CPT/HCPCS: 36591; 80053; 82784; 83883; 84155; 84165; 85025; 86334; 96401; 99214; J9144

== ENCOUNTER 2024-09-25 08:04 | Oncology outpatient (recurring) (ONCR) | payer MEDICARE, MEDICAID, SELFPAY ==
[2024-09-25 08:24] LABS: Basophils % 0.4 %; Eosinophils # 0.2 10^3/uL (0.0-0.8); Eosinophils % 2.1 %; Hematocrit 37.3 % (36-47); Lymphocytes # 1.8 10^3/uL (0.8-4.8); Lymphocytes % 21.9 %; Mean Corpuscular HGB Conc 31.6 g/dL (30-55); Mean Corpuscular Hemoglobin 29.1 pg (27-33); Mean Corpuscular Volume 92.1 fl (85-98); Mean Platelet Volume 11.4 fL (7.4-10.4); Monocytes # 0.9 10^3/uL (0.2-0.9); Monocytes % 11.5 %; Neutrophils # 5.21 10^3/uL (1.8-7.7); Neutrophils % 63.7 %; Nucleated Red Blood Cells % 0 %; Platelet Count 211 10^3/cmm (157-399); Red Blood Count 4.05 10^6/uL (3.85-5.65); Red Cell Distribution Width 14.4 % (12.1-15.1); White Blood Count 8.17 10^3/uL (3.29-11.43)
[2024-09-25 08:44] LABS: Alanine Aminotransferase 18 U/L (0-33); Albumin Level 3.6 g/dL (3.5-5.2); Alkaline Phosphatase 87 U/L (35-105); Anion Gap 14.9 (5-19); Aspartate Amino Transferase 19 U/L (0-32); Blood Urea Nitrogen 16 mg/dL (8-23); Carbon Dioxide 28 mmol/L (22-29); Chloride 99 mmol/L (98-107); Globulin 2.5 g/dL (1.3-4.6); Glomerular Filtration Rate 45.2 mL/min (90-130); Glucose 165 mg/dL (65-115); Osmolality Calculated 291 mOsm/kg (285-295); Potassium 3.9 mmol/L (3.5-5.1); Sodium 138 mmol/L (136-145); Total Bilirubin 0.5 mg/dL (0.15-1.2); Total Protein 6.1 g/dL (6.6-8.7)
[2024-09-25] MEDS: tetanus-dipt-pertussis 0.5 mL SDV IM (11:21)
[2024-09-25] MEDS: daratumumab-hyaluronidase-fihj 1,800 mg/15 mL SDV 1800 MG SUBCUT (11:56)
[2024-09-25] MEDS: FUROsemide 10 mg/mL SDV 2mL 20 MG IV (12:08)
[2024-09-26 05:49] LABS: PROTEIN, TOTAL 5.7 g/dL (6.1-8.1)
[2024-09-26 12:20] LABS: KAPPA LIGHT CHAIN, FREE, SERUM 4.9 mg/L (3.3-19.4); KAPPA/LAMBDA LIGHT CHAINS FREE 2.23 (0.26-1.65); LAMBDA LIGHT CHAIN, FREE, SERU 2.2 mg/L (5.7-26.3)
[2024-09-26 21:04] LABS: ALBUMIN 3.4 g/dL (3.8-4.8); ALPHA 1 GLOBULIN 0.3 g/dL (0.2-0.3); ALPHA 2 GLOBULIN 0.8 g/dL (0.5-0.9); BETA 1 GLOBULIN 0.5 g/dL (0.4-0.6); BETA 2 GLOBULIN 0.3 g/dL (0.2-0.5); GAMMA GLOBULIN 0.5 g/dL (0.8-1.7)
== END 2024-09-25 23:59 | disposition home or self-care (01) ==
PROVIDERS: PCP Family Medicine; Visit Provider Internal Medicine Medical Oncology
DX: Z51.12 Encounter for antineoplastic immunotherapy (principal); C90.02 Multiple myeloma in relapse; D80.1 Nonfamilial hypogammaglobulinemia; R60.9 Edema, unspecified; E03.9 Hypothyroidism, unspecified; Z79.52 Long term (current) use of systemic steroids; T14.8XXA Other injury of unspecified body region, initial encounter; W26.8XXA Contact with other sharp object(s), not elsewhere classified, initial encounter; Y93.H3 Activity, building and construction; Z95.828 Presence of other vascular implants and grafts; Z79.899 Other long term (current) drug therapy
CPT/HCPCS: 80053; 83883; 84155; 84165; 85025; 90471; 90715; 96374; 96401; 99215; J1940; J9144

== ENCOUNTER 2024-10-02 09:25 | Day surgery (SDC) | payer MEDICARE, MEDICAID, SELFPAY ==
[2024-10-02 09:37] VITALS: BP 184/65; PULSE 56; RESP 17; TEMP 36.2; O2SAT 96; BMI 53.1
--- NOTE | 2024-10-02 09:55 | ANES.PREANE2 ---
Pre-Anesthetic Assessment Height/Weight: Height 1.6 m Weight 136.078 kg Temp Pulse Resp BP Pulse Ox O2 Del Method 97.1 F L 56 L 17 184/65 96 Room Air 10/02/24 09:37 10/02/24 09:37 10/02/24 09:37 10/02/24 09:37 10/02/24 09:37 10/02/24 09:37 Operation Date: 10/02/24 10:30 Proposed Procedures p Colonoscopy [id number] G0105 Z12.11(Not Applicable) - Dax Cesar MD Familial anesthetic complications: None Was Beta Jesse taken within 24 hours: Yes Was Clonidine taken within 24 hours: N/A Last intake: Intake Last Liquid Date 10/01/24 Last Liquid Time 17:00 Last Solid Date 09/30/24 Last Solid Time 18:00 Social No alcohol and No tobacco Exam alert, oriented x 3, clear to auscultation bilaterally and regular rate & rhythm Airway Mallampati: Class IV Pulmonary Sleep Apnea CV/HEM Hypertension ECHO 04/06/24 Normal left ventricular size, systolic function and wall thickness, with no regional wall motion abnormalities. Left ventricular ejection fraction is estimated at 60 %. There is no pericardial effusion. ECHO 01/17/24 Normal left ventricular size and systolic function, EF 57%.no regional wall motion abnormalities. Grade I/IV diastolic dysfunction (abnormal relaxation filling pattern), normal to mildly elevated filling pressures. Mild concentric left ventricular hypertrophy. Possibly normal RV size and ejection fraction. Minimally thickened mitral valve. Thickened aortic valve. Appears to have moderately severe aortic regurgitation. Echo-free space anteriorly, most likely represent pericardial fat pad. Technically difficult study because of the poor ultrasonic window. Compared to the previous study from 08/04/2023, there may not be a significant change. Because of the technical difficulties, exact comparison is difficult CARDIAC CATH 11/24/23 1. No signfiicant disease noted in the Left Main, Left Anterior Descending, Right, or Circumflex coronary arteries. 2. Normal left ventricular systolic function. Ejection fraction of 60%. SESTAMIBI STRESS TEST 11/07/23 1. Normal EKG response to Lexiscan infusion 2. No Lexiscan induced chest pain or cardiac arrhythmia. 3. Normal blood pressure and heart rate response. MYOCARDIAL PERFUSION SCAN 11/07/23 1. Abnormal myocardial perfusion imaging with small to medium sized areas of ischemia seen in the RCA and Left circumflex artery territories 2. LV systolic function is normal. 2. TID ratio is elevated. It may represent multivessel coronary artery disease vs subendocardial ischemia GI Gastroesophageal Reflux Disease Metabolic Morbid Obesity and Thyroid Disease [facility] [place] multiple myeloma Anesthetic Plan ASA status: 4 Anesthesia: MAC Risk of > 500 ml blood loss (7ml/kg in children): No Medications/Allergies Home Medications ?Medication ?Instructions ?Recorded ?Confirmed ?Last Taken ?Type acetaminophen 500 mg tablet 500 mg PO QID PRN Pain 12/14/21 09/27/24 09/26/24 History (Tylenol Extra Strength) aspirin 81 mg tablet,delayed 81 mg PO DAILY 12/14/21 09/27/24 09/27/24 History release (Adult Low Dose Aspirin) calcium 600 mg (as 1 tab PO DAILY 12/14/21 09/27/24 09/27/24 History carbonate)-vitamin D3 5 mcg (200 unit) tablet simethicone 125 mg capsule (Gas-X 125 mg PO DAILY PRN Constipation 12/14/21 09/27/24 09/10/24 History Extra Strength) C-pap supplies and mask #1 ea 04/28/22 09/25/24 Unknown Rx bisacodyl 5 mg tablet,delayed 5 mg PO DAILY PRN Constipation 07/13/22 09/27/24 1 Week Ago History release ~09/06/24 cholecalciferol (vitamin D3) 10 2,000 unit PO DAILY 06/07/23 09/27/24 09/27/24 History mcg (400 unit) capsule vitamin B complex (B 1 tab PO DAILY 06/07/23 09/27/24 09/27/24 History Complex-Vitamin B12 tablet) lidocaine 5 % topical ointment 1 applic topical QID PRN pain #60 02/28/24 09/27/24 09/27/24 Rx grams gabapentin 100 mg capsule 100 mg PO TID #90 caps 05/08/24 09/27/24 10/01/24 Rx fluticasone propionate 50 1 spray intranasal DAILY #16 grams 08/13/24 09/27/24 09/27/24 Rx mcg/actuation nasal spray,suspension (Flonase Allergy Relief) azelastine 137 mcg (0.1 %) nasal 1 spray intranasal DAILY 08/28/24 09/27/24 09/27/24 History spray tramadol 50 mg tablet 50 mg PO Q6H PRN pain #120 tabs 08/28/24 09/27/24 10/02/24 Rx amlodipine 10 mg tablet 10 mg PO DAILY #90 tabs 09/02/24 09/27/24 10/02/24 Rx albuterol sulfate 90 mcg/actuation 2 puff inhalation Q6H PRN 09/06/24 09/27/24 09/27/24 History aerosol inhaler Shortness Of Breath Or Wheezing atenolol 50 mg tablet 50 mg PO BID 09/06/24 09/27/24 10/02/24 History dexamethasone 4 mg tablet 20 mg PO .WEEKLY 09/06/24 09/27/24 09/25/24 History furosemide 20 mg tablet 40 mg PO DAILY 09/06/24 09/27/24 10/01/24 History levothyroxine 200 mcg tablet 200 mcg PO DAILY 09/06/24 09/27/24 10/02/24 History levothyroxine 50 mcg tablet 50 mcg PO DAILY 09/06/24 09/27/24 10/02/24 History pantoprazole 40 mg tablet,delayed 40 mg PO DAILY 09/06/24 09/27/24 10/01/24 History release potassium chloride 20 mEq 20 meq PO DAILY 09/06/24 09/27/24 10/01/24 History tablet,extended release cephalexin 500 mg capsule 500 mg PO Q12H 7 days #14 caps 09/25/24 09/27/24 10/01/24 Rx Allergies Allergy/AdvReac Type Severity Reaction Status Date / Time pomalidomide Allergy Severe ADR-Swelling Verified 09/27/24 12:07 of the Eye azithromycin (From Zithromax) Allergy Unknown Unknown Verified 09/27/24 12:07 codeine Allergy Unknown Unknown Verified 09/27/24 12:07 diclofenac Allergy Unknown ALGY-Difficulty Verified 09/27/24 12:07 Breathing gluten Allergy Unknown ALGY-Redness Verified 09/27/24 12:07 of Skin PFSH Anesthesia Medical History Hypogammaglobulinemia Multiple myeloma Obstructive sleep apnea Degenerative joint disease of spine Aortic regurgitation (08/2012) Gluten enteropathy Hypothyroidism HTN (hypertension) Polycythemia Osteoporosis Surgical History Port-A-Cath in place Right chest wall History of bone marrow biopsy 06/29/2011 History of lumpectomy 2016 History of hernia repair Strangulated hernia repair 04/2010 History of thyroidectomy 12/27/2011 History of tubal ligation 1990 Family History Other Cancer Diabetes Hypertension Psychiatric illness Denies family history of CAD (coronary artery disease) Clotting disorder Dementia Hyperlipidemia Chronic kidney disease (CKD) Suicide Anesthesia complication Bleeding disorder Lung disease Stroke Social History Smoking and tobacco/nicotine status: never used tobacco/nicotine Alcohol intake: never Data Anesthesia Cardiac Studies: Echocardiogram 01/17/24 Echocardiogram Limited Views 04/06/24 Sestamibi Stress Test (Cardiology) 11/07/23
--- NOTE | 2024-10-02 10:10 | W.PM.OPSFHP ---
Same Day Surgery H&P Indication for Procedure/HPI DATE OF PROCEDURE: October 02, 2024 CHIEF COMPLAINT/INDICATIONFOR SURGICAL PROCEDURE: screening colonoscopy PREOP DIAGNOSIS: screening colonoscopy PLANNED PROCEDURE: Operation Date: 10/02/24 10:30 Proposed Procedures p Colonoscopy 76609 G0105 Z12.11(Not Applicable) - Dax Cesar MD Medications/Allergies* Home Medications ?Medication ?Instructions ?Recorded ?Confirmed ?Type acetaminophen 500 mg tablet 500 mg PO QID PRN Pain 12/14/21 09/27/24 History (Tylenol Extra Strength) aspirin 81 mg tablet,delayed 81 mg PO DAILY 12/14/21 09/27/24 History release (Adult Low Dose Aspirin) calcium 600 mg (as 1 tab PO DAILY 12/14/21 09/27/24 History carbonate)-vitamin D3 5 mcg (200 unit) tablet simethicone 125 mg capsule (Gas-X 125 mg PO DAILY PRN Constipation 12/14/21 09/27/24 History Extra Strength) bisacodyl 5 mg tablet,delayed 5 mg PO DAILY PRN Constipation 07/13/22 09/27/24 History release cholecalciferol (vitamin D3) 10 2,000 unit PO DAILY 06/07/23 09/27/24 History mcg (400 unit) capsule vitamin B complex (B 1 tab PO DAILY 06/07/23 09/27/24 History Complex-Vitamin B12 tablet) azelastine 137 mcg (0.1 %) nasal 1 spray intranasal DAILY 08/28/24 09/27/24 History spray albuterol sulfate 90 mcg/actuation 2 puff inhalation Q6H PRN 09/06/24 09/27/24 History aerosol inhaler Shortness Of Breath Or Wheezing atenolol 50 mg tablet 50 mg PO BID 09/06/24 09/27/24 History dexamethasone 4 mg tablet 20 mg PO .WEEKLY 09/06/24 09/27/24 History furosemide 20 mg tablet 40 mg PO DAILY 09/06/24 09/27/24 History levothyroxine 200 mcg tablet 200 mcg PO DAILY 09/06/24 09/27/24 History levothyroxine 50 mcg tablet 50 mcg PO DAILY 09/06/24 09/27/24 History pantoprazole 40 mg tablet,delayed 40 mg PO DAILY 09/06/24 09/27/24 History release potassium chloride 20 mEq 20 meq PO DAILY 09/06/24 09/27/24 History tablet,extended release Allergies/Adverse Reactions Allergy/AdvReac Type Severity Reaction Status Date / Time pomalidomide Allergy Severe ADR-Swelling Verified 09/27/24 12:07 of the Eye azithromycin (From Zithromax) Allergy Unknown Unknown Verified 09/27/24 12:07 codeine Allergy Unknown Unknown Verified 09/27/24 12:07 diclofenac Allergy Unknown ALGY-Difficulty Verified 09/27/24 12:07 Breathing gluten Allergy Unknown ALGY-Redness Verified 09/27/24 12:07 of Skin Pertinent History/Comorbid Conditions* Medical History (Updated 05/24/24 @ 12:20 by João Joyner MD) Hypogammaglobulinemia Multiple myeloma Obstructive sleep apnea Degenerative joint disease of spine Aortic regurgitation (08/2012) Gluten enteropathy Hypothyroidism HTN (hypertension) Polycythemia Osteoporosis Surgical History (Updated 03/01/23 @ 07:24 by Samy Edmond MD) Port-A-Cath in place Right chest wall History of bone marrow biopsy 06/29/2011 History of lumpectomy 2016 History of hernia repair Strangulated hernia repair 04/2010 History of thyroidectomy 12/27/2011 History of tubal ligation 1990 Family History (Updated 01/07/22 @ 08:26 by Keya Quinonez LPN) Diabetes Psychiatric illness Cancer Hypertension Denies family history of CAD (coronary artery disease) Clotting disorder Dementia Hyperlipidemia Chronic kidney disease (CKD) Suicide Anesthesia complication Bleeding disorder Lung disease Stroke Social History Smoking and tobacco/nicotine status: never used tobacco/nicotine Alcohol intake: never Pertinent Exam Findings alert, oriented x 3, clear to auscultation bilaterally, regular rate & rhythm and procedure specific exam findings abdomen soft, nt, nd Recommendations Surgery/Procedure today Other Plans: Risks and benefits discussed Coding Level of Care Code Acute Code for Chg Fwd
[2024-10-02] MEDS: sodium chloride 0.9% 1,000 ML 30 ML IV (10:12)
[2024-10-02 10:36] VITALS: BP 123/60; PULSE 55; RESP 18; TEMP 36.4; O2SAT 92
--- NOTE | 2024-10-02 11:35 | ANE.PACU2 ---
Inpatient post-anesthesia follow up: Airway intact: Yes Vital signs: Temperature 97.6 F Pulse Rate 55 Respiratory Rate 18 Blood Pressure 123/60 Pulse Oximetry 92 Oxygen Delivery Me thod Room Air Oxygen Flow Rate Fraction of Inspir ed Oxygen Hydration adequate: Yes Nausea and vomiting: No Pain level: 1 Mental status: Baseline
== END 2024-10-02 11:35 | disposition home or self-care (01) ==
PROVIDERS: PCP Family Medicine; Visit Provider Student in an Organized Health Care Education/Training Program
PROC: 0DJD8ZZ Inspection of Lower Intestinal Tract, Via Natural or Artificial Opening Endoscopic (ICD-10-PCS; CPT 45378; principal; 2024-10-02 10:30)
DX: Z12.11 Encounter for screening for malignant neoplasm of colon (principal); G47.33 Obstructive sleep apnea (adult) (pediatric); E89.0 Postprocedural hypothyroidism; I10 Essential (primary) hypertension; Z79.899 Other long term (current) drug therapy; Z79.82 Long term (current) use of aspirin; Z79.890 Hormone replacement therapy; Z88.5 Allergy status to narcotic agent; Z88.8 Allergy status to other drugs, medicaments and biological substances; Z86.0100 Personal history of colon polyps, unspecified; Z85.79 Personal history of other malignant neoplasms of lymphoid, hematopoietic and related tissues
CPT/HCPCS: G0105; J2704; J7030

== ENCOUNTER 2024-10-10 09:38 | Oncology outpatient (recurring) (ONCR) | payer MEDICARE, MEDICAID, SELFPAY ==
[2024-10-10 09:56] VITALS: BP 172/64; PULSE 72; RESP 17; TEMP 36.9; O2SAT 93
[2024-10-10] MEDS: acetaminophen 325 mg Tablet 650 MG PO (10:24)
[2024-10-10] MEDS: diphenhydrAMINE 25 mg Capsule PO (10:24)
[2024-10-10] MEDS: [UNRECOGNIZED DRUG - OTHER] IV (10:54)
[2024-10-10] MEDS: IMMUNE GLOBULIN IV (10:54)
[2024-10-10 10:55] VITALS: BP 145/56; PULSE 67; RESP 18; TEMP 36.8; O2SAT 94
[2024-10-10 11:10] VITALS: BP 155/77; PULSE 62; RESP 16; TEMP 36.6; O2SAT 93
[2024-10-10 12:24] VITALS: BP 161/60; PULSE 68; RESP 18; TEMP 36.4; O2SAT 96
[2024-10-10 13:10] VITALS: BP 145/62; PULSE 72; RESP 18; TEMP 35.5; O2SAT 96
== END 2024-10-22 23:59 | disposition home or self-care (01) ==
LOC: ONCMED 09:38
PROVIDERS: PCP Family Medicine; Visit Provider Internal Medicine
DX: D80.1 Nonfamilial hypogammaglobulinemia (principal); C90.00 Multiple myeloma not having achieved remission; Z79.899 Other long term (current) drug therapy
CPT/HCPCS: 96365; 96366; J1561; J9999

== ENCOUNTER → 2024-10-15 14:33 | Outpatient (BNVA) | payer MEDICARE, MEDICAID, SELFPAY | PROVIDERS: PCP Family Medicine; Visit Provider Student in an Organized Health Care Education/Training Program | DX: Z09 Encounter for follow-up examination after completed treatment for conditions other than malignant neoplasm (principal) | CPT/HCPCS: 99213 ==

== ENCOUNTER 2024-10-23 08:27 | Oncology outpatient (recurring) (ONCR) | payer MEDICARE, MEDICAID, SELFPAY ==
[2024-10-23 09:30] LABS: Basophils % 0.4 %; Eosinophils # 0.2 10^3/uL (0.0-0.8); Eosinophils % 1.7 %; Hematocrit 37.6 % (36-47); Lymphocytes # 1.5 10^3/uL (0.8-4.8); Lymphocytes % 15.8 %; Mean Corpuscular HGB Conc 32.4 g/dL (30-55); Mean Corpuscular Hemoglobin 29.9 pg (27-33); Mean Corpuscular Volume 92.2 fl (85-98); Mean Platelet Volume 11.8 fL (7.4-10.4); Monocytes # 0.9 10^3/uL (0.2-0.9); Neutrophils # 6.68 10^3/uL (1.8-7.7); Neutrophils % 71.8 %; Nucleated Red Blood Cells % 0 %; Platelet Count 215 10^3/cmm (157-399); Red Blood Count 4.08 10^6/uL (3.85-5.65); Red Cell Distribution Width 14.9 % (12.1-15.1); White Blood Count 9.31 10^3/uL (3.29-11.43)
[2024-10-23 09:49] LABS: Alanine Aminotransferase 16 U/L (0-33); Albumin Level 3.8 g/dL (3.5-5.2); Alkaline Phosphatase 83 U/L (35-105); Aspartate Amino Transferase 16 U/L (0-32); Blood Urea Nitrogen 17 mg/dL (8-23); Calcium 8.8 mg/dL (8.5-10.5); Carbon Dioxide 29 mmol/L (22-29); Chloride 101 mmol/L (98-107); Creatinine Clr Calc Pharmacy 86.1485; Globulin 2.7 g/dL (1.3-4.6); Glucose 115 mg/dL (65-115); Immunoglobulin IGG 836 mg/dL (700-1600); Osmolality Calculated 292 mOsm/kg (285-295); Sodium 140 mmol/L (136-145); Total Bilirubin 0.4 mg/dL (0.15-1.2); Total Protein 6.5 g/dL (6.6-8.7)
[2024-10-23 09:50] LABS: Immunoglobulin IGA < 50 mg/dL (70-400); Immunoglobulin IGM < 25 mg/dL (40-230)
[2024-10-23] MEDS: daratumumab-hyaluronidase-fihj 1,800 mg/15 mL SDV 1800 MG SUBCUT (10:35)
[2024-10-24 11:34] LABS: KAPPA LIGHT CHAIN, FREE, SERUM 3.3 mg/L (3.3-19.4); KAPPA/LAMBDA LIGHT CHAINS FREE >2.20 (0.26-1.65); LAMBDA LIGHT CHAIN, FREE, SERU <1.5 mg/L (5.7-26.3)
[2024-10-25 20:04] LABS: ALBUMIN 3.4 g/dL (3.8-4.8); ALPHA 1 GLOBULIN 0.3 g/dL (0.2-0.3); ALPHA 2 GLOBULIN 0.8 g/dL (0.5-0.9); BETA 1 GLOBULIN 0.5 g/dL (0.4-0.6); BETA 2 GLOBULIN 0.3 g/dL (0.2-0.5); GAMMA GLOBULIN 0.7 g/dL (0.8-1.7)
[2024-10-25 21:40] LABS: Immunofixation Serum Normal pattern.
== END 2024-10-23 23:59 | disposition home or self-care (01) ==
PROVIDERS: Nurse Practitioner; PCP Family Medicine; Visit Provider Internal Medicine
DX: Z53.9 Procedure and treatment not carried out, unspecified reason; Z51.12 Encounter for antineoplastic immunotherapy; C90.02 Multiple myeloma in relapse; E03.9 Hypothyroidism, unspecified; D80.1 Nonfamilial hypogammaglobulinemia; Z79.899 Other long term (current) drug therapy; Z95.828 Presence of other vascular implants and grafts; Z79.52 Long term (current) use of systemic steroids
CPT/HCPCS: 36591; 80053; 82784; 83883; 84155; 84165; 85025; 86334; 96402; 99214; J9144

== ENCOUNTER → 2024-11-08 09:04 | Outpatient (BNVA) | payer MEDICARE, MEDICAID, SELFPAY | PROVIDERS: PCP Family Medicine; Visit Provider Nurse Practitioner Family | DX: I10 Essential (primary) hypertension (principal); G47.33 Obstructive sleep apnea (adult) (pediatric); Z85.79 Personal history of other malignant neoplasms of lymphoid, hematopoietic and related tissues | CPT/HCPCS: 99213 ==

== ENCOUNTER 2024-11-20 08:30 | Oncology outpatient (recurring) (ONCR) | payer OTHER, MEDICAID, SELFPAY ==
[2024-11-06] MEDS: diphenhydrAMINE 25 mg Capsule PO (08:23)
[2024-11-06] MEDS: acetaminophen 325 mg Tablet 650 MG PO (08:23)
[2024-11-06] MEDS: immune globulin (Gamunex-C) 40 GM, Immune Globulin (Gamunex-C) 20 GM in empty flexible ... IV (08:47)
[2024-11-06 10:42] VITALS: BP 134/78; PULSE 74; RESP 17; TEMP 36.1; O2SAT 98
[2024-11-20 08:43] LABS: Basophils % 0.2 %; Eosinophils # 0.1 10^3/uL (0.0-0.8); Eosinophils % 1.4 %; Hematocrit 37.5 % (36-47); Lymphocytes # 1.9 10^3/uL (0.8-4.8); Lymphocytes % 21.8 %; Mean Corpuscular Hemoglobin 29.3 pg (27-33); Mean Corpuscular Volume 91.5 fl (85-98); Mean Platelet Volume 11.7 fL (7.4-10.4); Monocytes # 0.8 10^3/uL (0.2-0.9); Monocytes % 9.6 %; Neutrophils # 5.69 10^3/uL (1.8-7.7); Neutrophils % 66.6 %; Nucleated Red Blood Cells % 0 %; Platelet Count 195 10^3/cmm (157-399); Red Cell Distribution Width 14.5 % (12.1-15.1); White Blood Count 8.54 10^3/uL (3.29-11.43)
[2024-11-20 09:03] LABS: Alanine Aminotransferase 17 U/L (0-33); Albumin Level 3.6 g/dL (3.5-5.2); Alkaline Phosphatase 93 U/L (35-105); Anion Gap 14.9 (5-19); Aspartate Amino Transferase 19 U/L (0-32); Blood Urea Nitrogen 15 mg/dL (8-23); Carbon Dioxide 26 mmol/L (22-29); Chloride 102 mmol/L (98-107); Creatinine Clr Calc Pharmacy 95.9057; Globulin 2.5 g/dL (1.3-4.6); Glucose 112 mg/dL (65-115); Osmolality Calculated 290 mOsm/kg (285-295); Potassium 3.9 mmol/L (3.5-5.1); Sodium 139 mmol/L (136-145); Total Bilirubin 0.3 mg/dL (0.15-1.2); Total Protein 6.1 g/dL (6.6-8.7)
[2024-11-20] MEDS: daratumumab-hyaluronidase-fihj 1,800 mg/15 mL SDV 1800 MG SUBCUT (10:21)
[2024-11-20 10:42] VITALS: BP 135/60; PULSE 55; RESP 16; TEMP 36.2; O2SAT 94
[2024-11-21 07:25] LABS: PROTEIN, TOTAL 5.8 g/dL (6.1-8.1)
[2024-11-22 14:38] LABS: KAPPA LIGHT CHAIN, FREE, SERUM 4.6 mg/L (3.3-19.4); KAPPA/LAMBDA LIGHT CHAINS FREE 3.07 (0.26-1.65); LAMBDA LIGHT CHAIN, FREE, SERU 1.5 mg/L (5.7-26.3)
[2024-11-22 17:54] LABS: ALBUMIN 3.3 g/dL (3.8-4.8); ALPHA 1 GLOBULIN 0.3 g/dL (0.2-0.3); ALPHA 2 GLOBULIN 0.7 g/dL (0.5-0.9); BETA 1 GLOBULIN 0.4 g/dL (0.4-0.6); BETA 2 GLOBULIN 0.3 g/dL (0.2-0.5); GAMMA GLOBULIN 0.8 g/dL (0.8-1.7)
[2024-11-24 14:39] LABS: Immunofixation Serum Normal pattern.
== END 2024-11-20 23:59 | disposition home or self-care (01) ==
PROVIDERS: Internal Medicine Medical Oncology; PCP Family Medicine; Visit Provider Internal Medicine
DX: Z53.9 Procedure and treatment not carried out, unspecified reason; Z51.12 Encounter for antineoplastic immunotherapy; C90.02 Multiple myeloma in relapse; D80.1 Nonfamilial hypogammaglobulinemia; R03.0 Elevated blood-pressure reading, without diagnosis of hypertension; E03.9 Hypothyroidism, unspecified; Z95.828 Presence of other vascular implants and grafts; Z79.52 Long term (current) use of systemic steroids; Z92.3 Personal history of irradiation; Z79.899 Other long term (current) drug therapy
CPT/HCPCS: 36591; 80053; 83883; 84155; 84165; 85025; 86334; 96375; 96401; 96413; 99214; J1561; J9144; J9999

== ENCOUNTER 2024-12-18 10:00 | Oncology outpatient (recurring) (ONCR) | payer OTHER, MEDICAID, SELFPAY ==
[2024-11-24 02:04] LABS: CREATININE, 24 HOUR URINE 1.33 g/24 h (0.50-2.15); PROTEIN, TOTAL, 24 HR UR 108 mg/24 h (<150); Protein/Creatinine Ratio 0.081 (<0.150); Protein/Creatinine Ratio 81 mg/g creat (<150)
[2024-11-28 12:04] LABS: ALBUMIN 0 %; ALPHA-1-GLOBULINS 0 %; ALPHA-2-GLOBULINS 0 %; BETA GLOBULINS 0 %; GAMMA GLOBULINS 0 %
[2024-12-04] MEDS: diphenhydrAMINE 25 mg Capsule PO (08:50)
[2024-12-04] MEDS: acetaminophen 325 mg Tablet 650 MG PO (08:50)
[2024-12-04 09:25] VITALS: BP 133/61; PULSE 63; TEMP 36.3; O2SAT 94
[2024-12-04] MEDS: IMMUNE GLOBULIN IV (09:26)
[2024-12-04] MEDS: [UNRECOGNIZED DRUG - OTHER] IV (09:26)
[2024-12-04 09:40] VITALS: BP 131/68; PULSE 58; TEMP 36.2; O2SAT 93
[2024-12-04 10:15] VITALS: BP 145/78; PULSE 59; TEMP 36.2; O2SAT 94
[2024-12-04 10:30] VITALS: BP 139/84; PULSE 61; RESP 17; TEMP 36.2; O2SAT 95
[2024-12-04 11:35] VITALS: BP 143/67; PULSE 61; RESP 17; TEMP 35.9; O2SAT 96
[2024-12-18 10:02] LABS: Basophils % 0.3 %; Eosinophils # 0.1 10^3/uL (0.0-0.8); Eosinophils % 1.3 %; Hematocrit 38.8 % (36-47); Lymphocytes # 2.2 10^3/uL (0.8-4.8); Lymphocytes % 23.2 %; Mean Corpuscular HGB Conc 32.2 g/dL (30-55); Mean Corpuscular Hemoglobin 29.3 pg (27-33); Mean Corpuscular Volume 91.1 fl (85-98); Mean Platelet Volume 11.6 fL (7.4-10.4); Monocytes # 0.8 10^3/uL (0.2-0.9); Monocytes % 8.2 %; Neutrophils # 6.39 10^3/uL (1.8-7.7); Neutrophils % 66.6 %; Nucleated Red Blood Cells % 0 %; Platelet Count 204 10^3/cmm (157-399); Red Blood Count 4.26 10^6/uL (3.85-5.65); Red Cell Distribution Width 14.9 % (12.1-15.1)
[2024-12-18 10:25] LABS: Alanine Aminotransferase 27 U/L (0-33); Albumin Level 3.7 g/dL (3.5-5.2); Alkaline Phosphatase 89 U/L (35-105); Anion Gap 16.1 (5-19); Aspartate Amino Transferase 30 U/L (0-32); Blood Urea Nitrogen 13 mg/dL (8-23); Calcium 9.5 mg/dL (8.5-10.5); Carbon Dioxide 28 mmol/L (22-29); Chloride 100 mmol/L (98-107); Glomerular Filtration Rate 55.6 mL/min (90-130); Glucose 113 mg/dL (65-115); Osmolality Calculated 291 mOsm/kg (285-295); Potassium 4.1 mmol/L (3.5-5.1); Sodium 140 mmol/L (136-145); Total Bilirubin 0.3 mg/dL (0.15-1.2); Total Protein 6.7 g/dL (6.6-8.7)
[2024-12-18] MEDS: daratumumab-hyaluronidase-fihj 1,800 mg/15 mL SDV 1800 MG SUBCUT (12:13)
[2024-12-19 08:00] LABS: PROTEIN, TOTAL 6.2 g/dL (6.1-8.1)
[2024-12-20 13:39] LABS: KAPPA LIGHT CHAIN, FREE, SERUM 4.5 mg/L (3.3-19.4); KAPPA/LAMBDA LIGHT CHAINS FREE 2.65 (0.26-1.65); LAMBDA LIGHT CHAIN, FREE, SERU 1.7 mg/L (5.7-26.3)
[2024-12-20 18:19] LABS: ALBUMIN 3.4 g/dL (3.8-4.8); ALPHA 1 GLOBULIN 0.3 g/dL (0.2-0.3); ALPHA 2 GLOBULIN 0.8 g/dL (0.5-0.9); BETA 1 GLOBULIN 0.5 g/dL (0.4-0.6); BETA 2 GLOBULIN 0.3 g/dL (0.2-0.5); GAMMA GLOBULIN 0.8 g/dL (0.8-1.7)
== END 2024-12-18 23:59 | disposition home or self-care (01) ==
PROVIDERS: Internal Medicine Medical Oncology; PCP Family Medicine; Visit Provider Internal Medicine
DX: Z53.9 Procedure and treatment not carried out, unspecified reason; Z51.12 Encounter for antineoplastic immunotherapy; C90.02 Multiple myeloma in relapse; D80.1 Nonfamilial hypogammaglobulinemia; R03.0 Elevated blood-pressure reading, without diagnosis of hypertension; E03.9 Hypothyroidism, unspecified; Z95.828 Presence of other vascular implants and grafts; Z79.52 Long term (current) use of systemic steroids; Z79.899 Other long term (current) drug therapy
CPT/HCPCS: 36591; 80053; 82570; 83883; 84155; 84165; 84166; 85025; 86335; 96365; 96366; 96401; 99213; J1561; J9144; J9999

== ENCOUNTER 2025-01-15 10:30 | Oncology outpatient (recurring) (ONCR) | payer OTHER, MEDICAID, SELFPAY ==
[2025-01-01 08:56] VITALS: BP 161/52; PULSE 60; RESP 17; TEMP 36.5; O2SAT 94
[2025-01-01] MEDS: diphenhydrAMINE 25 mg Capsule PO (09:45)
[2025-01-01] MEDS: acetaminophen 325 mg Tablet 650 MG PO (09:45)
[2025-01-01] MEDS: IMMUNE GLOBULIN IV (10:00)
[2025-01-01] MEDS: [UNRECOGNIZED DRUG - OTHER] IV (10:00)
[2025-01-01 12:05] VITALS: BP 157/74; PULSE 60; RESP 17; TEMP 35.7; O2SAT 97
[2025-01-15 10:38] LABS: Basophils % 0.3 %; Eosinophils # 0.1 10^3/uL (0.0-0.8); Eosinophils % 1.1 %; Hematocrit 37.4 % (36-47); Lymphocytes % 18.5 %; Mean Corpuscular HGB Conc 32.1 g/dL (30-55); Mean Corpuscular Hemoglobin 29.4 pg (27-33); Mean Corpuscular Volume 91.7 fl (85-98); Mean Platelet Volume 11.8 fL (7.4-10.4); Neutrophils # 7.49 10^3/uL (1.8-7.7); Neutrophils % 70.7 %; Nucleated Red Blood Cells % 0 %; Platelet Count 205 10^3/cmm (157-399); Red Blood Count 4.08 10^6/uL (3.85-5.65); Red Cell Distribution Width 14.7 % (12.1-15.1); White Blood Count 10.59 10^3/uL (3.29-11.43)
[2025-01-15 11:03] LABS: Alanine Aminotransferase 25 U/L (0-33); Albumin Level 3.8 g/dL (3.5-5.2); Alkaline Phosphatase 79 U/L (35-105); Anion Gap 17.9 (5-19); Aspartate Amino Transferase 26 U/L (0-32); Blood Urea Nitrogen 13 mg/dL (8-23); Calcium 9.1 mg/dL (8.5-10.5); Carbon Dioxide 25 mmol/L (22-29); Chloride 100 mmol/L (98-107); Globulin 2.7 g/dL (1.3-4.6); Glomerular Filtration Rate 62.8 mL/min (90-130); Glucose 131 mg/dL (65-115); Osmolality Calculated 290 mOsm/kg (285-295); Potassium 3.9 mmol/L (3.5-5.1); Sodium 139 mmol/L (136-145); Total Bilirubin 0.4 mg/dL (0.15-1.2); Total Protein 6.5 g/dL (6.6-8.7)
[2025-01-15] MEDS: denosumab 120 mg SDV SUBCUT (12:45)
[2025-01-15] MEDS: daratumumab-hyaluronidase-fihj 1,800 mg/15 mL SDV 1800 MG SUBCUT (13:00)
[2025-01-15 15:16] VITALS: BP 124/78; PULSE 78; RESP 18; TEMP 36.6; O2SAT 97
[2025-01-16 06:25] LABS: PROTEIN, TOTAL 6.1 g/dL (6.1-8.1)
[2025-01-16 11:34] LABS: LAMBDA LIGHT CHAIN, FREE, SERU 1.6 mg/L (5.7-26.3)
[2025-01-17 09:00] LABS: ALBUMIN 3.4 g/dL (3.8-4.8); ALPHA 1 GLOBULIN 0.3 g/dL (0.2-0.3); ALPHA 2 GLOBULIN 0.8 g/dL (0.5-0.9); BETA 1 GLOBULIN 0.5 g/dL (0.4-0.6); BETA 2 GLOBULIN 0.3 g/dL (0.2-0.5); GAMMA GLOBULIN 0.8 g/dL (0.8-1.7)
[2025-01-18 21:29] LABS: Immunofixation Serum Normal pattern.
== END 2025-01-15 23:59 | disposition home or self-care (01) ==
PROVIDERS: Internal Medicine Medical Oncology; PCP Family Medicine; Visit Provider Internal Medicine
DX: Z53.9 Procedure and treatment not carried out, unspecified reason; Z51.12 Encounter for antineoplastic immunotherapy; C90.02 Multiple myeloma in relapse; Z79.899 Other long term (current) drug therapy; D80.1 Nonfamilial hypogammaglobulinemia; R03.0 Elevated blood-pressure reading, without diagnosis of hypertension; Z79.52 Long term (current) use of systemic steroids; R52 Pain, unspecified
CPT/HCPCS: 36591; 80053; 83883; 84155; 84165; 85025; 86334; 96365; 96366; 96372; 96402; 96413; 96523; 99214; J0897; J1561; J9144; J9999

== ENCOUNTER 2025-02-12 10:00 | Oncology outpatient (recurring) (ONCR) | payer OTHER, MEDICAID, SELFPAY ==
[2025-01-29 08:53] VITALS: BP 135/74; PULSE 56; TEMP 35.7; O2SAT 97
[2025-01-29 10:05] VITALS: BP 126/63; PULSE 55; RESP 16; TEMP 36; O2SAT 96
[2025-01-29 11:26] VITALS: BP 129/69; PULSE 56; RESP 18; O2SAT 95
[2025-02-12 10:56] LABS: Hematocrit 37.3 % (36-47); Hemoglobin 12.20 g/dL (11.27-16.99); Mean Corpuscular HGB Conc 32.7 g/dL (30-55); Mean Corpuscular Hemoglobin 30.2 pg (27-33); Mean Corpuscular Volume 92.3 fl (85-98); Nucleated Red Blood Cells % 0 %; Platelet Count 205 10^3/cmm (157-399); Red Blood Count 4.04 10^6/uL (3.85-5.65); White Blood Count 9.28 10^3/uL (3.29-11.43)
[2025-02-12 11:03] LABS: Alanine Aminotransferase 26 U/L (0-33); Albumin Level 3.7 g/dL (3.5-5.2); Alkaline Phosphatase 77 U/L (35-105); Anion Gap 16.2 (5-19); Aspartate Amino Transferase 24 U/L (0-32); Blood Urea Nitrogen 14 mg/dL (8-23); Calcium 9.0 mg/dL (8.5-10.5); Carbon Dioxide 26 mmol/L (22-29); Chloride 102 mmol/L (98-107); Creatinine Clr Calc Pharmacy 83.5873; Globulin 2.7 g/dL (1.3-4.6); Glucose 92 mg/dL (65-115); Osmolality Calculated 290 mOsm/kg (285-295); Potassium 4.2 mmol/L (3.5-5.1); Sodium 140 mmol/L (136-145); Total Protein 6.4 g/dL (6.6-8.7)
[2025-02-12] MEDS: daratumumab-hyaluronidase-fihj 1,800 mg/15 mL SDV 1800 MG SUBCUT (11:55)
[2025-02-13 05:04] LABS: PROTEIN, TOTAL 6.1 g/dL (6.1-8.1)
[2025-02-13 14:28] LABS: KAPPA LIGHT CHAIN, FREE, SERUM 2.5 mg/L (3.3-19.4); KAPPA/LAMBDA LIGHT CHAINS FREE >1.67 (0.26-1.65); LAMBDA LIGHT CHAIN, FREE, SERU <1.5 mg/L (5.7-26.3)
[2025-02-13 18:49] LABS: ALPHA 1 GLOBULIN 0.3 g/dL (0.2-0.3); ALPHA 2 GLOBULIN 0.8 g/dL (0.5-0.9); BETA 1 GLOBULIN 0.5 g/dL (0.4-0.6); BETA 2 GLOBULIN 0.3 g/dL (0.2-0.5)
== END 2025-02-12 23:59 | disposition home or self-care (01) ==
PROVIDERS: Internal Medicine Medical Oncology; PCP Family Medicine; Visit Provider Internal Medicine
DX: Z51.11 Encounter for antineoplastic chemotherapy; C90.00 Multiple myeloma not having achieved remission; D80.1 Nonfamilial hypogammaglobulinemia; E03.9 Hypothyroidism, unspecified; R03.0 Elevated blood-pressure reading, without diagnosis of hypertension; Z94.84 Stem cells transplant status; Z95.828 Presence of other vascular implants and grafts; Z79.52 Long term (current) use of systemic steroids; Z79.899 Other long term (current) drug therapy; Z53.9 Procedure and treatment not carried out, unspecified reason
CPT/HCPCS: 36591; 80053; 83883; 84155; 84165; 85025; 86334; 96365; 96366; 96401; 99214; J1561; J9144; J9999

== ENCOUNTER 2025-03-12 09:30 | Oncology outpatient (recurring) (ONCR) | payer OTHER, MEDICAID, SELFPAY ==
[2025-02-26 09:45] VITALS: BP 151/75; PULSE 60; RESP 18; TEMP 35.8; O2SAT 94
[2025-02-26 10:00] VITALS: BP 146/72; PULSE 54; RESP 18; TEMP 36.2; O2SAT 93
[2025-02-26 14:27] VITALS: BP 123/57; PULSE 63; RESP 18; TEMP 36.7; O2SAT 96
[2025-03-12 09:37] LABS: Hematocrit 38.7 % (36-47); Hemoglobin 12.30 g/dL (11.27-16.99); Mean Corpuscular HGB Conc 31.8 g/dL (30-55); Mean Corpuscular Hemoglobin 29.1 pg (27-33); Mean Corpuscular Volume 91.7 fl (85-98); Nucleated Red Blood Cells % 0 %; Platelet Count 201 10^3/cmm (157-399); Red Blood Count 4.22 10^6/uL (3.85-5.65); White Blood Count 9.64 10^3/uL (3.29-11.43)
[2025-03-12 09:58] LABS: Alanine Aminotransferase 23 U/L (0-33); Albumin Level 3.9 g/dL (3.5-5.2); Alkaline Phosphatase 76 U/L (35-105); Anion Gap 15.3 (5-19); Aspartate Amino Transferase 27 U/L (0-32); Blood Urea Nitrogen 15 mg/dL (8-23); Calcium 8.9 mg/dL (8.5-10.5); Carbon Dioxide 27 mmol/L (22-29); Chloride 104 mmol/L (98-107); Globulin 2.7 g/dL (1.3-4.6); Glucose 108 mg/dL (65-115); Osmolality Calculated 295 mOsm/kg (285-295); Potassium 4.3 mmol/L (3.5-5.1); Sodium 142 mmol/L (136-145); Total Protein 6.6 g/dL (6.6-8.7)
[2025-03-12] MEDS: daratumumab-hyaluronidase-fihj 1,800 mg/15 mL SDV 1800 MG SUBCUT (11:53)
[2025-03-12 12:11] VITALS: BP 147/73; PULSE 55; RESP 17; TEMP 36.4; O2SAT 97
[2025-03-13 07:20] LABS: PROTEIN, TOTAL 6.2 g/dL (6.1-8.1)
[2025-03-13 21:54] LABS: ALPHA 1 GLOBULIN 0.3 g/dL (0.2-0.3); ALPHA 2 GLOBULIN 0.8 g/dL (0.5-0.9); BETA 1 GLOBULIN 0.5 g/dL (0.4-0.6); BETA 2 GLOBULIN 0.3 g/dL (0.2-0.5)
== END 2025-03-12 23:59 | disposition home or self-care (01) ==
PROVIDERS: Internal Medicine Medical Oncology; PCP Family Medicine; Visit Provider Internal Medicine
DX: Z51.11 Encounter for antineoplastic chemotherapy; D80.1 Nonfamilial hypogammaglobulinemia; C90.00 Multiple myeloma not having achieved remission; C90.02 Multiple myeloma in relapse; R03.0 Elevated blood-pressure reading, without diagnosis of hypertension; E03.9 Hypothyroidism, unspecified; G62.9 Polyneuropathy, unspecified; Z79.52 Long term (current) use of systemic steroids; Z79.899 Other long term (current) drug therapy; Z95.828 Presence of other vascular implants and grafts; Z53.9 Procedure and treatment not carried out, unspecified reason
CPT/HCPCS: 36591; 80053; 84155; 84165; 85025; 86334; 96365; 96366; 96401; 96409; 99214; J1561; J9144; J9999

== ENCOUNTER 2025-04-09 10:00 | Oncology outpatient (recurring) (ONCR) | payer OTHER, MEDICAID, SELFPAY ==
[2025-03-26 10:21] VITALS: BP 137/56; PULSE 59; RESP 17; TEMP 36.6; O2SAT 93
[2025-03-26 11:06] VITALS: BP 145/69; PULSE 60; RESP 16; TEMP 36.2; O2SAT 94
[2025-03-26 13:00] VITALS: BP 141/60; PULSE 61; RESP 18; TEMP 35.9; O2SAT 96
[2025-04-09 10:09] LABS: Hematocrit 37.6 % (36-47); Hemoglobin 12.20 g/dL (11.27-16.99); Mean Corpuscular HGB Conc 32.4 g/dL (30-55); Mean Corpuscular Hemoglobin 30.1 pg (27-33); Mean Corpuscular Volume 92.8 fl (85-98); Nucleated Red Blood Cells % 0 %; Platelet Count 210 10^3/cmm (157-399); Red Blood Count 4.05 10^6/uL (3.85-5.65); White Blood Count 10.54 10^3/uL (3.29-11.43)
[2025-04-09 10:30] LABS: Alanine Aminotransferase 31 U/L (0-33); Albumin Level 3.9 g/dL (3.5-5.2); Alkaline Phosphatase 89 U/L (35-105); Anion Gap 18.3 (5-19); Aspartate Amino Transferase 32 U/L (0-32); Blood Urea Nitrogen 15 mg/dL (8-23); Calcium 8.9 mg/dL (8.5-10.5); Carbon Dioxide 26 mmol/L (22-29); Chloride 102 mmol/L (98-107); Creatinine Clr Calc Pharmacy 84.3904; Globulin 2.8 g/dL (1.3-4.6); Glucose 126 mg/dL (65-115); Osmolality Calculated 296 mOsm/kg (285-295); Potassium 4.3 mmol/L (3.5-5.1); Sodium 142 mmol/L (136-145); Total Protein 6.7 g/dL (6.6-8.7)
[2025-04-09] MEDS: daratumumab-hyaluronidase-fihj 1,800 mg/15 mL SDV 1800 MG SUBCUT (12:14)
[2025-04-09] MEDS: denosumab 120 mg SDV (Infusion Clinic Only) SUBCUT (12:30)
[2025-04-09 12:35] VITALS: BP 122/78; PULSE 78; RESP 18; TEMP 36.6; O2SAT 98
[2025-04-10 14:35] LABS: PROTEIN, TOTAL 6.4 g/dL (6.1-8.1)
[2025-04-10 21:41] LABS: ALPHA 1 GLOBULIN 0.3 g/dL (0.2-0.3); ALPHA 2 GLOBULIN 0.8 g/dL (0.5-0.9); BETA 1 GLOBULIN 0.5 g/dL (0.4-0.6); BETA 2 GLOBULIN 0.3 g/dL (0.2-0.5)
== END 2025-04-09 23:59 | disposition home or self-care (01) ==
PROVIDERS: Nurse Practitioner Family; PCP Family Medicine; Visit Provider Internal Medicine
DX: Z51.11 Encounter for antineoplastic chemotherapy; C90.00 Multiple myeloma not having achieved remission; D80.1 Nonfamilial hypogammaglobulinemia; C90.02 Multiple myeloma in relapse; R03.0 Elevated blood-pressure reading, without diagnosis of hypertension; E03.9 Hypothyroidism, unspecified; Z95.828 Presence of other vascular implants and grafts; Z79.899 Other long term (current) drug therapy; Z79.52 Long term (current) use of systemic steroids; Z53.9 Procedure and treatment not carried out, unspecified reason
CPT/HCPCS: 36591; 80053; 82784; 84155; 84165; 85025; 86334; 96365; 96366; 96401; 96402; 99214; J0897; J1561; J9144; J9999

== ENCOUNTER 2025-04-23 07:59 | Oncology outpatient (recurring) (ONCR) | payer OTHER, MEDICAID, SELFPAY ==
[2025-04-23 08:21] VITALS: BP 147/72; PULSE 56; RESP 18; TEMP 36.2; O2SAT 92
[2025-04-23 08:47] VITALS: BP 148/64; PULSE 57; RESP 18; TEMP 36.1; O2SAT 92
[2025-04-23 09:03] VITALS: BP 157/62; PULSE 60; RESP 17; TEMP 36.1; O2SAT 93
== END 2025-04-23 23:59 | disposition home or self-care (01) ==
LOC: ONCMED 07:59
PROVIDERS: PCP Family Medicine; Visit Provider Internal Medicine
DX: D80.1 Nonfamilial hypogammaglobulinemia (principal); C90.00 Multiple myeloma not having achieved remission; Z79.620 Long term (current) use of immunosuppressive biologic; Z79.899 Other long term (current) drug therapy
CPT/HCPCS: 96365; 96366; J1561

== ENCOUNTER 2025-05-07 09:30 | Oncology outpatient (recurring) (ONCR) | payer OTHER, MEDICAID, SELFPAY ==
[2025-05-07 10:16] LABS: Hematocrit 37.4 % (36-47); Hemoglobin 12.10 g/dL (11.27-16.99); Mean Corpuscular HGB Conc 32.4 g/dL (30-55); Mean Corpuscular Hemoglobin 29.2 pg (27-33); Mean Corpuscular Volume 90.1 fl (85-98); Nucleated Red Blood Cells % 0 %; Platelet Count 228 10^3/cmm (157-399); Red Blood Count 4.15 10^6/uL (3.85-5.65); White Blood Count 11.56 10^3/uL (3.29-11.43)
[2025-05-07 10:35] LABS: Alanine Aminotransferase 29 U/L (0-33); Albumin Level 3.8 g/dL (3.5-5.2); Alkaline Phosphatase 82 U/L (35-105); Anion Gap 17.2 (5-19); Aspartate Amino Transferase 30 U/L (0-32); Blood Urea Nitrogen 15 mg/dL (8-23); Calcium 8.9 mg/dL (8.5-10.5); Carbon Dioxide 28 mmol/L (22-29); Chloride 101 mmol/L (98-107); Globulin 2.7 g/dL (1.3-4.6); Glucose 112 mg/dL (65-115); Osmolality Calculated 296 mOsm/kg (285-295); Potassium 4.2 mmol/L (3.5-5.1); Sodium 142 mmol/L (136-145); Total Protein 6.5 g/dL (6.6-8.7)
[2025-05-07] MEDS: daratumumab-hyaluronidase-fihj 1,800 mg/15 mL SDV 1800 MG SUBCUT (11:42)
[2025-05-08 06:40] LABS: PROTEIN, TOTAL 6.4 g/dL (6.1-8.1)
[2025-05-08 15:09] LABS: KAPPA LIGHT CHAIN, FREE, SERUM 4.7 mg/L (3.3-19.4); KAPPA/LAMBDA LIGHT CHAINS FREE 3.13 (0.26-1.65); LAMBDA LIGHT CHAIN, FREE, SERU 1.5 mg/L (5.7-26.3)
[2025-05-09 11:04] LABS: ALPHA 1 GLOBULIN 0.3 g/dL (0.2-0.3); ALPHA 2 GLOBULIN 0.9 g/dL (0.5-0.9); BETA 1 GLOBULIN 0.5 g/dL (0.4-0.6); BETA 2 GLOBULIN 0.3 g/dL (0.2-0.5)
== END 2025-05-07 23:59 | disposition home or self-care (01) ==
PROVIDERS: Internal Medicine Medical Oncology; PCP Family Medicine; Visit Provider Nurse Practitioner Family
DX: Z51.12 Encounter for antineoplastic immunotherapy (principal); D80.1 Nonfamilial hypogammaglobulinemia; C90.02 Multiple myeloma in relapse; M81.0 Age-related osteoporosis without current pathological fracture; Z79.899 Other long term (current) drug therapy; Z95.828 Presence of other vascular implants and grafts; R03.0 Elevated blood-pressure reading, without diagnosis of hypertension; Z79.52 Long term (current) use of systemic steroids; G62.9 Polyneuropathy, unspecified
CPT/HCPCS: 36591; 80053; 82784; 83883; 84155; 84165; 85025; 86334; 96401; 99214; J9144

== ENCOUNTER → 2025-05-09 13:10 | Outpatient (BNVA) | payer OTHER, MEDICAID, SELFPAY | PROVIDERS: PCP Family Medicine; Visit Provider Internal Medicine | DX: I10 Essential (primary) hypertension (principal); I35.1 Nonrheumatic aortic (valve) insufficiency; R06.09 Other forms of dyspnea | CPT/HCPCS: 99214 ==

== ENCOUNTER 2025-05-21 11:30 | Oncology outpatient (recurring) (ONCR) | payer OTHER, MEDICAID, SELFPAY ==
[2025-05-21 12:05] VITALS: BP 144/74; PULSE 67; RESP 17; TEMP 36.1; O2SAT 95
[2025-05-21 12:20] VITALS: BP 138/72; PULSE 63; RESP 16; TEMP 35.9; O2SAT 95
[2025-05-21 13:20] VITALS: BP 136/72; PULSE 66; RESP 16; TEMP 36; O2SAT 95
[2025-05-21 14:07] VITALS: BP 124/72; PULSE 70; RESP 18; TEMP 36.6; O2SAT 96
== END 2025-05-24 23:59 | disposition home or self-care (01) ==
LOC: ONCMED 11:31
PROVIDERS: PCP Family Medicine; Visit Provider Nurse Practitioner Family
DX: D80.1 Nonfamilial hypogammaglobulinemia (principal); C90.00 Multiple myeloma not having achieved remission; Z79.620 Long term (current) use of immunosuppressive biologic; Z79.899 Other long term (current) drug therapy
CPT/HCPCS: 96365; 96366; J1561; J9999

== ENCOUNTER 2025-06-04 10:02 | Oncology outpatient (recurring) (ONCR) | payer OTHER, MEDICAID, SELFPAY ==
[2025-06-04 10:29] LABS: Hematocrit 37.1 % (36-47); Hemoglobin 12.10 g/dL (11.27-16.99); Mean Corpuscular HGB Conc 32.6 g/dL (30-55); Mean Corpuscular Hemoglobin 30.0 pg (27-33); Mean Corpuscular Volume 92.1 fl (85-98); Nucleated Red Blood Cells % 0 %; Platelet Count 214 10^3/cmm (157-399); Red Blood Count 4.03 10^6/uL (3.85-5.65); White Blood Count 11.11 10^3/uL (3.29-11.43)
[2025-06-04 10:49] LABS: Alanine Aminotransferase 25 U/L (0-33); Albumin Level 4.0 g/dL (3.5-5.2); Alkaline Phosphatase 80 U/L (35-105); Anion Gap 16.0 (5-19); Aspartate Amino Transferase 34 U/L (0-32); Blood Urea Nitrogen 12 mg/dL (8-23); Calcium 8.8 mg/dL (8.5-10.5); Carbon Dioxide 28 mmol/L (22-29); Chloride 102 mmol/L (98-107); Globulin 2.4 g/dL (1.3-4.6); Glucose 93 mg/dL (65-115); Osmolality Calculated 293 mOsm/kg (285-295); Potassium 4.0 mmol/L (3.5-5.1); Sodium 142 mmol/L (136-145); Total Protein 6.4 g/dL (6.6-8.7)
[2025-06-04] MEDS: FLU VACC TS2025-26(6MOS UP)/PF 45 MCG/0.5 ML SYRINGE IM (12:24)
[2025-06-04] MEDS: daratumumab-hyaluronidase-fihj 1,800 mg/15 mL SDV 1800 MG SUBCUT (13:46)
[2025-06-05 06:49] LABS: PROTEIN, TOTAL 6.2 g/dL (6.1-8.1)
[2025-06-05 12:43] LABS: KAPPA LIGHT CHAIN, FREE, SERUM 3.5 mg/L (3.3-19.4); KAPPA/LAMBDA LIGHT CHAINS FREE 1.84 (0.26-1.65); LAMBDA LIGHT CHAIN, FREE, SERU 1.9 mg/L (5.7-26.3)
[2025-06-06 09:56] LABS: ALPHA 1 GLOBULIN 0.3 g/dL (0.2-0.3); ALPHA 2 GLOBULIN 0.8 g/dL (0.5-0.9); BETA 1 GLOBULIN 0.5 g/dL (0.4-0.6); BETA 2 GLOBULIN 0.3 g/dL (0.2-0.5)
== END 2025-06-04 23:59 | disposition home or self-care (01) ==
PROVIDERS: PCP Family Medicine; Visit Provider Nurse Practitioner Family
DX: Z51.12 Encounter for antineoplastic immunotherapy (principal); Z23 Encounter for immunization; C90.02 Multiple myeloma in relapse; D80.1 Nonfamilial hypogammaglobulinemia; C90.00 Multiple myeloma not having achieved remission; R03.0 Elevated blood-pressure reading, without diagnosis of hypertension; E03.9 Hypothyroidism, unspecified; Z79.899 Other long term (current) drug therapy; Z95.828 Presence of other vascular implants and grafts; Z79.52 Long term (current) use of systemic steroids
CPT/HCPCS: 36591; 80053; 82784; 83883; 84155; 84165; 85025; 86334; 90471; 90656; 96401; 96409; 99214; J9144

== ENCOUNTER 2025-06-18 07:45 | Oncology outpatient (recurring) (ONCR) | payer MEDICARE, MEDICAID, SELFPAY ==
--- NOTE | 2025-06-11 08:47 | USCV_ITS ---
Christina Willard Age: 64 Gender: F : 1960 Exam Date: 06/11/2025 09:31 Ordering Phys: Carissa Lopez APRN Technologist: Exam Location: [facility] [place] Indication: as ai BP: 146 / 80 HR: 62 Rhythm: Sinus Technical Quality: Adequate MEASUREMENTS (Male / Female) Normal Values 2D ECHO LV Diastolic Diameter PLAX 4.5 cm 4.2 - 5.9 / 3.9 - 5.3 cm IVS Diastolic Thickness 1.8 cm 0.6 - 1.0 / 0.6 - 0.9 cm IVS Systolic Thickness 2.4 cm LVPW Diastolic Thickness 1.4 cm 0.6 - 1.0 / 0.6 - 0.9 cm LVPW Systolic Thickness 1.9 cm LVOT Diameter 2.1 cm LV Ejection Fraction 2D Teich 64.6 % LV Ejection Fraction MOD 4C 65.1 % LV Ejection Fraction MOD 2C 61.7 % LV Ejection Fraction 2C AL 62.8 % LA Diameter 3.9 cm RA Systolic Volume 4C AL 64.6 ml RA Systolic Volume 4C MOD 60.2 ml LA Sys Volume AL 74.9 cm cubed LA Sys Volume Index AL 29.9 cm cubed/m squared Aorta at Sinotubular Diameter 2.8 cm M-MODE LA Ao Ratio MM 1.3 AV Cusp Separation MM 2.8 cm DOPPLER AV Peak Velocity 332.2 cm/s AV Area Cont Eq vti 1.7 cm squared AV Area Cont Eq pk 1.2 cm squared MV Peak Velocity 87.0 cm/s MV Area PHT 3.5 cm squared Mitral E to A Ratio 1.0 TV Peak Velocity 274.0 cm/s TR Peak Velocity 295.0 cm/s TR Peak Gradient 34.8 mmHg TV Peak E Velocity 109.0 cm/s PV Peak Velocity 95.0 cm/s FINDINGS Left Ventricle Normal left ventricular size and systolic function, EF 62%.mild left ventricular hypertrophy. No regional wall motion abnormalities. Grade I/IV diastolic dysfunction (abnormal relaxation filling pattern), normal to mildly elevated filling pressures. Right Ventricle Normal right ventricular size and systolic function. Right Atrium Normal right atrial size. Left Atrium Normal left atrial size. IA Septum Possibly intact Mitral Valve No gross abnormalities noted Aortic Valve Thickened aortic valve. Moderate aortic valve regurgitation. Mild aortic valve stenosis, mean gradient 9.5 mmHg, KATERINA 1.7 cm squared. Peak velocity of 2.86 m/s with a peak gradient of 33 mmHg Tricuspid Valve Trace tricuspid valve regurgitation. Estimated pulmonary artery peak systolic pressure 38 mmHg Pulmonic Valve Mild pulmonary valve regurgitation. Pericardium No pericardial effusion. Aorta Normal aortic annulus size. IVC Inferior vena cava not visualized. CONCLUSIONS Normal left ventricular size and systolic function, EF 62%.mild left ventricular hypertrophy. No regional wall motion abnormalities. Grade I/IV diastolic dysfunction (abnormal relaxation filling pattern), normal to mildly elevated filling pressures. Mild aortic valve stenosis, mean gradient 9.5 mmHg, KATERINA 1.7 cm squared. Peak velocity of 2.86 m/s with a peak gradient of 33 mmHg. Moderate aortic valve regurgitation. Trace tricuspid valve regurgitation. Mild pulmonary valve regurgitation. Compared to the study from 01/17/2024, the aortic stenosis and regurgitation appear less severe Dr Sadie Sims MD [facility] (Electronically Signed) Final Date: 13 June 2025 09:56 S
[2025-06-18 07:58] VITALS: BP 182/80; PULSE 61; RESP 16; TEMP 36.4; O2SAT 99
[2025-06-18 10:48] VITALS: BP 137/64; PULSE 62; RESP 17; TEMP 36.4; O2SAT 96
== END 2025-06-23 23:59 | disposition home or self-care (01) ==
PROVIDERS: PCP Family Medicine; Visit Provider Nurse Practitioner Family
DX: Z51.12 Encounter for antineoplastic immunotherapy (principal); C90.00 Multiple myeloma not having achieved remission; D80.1 Nonfamilial hypogammaglobulinemia; Z79.620 Long term (current) use of immunosuppressive biologic; Z79.899 Other long term (current) drug therapy
CPT/HCPCS: 93306; 96365; 96366; J1561; J9999

== ENCOUNTER 2025-07-02 10:44 | Oncology outpatient (recurring) (ONCR) | payer MEDICARE, MEDICAID, SELFPAY ==
[2025-07-02 11:01] LABS: Hematocrit 38.7 % (36-47); Hemoglobin 12.50 g/dL (11.27-16.99); Mean Corpuscular HGB Conc 32.3 g/dL (30-55); Mean Corpuscular Hemoglobin 28.7 pg (27-33); Mean Corpuscular Volume 89.0 fl (85-98); Nucleated Red Blood Cells % 0 %; Platelet Count 225 10^3/cmm (157-399); Red Blood Count 4.35 10^6/uL (3.85-5.65); White Blood Count 11.55 10^3/uL (3.29-11.43)
[2025-07-02 11:19] LABS: Alanine Aminotransferase 28 U/L (0-33); Albumin Level 4.0 g/dL (3.5-5.2); Alkaline Phosphatase 86 U/L (35-105); Anion Gap 15.1 (5-19); Aspartate Amino Transferase 31 U/L (0-32); Blood Urea Nitrogen 15 mg/dL (8-23); Calcium 9.1 mg/dL (8.5-10.5); Carbon Dioxide 29 mmol/L (22-29); Chloride 98 mmol/L (98-107); Globulin 2.9 g/dL (1.3-4.6); Glucose 109 mg/dL (65-115); Osmolality Calculated 287 mOsm/kg (285-295); Potassium 4.1 mmol/L (3.5-5.1); Sodium 138 mmol/L (136-145); Total Protein 6.9 g/dL (6.6-8.7)
[2025-07-02] MEDS: denosumab 120 mg SDV (Infusion Clinic Only) SUBCUT (13:25)
[2025-07-02] MEDS: daratumumab-hyaluronidase-fihj 1,800 mg/15 mL SDV 1800 MG SUBCUT (13:26)
[2025-07-03 08:29] LABS: PROTEIN, TOTAL 6.4 g/dL (6.1-8.1)
[2025-07-03 19:43] LABS: ALPHA 1 GLOBULIN 0.3 g/dL (0.2-0.3); ALPHA 2 GLOBULIN 0.8 g/dL (0.5-0.9); BETA 1 GLOBULIN 0.5 g/dL (0.4-0.6); BETA 2 GLOBULIN 0.3 g/dL (0.2-0.5)
[2025-07-04 15:06] LABS: KAPPA LIGHT CHAIN, FREE, SERUM 4.4 mg/L (3.3-19.4); KAPPA/LAMBDA LIGHT CHAINS FREE >2.93 (0.26-1.65); LAMBDA LIGHT CHAIN, FREE, SERU <1.5 mg/L (5.7-26.3)
== END 2025-07-02 23:59 | disposition home or self-care (01) ==
PROVIDERS: Internal Medicine Medical Oncology; PCP Family Medicine; Visit Provider Nurse Practitioner Family
DX: C90.02 Multiple myeloma in relapse (principal); D80.1 Nonfamilial hypogammaglobulinemia; R03.0 Elevated blood-pressure reading, without diagnosis of hypertension; Z79.899 Other long term (current) drug therapy; Z94.84 Stem cells transplant status; Z95.828 Presence of other vascular implants and grafts; Z79.52 Long term (current) use of systemic steroids
CPT/HCPCS: 36591; 80053; 83883; 84155; 84165; 85025; 86334; 96372; 96401; 99214; J0897; J9144

== ENCOUNTER 2025-07-16 10:34 | Oncology outpatient (recurring) (ONCR) | payer MEDICARE, MEDICAID, SELFPAY ==
[2025-07-16 11:24] VITALS: BP 147/84; PULSE 58; RESP 17; TEMP 36.2; O2SAT 92
[2025-07-16 11:43] VITALS: BP 121/69; PULSE 57; RESP 16; TEMP 36.2; O2SAT 92
[2025-07-16 12:14] VITALS: BP 145/62; PULSE 58; TEMP 35.8; O2SAT 95
[2025-07-16 13:26] VITALS: BP 111/68; PULSE 67; RESP 17; TEMP 35.9; O2SAT 95
== END 2025-07-24 23:59 | disposition home or self-care (01) ==
PROVIDERS: PCP Family Medicine; Visit Provider Nurse Practitioner Family
DX: D80.1 Nonfamilial hypogammaglobulinemia (principal); Z79.899 Other long term (current) drug therapy; Z79.620 Long term (current) use of immunosuppressive biologic
CPT/HCPCS: 96365; 96366; J1561; J9999